=== PATIENT | female | born 1950 | race Caucasian/White ===

== ENCOUNTER → 2016-12-05 | Outpatient (CLI) | payer MEDICARE ==
--- NOTE | 2016-12-05 12:46 | CONS ---
DATE OF CONSULTATION: A 66-year-old female patient diagnosed having MATTEO back in 2009 under the care of Dr. Martinez and she was found to have an AHI of 28. At that time, the patient was given CPAP at a pressure of 8 cm of water. The treatment has been unsuccessful and the patient failed to comply with treatment and for the several years she has not been using her CPAP therapy at all. I reviewed the titration, and I see that it was an unsuccessful titration. Knowing that, the patient was initially started on CPAP and later onto a BiPAP and she continued to have respiratory events, probably some of them were central. As such, the patient did not seek comply with treatment and she has become more symptomatic and she is coming in for further advice. Note that she has lost around 20 pounds since her original study, yet she remains morbidly obese with a BMI of 54. Her sleep is fragmented. She wakes up constantly in the middle of the night. She thinks she averages around 4 to 5 hours of sleep at night and she feels tired and fatigued during the day. She is having some episodes of sleeptalking. Her legs are also reported to be restless throughout the night. No nocturnal heartburn. No nocturnal chest pain. No nocturia. No grinding of the teeth. Her current [place] score is at 12. PAST MEDICAL HISTORY: 1. Obstructive sleep apnea; details discussed above. AHI of 28 at baseline. 2. Hypertension. 3. History of CHF. 4. Depression/anxiety. 5. Restless leg syndrome. Surgical history includes hysterectomy, bladder repair, bowel repair in 2009, tonsillectomy. Drug allergies are not known. Outpatient medications are vitamin B12 and vitamin D. SOCIAL HISTORY: Nonsmoker. No history of alcoholism. No history of IV drugs. FAMILY HISTORY: Noncontributory. Negative for obstructive sleep apnea. REVIEW OF SYSTEMS: A 12-point review of systems was done and positive findings were all mentioned above in the history of present illness. Of significance is her poor sleep quality and sleep fragmentation. No anxiety or panic attacks. No depression. No claustrophobia, no reports that gastrointestinal symptoms. No genitourinary symptoms. No falls, no skeletal pain or injuries. No sleep paralysis, no hallucinations or cataplexy. BP is 160/87, pulse 68, respirations 16, temperature 97.9 and sats of 97% on room air. Height is 4,10, weight is 263. BMI is 54. GENERAL APPEARANCE: Calm and comfortable, obese. HEENT: Crowding of the posterior pharynx. There is no goiter or neck masses. LUNGS: Diminished; otherwise clear. Heart sounds are regular rate and rhythm, normal S1, S2. No S3, no S4. No murmurs. ABDOMEN: Soft, nontender. No organomegaly. EXTREMITIES: Trace edema. There is no cyanosis or clubbing. IMPRESSION: 1. Symptomatic obstructive sleep apnea with an apnea-hypopnea index of 28 based, based on the sleep study was done in 2009. Treatment has not been successful. In fact, the CPAP titration itself was not successful. Patient is coming in for reevaluation. 2. Morbid obesity; body mass index of 54. 3. Sleep fragmentation, secondary to above. 4. Chronic hypersomnia, Scotland score of 12. PLAN: 1. Continue weight loss. 2. Set up this patient for another CPAP titration. I intended to update the patient's pressure and mask interface and hopefully this treatment should be more successful. Will continue to follow and make further recommendations based on her progress.
== END | disposition home or self-care (01) ==
LOC: SLEEP 10:36
PROVIDERS: ATTEND Internal Medicine Critical Care Medicine
DX: G47.33 Obstructive sleep apnea (adult) (pediatric) (principal); G47.8 Other sleep disorders; G47.13 Recurrent hypersomnia; E66.01 Morbid (severe) obesity due to excess calories; Z68.43 Body mass index [BMI] 50.0-59.9, adult; Z99.89 Dependence on other enabling machines and devices

== ENCOUNTER → 2017-02-20 | Outpatient (CLI) | payer MEDICARE ==
--- NOTE | 2017-02-20 18:58 | PN ---
DATE OF SERVICE: 02/20/2017 This is a 66-year-old female patient diagnosed having MATTEO with an AHI of 28. She is coming in for a compliancy check. The patient is doing extremely well. She reports improvement in her sleep quality. She is averaging around 5.2 hours of CPAP use every night. Her CPAP use is for 27 out of 30 days over the past month and she is achieving more than 4 hours' usage about 60% of the time. Her AHI is down to 1.3 while on treatment. She is using AirFit P10 nasal pillows. No complaints at all. Much more alert and awake during the day. She is reporting improvement in her level of alertness. BP is 164/69, pulse 66, respirations 18, temperature 97.7. Weight is 266, BMI 53.7. Saturations are 99% on room air. Height is 4 feet 11 inches. GENERAL APPEARANCE: Calm and comfortable. HEENT: Short neck. Crowding of posterior pharynx. No goiter or neck masses. LUNGS: Clear to auscultation. Heart sounds are regular rate and rhythm. Normal S1, S2. Abdomen is soft, non-tender. No organomegaly. EXTREMITIES: No edema. No cyanosis or clubbing. IMPRESSION: 1. Symptomatic obstructive sleep apnea with an AHI of 28, consistent with moderate to severe disease. The patient continues to have successful CPAP therapy. 2. Hypersomnia, improved. 3. Congestive heart failure. 4. Hypertension. 5. Obesity. 6. Chronic anxiety disorder. 7. Depression. 8. Body mass index of 53.7. PLAN: Patient's treatment is successful. She demonstrates adequate clinical response and compliance. Continue CPAP therapy at the same level of pressure. See me back in a year's time in followup or earlier if needed. JASVIR
== END ==
LOC: SLEEP 13:46
PROVIDERS: ATTEND Internal Medicine Critical Care Medicine
DX: G47.33 Obstructive sleep apnea (adult) (pediatric) (principal); G47.10 Hypersomnia, unspecified; I10 Essential (primary) hypertension; E66.9 Obesity, unspecified; F41.9 Anxiety disorder, unspecified; F32.9 Major depressive disorder, single episode, unspecified; Z68.43 Body mass index [BMI] 50.0-59.9, adult

== ENCOUNTER 2017-06-25 14:24 | Emergency (ER) | payer MEDICARE ==
[2017-06-25 14:29] VITALS: RESP 18
--- NOTE | 2017-06-25 15:56 | ED ---
General Adult HPI - General Chief complaint: Recheck/Abnormal Lab/Rx Stated complaint: facial & leg swelling Time Seen by Provider: 06/25/17 15:40 Source: patient, RN notes reviewed Mode of arrival: wheelchair Limitations: no limitations - History of Present Illness Initial comments: Patient 66-year-old female who presents emergency room today with a chief complaint of cough congestion over the last few weeks. Is positive sputum production. Patient does admit to chills. Admits to weight gain. States that she's been feeling more short of breath recently with this cough congestion. Patient also is that she had some swelling to the right side of the face last week. She states was not domicile and some tenderness. She describes it as feeling like a tooth ache. She wears dentures. Patient also admits that since increased swelling to her lower extremities bilaterally. Patient denies any other complaints or associated symptoms. Patient denies any recent chest pain, back pain, abdominal pain, nausea or vomiting, numbness or tingling, dysuria or hematuria, constipation or diarrhea, headaches or visual changes, or any other complaints. - Related Data Home Medications Medication Instructions Recorded Confirmed Cholecalciferol [Vitamin D3] 1,000 unit PO DAILY 06/25/17 06/25/17 Cyanocobalamin (Vitamin B-12) 1,000 mcg PO DAILY 06/25/17 06/25/17 [Vitamin B-12] Previous Rx's Medication Instructions Recorded Albuterol Inhaler [Ventolin Hfa 1 - 2 puff INHALATION Q4-6H PRN #1 06/25/17 Inhaler] inhaler Amoxicillin/Potassium Clav 1 each PO Q12HR #20 tab 06/25/17 [Augmentin 875-125 Tablet] Allergies Allergy/AdvReac Type Severity Reaction Status Date / Time zinc Allergy Rash/Hives Verified 06/25/17 16:20 Review of Systems ROS Statement: Those systems with pertinent positive or pertinent negative responses have been documented in the HPI. ROS Other: All systems not noted in ROS Statement are negative. Past Medical History Past Medical History: Osteoarthritis (OA), Sleep Apnea/CPAP/BIPAP Additional Past Medical History / Comment(s): USES C-PAP MACHINE, VARICOSE VEINS , SWELLING IN LEGS AND FEET, WOUND RT FOOT History of Any Multi-Drug Resistant Organisms: None Reported Past Surgical History: Bladder Surgery, Hysterectomy, Tonsillectomy Additional Past Surgical History / Comment(s): BLADDER SLING Past Anesthesia/Blood Transfusion Reactions: No Reported Reaction Past Psychological History: Anxiety, Depression Smoking Status: Never smoker Past Alcohol Use History: Rare Past Drug Use History: None Reported - Past Family History Mother Family Medical History: Cancer Sister(s) Family Medical History: Cancer, Deep Vein Thrombosis (DVT), Pulmonary Embolus Additional Family Medical History / Comment(s): SISTER #1 UTERINE CA. SISTER # 2 UTERINE AND BREAST CA. Sister- 2-PEs, 3- DVTs General Exam - General Exam Comments Initial Comments: General: The patient is awake and alert, in no distress, and does not appear acutely ill. Eye: Pupils are equal, round and reactive to light, extra-ocular movements are intact. No nystagmus. There is normal conjunctiva bilaterally. No signs of icterus. Ears, nose, mouth and throat: There are moist mucous membranes and no oral lesions. Neck: The neck is supple, there is no tenderness or JVD. Cardiovascular: There is a regular rate and rhythm. No murmur, rub or gallop is appreciated. Respiratory: Lungs are clear to auscultation, respirations are non-labored, breath sounds are equal. No wheezes, stridor, rales, or rhonchi. Gastrointestinal: Soft, non-distended, non-tender abdomen without masses or organomegaly noted. There is no rebound or guarding present. No CVA tenderness. Bowel sounds are unremarkable. Musculoskeletal: Normal ROM, no tenderness. Strength 5/5. Sensation intact. Pulses equal bilaterally 2+. Neurological: A&O x 3. CN II-XII intact, There are no obvious motor or sensory deficits. Coordination appears grossly intact. Speech is normal. Skin: Skin is warm and dry and no rashes or lesions are noted. Psychiatric: Cooperative, appropriate mood & affect, normal judgment. Limitations: no limitations Course Vital Signs 06/25/17 06/25/17 14:26 16:14 Temperature 97.5 F L Pulse Rate 76 69 Respiratory 18 18 Rate Blood Pressure 200/92 158/70 O2 Sat by Pulse 100 97 Oximetry EKG Findings - EKG Comments: EKG Findings:: EKG performed at 1613: A 12-lead EKG was performed and interpreted by me as showing the following: Rate is 69, and rhythm is normal sinus. There are normal QRS complexes and normal R-wave progression. ST segments have no elevation or depression, and DE segments appear normal. Medical Decision Making - Medical Decision Making Patient is a 66-year-old female presenting today with a chief complaint of cough congestion with some chills and weight gain over the last few weeks. Patient's labs are within normal limits. Patient's chest x-ray shows no acute abnormalities. Patient's vitals are stable. Patient does describe some swelling to the face over the last week patient swallows gone away still having some discomfort in right side of her tooth. Patient's also had cough congestion for the last few weeks. Will be started on antibiotics cover for dental abscess versus bronchitis infection. Advised follow-up the family doctor over the next 2 days. Patient advised to use Mucinex for her cough and congestion. Also be given albuterol inhaler. Advised return here to emergency room if any symptoms increase worsen or for any other concerns. - Lab Data Result diagrams: 06/25/17 16:15 06/25/17 16:15 Lab Results 06/25/17 06/25/17 06/25/17 Range/Units 16:15 16:15 16:15 WBC 4.9 (3.8-10.6) k/uL RBC 4.31 (3.80-5.40) m/uL Hgb 13.1 (11.4-16.0) gm/dL Hct 39.5 (34.0-46.0) % MCV 91.6 (80.0-100.0) fL MCH 30.3 (25.0-35.0) pg MCHC 33.1 (31.0-37.0) g/dL RDW 12.2 (11.5-15.5) % Plt Count 275 (150-450) k/uL Neutrophils % 63 % Lymphocytes % 25 % Monocytes % 8 % Eosinophils % 2 % Basophils % 0 % Neutrophils # 3.1 (1.3-7.7) k/uL Lymphocytes # 1.2 (1.0-4.8) k/uL Monocytes # 0.4 (0-1.0) k/uL Eosinophils # 0.1 (0-0.7) k/uL Basophils # 0.0 (0-0.2) k/uL PT (9.0-12.0) sec INR (<1.2) APTT (22.0-30.0) sec Sodium 140 (137-145) mmol/L Potassium 4.5 (3.5-5.1) mmol/L Chloride 106 (98-107) mmol/L Carbon Dioxide 24 (22-30) mmol/L Anion Gap 10 mmol/L BUN 14 (7-17) mg/dL Creatinine 0.60 (0.52-1.04) mg/dL Est GFR (MDRD) Af Amer >60 (>60 ml/min/1.73 sqM) Est GFR (MDRD) Non-Af >60 (>60 ml/min/1.73 sqM) Glucose 97 (74-99) mg/dL Calcium 9.5 (8.4-10.2) mg/dL Total Bilirubin 0.7 (0.2-1.3) mg/dL AST 18 (14-36) U/L ALT 29 (9-52) U/L Alkaline Phosphatase 85 (38-126) U/L Total Creatine Kinase 41 (30-135) U/L CK-MB (CK-2) 0.3 (0.0-2.4) ng/mL CK-MB (CK-2) Rel Index 0.7 Troponin I <0.012 (0.000-0.034) ng/mL NT-Pro-B Natriuret Pep pg/mL Total Protein 7.4 (6.3-8.2) g/dL Albumin 3.9 (3.5-5.0) g/dL Urine Color Urine Appearance (Clear) Urine pH (5.0-8.0) Ur Specific [place] (1.001-1.035) Urine Protein (Negative) Urine Glucose (UA) (Negative) Urine Ketones (Negative) Urine Blood (Negative) Urine Nitrite (Negative) Urine Bilirubin (Negative) Urine Urobilinogen (<2.0) mg/dL Ur Leukocyte Esterase (Negative) 06/25/17 06/25/17 06/25/17 Range/Units 16:15 16:15 16:45 WBC (3.8-10.6) k/uL RBC (3.80-5.40) m/uL Hgb (11.4-16.0) gm/dL Hct (34.0-46.0) % MCV (80.0-100.0) fL MCH (25.0-35.0) pg MCHC (31.0-37.0) g/dL RDW (11.5-15.5) % Plt Count (150-450) k/uL Neutrophils % % Lymphocytes % % Monocytes % % Eosinophils % % Basophils % % Neutrophils # (1.3-7.7) k/uL Lymphocytes # (1.0-4.8) k/uL Monocytes # (0-1.0) k/uL Eosinophils # (0-0.7) k/uL Basophils # (0-0.2) k/uL PT 10.5 (9.0-12.0) sec INR 1.0 (<1.2) APTT 24.9 (22.0-30.0) sec Sodium (137-145) mmol/L Potassium (3.5-5.1) mmol/L Chloride (98-107) mmol/L Carbon Dioxide (22-30) mmol/L Anion Gap mmol/L BUN (7-17) mg/dL Creatinine (0.52-1.04) mg/dL Est GFR (MDRD) Af Amer (>60 ml/min/1.73 sqM) Est GFR (MDRD) Non-Af (>60 ml/min/1.73 sqM) Glucose (74-99) mg/dL Calcium (8.4-10.2) mg/dL Total Bilirubin (0.2-1.3) mg/dL AST (14-36) U/L ALT (9-52) U/L Alkaline Phosphatase (38-126) U/L Total Creatine Kinase (30-135) U/L CK-MB (CK-2) (0.0-2.4) ng/mL CK-MB (CK-2) Rel Index Troponin I (0.000-0.034) ng/mL NT-Pro-B Natriuret Pep 167 pg/mL Total Protein (6.3-8.2) g/dL Albumin (3.5-5.0) g/dL Urine Color Yellow Urine Appearance Clear (Clear) Urine pH 7.0 (5.0-8.0) Ur Specific [place] 1.005 (1.001-1.035) Urine Protein Negative (Negative) Urine Glucose (UA) Negative (Negative) Urine Ketones Negative (Negative) Urine Blood Negative (Negative) Urine Nitrite Negative (Negative) Urine Bilirubin Negative (Negative) Urine Urobilinogen <2.0 (<2.0) mg/dL Ur Leukocyte Esterase Negative (Negative) Disposition Clinical Impression: Bronchitis Disposition: HOME SELF-CARE Condition: Good Instructions: Acute Bronchitis (ED) Additional Instructions: Please use medication as discussed. Please follow-up with family doctor in the next 2 days. Please return to emergency room if the symptoms increase or worsen or for any other concerns. Prescriptions: Albuterol Inhaler [Ventolin Hfa Inhaler] 1 - 2 puff INHALATION Q4-6H PRN #1 inhaler PRN Reason: Cough Amoxicillin/Potassium Clav [Augmentin 875-125 Tablet] 1 each PO Q12HR #20 tab Referrals: Tasha Leon DO [Primary Care Provider] - 1-2 days Time of Disposition: 17:33
[2017-06-25 16:32] LABS: Basophils % (A) 0 %; CH 30.5; CHCM 33.4; Eosinophils # (A) 0.1 k/uL (0-0.7); Eosinophils % (A) 2 %; HCT 39.5 % (34.0-46.0); HDW 2.41; HGB 13.1 gm/dL (11.4-16.0); Luc # (Auto) 0.13; Luc % (Auto) 3; Lymphocytes # (A) 1.2 k/uL (1.0-4.8); Lymphocytes % (A) 25 %; MCH 30.3 pg (25.0-35.0); MCHC 33.1 g/dL (31.0-37.0); MCV 91.6 fL (80.0-100.0); Mean Platelet Volume 7.9; Monocytes # (A) 0.4 k/uL (0-1.0); Monocytes % (A) 8 %; Neutrophils # (A) 3.1 k/uL (1.3-7.7); Neutrophils % (A) 63 %; RBC 4.31 m/uL (3.80-5.40); RDW 12.2 % (11.5-15.5); WBC 4.9 k/uL (3.8-10.6); WBC (Perox) 4.97
--- NOTE | 2017-06-25 16:37 | XR ---
EXAMINATION TYPE: XR chest 2V DATE OF EXAM: 06/25/2017 COMPARISON: NONE HISTORY: Cough and cold symptoms for 3 weeks TECHNIQUE: Frontal and lateral views of the chest are obtained. FINDINGS: There is no heart failure. Heart size is normal. There is slight coarsening of interstitia l markings. There is no pleural effusion. There is spurring in the thoracic spine. IMPRESSION: Minimal pulmonary fibrotic changes. No heart failure. No pulmonary consolidation.
[2017-06-25 16:41] LABS: Partial Thromboplastin Time 24.9 sec (22.0-30.0); Prothrombin Time 10.5 sec (9.0-12.0)
[2017-06-25 16:43] LABS: ALT 29 U/L (9-52); AST 18 U/L (14-36); Alkaline Phosphatase 85 U/L (38-126); Anion Gap 10 mmol/L; Blood Urea Nitrogen 14 mg/dL (7-17); Calcium 9.5 mg/dL (8.4-10.2); Carbon Dioxide 24 mmol/L (22-30); Chloride 106 mmol/L (98-107); Glucose 97 mg/dL (74-99); Non-African American GFR(MDRD) >60 (>60 ml/min/1.73 sqM); Potassium 4.5 mmol/L (3.5-5.1); Sodium 140 mmol/L (137-145); Total Bilirubin 0.7 mg/dL (0.2-1.3); Total Protein 7.4 g/dL (6.3-8.2)
[2017-06-25 17:00] LABS: Creatine Kinase 41 U/L (30-135)
[2017-06-25 17:01] LABS: Appearance,Urine Clear (Clear); Bilirubin,Urine Negative (Negative); Glucose,Urine (UA) Negative (Negative); Ketones,Urine Negative (Negative); Leukocyte Esterase,Urine Negative (Negative); Nitrite,Urine Negative (Negative); Protein,Urine Negative (Negative); Specific Gravity,Urine 1.005 (1.001-1.035); UA Billing (MACRO vs. MICRO) CHEM; Urobilinogen,Urine <2.0 mg/dL (<2.0)
[2017-06-25 17:13] LABS: Creatine Kinase MB 0.3 ng/mL (0.0-2.4); Troponin I <0.012 ng/mL (0.000-0.034)
[2017-06-25 17:34] VITALS: BP 179/82; PULSE 78; TEMP 97
== END 2017-06-25 17:48 | disposition home or self-care (01) ==
LOC: EC 14:24
DX: J40 Bronchitis, not specified as acute or chronic (principal); R63.5 Abnormal weight gain; R22.0 Localized swelling, mass and lump, head; M79.89 Other specified soft tissue disorders; Z79.899 Other long term (current) drug therapy; Z91.048 Other nonmedicinal substance allergy status
CPT/HCPCS: 36415; 71020; 80053; 81003; 82550; 82553; 83880; 84484; 85025; 85610; 85730; 87040; 87086; 93005; 99284

== ENCOUNTER 2018-10-25 14:13 | Inpatient (IN) | payer MEDICARE ==
[2018-10-25] MEDS ORDERED: ASPIRIN 81 MG PO STA (14:45)
--- NOTE | 2018-10-25 14:48 | ED ---
General Adult HPI - General Chief complaint: Chest Pain Stated complaint: Abn stress test Time Seen by Provider: 10/25/18 14:27 Source: patient Mode of arrival: wheelchair Limitations: no limitations - History of Present Illness Initial comments: Dictation was produced using [employer] dictation software. please excuse any grammatical, word or spelling errors. Chief Complaint: 67-year-old female past medical history of sleep apnea presents with abnormal stress test. History of Present Illness: Patient is 67-year-old female. She had a cardiac stress test performed today. Cardiac stress test was ordered by primary care mary jane hodges. Patient reports that over the past several weeks she's been having worsening exertional chest pain and shortness of breath. She had stress test performed today. She was arriving home when she will receive a call from her primary care physician or she was instructed to come to the emergency department for further care. Patient denies any family history of cardiac disease. Patient denies any family history of cardiac disease. She does report having rheumatic fever as a child. Patient reports that her chest pain and shortness of breath are related to exertion that has been progressing. She reports that her pain is relieved with rest. The ROS documented in this emergency department record has been reviewed and confirmed by me. Those systems with pertinent positive or negative responses have been documented in the HPI. All other systems are other negative and/or noncontributory. PHYSICAL EXAM: General Impression: Alert and oriented x3, not in acute distress HEENT: Normocephalic atraumatic, extra-ocular movements intact, pupils equal and reactive to light bilaterally, mucous membranes moist. Cardiovascular: Heart regular rate and rhythm, S1&S2 audible, no murmurs, rubs or gallops Chest: Lungs clear to auscultation bilaterally, no rhonchi, no wheeze, no rales Abdomen: Bowel sounds present, abdomen soft, non-tender, non-distended, no organomegaly Musculoskeletal: Pulses present and equal in all extremities, no peripheral edema Motor: no focal deficits noted Neurological: CN II-XII grossly intact, no focal motor or sensory deficits noted Skin: Intact with no visualized rashes Psych: Normal affect and mood ED course: 67 yo female presents with chest pain concerning for acute coronary syndrome and positive outpatient stress test. As upon arrival are within normal limits. Patient does complain of some mild chest pain that has been improving while at rest. Patient reevaluated improvement of symptoms. EKG does not show any findings of ischemia or infarction.Laboratory evaluation obtained. CBC, coag panel, metabolic panel is unremarkable. Patient has a troponin of 0.013. Patient given an aspirin. Patient to be admitted to [facility] with consultation to cardiology. At this point given patient's relief of chest symptoms however not indicated at this time. Patient otherwise in no acute distress. Patient understandable and agreeable to disposition. EKG interpretation: Ventricular rate 80, normal sinus rhythm, TX interval 174, QRS 82, QTc 449. No TX prolongation, no QTC prolongation, no ST or T-wave changes noted. Overall, this EKG is unremarkable - Related Data Home Medications Medication Instructions Recorded Confirmed Albuterol Inhaler [Ventolin Hfa 1 - 2 puff INHALATION RT-Q4H PRN 10/25/18 10/25/18 Inhaler] Allergies Allergy/AdvReac Type Severity Reaction Status Date / Time zinc Allergy Rash/Hives Verified 10/25/18 15:04 Review of Systems ROS Statement: Those systems with pertinent positive or pertinent negative responses have been documented in the HPI. ROS Other: All systems not noted in ROS Statement are negative. Past Medical History Past Medical History: Osteoarthritis (OA), Sleep Apnea/CPAP/BIPAP Additional Past Medical History / Comment(s): USES C-PAP MACHINE, VARICOSE VEINS, SWELLING IN LEGS AND FEET, WOUND RT FOOT History of Any Multi-Drug Resistant Organisms: None Reported Past Surgical History: Bladder Surgery, Hysterectomy, Tonsillectomy Additional Past Surgical History / Comment(s): BLADDER SLING Past Anesthesia/Blood Transfusion Reactions: No Reported Reaction Past Psychological History: Anxiety, Depression Smoking Status: Never smoker Past Alcohol Use History: Rare Past Drug Use History: None Reported - Past Family History Mother Family Medical History: Cancer Sister(s) Family Medical History: Cancer, Deep Vein Thrombosis (DVT), Pulmonary Embolus Additional Family Medical History / Comment(s): SISTER #1 UTERINE CA. SISTER #2 UTERINE AND BREAST CA. Sister- 2-PEs, 3- DVTs General Exam Limitations: no limitations Course Vital Signs 10/25/18 10/25/18 10/25/18 14:22 14:47 14:50 Temperature 97.9 F Pulse Rate 83 81 80 Respiratory 22 Rate Blood Pressure 154/75 O2 Sat by Pulse 97 96 95 Oximetry 03/22/19 03/22/19 03/22/19 15:00 15:10 15:20 Temperature Pulse Rate 77 77 Respiratory Rate Blood Pressure 155/78 152/94 148/68 O2 Sat by Pulse 96 96 Oximetry Medical Decision Making - Lab Data Result diagrams: 10/25/18 14:49 10/25/18 14:49 Lab Results 10/25/18 10/25/18 10/25/18 Range/Units 14:49 14:49 14:49 WBC 4.9 (3.8-10.6) k/uL RBC 4.40 (3.80-5.40) m/uL Hgb 13.7 (11.4-16.0) gm/dL Hct 42.5 (34.0-46.0) % MCV 96.8 (80.0-100.0) fL MCH 31.1 (25.0-35.0) pg MCHC 32.1 (31.0-37.0) g/dL RDW 13.3 (11.5-15.5) % Plt Count 230 (150-450) k/uL Neutrophils % 58 % Lymphocytes % 26 % Monocytes % 11 % Eosinophils % 3 % Basophils % 0 % Neutrophils # 2.8 (1.3-7.7) k/uL Lymphocytes # 1.3 (1.0-4.8) k/uL Monocytes # 0.5 (0-1.0) k/uL Eosinophils # 0.1 (0-0.7) k/uL Basophils # 0.0 (0-0.2) k/uL PT 9.7 (9.0-12.0) sec INR 0.9 (<1.2) APTT 24.0 (22.0-30.0) sec Sodium 142 (137-145) mmol/L Potassium 4.2 (3.5-5.1) mmol/L Chloride 108 H (98-107) mmol/L Carbon Dioxide 25 (22-30) mmol/L Anion Gap 9 mmol/L BUN 14 (7-17) mg/dL Creatinine 0.62 (0.52-1.04) mg/dL Est GFR (CKD-EPI)AfAm >90 (>60 ml/min/1.73 sqM) Est GFR (CKD-EPI)NonAf >90 (>60 ml/min/1.73 sqM) Glucose 97 (74-99) mg/dL Calcium 9.3 (8.4-10.2) mg/dL Magnesium 2.0 (1.6-2.3) mg/dL Total Bilirubin 0.7 (0.2-1.3) mg/dL AST 17 (14-36) U/L ALT 19 (9-52) U/L Alkaline Phosphatase 87 (38-126) U/L Troponin I (0.000-0.034) ng/mL Total Protein 7.2 (6.3-8.2) g/dL Albumin 4.0 (3.5-5.0) g/dL 10/25/18 Range/Units 14:49 WBC (3.8-10.6) k/uL RBC (3.80-5.40) m/uL Hgb (11.4-16.0) gm/dL Hct (34.0-46.0) % MCV (80.0-100.0) fL MCH (25.0-35.0) pg MCHC (31.0-37.0) g/dL RDW (11.5-15.5) % Plt Count (150-450) k/uL Neutrophils % % Lymphocytes % % Monocytes % % Eosinophils % % Basophils % % Neutrophils # (1.3-7.7) k/uL Lymphocytes # (1.0-4.8) k/uL Monocytes # (0-1.0) k/uL Eosinophils # (0-0.7) k/uL Basophils # (0-0.2) k/uL PT (9.0-12.0) sec INR (<1.2) APTT (22.0-30.0) sec Sodium (137-145) mmol/L Potassium (3.5-5.1) mmol/L Chloride (98-107) mmol/L Carbon Dioxide (22-30) mmol/L Anion Gap mmol/L BUN (7-17) mg/dL Creatinine (0.52-1.04) mg/dL Est GFR (CKD-EPI)AfAm (>60 ml/min/1.73 sqM) Est GFR (CKD-EPI)NonAf (>60 ml/min/1.73 sqM) Glucose (74-99) mg/dL Calcium (8.4-10.2) mg/dL Magnesium (1.6-2.3) mg/dL Total Bilirubin (0.2-1.3) mg/dL AST (14-36) U/L ALT (9-52) U/L Alkaline Phosphatase (38-126) U/L Troponin I 0.013 (0.000-0.034) ng/mL Total Protein (6.3-8.2) g/dL Albumin (3.5-5.0) g/dL Disposition Clinical Impression: ACS (acute coronary syndrome) Disposition: ADMITTED IP TO THIS HOSP Condition: Critical Referrals: Tasha Leon DO [Primary Care Provider] - 1-2 days Decision Time: 15:37
[2018-10-25 15:02] LABS: Basophils % (A) 0 %; Eosinophils # (A) 0.1 k/uL (0-0.7); Eosinophils % (A) 3 %; HCT 42.5 % (34.0-46.0); HGB 13.7 gm/dL (11.4-16.0); Lymphocytes # (A) 1.3 k/uL (1.0-4.8); Lymphocytes % (A) 26 %; MCH 31.1 pg (25.0-35.0); MCHC 32.1 g/dL (31.0-37.0); MCV 96.8 fL (80.0-100.0); Mean Platelet Volume 7.9; Monocytes # (A) 0.5 k/uL (0-1.0); Monocytes % (A) 11 %; Neutrophils # (A) 2.8 k/uL (1.3-7.7); Neutrophils % (A) 58 %; Platelet Count 230 k/uL (150-450); RDW 13.3 % (11.5-15.5); WBC 4.9 k/uL (3.8-10.6)
[2018-10-25 15:11] LABS: ALT 19 U/L (9-52); AST 17 U/L (14-36); Alkaline Phosphatase 87 U/L (38-126); Anion Gap 9 mmol/L; Blood Urea Nitrogen 14 mg/dL (7-17); Calcium 9.3 mg/dL (8.4-10.2); Carbon Dioxide 25 mmol/L (22-30); Chloride 108 mmol/L (98-107); Glucose 97 mg/dL (74-99); Potassium 4.2 mmol/L (3.5-5.1); Sodium 142 mmol/L (137-145); Total Bilirubin 0.7 mg/dL (0.2-1.3); Total Protein 7.2 g/dL (6.3-8.2)
--- NOTE | 2018-10-25 15:15 | XR ---
EXAMINATION TYPE: XR chest 2V DATE OF EXAM: 10/25/2018 COMPARISON: Chest x-ray June 25, 2017. HISTORY: Chest pain. TECHNIQUE: Frontal and lateral views of the chest are obtained. FINDINGS: There is chronic parenchymal change without suspicious focal air space opacity, pleural ef fusion, or pneumothorax seen. The cardiac silhouette size is enlarged with atherosclerotic and ectat ic aorta causing slight tracheal deviation to the right on current study. The osseous structures ar e somewhat demineralized. Multilevel spurring in thoracic spine is redemonstrated. IMPRESSION: Chronic changes and cardiomegaly without acute pulmonary process.
[2018-10-25 15:16] LABS: INR 0.9 (<1.2); Prothrombin Time 9.7 sec (9.0-12.0)
[2018-10-25] MEDS ORDERED: NITROGLYCERIN SL TABS 0.4 MG TAB SUBLINGUAL PRN (15:38)
[2018-10-25] MEDS ORDERED: HEPARIN SODIUM,PORCINE 5,000 UNIT/ML 1 ML VIAL IV ONE (15:57)
[2018-10-25] MEDS ORDERED: HEPARIN SODIUM,PORCINE 5,000 UNIT/ML 1 ML VIAL IV PRN (15:57)
[2018-10-25] MEDS ORDERED: ATORVASTATIN 40 MG TAB PO STA (15:58)
[2018-10-25] MEDS ORDERED: HEPARIN SOD,PORK IN 0.45% NACL 25,000 UNIT in 0.45% NACL 1 250ML.BAG IV SCH (16:00)
[2018-10-25 16:12] VITALS: BMI 52.7
[2018-10-25] MEDS ORDERED: INFLUENZA VACCINE (6 MOS+) 60 MCG/0.5 ML SYRINGE IM ONE (16:13)
[2018-10-25] MEDS ORDERED: PNEUMOCOCCAL VACC-PNEUMOVAX 23 25 MCG/0.5 ML VIAL IM ONE (16:14)
--- NOTE | 2018-10-25 17:13 | P.HPIM ---
History of Present Illness H&P Date: 10/25/18 Chief Complaint: Chest pain 59-year-old female with no significant past medical history presents the ED after being called by her primary care physician for an abnormal stress test. Patient reports that she has been experiencing shortness of breath and wheezing has been ongoing "forever". Patient reports that her breathing is progressively been getting worse over the past 6 months. Patient states that she is usually able to walk a couple 100 feet but now find it difficult to walk That distance. She reports that her shortness of breath is worsened with exertion. Patient also reports palpitations, especially with exertion. She denies any headache, lower extremity edema, nausea, vomiting, fever, cough, chest pain, changes in urination or bowel habits. She has been given albuterol inhaler by her PCP without any relief. She underwent stress test which showed pharmacologically- induced left ventricular myocardial ischemia and possible prior infarct. In the ED, CBC and coagulation panel was unremarkable. CMP showed a chloride 108. Troponin was 0.013, EKG showing normal sinus rhythm. Chest x-ray shows no acute abnormalities. Patient is admitted for abnormal stress test, cardiology on consult. Review of Systems All systems: negative Past Medical History Past Medical History: Osteoarthritis (OA), Sleep Apnea/CPAP/BIPAP, Vascular Disorder Additional Past Medical History / Comment(s): MATTEO with CPap use, arthritis mostly in lower back, cardiac murmur, bilateral legs varicosities, bilateral legs/feet edema at times, past R ankle wound-healed. History of Any Multi-Drug Resistant Organisms: None Reported Past Surgical History: Bladder Surgery, Hysterectomy, Tonsillectomy Additional Past Surgical History / Comment(s): BLADDER SLING, EGD, colonoscopy, R carpal tunnel release, R elbow release. Past Anesthesia/Blood Transfusion Reactions: No Reported Reaction Smoking Status: Never smoker - Past Family History Father Family Medical History: Coronary Artery Disease (CAD), Myocardial Infarction (TN) Additional Family Medical History / Comment(s): Father had heart disease and had a TN in his 50s. Mother Family Medical History: Cancer Additional Family Medical History / Comment(s): Mother had cancer but pt does not recall type. Sister(s) Family Medical History: Cancer, Deep Vein Thrombosis (DVT), Pulmonary Embolus Additional Family Medical History / Comment(s): SISTER #1 UTERINE CA. SISTER #2 UTERINE AND BREAST CA. Sister#3 2-PEs, 3- DVTs Medications and Allergies Home Medications Medication Instructions Recorded Confirmed Type Albuterol Inhaler [Ventolin Hfa 1 - 2 puff INHALATION RT-Q4H PRN 10/25/18 10/25/18 History Inhaler] Allergies Allergy/AdvReac Type Severity Reaction Status Date / Time zinc Allergy Rash/Hives Verified 10/25/18 15:04 Physical Exam Vitals: Vital Signs Temp Pulse Resp BP Pulse Ox 10/25/18 15:40 79 18 156/116 98 10/25/18 15:30 80 18 148/68 97 10/25/18 15:20 77 148/68 96 10/25/18 15:10 152/94 10/25/18 15:00 77 155/78 96 10/25/18 14:50 80 95 10/25/18 14:47 81 96 10/25/18 14:22 97.9 F 83 22 154/75 97 Intake and Output 10/25/18 10/25/18 10/25/18 06:59 14:59 22:59 Other: Weight 122.47 kg General: [non toxic], [no distress], [appears at stated age] Derm: [warm], [dry] Head: [atraumatic], [normocephalic], [symmetric] Eyes: [EOMI], [no lid lag], [anicteric sclera] Mouth: [no lip lesion], [mucus membranes moist] Cardiovascular: [S1S2 reg], [no murmur], [positive DP pulse bilateral] Lungs: [CTA bilateral], [no rhonchi, no rales] , [no accessory muscle use] Abdominal: [soft], [ nontender to palpation], [no guarding], [no appreciable organomegaly], [obese] Ext: [no gross muscle atrophy], [no edema], [venous stasis changes bilateral lower extremities] Neuro: [ CN II-XI grossly intact], [no focal neuro deficits] Psych: [Alert], [oriented], [appropriate affect] Results CBC & Chem 7: 10/25/18 14:49 10/25/18 14:49 Labs: Abnormal Lab Results - Last 24 Hours (Table) 10/25/18 Range/Units 14:49 Chloride 108 H (98-107) mmol/L Thrombosis Risk Factor Assmnt - Choose All That Apply Any of the Below Risk Factors Present?: Yes Each Factor Represents 1 point: Obesity (BMI >25), Swollen legs (current), Varicose veins Other Risk Factors: Yes Each Risk Factor Represents 2 Points: Age 61-74 years Other congenital or acquired thrombophilia - If yes, enter type in comment: No Thrombosis Risk Factor Assessment Total Risk Factor Score: 5 Thrombosis Risk Factor Assessment Level: High Risk Assessment and Plan Assessment: Assessment and Plan 1. Shortness of breath 2. Abnormal stress test 1. Possibly secondary to worsening cardiac function. Chest x-ray shows chronic findings. Trial of albuterol inhaler without relief. Lexiscan done today shows EF of about 50% with pharmacologically induced left ventricular myocardial ischemia. Started on heparin drip. Continue aspirin and Lipitor. Start metoprolol. Nitrostat as needed for chest pain. Telemetry monitoring. Will follow cardiology recommendations. 2. Management as above. Patient admitted for abnormal stress test. Has history of progressively worsening shortness of breath. Cardiology is consulted. Patient states that she would like to name her daughters myrtle and Sun in the case that she can't make decisions for herself. At this time she would like to remain full code. Patient does not want prolonged intubations.
[2018-10-26 06:54] LABS: Basophils % (A) 0 %; Eosinophils # (A) 0.1 k/uL (0-0.7); Eosinophils % (A) 3 %; HCT 39.7 % (34.0-46.0); HGB 12.5 gm/dL (11.4-16.0); Lymphocytes # (A) 1.3 k/uL (1.0-4.8); Lymphocytes % (A) 28 %; MCH 30.6 pg (25.0-35.0); MCHC 31.4 g/dL (31.0-37.0); MCV 97.7 fL (80.0-100.0); Mean Platelet Volume 8.2; Monocytes # (A) 0.5 k/uL (0-1.0); Monocytes % (A) 11 %; Neutrophils # (A) 2.5 k/uL (1.3-7.7); Neutrophils % (A) 55 %; Platelet Count 216 k/uL (150-450); RBC 4.07 m/uL (3.80-5.40); RDW 13.4 % (11.5-15.5); WBC 4.4 k/uL (3.8-10.6)
[2018-10-26 07:18] LABS: Anion Gap 5 mmol/L; Blood Urea Nitrogen 12 mg/dL (7-17); Calcium 8.7 mg/dL (8.4-10.2); Carbon Dioxide 24 mmol/L (22-30); Chloride 110 mmol/L (98-107); Cholesterol 146 mg/dL (<200); Glucose 104 mg/dL (74-99); HDL Cholesterol 54 mg/dL (40-60); LDL Cholesterol,Calculated 78 mg/dL (0-99); Potassium 4.2 mmol/L (3.5-5.1); Sodium 139 mmol/L (137-145); Triglycerides 71 mg/dL (<150)
[2018-10-26] MEDS ORDERED: ASPIRIN 325 MG TAB PO SCH (09:00)
[2018-10-26] MEDS: HEPARIN SODIUM,PORCINE 5,000 UNIT/ML 1 ML VIAL SQ SCH ×3 (10:08→23:43)
[2018-10-26] MEDS: ASPIRIN 81 MG PO SCH (10:08)
[2018-10-26] MEDS: METOPROLOL TARTRATE 25 MG TAB PO SCH (10:08)
--- NOTE | 2018-10-26 11:31 | P.PN ---
Subjective Progress Note Date: 10/26/18 Principal diagnosis: abnormal stress Patient was seen and examined. No acute events overnight. Patient reports no chest pain, shortness of breath or palpitations. Evaluated by cardiology, echocardiogram obtained, plans for possible cardiac catheterization tomorrow. Objective - Vital Signs Vital signs: Vital Signs Temp 97.6 F 10/26/18 09:51 Pulse 86 10/26/18 09:51 Resp 16 10/26/18 09:51 BP 158/66 10/26/18 09:51 Pulse Ox 94 L 10/26/18 09:51 Intake & Output 10/25/18 10/26/18 10/26/18 18:59 06:59 18:59 Intake Total 790.957 124.385 Balance 790.957 124.385 Weight 122.47 kg 124.3 kg Intake: IV 220 normal saline 220 Intake, IV Titration 70.957 124.385 Amount Heparin Sod,Pork in 0.45% 70.957 124.385 NaCl 25,000 unit In 0.45 % NaCl 1 250ml.bag @ 8.16 UNITS/KG/HR 9.994 mls/hr IV .Q24H [facility] Rx#: [id number] Oral 500 Other: Voiding Method Toilet Toilet Toilet # Voids 2 - Exam General: [non toxic], [no distress], [appears at stated age] Derm: [warm], [dry] Head: [atraumatic], [normocephalic], [symmetric] Eyes: [EOMI], [no lid lag], [anicteric sclera] Mouth: [no lip lesion], [mucus membranes moist] Cardiovascular: [S1S2 reg], [no murmur], [positive DP pulse bilateral] Lungs: [CTA bilateral], [no rhonchi, no rales] , [no accessory muscle use] Abdominal: [soft], [ nontender to palpation], [no guarding], [no appreciable organomegaly], [obese] Ext: [no gross muscle atrophy], [no edema], [venous stasis changes bilateral lower extremities] Neuro: [no focal neuro deficits] Psych: [Alert], [oriented], [appropriate affect] - Labs CBC & Chem 7: 10/26/18 05:48 10/26/18 05:48 Labs: Abnormal Lab Results - Last 24 Hours (Table) 10/25/18 10/25/18 10/26/18 Range/Units 14:49 22:21 05:48 APTT 39.1 H (22.0-30.0) sec Chloride 108 H 110 H (98-107) mmol/L Glucose 104 H (74-99) mg/dL 10/26/18 Range/Units 05:48 APTT 44.7 H (22.0-30.0) sec Chloride (98-107) mmol/L Glucose (74-99) mg/dL Assessment and Plan Assessment: Assessment and Plan 1. Shortness of breath 2. Abnormal stress test 1. Possibly secondary to worsening cardiac function. Chest x-ray shows chronic findings. Trial of albuterol inhaler without relief. Lexiscan done today shows EF of about 50% with pharmacologically induced left ventricular myocardial ischemia. Started on heparin drip. Continue aspirin and Lipitor. Start metoprolol. Nitrostat as needed for chest pain. Telemetry monitoring. Echocardiogram obtained. Cardiology consulted, plans for possible cath tomorrow. 2. Management as above. Patient admitted for abnormal stress test. Has history of progressively worsening shortness of breath. Plans for possible cath tomorrow. Patient states that she would like to name her daughters myrtle and Sun in the case that she can't make decisions for herself. At this time she would like to remain full code. Patient does not want prolonged intubations.
[2018-10-26] MEDS ORDERED: SODIUM CHLORIDE 0.9% 1,000 ML in EMPTY BAG 1 BAG IV ONE (13:02)
[2018-10-26] MEDS ORDERED: ALPRAZolam 0.5 MG TAB PO PRN (13:02)
[2018-10-26] MEDS ORDERED: ALPRAZolam 0.25 MG TAB PO PRN (13:02)
--- NOTE | 2018-10-26 17:35 | CONS ---
CONSULTATION Mimi Butcher is a 67-year-old somewhat of an obese lady with a history of what seems to be some bronchial asthma/COPD and uses some bronchodilators. She came into the emergency room upon referral by her primary care physician after she had an abnormal stress test. Apparently she has been experiencing shortness of breath, wheezing and tightness in the chest and pressure when she does some physical activity. This has become progressively worse and as part of the workup, her primary care physician, Dr. Otto ordered a Lexiscan stress test which revealed evidence of anterior wall reversible defect with the possibility of ischemia and prior NV and ejection fraction of about 50%. In view of this abnormality, a phone call was made to the primary care physician by the radiologist and subsequently patient was asked to come to the ER. She has exertional shortness of breath, chest tightness, wheezing, and also now an abnormal stress test. She denies any chest discomfort at the time of my evaluation, but has does indicate that with mild activity she has been using shortness of breath and occasionally chest tightness which has increased lately. She has obstructive sleep apnea, wears a CPAP most of the time. PAST MEDICAL HISTORY: 1. Obesity. 2. Osteoarthritis. 3. History of obstructive sleep apnea syndrome. 4. History of a cardiac murmur. 5. Status post bladder surgery, tonsillectomy and hysterectomy. MEDICATIONS: At home include albuterol inhaler. ALLERGIES: SHE IS ALLERGIC TO ZINC. EXAMINATION: On examination blood pressure is 140/84, pulse rate is about 86 per minute and irregular. HEENT unremarkable. Fundus was not examined by me. NECK: Supple. There is JVD of 1 cm. There is no carotid bruit. Heart exam reveals S1, S2 with ejection systolic murmur at the base. Lungs reveal scattered rhonchi. Abdomen is soft, nontender. Lower extremities revealed chronic pigmentation with mild trace edema bilaterally. Diminished pulses. Central nervous system grossly no focal deficits. LABORATORY DATA: Revealed that the 3 sets of troponins are normal. IMPRESSION: 1. Chest pain and chest pressure and tightness with shortness of breath and abnormal stress test suggestive of ischemia in the anterior wall. 2. Obesity. 3. Gastroesophageal reflux disease. 4. History of obstructive sleep apnea syndrome, uses CPAP. 5. History of an abnormal stress test. 6. I have advised the patient regarding the abnormal stress test and I reviewed the images. The possibility of soft tissue attenuation cannot be excluded, but clearly there is a reversible component. I am recommending coronary angiography. The rationale, risks, benefits, options were explained to the patient and daughter. They understand all details and wished to proceed with the procedure which will be performed tomorrow. In the meantime, I have initiated her on beta blockers and also atorvastatin and 81 mg of aspirin. We will watch her closely. I will discontinue the heparin drip, place her on a subcu heparin. Cardiac cath will be performed tomorrow and if necessary intervention. Patient and family understand the rationale, risks, benefits, options and wished to proceed. MMODL / IJN: [id number] /
--- NOTE | 2018-10-26 17:45 | ECHOF ---
Referral Reason:LV function MEASUREMENTS -------- HEIGHT: 152.4 cm WEIGHT: 124.3 kg BP: 140/92 RVIDd: 2.8 cm (< 3.3) IVSd: 1.2 cm (0.6 - 1.1) LVIDd: 5.2 cm (3.9 - 5.3) LVPWd: 1.2 cm (0.6 - 1.1) IVSs: 1.5 cm LVIDs: 2.9 cm LVPWs: 1.5 cm LA Diam: 3.8 cm (2.7 - 3.8) LAESV Index (A-L): 23.67 ml/m Ao Diam: 2.8 cm (2.0 - 3.7) AV Cusp: 1.1 cm (1.5 - 2.6) LA Diam: 3.6 cm (2.7 - 3.8) EPSS: 0.2 cm MV E Norbert: 1.13 m/s MV DecT: 307 ms MV A Norbert: 0.98 m/s MV E/A Ratio: 1.15 RAP: 5.00 mmHg RVSP: 39.50 mmHg MV EF SLOPE: 49.53 mm/s (70 - 150) MV EXCURSION: 1.87 cm (> 18.000) FINDINGS -------- Undetermined rhythm. This was a technically difficult study with suboptimal views. The left ventricular size is normal. There is mild concentric left ventricular hypertrophy. Overa ll left ventricular systolic function is normal with, an EF between 60 - 65 %. The right ventricle is normal in size and function. Normal LA size by volume 22+/-6 ml/m2. The right atrium is normal in size. 3 ml of Lumason was utilized for enhancement of images. There is mild aortic valve sclerosis. There is mild aortic regurgitation. There is no evidence of aortic stenosis. The mitral valve leaflets are mildly thickened. Mild mitral annular calcification present. Mild m itral regurgitation is present. Mild tricuspid regurgitation present. There is no evidence of pulmonary hypertension. The right v entricular systolic pressure, as measured by Doppler, is 39.50mmHg. The pulmonic valve was not well visualized. The aortic root size is normal. IVC Not well visulized. There is a small pericardial effusion located near the left ventricle. CONCLUSIONS -------- 1. Undetermined rhythm. 2. This was a technically difficult study with suboptimal views. 3. The left ventricular size is normal. 4. There is mild concentric left ventricular hypertrophy. 5. Overall left ventricular systolic function is normal with, an EF between 60 - 65 %. 6. Normal LA size by volume 22+/-6 ml/m2. 7. 3 ml of Lumason was utilized for enhancement of images. 8. There is mild aortic valve sclerosis. 9. There is mild aortic regurgitation. 10. The mitral valve leaflets are mildly thickened. 11. Mild mitral annular calcification present. 12. Mild mitral regurgitation is present. 13. Mild tricuspid regurgitation present. 14. There is no evidence of pulmonary hypertension. 15. The right ventricular systolic pressure, as measured by Doppler, is 39.50mmHg. 16. The pulmonic valve was not well visualized. 17. The aortic root size is normal. 18. IVC Not well visulized. 19. There is a small pericardial effusion located near the left ventricle. GARMENT LINER: Zoin Ramos RDCS
[2018-10-26] MEDS: ATORVASTATIN 40 MG TAB PO SCH (19:41)
[2018-10-27] MEDS: ASPIRIN 81 MG PO SCH (06:36)
[2018-10-27] MEDS: HEPARIN SODIUM,PORCINE 5,000 UNIT/ML 1 ML VIAL SQ SCH ×3 (06:36→23:21)
[2018-10-27] MEDS: METOPROLOL TARTRATE 25 MG TAB PO SCH (06:36)
[2018-10-27 06:37] LABS: Glucose,Whole Blood 102 mg/dL (75-99)
[2018-10-27 06:58] LABS: Basophils % (A) 0 %; Eosinophils # (A) 0.1 k/uL (0-0.7); Eosinophils % (A) 4 %; HCT 42.3 % (34.0-46.0); HGB 13.3 gm/dL (11.4-16.0); Lymphocytes # (A) 1.2 k/uL (1.0-4.8); Lymphocytes % (A) 36 %; MCH 30.7 pg (25.0-35.0); MCHC 31.5 g/dL (31.0-37.0); MCV 97.4 fL (80.0-100.0); Mean Platelet Volume 7.9; Monocytes # (A) 0.4 k/uL (0-1.0); Monocytes % (A) 11 %; Neutrophils # (A) 1.5 k/uL (1.3-7.7); Neutrophils % (A) 44 %; Platelet Count 238 k/uL (150-450); RBC 4.34 m/uL (3.80-5.40); RDW 13.3 % (11.5-15.5); WBC 3.4 k/uL (3.8-10.6)
[2018-10-27 07:05] LABS: Anion Gap 8 mmol/L; Blood Urea Nitrogen 12 mg/dL (7-17); Calcium 9.3 mg/dL (8.4-10.2); Carbon Dioxide 22 mmol/L (22-30); Chloride 110 mmol/L (98-107); Glucose 108 mg/dL (74-99); Potassium 4.2 mmol/L (3.5-5.1); Sodium 140 mmol/L (137-145)
[2018-10-27] MEDS ORDERED: ASPIRIN 81 MG PO ONE (12:05)
[2018-10-27] MEDS ORDERED: VERAPAMIL 2.5 MG/ML 2 ML AMP ONE (12:06)
[2018-10-27] MEDS ORDERED: HEPARIN SODIUM 1,000 UN/ML (10ML VL) ONE (12:06)
[2018-10-27] MEDS ORDERED: ASPIRIN 81 MG ONE (12:08)
[2018-10-27] MEDS: MIDAZOLAM 2 MG/2 ML VIAL IVP ONE ×2 (12:20→12:24)
[2018-10-27] MEDS ORDERED: LIDOCAINE 1% INJ 10MG/ML (20 ML MDV) SQ ONE (12:23)
[2018-10-27] MEDS: VERAPAMIL SYRINGE (5 MG/10 ML) INTRAARTER ONE ×2 (12:25→12:44)
[2018-10-27] MEDS ORDERED: HYDROmorphone 2 MG/ML 1 ML SYRINGE IVP ONE (12:29)
[2018-10-27] MEDS ORDERED: IV FLUID CONTINUATION 800 ML IV ONE (12:30)
[2018-10-27] MEDS ORDERED: HEPARIN SODIUM 1,000 UN/ML (10ML VL) IV ONE (12:33)
[2018-10-27] MEDS ORDERED: IOPAMIDOL-370 100ML BTL INJ ONE (12:45)
[2018-10-27] MEDS ORDERED: RX INFO: IV CONTRAST WAS GIVEN 1 EACH MISC MISCELLANE PRN (12:51)
[2018-10-27] MEDS: SODIUM CHLORIDE 0.9% 1,000 ML IV SCH (13:20)
--- NOTE | 2018-10-27 14:18 | PN ---
PROGRESS NOTE Mrs. Butcher is a lady going for a cardiac cath today. Vital signs stable. S1-S2 heard normally. Lungs are clear. Abdomen and lower extremity exam unchanged. Labs are good. She has isolated PVCs. No intervention. Beta ej was started. I talked to the patient and family regarding the risks, benefits, options and rationale. They understand and wish to proceed with the procedure. MMODL / IJN: [id number] /
--- NOTE | 2018-10-27 14:34 | CC ---
CARDIAC CATHETERIZATION REPORT DATE OF SERVICE: 10/27/2018. PROCEDURE: Coronary angiography. PERFORMED BY: Dr. Joon Coronado. SEDATION: Moderate conscious sedation time was 23 minutes. Patient was administered Versed, her oxygen saturation, hemodynamics and EKG were monitored closely. CLINICAL INFORMATION: Mrs. Mimi Butcher is a 67-year-old obese lady with a history of obstructive sleep apnea who wears a CPAP. She also has some COPD. She is a past smoker. She came in for a stress test which was abnormal with evidence of some anterior wall partially reversible defect suggestive of both ischemia and infarction. She was therefore advised cardiac catheterization. Risks, benefits, options, rationale were explained. PROCEDURE NOTE: Under local anesthesia and strict aseptic precautions, a 6-Syrian introducer was placed in the right radial artery. Using a JR4 catheter, I performed selective coronary angiography of the right coronary artery. Using Ultimata 1 catheter, I performed selective coronary angiography of the left system. I did not obtain LV pressures. I did not perform LV gram. The sheath was taken out and TR band applied as per protocol and patient was sent to the room in stable condition. Results were discussed with the patient and family. The saturation of the fingers of the right hand was 94%. She received 3000 units of heparin intravenously. CORONARY ANGIOGRAPHY FINDINGS: LEFT MAIN CORONARY ARTERY: This is a short patent vessel, free of significant disease that immediately bifurcates into LAD and circumflex. LEFT ANTERIOR DESCENDING CORONARY ARTERY: Good caliber vessel extends along the anterior wall, gives off septal and diagonal branches, runs all the way to the apex, very tortuous, has minor irregularities no significant disease. LEFT POSTERIOR CIRCUMFLEX CORONARY ARTERY: Technically a dominant vessel gives a single obtuse marginal which runs laterally, has minor irregularities. No significant disease and distally bifurcates into PDA and PLV, both of which supply a sizable amount of myocardium. There is no significant disease in the circumflex which is dominant. However, it is not a very large distribution vessel. RIGHT CORONARY ARTERY: Nondominant vessel, small in caliber distribution, gives off an acute marginal branch, has limited area of myocardium being supplied by this and has minor diffuse disease throughout. FINAL IMPRESSION: This patient has a left dominant system. Minor irregularities. No significant obstructive disease noted. LV pressures were not checked. RECOMMENDATIONS: Findings were discussed with the patient and family. I am recommending continued medical therapy with risk factor modification. Patient will be hydrated and discharged tomorrow morning. Advised to continue current medical regimen including beta ej and statins. MMODL / IJN: [id number] /
--- NOTE | 2018-10-27 15:39 | P.PN ---
Subjective Progress Note Date: 10/27/18 (Delayed charting patient seen 0945) Principal diagnosis: dyspnea of exertion Patient is a 67-year-old female with a past medical history of osteoarthritis, obstructive sleep apnea on CPAP, and cardiac murmur who presented at the direction of Dr. Otto after having an abnormal stress test. She's been having exertional dyspnea with exercise intolerance. On arrival to the ER she underwent an extensive evaluation. Her initial laboratory analysis was within normal limits and troponin was negative. Initial vital signs showed slightly elevated blood pressure at 154/75. Initial EKG did not show any signs of ischemia. Chest x-ray was negative. She was admitted for further monitoring for acute coronary syndrome. Cardiology was consulted. Her troponin remained negative. She underwent an echocardiogram on 10/26 which showed an ejection fraction of 60-65%, no evidence of pulmonary hypertension. Outpatient Lexiscan stress test showed pharmacologically induced left ventricular myocardial ischemia, possible prior infarct. Plan is for cardiac catheterization. Patient seen and examined at bedside. She is still struggling with exercise intolerance, no chest pain, no shortness of breath. She does use her CPAP at home and creatinine with her. She denies any nausea or vomiting. She is feeling nervous about her cardiac catheterization. Family at bedside and all questions answered. She'll need close follow-up for blood pressure monitoring in the outpatient setting. I also suggested possible pulmonary function testing as an outpatient. Objective - Vital Signs Vital signs: Vital Signs Temp 98 F 10/27/18 11:30 Pulse 60 10/27/18 14:50 Resp 16 10/27/18 14:50 BP 117/66 10/27/18 14:50 Pulse Ox 94 L 10/27/18 14:20 Intake & Output 10/26/18 10/27/18 10/27/18 18:59 06:59 18:59 Intake Total 553.545 8261 100 Balance 696.301 2863 100 Weight 124 kg Intake: IV 40 100 normal saline 40 Intake, IV Titration 538.580 0130 Amount Heparin Sod,Pork in 0.45% 124.385 NaCl 25,000 unit In 0.45 % NaCl 1 250ml.bag @ 8.16 UNITS/KG/HR 9.994 mls/hr IV .Q24H [facility] Rx#: [id number] Sodium Chloride 0.9% 1, 1000 000 ml In Empty Bag 1 bag @ 1 ML/KG/HR 124.3 mls/ hr IV .Q8H3[facility] Rx#: [id number] Oral 480 600 Other: Voiding Method Toilet Toilet Toilet # Voids 1 3 3 - Exam General: non toxic, no distress, appears at stated age, obese Derm: warm, dry Head: atraumatic, normocephalic, symmetric Eyes: EOMI, no lid lag, anicteric sclera Mouth: no lip lesion, mucus membranes moist Cardiovascular: S1S2 reg, no murmur, positive posterior tibial pulse bilateral, Lungs: CTA bilateral, no rhonchi, no rales , no accessory muscle use Abdominal: soft, nontender to palpation, no guarding, no appreciable organ omegaly Ext: no gross muscle atrophy, trace edema, no contractures Neuro: CN II-XI grossly intact, no focal neuro deficits Psych: Alert, oriented, appropriate affect - Labs CBC & Chem 7: 10/27/18 06:20 10/27/18 06:20 Labs: Abnormal Lab Results - Last 24 Hours (Table) 10/27/18 10/27/18 10/27/18 Range/Units 06:20 06:20 06:23 WBC 3.4 L (3.8-10.6) k/uL Chloride 110 H (98-107) mmol/L Glucose 108 H (74-99) mg/dL POC Glucose (mg/dL) 102 H (75-99) mg/dL Assessment and Plan Assessment: Abnormal stress test - cath today - continue with lipitor, BB, ASA Exercise intolerance - PT/OT eval - Outpatient PFT - Await cath results Morbid obesity - outpatient structured weight loss Elevated BP, no formal diagnosis of HTN - started on metoprolol - follow BP, continued outpatient follow up MATTEO - CPAP at night DVT prophylaxis: heparin Discussed with: Patient and family Anticipated discharge: [address]: home A total of 25 minutes was spent on the care of this complex patient more than 50% of the time was spent in counseling and care coordination.
[2018-10-27] MEDS: ATORVASTATIN 40 MG TAB PO SCH (20:01)
[2018-10-28] MEDS: SODIUM CHLORIDE 0.9% 1,000 ML IV SCH (03:29)
[2018-10-28] MEDS: METOPROLOL TARTRATE 25 MG TAB PO SCH (08:32)
[2018-10-28] MEDS: ASPIRIN 81 MG PO SCH (08:32)
[2018-10-28] MEDS: HEPARIN SODIUM,PORCINE 5,000 UNIT/ML 1 ML VIAL SQ SCH (08:33)
[2018-10-28 09:04] VITALS: RESP 20; TEMP 98.3
--- NOTE | 2018-10-28 09:46 | P.DS ---
Providers Date of admission: 10/27/18 14:10 Expected date of discharge: 10/28/18 Attending physician: Alek Ko MD Consults: 10/25/18 15:38 Consult Physician Urgent Consulting Provider: Edmond Streeter Consult Reason/Comments: positive outpatient stress test Do you want consulting provider notified?: Yes Primary care physician: Tasha Leon Hospital Course: Discharge Diagnosis: Abnormal stress test, cath without significant disease Exercise intolerance HTN Morbid obesity- BMI 53.2 [place] Hospital Course: Patient is a 67-year-old female with a past medical history of osteoarthritis, obstructive sleep apnea on CPAP, and cardiac murmur who presented at the direction of Dr. Otto after having an abnormal stress test. She's been having exertional dyspnea with exercise intolerance. On arrival to the ER she underwent an extensive evaluation. Her initial laboratory analysis was within normal limits and troponin was negative. Initial vital signs showed slightly elevated blood pressure at 154/75. Initial EKG did not show any signs of ischemia. Chest x-ray was negative. She was admitted for further monitoring for acute coronary syndrome. Cardiology was consulted. Her troponin remained negative. She underwent an echocardiogram on 10/26 which showed an ejection fraction of 60-65%, no evidence of pulmonary hypertension. Outpatient Lexiscan stress test showed pharmacologically induced left ventricular myocardial ischemia, possible prior infarct. She underwent cardaic cath on 10/27 which dena wed minor irregularities and no significant obstructive disease. She was given hydration and determined stable for discharge. She was able to ambulate in the hallways with therapy. She will have home health on discharge with physical therapy and nursing. She may benefit from pulmonary function testing if not already preformed. She will start on metoprolol for elevated blood pressures and lipitor. She will follow up with Dr. Coronado and Dr. Otto in the office. Patient seen and examined at bedside. No chest pain, no dyspnea at baseline, no nausea, no vomiting, no diarrhea. Agreeable to home health with physical therapy. Vital signs reviewed and stable. General: non toxic, no distress, appears older than stated age Derm: warm, dry Head: atraumatic, normocephalic, symmetric Eyes: EOMI, no lid lag, anicteric sclera Mouth: no lip lesion, mucus membranes moist Cardiovascular: S1S2 reg, no murmur, positive posterior tibial pulse bilateral, Lungs: faint expiratory wheeze bilateral, no rhonchi, no rales , no accessory muscle use Abdominal: soft, nontender to palpation, no guarding, no appreciable organomegaly Ext: no gross muscle atrophy, no edema, no contractures Neuro: CN II-XI grossly intact, no focal neuro deficits Psych: Alert, oriented, appropriate affect A total of 25 minutes of time were spent preparing this complex discharge summary . Pertinent Studies: Echo- preserved EF, no significant valvular disease, and no pulmonary HTN Procedures: Cath- preserved EF, minimal disease Patient Condition at Discharge: Stable Plan - Discharge Summary Discharge Rx Participant: No New Discharge Prescriptions: New Aspirin 81 mg PO DAILY chew Atorvastatin [Lipitor] 40 mg PO HS #30 tab Metoprolol Succinate (ER) [Toprol Xl] 25 mg PO DAILY #30 tab Continue Albuterol Inhaler [Ventolin Hfa Inhaler] 1 - 2 puff INHALATION RT-Q4H PRN PRN Reason: Cough Discharge Medication List Albuterol Inhaler [Ventolin Hfa Inhaler] 1 - 2 puff INHALATION RT-Q4H PRN 10/25/18 [History] Aspirin 81 mg PO DAILY chew 10/28/18 [Rx] Atorvastatin [Lipitor] 40 mg PO HS #30 tab 10/28/18 [Rx] Metoprolol Succinate (ER) [Toprol Xl] 25 mg PO DAILY #30 tab 10/28/18 [Rx] Follow up Appointment(s)/Referral(s): Brandy Coronado MD [STAFF PHYSICIAN] - 1 Week (Spoke to receptionist clerk. Office will call with appointment time) Tasha Leon DO [Primary Care Provider] - 10/31/18 11:00 am () [facility], [NON-STAFF] - 1 Week Patient Instructions/Handouts: Dyspnea Scale and Exercise (DC) Activity/Diet/Wound Care/Special Instructions: Diet: heart healthy Activity: as tolerated. Discharge Disposition: HOME WITH HOME HEALTH SERVICES
[2018-10-28 11:32] VITALS: BP 157/80; PULSE 67
== END 2018-10-28 14:00 | disposition home health service (06) | DRG 287 ==
LOC: EC 14:13 → 3SCARD 15:38 → OBSVTOIN 10-27 14:10
PROVIDERS: ADMIT Internal Medicine; ATTEND Internal Medicine
PROC: 5A09357 Assistance with Respiratory Ventilation, Less than 24 Consecutive Hours, Continuous Positive Airway Pressure (ICD-10-PCS; 2018-10-27)
PROC: B2111ZZ Fluoroscopy of Multiple Coronary Arteries using Low Osmolar Contrast (ICD-10-PCS; principal; 2018-10-27 12:10)
DX: R94.39 Abnormal result of other cardiovascular function study (principal); Z68.43 Body mass index [BMI] 50.0-59.9, adult; E66.01 Morbid (severe) obesity due to excess calories; J44.9 Chronic obstructive pulmonary disease, unspecified; G47.33 Obstructive sleep apnea (adult) (pediatric); I49.3 Ventricular premature depolarization; I10 Essential (primary) hypertension; F41.9 Anxiety disorder, unspecified; I25.2 Old myocardial infarction; K21.9 Gastro-esophageal reflux disease without esophagitis; M19.90 Unspecified osteoarthritis, unspecified site; I83.90 Asymptomatic varicose veins of unspecified lower extremity; Z79.899 Other long term (current) drug therapy; Z71.3 Dietary counseling and surveillance; Z86.19 Personal history of other infectious and parasitic diseases; Z99.89 Dependence on other enabling machines and devices; Z86.59 Personal history of other mental and behavioral disorders; Z90.710 Acquired absence of both cervix and uterus; Z91.048 Other nonmedicinal substance allergy status; Z83.2 Family history of diseases of the blood and blood-forming organs and certain disorders involving the immune mechanism; Z80.49 Family history of malignant neoplasm of other genital organs; Z80.3 Family history of malignant neoplasm of breast; Z82.49 Family history of ischemic heart disease and other diseases of the circulatory system
CPT/HCPCS: 36415; 71046; 80048; 80053; 80061; 83735; 84484; 85025; 85610; 85730; 93005; 93306; 93454; 94760; 96365; 96376; 99285

== ENCOUNTER → 2018-10-25 | Outpatient (CLI) | payer MEDICARE ==
[~2018-10-25] MED LIST: REGADENOSON 0.4 MG/5 ML SYRINGE IV ONE
--- NOTE | 2018-10-25 12:36 | NM ---
EXAMINATION TYPE: NM stress lexiscan cardiolite DATE OF EXAM: 10/25/2018 COMPARISON: NONE HISTORY: Abnormal EKG shortness of breath TECHNIQUE: After the intravenous administration of 10.28 mCi Tc 99m Sestamibi - Cardiolite resting S PECT images acquired 45 minutes post injection. The patient received 0.4mg Lexiscan, 26.2 mCi Tc 99m Sestamibi - Stress images obtained [address] injection FINDINGS: Review of stress and rest SPECT images demonstrates decreased radiopharmaceutical uptake along the an terolateral left ventricle on stress as compared to rest images. Decreased uptake noted on both stres s and rest images suggesting possible prior infarction. Gated analysis shows normal wall motion with an estimated left ventricular ejection fraction of 50 %. IMPRESSION: Pharmacologically induced left ventricular myocardial ischemia. Possible prior infarct. Results relay ed to the office of Dr. Leon at the time of interpretation of the exam to Dr. Landon.
--- NOTE | 2018-10-26 14:38 | EST ---
EXERCISE STRESS AGE: 67 SEX: Female HT: 5'0" WT: 270 pounds PROTOCOL: Lexiscan Cardiolite STAGE: DURATION OF EXERCISE: HEART RATE REST: 69 BLOOD PRESSURE REST: 144/89 MAXIMUM HEART RATE ACHIEVED: 82 MAXIMUM BLOOD PRESSURE: 176/74 85% MPHR: 100% MPHR: METS: INDICATIONS: Shortness of breath, abnormal EKG. CLINICAL INFORMATION: The patient was given Lexiscan injection over a period of 15 seconds. The peak heart rate of 73 was achieved. Maximum blood pressure of 176/74 mmHg was noted. Resting EKG shows a normal sinus rhythm with normal GA interval and QRS duration and normal ST-T waves. Occasional PVCs were noted. No ST-segment depression suggestive of ischemia is noted. FINAL IMPRESSION: There is no evidence of any ST-segment depression to suggest ischemia during Lexiscan injection. The results of the nuclear study will follow. OMI / BARBARAN: [id number] /
== END | disposition home or self-care (01) ==
LOC: RADNMMAIN 07:58
PROVIDERS: ATTEND Family Medicine
DX: I25.9 Chronic ischemic heart disease, unspecified (principal)
CPT/HCPCS: 93017; 78452; A9500; J2785

== ENCOUNTER → 2018-12-31 | Outpatient (CLI) | payer MEDICARE ==
[2018-12-31 13:22] VITALS: BP 168/84; PULSE 68; TEMP 97.8; BMI 56.4
--- NOTE | 2018-12-31 14:35 | P.HPBAR ---
Bariatric H&P - History & Physicial H&P Date: 12/31/18 History & Physicial: Visit/CC: initial clinic visit Patient initial contact: Initial weight: Initial weight in pounds: Height: 4 ft 10 in Initial BMI: Last weight: Current weight: 122.47 kg Current weight in pounds: 270.00 Current BMI: 56.4 [place] body weight (based on NIH guidelines): 40.823 kg Excess body weight loss: The patient is a 68 year-old F who presents for Bariatric Assessment. Patient presents today as a new patient bariatric evaluation. She went to our bariatric seminar several weeks ago. Apparently in the past she was scheduled for lap band placement but her insurance was canceled and her surgery was subsequently canceled as well. Patient is interested in weight loss surgery. She suffers from hypertension, hypercholesterolemia, asthma, sleep apnea, and knee arthritis. No significant abdominal surgeries in the past. BMI 56. Patient denies DVT or dysphagia. Review of Systems The patient denies any acute changes in vision or hearing, no dysphagia or odynophagia, no chest pain or shortness of breath, no dysuria or hematuria, no headache, no runny nose, no rectal bleeding or melena, no unexplained weight loss Past Medical History Past Medical History: Hyperlipidemia, Hypertension, Osteoarthritis (OA), Sleep Apnea/CPAP/BIPAP, Vascular Disorder Additional Past Medical History / Comment(s): MATTEO with CPap use, arthritis mostly in lower back, cardiac murmur, bilateral legs varicosities, bilateral legs/feet edema at times, past R ankle wound-healed. History of Any Multi-Drug Resistant Organisms: None Reported Past Surgical History: Bladder Surgery, Hysterectomy, Tonsillectomy Additional Past Surgical History / Comment(s): BLADDER SLING, EGD, colonoscopy, R carpal tunnel release, R elbow release. Past Anesthesia/Blood Transfusion Reactions: No Reported Reaction Past Psychological History: Anxiety, Depression Additional Psychological History / Comment(s): Pt resides alone. She uses a cane or walker at times to ambulate. She drives. Her children are helpful. Smoking Status: Never smoker Past Alcohol Use History: Rare Past Drug Use History: None Reported - Past Family History Father Family Medical History: Coronary Artery Disease (CAD), Myocardial Infarction (GA) Additional Family Medical History / Comment(s): Father had heart disease and had a GA in his 50s. Mother Family Medical History: Cancer Additional Family Medical History / Comment(s): Mother had cancer but pt does not recall type. Sister(s) Family Medical History: Cancer, Deep Vein Thrombosis (DVT), Pulmonary Embolus Additional Family Medical History / Comment(s): SISTER #1 UTERINE CA. SISTER #2 UTERINE AND BREAST CA. Sister#3 2-PEs, 3- DVTs Surgical - Exam Vital Signs Temp Pulse BP 97.8 F 68 168/84 12/31/18 13:09 12/31/18 13:09 12/31/18 13:09 Physical exam: General: Well-developed, well-nourished HEENT: Normocephalic, sclerae nonicteric Abdomen: Nontender, nondistended Extremities: No edema Neuro: Alert and oriented Bariatric Assessment & Plan (1) Morbid obesity Narrative/Plan: 68-year-old female with BMI of 56 interested in weight loss surgery. Surgical options including sleeve gastrectomy, gastric bypass and briefly duodenal switch reviewed with her and her family. Apparently her other daughter was present at the recent seminar. Patient leaning toward sleeve gastrectomy at this time. She and her 2 daughters plan to discuss surgical options further and will notify me of their final decision whether to proceed with sleeve gastrectomy or alternate referral for gastric bypass. Surgical risks reviewed. Will require preoperative EGD. Await clearance letters. Status: Acute Bariatric Checklist Checklist: Plan: Checklist: EGD: 1. Hiatal hernia: 2. H. Pylori: HgbA1c: Vitamin D: Smoking: Never smoker Primary care physician referral: dr acevedo Psychiatry clearance: Cardiology clearance: Sleep study: Diet journal: VTE risk score: VTE risk level: Rehab needs at discharge:
== END | disposition home or self-care (01) ==
LOC: BARWHC3 12:25
PROVIDERS: ATTEND Surgery
DX: E66.01 Morbid (severe) obesity due to excess calories (principal); G47.33 Obstructive sleep apnea (adult) (pediatric); Z99.89 Dependence on other enabling machines and devices; Z90.710 Acquired absence of both cervix and uterus; Z90.89 Acquired absence of other organs; Z98.890 Other specified postprocedural states; Z68.43 Body mass index [BMI] 50.0-59.9, adult
CPT/HCPCS: 99211

== ENCOUNTER → 2019-01-16 | Outpatient (CLI) | payer MEDICARE ==
--- NOTE | 2019-01-16 11:46 | P.HPBAR ---
Bariatric H&P - History & Physicial H&P Date: 01/16/19 History & Physicial: Visit/CC: Patient initial contact: Initial weight: Initial weight in pounds: Height: Initial BMI: Last weight: Current weight: Current weight in pounds: Current BMI: [place] body weight (based on NIH guidelines): Excess body weight loss: The patient is a 68 year-old F who presents for Bariatric Assessment. HPI: She comes in looking in between gastrectomy. PCP is Dr. Otto. Highest weight is 287 pounds. She has tried Weight watchers, medical weight loss, and medications. The most weight loss she had was 5 to 10 pounds the most. She denies regurgitation. No stomach cancer. No esophageal cancer. She has breast and uterine cancer in her family. She had a colonscopy 10 years ago with out polyps. She still has her gall bladder. No known family history of gallbladder. She has 13 siblings for which she is not aware of their health. No past tobacco. She wants to lose 100 pounds. She reports left knee pain. She has CPAP machine. She has history of PE and DVT in her family. She had a bladder sling and tubal ligation. PLAN: 1. [facility] calculator 2. She wants the bypass 3. She needed heart clearance Past Medical History Past Medical History: Hyperlipidemia, Hypertension, Osteoarthritis (OA), Sleep Apnea/CPAP/BIPAP, Vascular Disorder Additional Past Medical History / Comment(s): MATTEO with CPap use, arthritis mostly in lower back, cardiac murmur, bilateral legs varicosities, bilateral legs/feet edema at times, past R ankle wound-healed. History of Any Multi-Drug Resistant Organisms: None Reported Past Surgical History: Bladder Surgery, Hysterectomy, Tonsillectomy Additional Past Surgical History / Comment(s): BLADDER SLING, EGD, colonoscopy, R carpal tunnel release, R elbow release. Past Anesthesia/Blood Transfusion Reactions: No Reported Reaction Past Psychological History: Anxiety, Depression Additional Psychological History / Comment(s): Pt resides alone. She uses a cane or walker at times to ambulate. She drives. Her children are helpful. Smoking Status: Never smoker Past Alcohol Use History: Rare Past Drug Use History: None Reported - Past Family History Father Family Medical History: Coronary Artery Disease (CAD), Myocardial Infarction (VT) Additional Family Medical History / Comment(s): Father had heart disease and had a VT in his 50s. Mother Family Medical History: Cancer Additional Family Medical History / Comment(s): Mother had cancer but pt does not recall type. Sister(s) Family Medical History: Cancer, Deep Vein Thrombosis (DVT), Pulmonary Embolus Additional Family Medical History / Comment(s): SISTER #1 UTERINE CA. SISTER #2 UTERINE AND BREAST CA. Sister#3 2-PEs, 3- DVTs Bariatric Checklist Checklist: Plan: Checklist: EGD: 1. Hiatal hernia: 2. H. Pylori: HgbA1c: Vitamin D: Smoking: Never smoker Primary care physician referral: dr otto Psychiatry clearance: Cardiology clearance: Sleep study: Diet journal: VTE risk score: VTE risk level: Rehab needs at discharge:
[2019-01-16 13:11] LABS: INR 0.9 (<1.2); Partial Thromboplastin Time 25.6 sec (22.0-30.0)
[2019-01-16 13:16] LABS: HCT 37.2 % (34.0-46.0); HGB 11.9 gm/dL (11.4-16.0); MCH 30.4 pg (25.0-35.0); Mean Platelet Volume 9.4; Platelet Count 171 k/uL (150-450); RBC 3.92 m/uL (3.80-5.40); RDW 13.8 % (11.5-15.5); WBC 4.9 k/uL (3.8-10.6)
[2019-01-16 14:00] VITALS: TEMP 98; BMI 57.6
[2019-01-16 19:00] LABS: African American GFR (CKD) 107.8 (60.0-200.0); Albumin 3.9 g/dL (3.80-4.90); Albumin/Globulin Ratio 1.44 (1.60-3.17); BUN/Creat Ratio 18.33 Ratio (12.00-20.00); Calcium 9.3 mg/dL (8.7-10.3); Globulin 2.7 g/dL (1.6-3.3); Potassium 4.5 mmol/L (3.5-5.5); Total Bilirubin 0.5 mg/dL (0.3-1.2); Total Protein 6.6 g/dL (6.2-8.2)
[2019-01-16 19:06] LABS: Iron Saturation 18.79 (12.00-45.00)
[2019-01-16 19:13] LABS: Vitamin D 25 Hydroxy 24.5 ng/mL (30.0-100.0)
[2019-01-16 19:15] LABS: Folate, Serum 8.9 ng/mL
[2019-01-16 21:10] LABS: Parathyroid Hormone Intact 64.8 pg/mL (14.0-72.0)
[2019-01-16 22:49] LABS: Hemoglobin A1C 5.2 % (4.0-6.0)
[2019-01-17 14:10] LABS: Zinc, Serum 51 ug/dL (60-130)
[2019-01-20 06:27] LABS: Vit B1(Thiamine) 63 ug/L (38-122)
[2019-01-20 06:37] LABS: Vitamin A 28 ug/dL (38-106)
[2019-01-21 19:07] LABS: Selenium 102 mcg/L (63-160)
== END ==
LOC: BARWHC3 10:49
PROVIDERS: ATTEND Surgery Plastic and Reconstructive Surgery
DX: M25.562 Pain in left knee (principal); E66.01 Morbid (severe) obesity due to excess calories; E21.1 Secondary hyperparathyroidism, not elsewhere classified; E89.1 Postprocedural hypoinsulinemia; D50.9 Iron deficiency anemia, unspecified; K90.9 Intestinal malabsorption, unspecified; E55.9 Vitamin D deficiency, unspecified; K74.1 Hepatic sclerosis; N19 Unspecified kidney failure; K50.90 Crohn's disease, unspecified, without complications; Z99.89 Dependence on other enabling machines and devices; Z68.43 Body mass index [BMI] 50.0-59.9, adult
CPT/HCPCS: 84255; 84134; 84425; 80061; 80053; 82607; 82728; 82525; 82746; 83540; 83550; 83735; 84100; 84443; 84590; 84630; 85027; 85610; 85730; 82306; 83970; 83036; G0463; 99211

== ENCOUNTER 2019-03-17 12:31 | Day surgery (SDC) | payer MEDICARE ==
[2019-03-12 09:39] VITALS: BMI 55.5
--- NOTE | 2019-03-16 21:32 | P.GSHP ---
History of Present Illness H&P Date: 03/17/19 CHIEF COMPLAINT: GERD HISTORY OF PRESENT ILLNESS: The patient is a 68-year-old female who presents reports gastroesophageal reflux disease. Upper endoscopy was offered for further evaluation and management. PAST MEDICAL HISTORY: Please see list. PAST SURGICAL HISTORY: Please see list. MEDICATIONS: Please see list. ALLERGIES: Please see list. SOCIAL HISTORY: No illicit drug use FAMILY HISTORY: No reports of Crohn disease or ulcerative colitis. REVIEW OF ORGAN SYSTEMS: CONSTITUTIONAL: No reports of fevers or chills. GI: Denies any blood in stools or constipation. PHYSICAL EXAM: VITAL SIGNS: Stable GENERAL: Well-developed and pleasant in no acute distress. HEENT: No scleral icterus. Extraocular movements grossly intact. Moist buccal mucosa. NECK: Supple without lymphadenopathy. CHEST: Unlabored respirations. Equal bilateral excursions. CARDIOVASCULAR: Regular rate and rhythm. Distal 2+ pulses. ABDOMEN: Soft, nondistended. MUSCULOSKELETAL: No clubbing, cyanosis, or edema. ASSESSMENT: 1. Gastroesophageal reflux disease PLAN: 1. Recommend proceeding with an upper endoscopy Past Medical History Past Medical History: Hyperlipidemia, Hypertension, Osteoarthritis (OA), Sleep Apnea/CPAP/BIPAP, Vascular Disorder Additional Past Medical History / Comment(s): CPap use, cardiac murmur, bilateral legs/feet edema at times, History of Any Multi-Drug Resistant Organisms: None Reported Past Surgical History: Bladder Surgery, Hysterectomy, Tonsillectomy Additional Past Surgical History / Comment(s): BLADDER SLING, EGD, colonoscopy, R carpal tunnel release, R elbow release. Past Anesthesia/Blood Transfusion Reactions: No Reported Reaction Smoking Status: Never smoker - Past Family History Father Family Medical History: Coronary Artery Disease (CAD), Myocardial Infarction (IA) Additional Family Medical History / Comment(s): Father had heart disease and had a IA in his 50s. Mother Family Medical History: Cancer Additional Family Medical History / Comment(s): Mother had cancer but pt does not recall type. Sister(s) Family Medical History: Cancer, Deep Vein Thrombosis (DVT), Pulmonary Embolus Additional Family Medical History / Comment(s): SISTER #1 UTERINE CA. SISTER #2 UTERINE AND BREAST CA. Sister#3 2-PEs, 3- DVTs Medications and Allergies Home Medications Medication Instructions Recorded Confirmed Type Albuterol Inhaler [Ventolin Hfa 1 - 2 puff INHALATION RT-Q4H PRN 10/25/18 03/12/19 History Inhaler] Aspirin 81 mg PO DAILY chew 10/28/18 03/12/19 Rx Atorvastatin [Lipitor] 40 mg PO HS #30 tab 10/28/18 03/12/19 Rx Metoprolol Succinate (ER) [Toprol 25 mg PO DAILY #30 tab 10/28/18 03/12/19 Rx Xl] Multivitamins, Thera [Multivitamin 1 tab PO DAILY 03/12/19 03/12/19 History (formulary)] Vitamin A 10,000 unit PO DAILY 03/12/19 03/12/19 History Zinc 50 mg PO DAILY 03/12/19 03/12/19 History Allergies Allergy/AdvReac Type Severity Reaction Status Date / Time zinc oxide Allergy Rash/Hives Verified 03/12/19 08:29
[~2019-03-17 12:31] MED LIST changes: +LACTATED RINGERS 1,000 ML IV SCH; +LIDOCAINE 1% 20 ML VIAL (10MG/ML) FOR IV START INTRADERMA PRN; -REGADENOSON 0.4 MG/5 ML SYRINGE IV ONE
[2019-03-17 13:04] VITALS: TEMP 97.7
[2019-03-17] MEDS ORDERED: PROPOFOL 10 MG/ML 20 ML VIAL IV ONE (13:54)
[2019-03-17] MEDS ORDERED: LIDOCAINE 1% INJ 10MG/ML (20 ML MDV) ONE (13:54)
--- NOTE | 2019-03-17 14:20 | P.PCN ---
Date of Procedure: 03/17/19 Description of Procedure: PREOPERATIVE DIAGNOSIS: Gastroesophageal reflux disease. Morbid obesity. POSTOPERATIVE DIAGNOSIS: Morbid obesity. Gastric tumor, antrum Gastroesophageal reflux disease. Diaphragmatic hiatal hernia OPERATION: Esophagogastroduodenoscopy with hot snare polypectomy excision of gastric tumor, antrum SURGEON: Emma Gill MD ANESTHESIA: MAC. INDICATIONS: The patient is a 58-year-old female who presents with a history of reflux disease. Benefits and risks of the procedure were described. Informed consent was obtained. DESCRIPTION: The patient was brought into the endoscopy suite and laid in the left lateral decubitus position. An Olympus gastroscope was passed along the posterior oropharynx down to the distal esophagus where the squamocolumnar junction was encountered at 37 cm from the incisors. The stomach was entered and no bile reflux was found. Additional findings are listed below. Biopsies with cold forceps were obtained of the antrum. The first through third portion of the duodenum was examined and unremarkable. Retroflexion of the scope confirmed Hill grade 4 lower esophageal valve. The squamocolumnar junction demonstrated LA grade B erosive esophagitis. The stomach was desufflated. The patient tolerated the procedure well. FINDINGS: Squamocolumnar junction 37 cm from the incisors. Diaphragmatic hiatus at 39 cm. Hiatal hernia, 2 cm Hill grade 4 lower esophageal valve. LA grade B erosive esophagitis. No active duodenitis. 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 resected in completion with hot snare RECOMMENDATIONS: Repeat upper endoscopy 4 weeks Plan - Discharge Summary Discharge Rx Participant: No New Discharge Prescriptions: No Action Albuterol Inhaler [Ventolin Hfa Inhaler] 1 - 2 puff INHALATION RT-Q4H PRN PRN Reason: Shortness Of Breath Aspirin 81 mg PO DAILY chew Atorvastatin [Lipitor] 40 mg PO HS #30 tab Metoprolol Succinate (ER) [Toprol Xl] 25 mg PO DAILY #30 tab Vitamin A 10,000 unit PO DAILY Multivitamins, Thera [Multivitamin (formulary)] 1 tab PO DAILY Zinc 50 mg PO DAILY Discharge Medication List Albuterol Inhaler [Ventolin Hfa Inhaler] 1 - 2 puff INHALATION RT-Q4H PRN 10/25/18 [History] Aspirin 81 mg PO DAILY chew 10/28/18 [Rx] Atorvastatin [Lipitor] 40 mg PO HS #30 tab 10/28/18 [Rx] Metoprolol Succinate (ER) [Toprol Xl] 25 mg PO DAILY #30 tab 10/28/18 [Rx] Multivitamins, Thera [Multivitamin (formulary)] 1 tab PO DAILY 03/12/19 [History] Vitamin A 10,000 unit PO DAILY 03/12/19 [History] Zinc 50 mg PO DAILY 03/12/19 [History] Follow up Appointment(s)/Referral(s): [facility] [NON-STAFF] - 04/09/19 Patient Instructions/Handouts: Upper Endoscopy (DC), *Surgery [facility] - (Anesthesia) Endoscopy Discharge Instructions Discharge Disposition: HOME SELF-CARE
[2019-03-17 14:22] VITALS: RESP 20
[2019-03-17 14:34] VITALS: BP 132/80; PULSE 64
== END 2019-03-17 14:55 | disposition home or self-care (01) ==
LOC: ORWHC2ENDO 12:31
PROVIDERS: ATTEND Surgery Plastic and Reconstructive Surgery
DX: K21.0 Gastro-esophageal reflux disease with esophagitis (principal); K31.7 Polyp of stomach and duodenum; K29.50 Unspecified chronic gastritis without bleeding; K44.9 Diaphragmatic hernia without obstruction or gangrene; I10 Essential (primary) hypertension; E78.5 Hyperlipidemia, unspecified; M19.90 Unspecified osteoarthritis, unspecified site; G47.33 Obstructive sleep apnea (adult) (pediatric); Z99.89 Dependence on other enabling machines and devices; R01.1 Cardiac murmur, unspecified; E66.01 Morbid (severe) obesity due to excess calories; Z68.43 Body mass index [BMI] 50.0-59.9, adult; Z97.2 Presence of dental prosthetic device (complete) (partial); Z79.82 Long term (current) use of aspirin; Z79.899 Other long term (current) drug therapy; Z88.8 Allergy status to other drugs, medicaments and biological substances; Z90.710 Acquired absence of both cervix and uterus; Z82.49 Family history of ischemic heart disease and other diseases of the circulatory system; Z80.3 Family history of malignant neoplasm of breast; Z80.8 Family history of malignant neoplasm of other organs or systems
CPT/HCPCS: 43251; 88305; 88342; J2001; J2704

== ENCOUNTER → 2019-04-09 | Outpatient (CLI) | payer MEDICARE ==
[2019-04-09 13:39] VITALS: BMI 58.1
[2019-04-09 13:51] VITALS: BP 188/81; PULSE 68; RESP 16; TEMP 98.6
--- NOTE | 2019-04-09 14:47 | P.PN ---
Subjective Progress Note Date: 04/09/19 HP: She reports eating healthy and still gaining weight. She had a complete cardiac work-up in the last 6 months. She completed EGD. She has done multiple medical weight loss. ABDOMEN: No previous abdominal surgeries ASSESSMENT: 1. Morbid obesity PLAN: 1. Sleeve described among procedures 2. Await PCP letter 3. Take Zinc, Vit D and A 4. Diet classes 5. EGD shows tumor of the stomach and surveillance with the sleeve 6. [facility] calculator and risks reviewed. Objective - Vital Signs Vital signs: Vital Signs Temp 98.6 F 04/09/19 13:50 Pulse 68 04/09/19 13:50 Resp 16 04/09/19 13:50 BP 188/81 04/09/19 13:50 Pulse Ox Intake & Output 04/08/19 04/09/19 04/09/19 18:59 06:59 18:59 Weight 126.099 kg
== END | disposition home or self-care (01) ==
LOC: BARWHC3 13:12
PROVIDERS: ATTEND Surgery Plastic and Reconstructive Surgery
DX: E66.01 Morbid (severe) obesity due to excess calories (principal); D49.0 Neoplasm of unspecified behavior of digestive system; Z68.43 Body mass index [BMI] 50.0-59.9, adult
CPT/HCPCS: 99211

== ENCOUNTER → 2019-06-18 | Outpatient (CLI) | payer MEDICARE ==
--- NOTE | 2019-06-18 14:49 | P.PN ---
Subjective Progress Note Date: 06/18/19 DATE OF SERVICE: 06/18/2019 CHIEF COMPLAINT: Morbid obesity HISTORY OF PRESENT ILLNESS: Mimi Butcher is a 68-year-old female who comes with lifelong morbid obesity. She has osteoarthritis, sleep apnea, hypertensive heart disease secondary to her obesity She reports easy bruising. She has history of DVTs in her family. She presents for gastrectomy procedures. At height of 4 feet 10 inches, her ideal body weight is 118 pounds. Her highest weight was 287 pounds. Her BMI was 60.1. She comes in 271 pounds from 277 pounds, 2 months ago. She lost 6 pounds in 2 months. Her body mass index is up 56.8. She is 153 pounds overweight. PAST MEDICAL HISTORY: 1. Morbid obesity due to excess calories 2. Body mass index of 60.1 3. Osteoarthritis of the knees 4. Osteoarthritis of the lower back 5. Obstructive sleep apnea 6. Hypertensive heart disease 7. Hyperlipidemia 8. Asthma 9. Cardiac murmur 10. Anxiety 11. Depressive disorder PAST SURGICAL HISTORY: 1. Bladder surgery 2. Hysterectomy 3. Tonsillectomy 4. EGD 5. Colonoscopy 6. Right carpal tunnel release 7. Right elbow release HOME MEDICATIONS: ALLERGIES: Home Medications Medication Instructions Recorded Confirmed Albuterol Inhaler [Ventolin Hfa 1 - 2 puff INHALATION RT-Q4H PRN 10/25/18 03/17/19 Inhaler] Multivitamins, Thera [Multivitamin 1 tab PO DAILY 03/12/19 03/17/19 (formulary)] Vitamin A 10,000 unit PO DAILY 03/12/19 03/17/19 Zinc 50 mg PO DAILY 03/12/19 03/17/19 Previous Rx's Medication Instructions Recorded Aspirin 81 mg PO DAILY chew 10/28/18 Atorvastatin [Lipitor] 40 mg PO HS #30 tab 10/28/18 Metoprolol Succinate (ER) [Toprol 25 mg PO DAILY #30 tab 10/28/18 Xl] SOCIAL HISTORY: No past tobacco use FAMILY HISTORY: No family history of ulcerative colitis disease or Crohn's disease. Family history of morbid obesity. No lupus in the family. No reports of stomach or esophageal cancer. DVT and pulmonary embolism in the family. REVIEW OF ORGAN SYSTEMS: CONSTITUTIONAL: At height of 4 feet 10 inches, her ideal body weight is 118 pounds. Her highest weight was 287 pounds. Her BMI was 60.1. She comes in 275 pounds. Her body mass index is 57.7 She is 157 pounds overweight. HEENT: Denies any active troubles with vision or hearing. ENDOCRINE: No diabetes. No hypothyroidism. CARDIOVASCULAR: No past reports of palpitations or heart attacks or chest pain. RESPIRATORY: Has daytime somnolence. No asthma. GASTROINTESTINAL: Denies any bright red blood per rectum. No diarrhea. No constipation. MUSCULOSKELETAL: Has lower back pain and joint pain. Has osteoarthritis of the knees. NEURO: No headaches. No seizure disorders. PSYCH: Has depression. No suicidal ideation. Has anxiety. RHEUMATOLOGIC: No lupus. No rheumatoid arthritis. HEMATOLOGIC: Denies any abnormal bleeding or bruising. No personal history of DVTs. SKIN: No rash. No skin cancer. PHYSICAL EXAM: VITAL SIGNS: Height 4 foot 10 inches, weight 271 pounds. BMI 56.8 Vital Signs Temp 98.3 F 06/18/19 15:58 Pulse 74 06/18/19 15:58 Resp BP 184/95 06/18/19 15:58 Pulse Ox GENERAL: Well-developed in no acute distress. HEENT: No scleral icterus. Extraocular movements grossly intact. Hears conversational speech. No nasal drainage. NECK: Supple without lymphadenopathy. CHEST: Nonlabored respirations with equal bilateral excursions. CARDIOVASCULAR: Regular rate and regular rhythm. Distal 2+ pulses. ABDOMEN: Obese, soft, nontender, nondistended. No previous abdominal surgeries MUSCULOSKELETAL: No clubbing, cyanosis. Gross strength 5/5 distal lower extremities. NEURO: No focal or lateralizing signs. Cranial nerves 2 through 12 grossly within normal limits. PSYCH: Appropriate affect. Alert and oriented to person, place and time. SKIN: Good skin turgor. Well perfused. ASSESSMENT: 1. Morbid obesity due to excess calories 2. Body mass index of 60.1 to 56.8 3. Osteoarthritis of the knees 4. Osteoarthritis of the lower back 5. Obstructive sleep apnea 6. Hypertensive heart disease 7. Hyperlipidemia 8. Asthma 9. Cardiac murmur 10. Anxiety 11. Depressive disorder 12. Gastric tumor 13. Hiatal hernia PLAN: 1. Bariatric options between a sleeve, band and a [place]-en-Y gastric bypass were reviewed in detail. The patient elected for a sleeve gastrectomy. Robotic assisted approach described. 2. The [place] [facility] Data was also reviewed with benefits and risks as described. 3. An 8 page second-generation bariatric consent form was reviewed in detail including potential of bleeding, infection, leaks, adequate weight loss, nutritional deficiencies which the patient demonstrated understanding of the risks. 4. A 2 week high-protein low caloric 800 kcal diet described to address hepatomegaly. 5. Preoperative labs including complete metabolic panel and CBC with type and screen recommended. 6. DVT prophylaxis per [place] [facility]. 7. Antibiotic prophylaxis. 8. Inpatient hospitalization anticipated for more than 2 nights. 9. All questions and concerns were addressed with the patient. 10. Consent for sleeve reviewed. 11. She has history of moderate easy bruising and is high risk for bleeding. 12. Recommend using heparin over lovenox. 13. All risks reviewed.
[2019-06-18 16:10] VITALS: BP 184/95; PULSE 74; TEMP 98.3; BMI 54.9
== END | disposition home or self-care (01) ==
LOC: BARWHC3 13:25
PROVIDERS: ATTEND Surgery Plastic and Reconstructive Surgery
DX: E66.01 Morbid (severe) obesity due to excess calories (principal); M17.0 Bilateral primary osteoarthritis of knee; G47.33 Obstructive sleep apnea (adult) (pediatric); I11.9 Hypertensive heart disease without heart failure; E78.5 Hyperlipidemia, unspecified; J45.909 Unspecified asthma, uncomplicated; R01.1 Cardiac murmur, unspecified; F32.9 Major depressive disorder, single episode, unspecified; D49.0 Neoplasm of unspecified behavior of digestive system; K44.9 Diaphragmatic hernia without obstruction or gangrene; Z68.43 Body mass index [BMI] 50.0-59.9, adult; Z83.49 Family history of other endocrine, nutritional and metabolic diseases; Z79.82 Long term (current) use of aspirin; Z79.899 Other long term (current) drug therapy
CPT/HCPCS: 99211

== ENCOUNTER 2019-06-23 14:36 | Inpatient (IN) | payer MEDICARE ==
[2019-06-23] MEDS ORDERED: MORPHINE SULFATE 4 MG/ML SYRINGE IVP STA (14:58)
[2019-06-23] MEDS ORDERED: cefTRIAXone IN SWFI 1,000 MG/10 ML SYRINGE IVP STA (14:58)
[2019-06-23] MEDS ORDERED: SODIUM CHLORIDE 0.9% 1,000 ML IV STA (14:59)
--- NOTE | 2019-06-23 15:12 | ED ---
General Adult HPI - General Chief complaint: Skin/Abscess/Foreign Body Stated complaint: Swollen Leg Time Seen by Provider: 06/23/19 14:49 Source: patient, RN notes reviewed, old records reviewed Mode of arrival: wheelchair Limitations: no limitations - History of Present Illness Initial comments: 68-year-old female patient with past history of hypertension hyperlipidemia presents to ED chief complaint of right lower extremity swelling and pain for 2 days. Patient does report that she did have a history of chronic foot ulcers however she has not had one in over one year. Patient reports that Sunday she began dates develop some erythema in her right lower extremity that on Sunday for cat significant worse. Patient reports that her right lower extremity from the knee down to her ankle region is red swollen and tender. Denies any chest pain or shortness of breath. Denies any prior history of DVT or PE, denies any use of blood thinners. Systemic: Pt denies fatigue, fever/chills. Pt denies weakness, night sweats, weight loss. Neuro: Pt denies headache, visual disturbances, syncope or pre-syncope. HEENT: Pt denies ocular discharge or irritation, otalgia, rhinorrhea, pharyngitis or notable lymphadenopathy. Cardiopulmonary: Pt denies chest pain, SOB, heart palpitations, dyspnea on exertion. Abdominal/GI: Pt denies abdominal pain, n/v/d. : Pt denies dysuria, burning w/ urination, frequency/urgency. Denies new onset urinary or bowel incontinence. MSK: Pt denies myalgia, loss of strength or function in extremities. Neuro: Pt denies new onset weakness, paresthesias. - Related Data Home Medications Medication Instructions Recorded Confirmed Albuterol Inhaler [Ventolin Hfa 1 - 2 puff INHALATION RT-Q4H PRN 10/25/18 04/09/19 Inhaler] Multivitamins, Thera [Multivitamin 1 tab PO DAILY 03/12/19 04/09/19 (formulary)] Vitamin A 10,000 unit PO DAILY 03/12/19 04/09/19 Zinc 50 mg PO DAILY 03/12/19 04/09/19 Previous Rx's Medication Instructions Recorded Aspirin 81 mg PO DAILY chew 10/28/18 Atorvastatin [Lipitor] 40 mg PO HS #30 tab 10/28/18 Metoprolol Succinate (ER) [Toprol 25 mg PO DAILY #30 tab 10/28/18 Xl] Allergies Allergy/AdvReac Type Severity Reaction Status Date / Time zinc oxide Allergy Rash/Hives Verified 06/23/19 14:37 Review of Systems ROS Statement: Those systems with pertinent positive or pertinent negative responses have been documented in the HPI. ROS Other: All systems not noted in ROS Statement are negative. Past Medical History Past Medical History: Hyperlipidemia, Hypertension, Osteoarthritis (OA), Sleep Apnea/CPAP/BIPAP, Vascular Disorder Additional Past Medical History / Comment(s): CPap use, cardiac murmur, bilateral legs/feet edema at times, History of Any Multi-Drug Resistant Organisms: None Reported Past Surgical History: Bladder Surgery, Hysterectomy, Tonsillectomy Additional Past Surgical History / Comment(s): BLADDER SLING, EGD, colonoscopy, R carpal tunnel release, R elbow release. Past Anesthesia/Blood Transfusion Reactions: No Reported Reaction Past Psychological History: Anxiety, Depression Smoking Status: Never smoker Past Alcohol Use History: Rare Past Drug Use History: None Reported - Past Family History Father Family Medical History: Coronary Artery Disease (CAD), Myocardial Infarction ([place]) Additional Family Medical History / Comment(s): Father had heart disease and had a [place] in his 50s. Mother Family Medical History: Cancer Additional Family Medical History / Comment(s): Mother had cancer but pt does not recall type. Sister(s) Family Medical History: Cancer, Deep Vein Thrombosis (DVT), Pulmonary Embolus Additional Family Medical History / Comment(s): SISTER #1 UTERINE CA. SISTER #2 UTERINE AND BREAST CA. Sister#3 2-PEs, 3- DVTs General Exam - General Exam Comments Initial Comments: Constitutional: NAD, AOX3, Pt has pleasant affect. HEENT: NC/AT, trachea midline, neck supple, no lymphadenopathy. Posterior pharynx non erythematous, without exudates. External ears appear normal, without discharge. Mucous membranes moist. Eyes PERRLA, EOM intact. There is no scleral icterus. No pallor noted. Cardiopulmonary: RRR, no murmurs, rubs or gallops, no JVD noted. Lungs CTAB in anterior and posterior dickens. No peripheral edema. Abdominal exam: Abdomen soft and non-distended. Abdomen non-tender to palpation in all 4 quadrants. Bowel sounds active in LLQ. No hepatosplenomegaly. No ecchymosis Neuro: CN II-XII grossly intact. No nuchal rigidity. No raccon eyes, no torres sign, no hemotympanum. No cervical spinal tenderness. MSK: Right lower extremity erythematous, tender to palpation. Right Homans sign is positive. Capillary refill less than 2 seconds bilaterally. Left lower extremity nonerythematous, no skin changes, nontender. Posterior tibialis and radial pulse +2 bilaterally. Sensation intact in upper and lower extremities. Full active ROM in upper and lower extremities, 5/5 stregnth. Limitations: no limitations Course Vital Signs 06/23/19 06/23/19 14:37 15:21 Temperature 98 F Pulse Rate 107 H 92 Respiratory 18 20 Rate Blood Pressure 119/75 129/65 O2 Sat by Pulse 99 100 Oximetry Medical Decision Making - Medical Decision Making 68-year-old female patient with past history of hypertension hyperlipidemia presents to ED chief complaint of right lower extremity swelling and pain for 2 days. Patient does report that she did have a history of chronic foot ulcers however she has not had one in over one year. Patient reports that Sunday she began dates develop some erythema in her right lower extremity that on Sunday fo r cat significant worse. Patient reports that her right lower extremity from the knee down to her ankle region is red swollen and tender. Denies any chest pain or shortness of breath. Denies any prior history of DVT or PE, denies any use of blood thinners. Patient will signs are stable, afebrile. Physical exam displayed erythematous, cellulitic right lower extremity. Tender to palpation. Distal pulses are intact and equal. Capillary less than 2 seconds. Investigations revealed a leukocytosis at 10.8. Lactic acid 2.5. Otherwise non-impressive. Plain film correlated for cellulitis. Right lower extremity ultrasound was taking the limited, no evidence for proximal DVT. Lymph node 0.6 x 1.2 cm in groin corresponding cellulitis. Patient requested Unasyn for cellulitis and will be admitted. Case discussed with Dr. Mtaa. - Lab Data Result diagrams: 06/23/19 15:10 06/23/19 15:10 Lab Results 06/23/19 06/23/19 06/23/19 Range/Units 15:10 15:10 15:10 WBC 10.8 H (3.8-10.6) k/uL RBC 4.41 (3.80-5.40) m/uL Hgb 13.3 (11.4-16.0) gm/dL Hct 40.7 (34.0-46.0) % MCV 92.2 (80.0-100.0) fL MCH 30.1 (25.0-35.0) pg MCHC 32.7 (31.0-37.0) g/dL RDW 12.7 (11.5-15.5) % Plt Count 221 (150-450) k/uL Neutrophils % 83 % Lymphocytes % 8 % Monocytes % 5 % Eosinophils % 1 % Basophils % 0 % Neutrophils # 9.0 H (1.3-7.7) k/uL Lymphocytes # 0.9 L (1.0-4.8) k/uL Monocytes # 0.6 (0-1.0) k/uL Eosinophils # 0.1 (0-0.7) k/uL Basophils # 0.0 (0-0.2) k/uL Sodium 140 (137-145) mmol/L Potassium 4.1 (3.5-5.1) mmol/L Chloride 108 H (98-107) mmol/L Carbon Dioxide 19 L (22-30) mmol/L Anion Gap 13 mmol/L BUN 27 H (7-17) mg/dL Creatinine 0.89 (0.52-1.04) mg/dL Est GFR (CKD-EPI)AfAm 77 (>60 ml/min/1.73 sqM) Est GFR (CKD-EPI)NonAf 66 (>60 ml/min/1.73 sqM) Glucose 118 H (74-99) mg/dL Plasma Lactic Acid Jarred 2.5 H* (0.7-2.0) mmol/L Calcium 8.7 (8.4-10.2) mg/dL Total Bilirubin 1.0 (0.2-1.3) mg/dL AST 51 H (14-36) U/L ALT 17 (9-52) U/L Alkaline Phosphatase 96 (38-126) U/L Total Protein 7.1 (6.3-8.2) g/dL Albumin 3.4 L (3.5-5.0) g/dL Disposition Clinical Impression: Cellulitis Disposition: ADMITTED IP TO THIS HOSP Condition: Serious Is patient prescribed a controlled substance at d/c from ED?: No Referrals: Tasha Leon DO [Primary Care Provider] - 1-2 days
[2019-06-23 15:49] LABS: Albumin 3.4 g/dL (3.5-5.0); Calcium 8.7 mg/dL (8.4-10.2); Total Protein 7.1 g/dL (6.3-8.2)
[2019-06-23 15:50] LABS: Potassium 4.1 mmol/L (3.5-5.1)
[2019-06-23 15:53] LABS: Basophils % (A) 0 %; Eosinophils # (A) 0.1 k/uL (0-0.7); Eosinophils % (A) 1 %; HCT 40.7 % (34.0-46.0); HGB 13.3 gm/dL (11.4-16.0); Lymphocytes # (A) 0.9 k/uL (1.0-4.8); Lymphocytes % (A) 8 %; MCH 30.1 pg (25.0-35.0); MCHC 32.7 g/dL (31.0-37.0); MCV 92.2 fL (80.0-100.0); Mean Platelet Volume 9.3; Monocytes # (A) 0.6 k/uL (0-1.0); Monocytes % (A) 5 %; Neutrophils % (A) 83 %; Platelet Count 221 k/uL (150-450); RBC 4.41 m/uL (3.80-5.40); RDW 12.7 % (11.5-15.5); WBC 10.8 k/uL (3.8-10.6)
--- NOTE | 2019-06-23 16:18 | US ---
EXAMINATION TYPE: US venous doppler duplex LE RT DATE OF EXAM: 06/23/2019 3:59 PM COMPARISON: NONE CLINICAL HISTORY: RLE cellulitis, swelling . SIDE PERFORMED: Right TECHNIQUE: The lower extremity deep venous system is examined utilizing real time linear array sonog mike with graded compression, doppler sonography and color-flow sonography. VESSELS IMAGED: External Iliac Vein (EIV) Common Femoral Vein Deep Femoral Vein Greater Saphenous Vein * Femoral Vein Popliteal Vein Small Saphenous Vein * (* superficial vessels) Morbidly obese patient, technically difficult study. Unable to visualize distal femoral vein for com pression views due to body habitus. Right Leg: Negative for DVT Prominent lymph node measuring 2.6 x1.2cm in groin. IMPRESSION: Exam is limited technically. No evident deep venous thrombosis at or above the right knee . Follow-up as indicated.
--- NOTE | 2019-06-23 16:28 | XR ---
Right leg HISTORY: Right lower extremity cellulitis 2 views of the right leg on 4 images Soft tissue swelling is noted. There is no periostitis to suggest osteomyelitis. Bone mineralization is mildly reduced.*3 change noted in right knee, marginal spurring medial compartment and patellofemo ral joint. Soft tissue calcifications may be due to venous stasis disease. There is enthesophyte at t he insertion of the Achilles tendon. Degenerative changes are present at the intertarsal joints. IMPRESSION: Edema, correlate for cellulitis. Osteoarthritis. Osteopenia.
[2019-06-23] MEDS ORDERED: IBUPROFEN 400 MG TAB PO PRN (16:45)
[2019-06-23] MEDS ORDERED: NALOXONE 0.4 MG/ML 1 ML VIAL IV PRN (16:45)
[2019-06-23] MEDS ORDERED: AMPICILLIN-SULBACTAM 3 GM in SODIUM CHLORIDE 0.9% 100 ML IVPB STA (16:45)
[2019-06-23] MEDS ORDERED: MORPHINE SULFATE 4 MG/ML SYRINGE IV PRN (16:45)
[2019-06-23] MEDS: SODIUM CHLORIDE 0.9% 1,000 ML IV SCH (17:09)
[2019-06-23] MEDS ORDERED: MORPHINE SULFATE 2 MG/ML SYRINGE IVP STA (17:14)
[2019-06-23] MEDS: ACETAMINOPHEN TAB 325 MG TAB PO PRN (19:53)
[2019-06-23 20:10] VITALS: BMI 53.1
[2019-06-23] MEDS: HEPARIN SODIUM,PORCINE 5,000 UNIT/ML 1 ML VIAL SQ SCH (21:36)
[2019-06-23] MEDS ORDERED: HYDROmorphone 0.5 MG/0.5 ML SYRINGE IVP STA (21:39)
[2019-06-23] MEDS ORDERED: VANCOMYCIN IV PER PHARMACY 1 EACH MISC MISCELLANE PRN (22:59)
--- NOTE | 2019-06-23 23:11 | P.HPIM ---
History of Present Illness H&P Date: 06/23/19 Chief Complaint: Right leg infection Patient is 68-year-old female with a known history of hypertension, hyperlipidemia, chronic bilateral lower extremity venous stasis and history of leg wounds, was following with wound care clinic, obstructive sleep apnea, osteoarthritis, anxiety/depression presents to ER with complaints of right lower activity swelling and redness and pain for the past 2 days. Patient had a history of chronic bilateral lower extremity wounds. Patient has not been followed with wound care clinic recently. Patient developed right lower extremity swelling and redness Sunday and has been getting worse. Redness and swelling up to the knee. Denied any fever or chills at home. No chest pain or shortness of breath. No nausea vomiting abdominal pain or diarrhea. No cough or sputum production. No dysuria or hematuria. X-ray of the tibia and fibula showed edema, correlate for cellulitis. Osteoarthritis and osteopenia Lower extremity duplex scan is negative for DVT WBC 10.8, lactic acid 2.5 on admission Review of Systems Constitutional: Patient denies any fever or chills . No generalized weakness or weight loss. Abdomen: Patient denied nausea vomiting and diarrhea and abdominal pain. Cardiovascular: Patient denies any chest pain or short of breath no palpitations. Respiratory: patient denied any cough is from production. No shortness of breath Neurologic: Patient denied any numbness or tingling headache. Musculoskeletal: Patient denies any complaints of joint swelling or deformity. right lower extremity swelling and redness and pain. Skin: Negative Psychiatric: Negative Endocrine: No heat or cold intolerance. No recent weight gain. Genitourinary: No dysuria or hematuria. All other 14 point ROS negative except the above Past Medical History Past Medical History: Hyperlipidemia, Hypertension, Osteoarthritis (OA), Sleep Apnea/CPAP/BIPAP, Vascular Disorder Additional Past Medical History / Comment(s): CPap use, cardiac murmur, bilateral legs/feet edema at times, History of Any Multi-Drug Resistant Organisms: None Reported Past Surgical History: Bladder Surgery, Hysterectomy, Tonsillectomy Additional Past Surgical History / Comment(s): BLADDER SLING, EGD, colonoscopy, R carpal tunnel release, R elbow release. Past Anesthesia/Blood Transfusion Reactions: No Reported Reaction Past Psychological History: Anxiety, Depression Additional Psychological History / Comment(s): She uses a cane or walker at times to ambulate. Smoking Status: Never smoker Past Alcohol Use History: Rare Past Drug Use History: None Reported - Past Family History Father Family Medical History: Coronary Artery Disease (CAD), Myocardial Infarction ([place]) Additional Family Medical History / Comment(s): Father had heart disease and had a [place] in his 50s. Mother Family Medical History: Cancer Additional Family Medical History / Comment(s): Mother had cancer but pt does not recall type. Sister(s) Family Medical History: Cancer, Deep Vein Thrombosis (DVT), Pulmonary Embolus Additional Family Medical History / Comment(s): SISTER #1 UTERINE CA. SISTER #2 UTERINE AND BREAST CA. Sister#3 2-PEs, 3- DVTs Medications and Allergies Home Medications Medication Instructions Recorded Confirmed Type Albuterol Inhaler [Ventolin Hfa 1 - 2 puff INHALATION RT-Q4H PRN 10/25/18 06/23/19 History Inhaler] Aspirin 81 mg PO DAILY chew 10/28/18 06/23/19 Rx Atorvastatin [Lipitor] 40 mg PO HS #30 tab 10/28/18 06/23/19 Rx Metoprolol Succinate (ER) [Toprol 25 mg PO DAILY #30 tab 10/28/18 06/23/19 Rx Xl] Multivitamins, Thera [Multivitamin 1 tab PO DAILY 03/12/19 06/23/19 History (formulary)] Vitamin A 10,000 unit PO DAILY 03/12/19 06/23/19 History Zinc 50 mg PO DAILY 03/12/19 06/23/19 History Allergies Allergy/AdvReac Type Severity Reaction Status Date / Time zinc oxide Allergy Rash/Hives Verified 06/23/19 17:03 Physical Exam Vitals: Vital Signs Temp Pulse Pulse Resp BP BP Pulse Ox 06/23/19 21:36 100.6 F H 95 22 93 L 06/23/19 19:25 97.9 F 104 H 20 158/77 98 06/23/19 17:17 96 20 129/81 100 06/23/19 15:21 92 20 129/65 100 06/23/19 14:37 98 F 107 H 18 119/75 99 Intake and Output 06/23/19 06/23/19 06/23/19 06:59 14:59 22:59 Output Total 200 Balance -200 Output: Urine 200 Other: Weight 123.377 kg PHYSICAL EXAMINATION: Patient is lying in the bed comfortably, no acute distress, awake alert and oriented.. HEENT: Normocephalic. Neck is supple. Pupils reactive. Nostrils clear. Oral cavity is moist. Ears reveal no drainage. Neck reveals no JVD, carotid bruits, or thyromegaly. CHEST EXAMINATION: Trachea is central. Symmetrical expansion. Lung dickens clear to auscultation and percussion. CARDIAC: Normal S1, S2 with no gallops. No murmurs ABDOMEN: Soft. Bowel sounds normal. No organomegaly. No abdominal bruits. Extremities: reveal no edema. No clubbing or cyanosis Neurologically awake, alert, oriented x3 with well-coordinated movements. No focal deficits noted Skin: No rash. Patient does have swelling redness and tenderness of the right lower extremity extending up to the knee.. Psychiatric: Coperative. Nonsuicidal Musculoskeletal: No joint swelling or deformity. Normal range of motion. Results CBC & Chem 7: 06/23/19 15:10 06/23/19 15:10 Labs: Abnormal Lab Results - Last 24 Hours (Table) 06/23/19 06/23/19 06/23/19 Range/Units 15:10 15:10 15:10 WBC 10.8 H (3.8-10.6) k/uL Neutrophils # 9.0 H (1.3-7.7) k/uL Lymphocytes # 0.9 L (1.0-4.8) k/uL Chloride 108 H (98-107) mmol/L Carbon Dioxide 19 L (22-30) mmol/L BUN 27 H (7-17) mg/dL Glucose 118 H (74-99) mg/dL Plasma Lactic Acid Jarred 2.5 H* (0.7-2.0) mmol/L AST 51 H (14-36) U/L Albumin 3.4 L (3.5-5.0) g/dL 06/23/19 Range/Units 19:16 WBC (3.8-10.6) k/uL Neutrophils # (1.3-7.7) k/uL Lymphocytes # (1.0-4.8) k/uL Chloride (98-107) mmol/L Carbon Dioxide (22-30) mmol/L BUN (7-17) mg/dL Glucose (74-99) mg/dL Plasma Lactic Acid Jarred 2.5 H* (0.7-2.0) mmol/L AST (14-36) U/L Albumin (3.5-5.0) g/dL Thrombosis Risk Factor Assmnt - DVT/VTE Prophylaxis DVT/VTE Prophylaxis: Pharmacologic Prophylaxis ordered - Choose All That Apply Any of the Below Risk Factors Present?: Yes Each Factor Represents 1 point: Obesity (BMI >25) Other Risk Factors: Yes Each Risk Factor Represents 2 Points: Age 61-74 years Other congenital or acquired thrombophilia - If yes, enter type in comment: No Thrombosis Risk Factor Assessment Total Risk Factor Score: 3 Thrombosis Risk Factor Assessment Level: Moderate Risk Assessment and Plan Assessment: Right lower extremity extensive cellulitis Sepsis secondary to above Lactic acidosis 2.5 Chronic bilateral lower extremity venostasis and history of ulcers Hypertension Hyperlipidemia Obstructive sleep apnea Osteoarthritis Morbid obesity with BMI 53.1 Anxiety/depression DVT prophylaxis with heparin subcu Plan: Patient is currently on IV hydration and antibiotics in the form of Unasyn. will add vancomycin. Continue the pain management with the [place]. Monitor fluid status daily. Continue the home medications and follow up closely. Follow blood cultures. ID evaluation. Further recommendations based on the clinical course. Time with Patient: Greater than 30
[2019-06-23] MEDS ORDERED: VANCOMYCIN 2,000 MG in SODIUM CHLORIDE 0.9% 500 ML 500 ML IVPB SCH (23:15)
[2019-06-23] MEDS: AMPICILLIN-SULBACTAM 3 GM in SODIUM CHLORIDE 0.9% 100 ML IVPB SCH (23:39)
[2019-06-24] MEDS: SODIUM CHLORIDE 0.9% 1,000 ML IV SCH ×3 (04:16→22:45)
[2019-06-24] MEDS: HYDROcodone/APAP 5-325MG 1 EACH TAB PO PRN ×3 (06:12→17:31)
[2019-06-24 06:56] LABS: Appearance,Urine Cloudy (Clear); Bacteria,Urine Rare /hpf; Bilirubin,Urine Negative (Negative); Blood,Urine Negative (Negative); Color,Urine Yellow; Glucose,Urine (UA) Negative (Negative); Hyaline Casts,Urine 11 /lpf (0-2); Ketones,Urine Trace (Negative); Leukocyte Esterase,Urine Trace (Negative); Mucus,Urine Occasional /hpf; Nitrite,Urine Negative (Negative); Protein,Urine 1+ (Negative); RBC,Urine 1 /hpf (0-5); Specific Gravity,Urine 1.036 (1.001-1.035); Squamous Epithelial Cell,Urine 15 /hpf (0-4); Urobilinogen,Urine <2.0 mg/dL (<2.0); WBC,Urine 8 /hpf (0-5)
[2019-06-24] MEDS: AMPICILLIN-SULBACTAM 3 GM in SODIUM CHLORIDE 0.9% 100 ML IVPB SCH (07:25)
[2019-06-24] MEDS: ASPIRIN 81 MG PO SCH (07:25)
[2019-06-24] MEDS: METOPROLOL SUCCINATE (ER) 25 MG TAB.ER.24H PO SCH (07:25)
[2019-06-24] MEDS: MULTIVITAMINS, THERA 1 EACH TAB PO SCH (07:26)
[2019-06-24] MEDS: HEPARIN SODIUM,PORCINE 5,000 UNIT/ML 1 ML VIAL SQ SCH ×2 (07:26→21:30)
[2019-06-24] MEDS ORDERED: FAMOTIDINE 20 MG/2 ML VIAL IV SCH (09:00)
[2019-06-24 09:02] LABS: Basophils % (A) 0 %; Eosinophils # (A) 0.1 k/uL (0-0.7); Eosinophils % (A) 1 %; HCT 37.6 % (34.0-46.0); HGB 12.2 gm/dL (11.4-16.0); Lymphocytes % (A) 14 %; MCH 30.7 pg (25.0-35.0); MCHC 32.4 g/dL (31.0-37.0); MCV 94.9 fL (80.0-100.0); Mean Platelet Volume 8.3; Monocytes # (A) 0.6 k/uL (0-1.0); Monocytes % (A) 8 %; Neutrophils # (A) 5.2 k/uL (1.3-7.7); Neutrophils % (A) 75 %; Platelet Count 197 k/uL (150-450); RBC 3.96 m/uL (3.80-5.40); RDW 12.8 % (11.5-15.5); WBC 6.9 k/uL (3.8-10.6)
[2019-06-24 09:13] LABS: African American GFR (CKD) >90 (>60 ml/min/1.73 sqM); Anion Gap 10 mmol/L; Blood Urea Nitrogen 24 mg/dL (7-17); Calcium 8.4 mg/dL (8.4-10.2); Carbon Dioxide 21 mmol/L (22-30); Chloride 109 mmol/L (98-107); Glucose 106 mg/dL (74-99); Non-African American GFR(CKD) 82 (>60 ml/min/1.73 sqM); Potassium 3.5 mmol/L (3.5-5.1); Sodium 140 mmol/L (137-145)
--- NOTE | 2019-06-24 12:49 | P.CONS ---
History of Present Illness - Reason for Consult Consult date: 06/24/19 right lower extremity cellulitis Requesting physician: Sasha Mcbride - Chief Complaint right leg swelling redness and pain 2 days - History of Present Illness Patient is 68 year old female past medical history significant for chronic venous stasis and swelling to the lower extremity mostly the right leg, patient presented to [facility] ER yesterday with a chief complaints of right leg pain swelling redness had been going on for last 2 days before presentation to the hospital the patient denies having any trauma or any skin ulceration, the patient be complaining of diffuse swelling and redness to the right leg the patient did have a dull aching pain to the right leg for the last 2 days intensity about 5-6 out of 10 and no radiation patient mentions have a small wound which is currently draining some purulent material and that area is tender to touch the patient did have some chills but denies high-grade fever with these symptoms the patient was evaluated by the physician, on arrival the patient was afebrile subsequently did have looked 100.6 the patient did have mildly elevated white count with a left shift she did have a lower extremity Doppler was negative for DVT did shows a right groin lymph node patient received Rocephin and subsequently was started on Unasyn and vancomycin was later on added and infectious disease was consulted for further recommendation regarding antibiotic therapy Review of Systems Positive point has been mentioned in the HPI rest of the systems are negative Past Medical History Past Medical History: Hyperlipidemia, Hypertension, Osteoarthritis (OA), Sleep Apnea/CPAP/BIPAP, Vascular Disorder Additional Past Medical History / Comment(s): CPap use, cardiac murmur, bilateral legs/feet edema at times, History of Any Multi-Drug Resistant Organisms: None Reported Past Surgical History: Bladder Surgery, Hysterectomy, Tonsillectomy Additional Past Surgical History / Comment(s): BLADDER SLING, EGD, colonoscopy, R carpal tunnel release, R elbow release. Past Anesthesia/Blood Transfusion Reactions: No Reported Reaction Past Psychological History: Anxiety, Depression Additional Psychological History / Comment(s): She uses a cane or walker at times to ambulate. Smoking Status: Never smoker Past Alcohol Use History: Rare Past Drug Use History: None Reported - Past Family History Father Family Medical History: Coronary Artery Disease (CAD), Myocardial Infarction ([place]) Additional Family Medical History / Comment(s): Father had heart disease and had a [place] in his 50s. Mother Family Medical History: Cancer Additional Family Medical History / Comment(s): Mother had cancer but pt does not recall type. Sister(s) Family Medical History: Cancer, Deep Vein Thrombosis (DVT), Pulmonary Embolus Additional Family Medical History / Comment(s): SISTER #1 UTERINE CA. SISTER #2 UTERINE AND BREAST CA. Sister#3 2-PEs, 3- DVTs Medications and Allergies Home Medications Medication Instructions Recorded Confirmed Type Albuterol Inhaler [Ventolin Hfa 1 - 2 puff INHALATION RT-Q4H PRN 10/25/18 06/23/19 History Inhaler] Aspirin 81 mg PO DAILY chew 10/28/18 06/23/19 Rx Atorvastatin [Lipitor] 40 mg PO HS #30 tab 10/28/18 06/23/19 Rx Metoprolol Succinate (ER) [Toprol 25 mg PO DAILY #30 tab 10/28/18 06/23/19 Rx Xl] Multivitamins, Thera [Multivitamin 1 tab PO DAILY 03/12/19 06/23/19 History (formulary)] Vitamin A 10,000 unit PO DAILY 03/12/19 06/23/19 History Zinc 50 mg PO DAILY 03/12/19 06/23/19 History Allergies Allergy/AdvReac Type Severity Reaction Status Date / Time zinc oxide Allergy Rash/Hives Verified 06/23/19 17:03 Physical Exam Vitals: Vital Signs Temp Pulse Pulse Resp BP BP Pulse Ox 06/24/19 05:00 96.9 F L 91 20 136/81 99 06/23/19 23:00 99.3 F 98 20 113/65 94 L 06/23/19 21:36 100.6 F H 95 22 93 L 06/23/19 19:25 97.9 F 104 H 20 158/77 98 06/23/19 17:17 96 20 129/81 100 06/23/19 15:21 92 20 129/65 100 06/23/19 14:37 98 F 107 H 18 119/75 99 Intake and Output 06/23/19 06/24/19 06/24/19 22:59 06:59 14:59 Intake Total 450 120 Output Total 200 200 Balance -200 250 120 Intake: Oral 450 120 Output: Urine 200 200 Other: Voiding Method Bedside Commode Bedside Commode GENERAL DESCRIPTION: Elderly female lying in bed, no distress. No tachypnea or accessory muscle of respiration use. HEENT: Shows Pallor , no scleral icterus. Oral mucous membrane is dry. No pharyngeal erythema or thrush NECK: Trachea central, no thyromegaly. LUNGS: Unlabored breathing. Clear to auscultation anteriorly. No wheeze or crackle. HEART: S1, S2, regular rate and rhythm. No loud murmur ABDOMEN: Soft, no tenderness , guarding or rigidity, no organomegaly EXTREMITIES: Right leg with diffuse swelling and redness is warm and tender to touch small area of pus point was noticed which was cultured SKIN: No rash, no masses palpable. NEUROLOGICAL: The patient is awake, alert, oriented x3, mood and affect normal. Results CBC & Chem 7: 06/24/19 08:20 06/24/19 08:20 Labs: Abnormal Lab Results - Last 24 Hours (Table) 06/23/19 06/23/19 06/23/19 Range/Units 15:10 15:10 15:10 WBC 10.8 H (3.8-10.6) k/uL Neutrophils # 9.0 H (1.3-7.7) k/uL Lymphocytes # 0.9 L (1.0-4.8) k/uL Chloride 108 H (98-107) mmol/L Carbon Dioxide 19 L (22-30) mmol/L BUN 27 H (7-17) mg/dL Glucose 118 H (74-99) mg/dL Plasma Lactic Acid Jarred 2.5 H* (0.7-2.0) mmol/L AST 51 H (14-36) U/L Albumin 3.4 L (3.5-5.0) g/dL Urine Appearance (Clear) Ur Specific [place] (1.001-1.035) Urine Protein (Negative) Urine Ketones (Negative) Ur Leukocyte Esterase (Negative) Urine WBC (0-5) /hpf Ur Squamous Epith Cells (0-4) /hpf Urine Bacteria (None) /hpf Hyaline Casts (0-2) /lpf Urine Mucus (None) /hpf 06/23/19 06/24/19 06/24/19 Range/Units 19:16 05:50 08:20 WBC (3.8-10.6) k/uL Neutrophils # (1.3-7.7) k/uL Lymphocytes # (1.0-4.8) k/uL Chloride 109 H (98-107) mmol/L Carbon Dioxide 21 L (22-30) mmol/L BUN 24 H (7-17) mg/dL Glucose 106 H (74-99) mg/dL Plasma Lactic Acid Jarred 2.5 H* (0.7-2.0) mmol/L AST (14-36) U/L Albumin (3.5-5.0) g/dL Urine Appearance Cloudy H (Clear) Ur Specific [place] 1.036 H (1.001-1.035) Urine Protein 1+ H (Negative) Urine Ketones Trace H (Negative) Ur Leukocyte Esterase Trace H (Negative) Urine WBC 8 H (0-5) /hpf Ur Squamous Epith Cells 15 H (0-4) /hpf Urine Bacteria Rare H (None) /hpf Hyaline Casts 11 H (0-2) /lpf Urine Mucus Occasional H (None) /hpf Microbiology - Last 24 Hours (Table) 06/24/19 05:50 Urine Culture - Preliminary Urine,Voided Assessment and Plan Assessment: 1-patient seemed to have problem with a chronic swelling in both lower extremity with a history of recurrent cellulitis right leg and this patient diffuse swelling and redness likely representing streptococcal cellulitis clinically doubt gram-negative or MRSA infection 2-patient with athlete's foot and overall poor hygiene (1) Cellulitis of right lower extremity Current Visit: Yes Status: Acute Code(s): L03.115 - CELLULITIS OF RIGHT LOWER LIMB SNOMED Code(s): 243259077 (2) Athlete's foot Current Visit: Yes Status: Acute Code(s): B35.3 - TINEA PEDIS SNOMED Code(s): 2490759 Plan: 1-discontinue the vancomycin and Unasyn 2-start the patient cefazolin 2 g every 8 hours 3-nystatin cream in between the toes twice a day 4-Isidro wrap to the leg from just above the toe to below the knee We will follow on clinical condition and cultures to further adjust medication if needed Thank you for this consultation will follow this patient with you Time with Patient: Greater than 30
[2019-06-24] MEDS: ceFAZolin 3 GM in SODIUM CHLORIDE 0.9% 100 ML IVPB SCH (15:22)
[2019-06-24] MEDS ORDERED: VANCOMYCIN 2,000 MG in SODIUM CHLORIDE 0.9% 500 ML 500 ML IVPB SCH (16:00)
[2019-06-24] MEDS: ACETAMINOPHEN TAB 325 MG TAB PO PRN (19:28)
[2019-06-24] MEDS: FAMOTIDINE 20 MG TAB PO SCH (21:30)
[2019-06-24] MEDS: ATORVASTATIN 40 MG TAB PO SCH (21:30)
[2019-06-25] MEDS: ceFAZolin 3 GM in SODIUM CHLORIDE 0.9% 100 ML IVPB SCH ×3 (00:50→15:20)
[2019-06-25] MEDS: HYDROcodone/APAP 5-325MG 1 EACH TAB PO PRN ×3 (04:00→17:23)
[2019-06-25] MEDS: MULTIVITAMINS, THERA 1 EACH TAB PO SCH (07:46)
[2019-06-25] MEDS: METOPROLOL SUCCINATE (ER) 25 MG TAB.ER.24H PO SCH (07:46)
[2019-06-25] MEDS: SODIUM CHLORIDE 0.9% 1,000 ML IV SCH ×2 (07:46→15:20)
[2019-06-25] MEDS: FAMOTIDINE 20 MG TAB PO SCH ×2 (07:46→19:25)
[2019-06-25] MEDS: ASPIRIN 81 MG PO SCH (07:46)
[2019-06-25] MEDS: HEPARIN SODIUM,PORCINE 5,000 UNIT/ML 1 ML VIAL SQ SCH ×2 (07:46→19:24)
--- NOTE | 2019-06-25 08:16 | P.PN ---
Subjective Progress Note Date: 06/24/19 Principal diagnosis: Patient is 68-year-old female with a known history of hypertension, hyperlipidemia, chronic bilateral lower extremity venous stasis and history of leg wounds, was following with wound care clinic, obstructive sleep apnea, osteoarthritis, anxiety/depression presents to ER with complaints of right lower activity swelling and redness and pain for the past 2 days. Patient had a history of chronic bilateral lower extremity wounds. Patient has not been followed with wound care clinic recently. Patient developed right lower extremity swelling and redness Sunday and has been getting worse. Redness and swelling up to the knee. Denied any fever or chills at home. No chest pain or shortness of breath. No nausea vomiting abdominal pain or diarrhea. No cough or sputum production. No dysuria or hematuria. X-ray of the tibia and fibula showed edema, correlate for cellulitis. Osteoarthritis and osteopenia Lower extremity duplex scan is negative for DVT WBC 10.8, lactic acid 2.5 on admission 06/24/2019 Patient is sitting up at the side of the bed in no acute distress with family at the bedside. Infectious disease is following. IV Vanco and Unasyn have been discontinued and patient is currently on cefazolin. Patient's right lower extremity is erythematous, warm to the touch, and swollen. Patient does have some right pedal edema 1+. Discussed with the patient at length today about elevating the lower extremities while at rest to help with some of the swelling. Currently patient denies any chest pain, shortness of breath, or palpitations at this time. Patient has been afebrile. Patient denies any nausea or vomiting and has been tolerating diet. Patient states that she has had previous episodes of infection of the lower extremities approximately one year ago and was going to the wound care center. Objective - Vital Signs Vital signs: Vital Signs Temp 97.9 F 06/24/19 12:53 Pulse 113 H 06/24/19 12:53 Resp 18 06/24/19 12:53 BP 137/84 06/24/19 12:53 Pulse Ox 97 06/24/19 12:53 Intake & Output 06/23/19 06/24/19 06/24/19 18:59 06:59 18:59 Intake Total 450 120 Output Total 400 Balance 50 120 Weight 123.377 kg Intake: Oral 450 120 Output: Urine 400 Other: Voiding Method Bedside Commode Bedside Commode # Voids 1 - Exam Patient is sitting up at the side of the bed comfortably, no acute distress, awake alert and oriented.. HEENT: Normocephalic. Neck is supple. Pupils reactive. Nostrils clear. Oral cavity is moist. Ears reveal no drainage. Neck reveals no JVD, carotid bruits, or thyromegaly. CHEST EXAMINATION: Trachea is central. Symmetrical expansion. Lung dickens clear to auscultation and percussion. CARDIAC: Normal S1, S2 with no gallops. No murmurs ABDOMEN: Soft. Bowel sounds normal. No organomegaly. No abdominal bruits. Extremities: Mild 1+ pitting edema noted of the right foot. No clubbing or cyanosis Neurologically awake, alert, oriented x3 with well-coordinated movements. No focal deficits noted Skin: No rash. Patient does have swelling redness and tenderness of the right lower extremity extending up to the knee.. Psychiatric: Cooperative. Non-suicidal Musculoskeletal: No joint swelling or deformity. Normal range of motion. - Labs CBC & Chem 7: 06/24/19 08:20 06/24/19 08:20 Labs: Abnormal Lab Results - Last 24 Hours (Table) 06/23/19 06/23/19 06/23/19 Range/Units 15:10 15:10 15:10 WBC 10.8 H (3.8-10.6) k/uL Neutrophils # 9.0 H (1.3-7.7) k/uL Lymphocytes # 0.9 L (1.0-4.8) k/uL Chloride 108 H (98-107) mmol/L Carbon Dioxide 19 L (22-30) mmol/L BUN 27 H (7-17) mg/dL Glucose 118 H (74-99) mg/dL Plasma Lactic Acid Jarred 2.5 H* (0.7-2.0) mmol/L AST 51 H (14-36) U/L Albumin 3.4 L (3.5-5.0) g/dL Urine Appearance (Clear) Ur Specific [place] (1.001-1.035) Urine Protein (Negative) Urine Ketones (Negative) Ur Leukocyte Esterase (Negative) Urine WBC (0-5) /hpf Ur Squamous Epith Cells (0-4) /hpf Urine Bacteria (None) /hpf Hyaline Casts (0-2) /lpf Urine Mucus (None) /hpf 06/23/19 06/24/19 06/24/19 Range/Units 19:16 05:50 08:20 WBC (3.8-10.6) k/uL Neutrophils # (1.3-7.7) k/uL Lymphocytes # (1.0-4.8) k/uL Chloride 109 H (98-107) mmol/L Carbon Dioxide 21 L (22-30) mmol/L BUN 24 H (7-17) mg/dL Glucose 106 H (74-99) mg/dL Plasma Lactic Acid Jarred 2.5 H* (0.7-2.0) mmol/L AST (14-36) U/L Albumin (3.5-5.0) g/dL Urine Appearance Cloudy H (Clear) Ur Specific [place] 1.036 H (1.001-1.035) Urine Protein 1+ H (Negative) Urine Ketones Trace H (Negative) Ur Leukocyte Esterase Trace H (Negative) Urine WBC 8 H (0-5) /hpf Ur Squamous Epith Cells 15 H (0-4) /hpf Urine Bacteria Rare H (None) /hpf Hyaline Casts 11 H (0-2) /lpf Urine Mucus Occasional H (None) /hpf Microbiology - Last 24 Hours (Table) 06/24/19 05:50 Urine Culture - Preliminary Urine,Voided Assessment and Plan Assessment: Right lower extremity extensive cellulitis Sepsis secondary to above Lactic acidosis 2.5, improved Chronic bilateral lower extremity venostasis and history of ulcers Hypertension Hyperlipidemia Obstructive sleep apnea Osteoarthritis Morbid obesity with BMI 53.1 Anxiety/depression DVT prophylaxis with heparin subq Plan: Patient is currently on IV hydration and antibiotics in the form of cefazolin. Infectious disease is following. Will continue to monitor closely. Continue the home medications and follow up closely. Wound and urine cultures thus far negative. Further recommendations based on the clinical course. Guarded prognosis. Possible discharge in 24-48 hours.
--- NOTE | 2019-06-25 12:18 | PN ---
PROGRESS NOTE DATE OF SERVICE: 06/25/2019 REASON FOR FOLLOWUP: Right lower extremity cellulitis. INTERVAL HISTORY: The patient is currently afebrile. Patient is breathing comfortably. Denies having any chest pain, cough. The right leg swelling and redness has slightly improved. Currently no further drainage and no diarrhea. PHYSICAL EXAMINATION: Blood pressure 136/70 with a pulse of 100, temperature 97.9. She is 95% on room air. General description is an elderly female up in the bed in no distress. RESPIRATORY SYSTEM: Unlabored breathing clear to auscultation anteriorly. HEART: S1, S2. Regular rate and rhythm. ABDOMEN: Soft, no tenderness. Right leg swelling and redness has decreased. LABS: White count of 6.9. Wound culture is currently pending. DIAGNOSTIC IMPRESSION AND PLAN: Patient with right lower extremity cellulitis with a small wound, post cultures obtained from the wound base. Will look at the patient has seen clinical improvement on cefazolin to continue while waiting for the culture to finalize. Continue with supportive care. MMODL / IJN: [id number] /
--- NOTE | 2019-06-25 14:03 | P.PN ---
Subjective Progress Note Date: 06/25/19 Principal diagnosis: Patient is 68-year-old female with a known history of hypertension, hyperlipidemia, chronic bilateral lower extremity venous stasis and history of leg wounds, was following with wound care clinic, obstructive sleep apnea, osteoarthritis, anxiety/depression presents to ER with complaints of right lower activity swelling and redness and pain for the past 2 days. Patient had a history of chronic bilateral lower extremity wounds. Patient has not been followed with wound care clinic recently. Patient developed right lower extremity swelling and redness Sunday and has been getting worse. Redness and swelling up to the knee. Denied any fever or chills at home. No chest pain or shortness of breath. No nausea vomiting abdominal pain or diarrhea. No cough or sputum production. No dysuria or hematuria. X-ray of the tibia and fibula showed edema, correlate for cellulitis. Osteoarthritis and osteopenia Lower extremity duplex scan is negative for DVT WBC 10.8, lactic acid 2.5 on admission 06/24/2019 Patient is sitting up at the side of the bed in no acute distress with family at the bedside. Infectious disease is following. IV Vanco and Unasyn have been discontinued and patient is currently on cefazolin. Patient's right lower extremity is erythematous, warm to the touch, and swollen. Patient does have some right pedal edema 1+. Discussed with the patient at length today about elevating the lower extremities while at rest to help with some of the swelling. Currently patient denies any chest pain, shortness of breath, or palpitations at this time. Patient has been afebrile. Patient denies any nausea or vomiting and has been tolerating diet. Patient states that she has had previous episodes of infection of the lower extremities approximately one year ago and was going to the wound care center. 06/25/2019 Patient is sitting in bed in no acute distress with no acute overnight issues. Patient is elevating the right lower extremity on a pillow at this time. Patient continues to have some swelling and redness and tenderness upon palpation but the swelling and redness has slightly improved. Currently patient denies any chest pain, shortness of breath, or palpitations. Patient is afebrile. Patient denies any nausea or vomiting and is tolerating diet. Patient states that she lives alone and normally drives herself to her appointments but hasn't been able to due to the right lower extremity swelling and pain. Wound cultures thus far are negative and will await finalization. Infectious disease is following. Will continue to monitor. Objective - Vital Signs Vital signs: Vital Signs Temp 97.9 F 06/25/19 06:25 Pulse 100 06/25/19 06:25 Resp 18 06/25/19 06:25 BP 136/70 06/25/19 06:25 Pulse Ox 95 06/25/19 06:25 Intake & Output 06/24/19 06/25/19 06/25/19 18:59 06:59 18:59 Intake Total 120 Balance 120 Intake: Oral 120 Other: Voiding Method Bedside Commode Bedside Commode Bedside Commode # Voids 1 1 - Exam Patient is sitting up in bed comfortably, no acute distress, awake alert and oriented.. HEENT: Normocephalic. Neck is supple. Pupils reactive. Nostrils clear. Oral cavity is moist. Ears reveal no drainage. Neck reveals no JVD, carotid bruits, or thyromegaly. CHEST EXAMINATION: Trachea is central. Symmetrical expansion. Lung dickens clear to auscultation and percussion. CARDIAC: Normal S1, S2 with no gallops. No murmurs ABDOMEN: Soft. Bowel sounds normal. No organomegaly. No abdominal bruits. Extremities: Mild 1+ pitting edema noted of the right foot. No clubbing or cyanosis Neurologically awake, alert, oriented x3 with well-coordinated movements. No focal deficits noted Skin: No rash. Patient does have swelling redness and extreme tenderness of the right lower extremity extending up to the knee.. Redness and swelling slightly improved Psychiatric: Cooperative. Non-suicidal Musculoskeletal: No joint swelling or deformity. Normal range of motion. - Labs CBC & Chem 7: 06/24/19 08:20 06/24/19 08:20 Labs: Microbiology - Last 24 Hours (Table) 06/24/19 05:50 Urine Culture - Final Urine,Voided 06/24/19 12:00 Gram Stain - Preliminary Leg - Right Wound Culture - Preliminary Assessment and Plan Assessment: Right lower extremity extensive cellulitis Sepsis secondary to above Lactic acidosis 2.5, improved Chronic bilateral lower extremity venostasis and history of ulcers Hypertension Hyperlipidemia Obstructive sleep apnea Osteoarthritis Morbid obesity with BMI 53.1 Anxiety/depression DVT prophylaxis with heparin subq Recommendations and discussion: Recommend continue current medications, management, and symptomatic treatment. Infectious disease is following. Patient is currently on IV antibiotics in the form of cefazolin and will continue at this time and currently awaiting final ization of cultures. Will continue to monitor closely. Wound and urine cultures thus far negative. Further recommendations based on the clinical course. Guarded prognosis. Possible discharge in 24 hours.
[2019-06-25] MEDS: ATORVASTATIN 40 MG TAB PO SCH (19:25)
[2019-06-25] MEDS ORDERED: IPRATROPIUM 0.5 MG/2.5 ML NEBU INHALATION PRN (20:38)
[2019-06-25] MEDS ORDERED: ALBUTEROL NEBULIZED 2.5 MG/3 ML INHALATION PRN (20:38)
[2019-06-26] MEDS: ceFAZolin 3 GM in SODIUM CHLORIDE 0.9% 100 ML IVPB SCH ×2 (00:12→09:10)
[2019-06-26] MEDS: HYDROcodone/APAP 5-325MG 1 EACH TAB PO PRN ×4 (01:55→23:01)
[2019-06-26] MEDS: SODIUM CHLORIDE 0.9% 1,000 ML IV SCH ×2 (05:49→15:53)
[2019-06-26] MEDS: HEPARIN SODIUM,PORCINE 5,000 UNIT/ML 1 ML VIAL SQ SCH ×2 (09:28→21:03)
[2019-06-26] MEDS: MULTIVITAMINS, THERA 1 EACH TAB PO SCH (09:28)
[2019-06-26] MEDS: METOPROLOL SUCCINATE (ER) 25 MG TAB.ER.24H PO SCH (09:29)
[2019-06-26] MEDS: ASPIRIN 81 MG PO SCH (09:29)
[2019-06-26] MEDS: FAMOTIDINE 20 MG TAB PO SCH ×2 (09:29→21:03)
[2019-06-26] MEDS ORDERED: VANCOMYCIN IV PER PHARMACY 1 EACH MISC MISCELLANE PRN (10:45)
--- NOTE | 2019-06-26 12:13 | PN ---
PROGRESS NOTE DATE OF SERVICE: 06/26/2019 REASON FOR FOLLOWUP: Right lower extremity cellulitis. INTERVAL HISTORY: The patient did spike a low-grade fever 100 degrees Fahrenheit this morning. The patient still complaining of significant pain and swelling to the right leg and has shown minimal to no improvement. Currently with no open wound or any drainage. Denies having any chest pain or cough. Still complaining of pain to the leg area. It is mostly sharp and painful to touch. REVIEW OF SYSTEMS: Positive points mentioned above. The rest of the systems negative. PAST MEDICAL AND SURGICAL HISTORY: Unchanged. MEDICATIONS: Reviewed. PHYSICAL EXAMINATION: Blood pressure 122/63 with a pulse of 100 temperature of 100. She is 96% on room air. General description is an elderly female lying in bed in no distress. RESPIRATORY SYSTEM: Unlabored breathing, clear to auscultation anteriorly. HEART: S1, S2. Regular rate and rhythm. ABDOMEN: Soft, no tenderness. Right leg still swelling and redness and is warm to touch and tender. No open wound or any drainage. LABS: Hemoglobin is 12.2 with a white count of 6.9. Cultures from the wound has been negative so far. DIAGNOSTIC IMPRESSION AND PLAN: Patient with right lower extremity cellulitis in this patient who has not shown a good clinical response to the cefazolin. We will switch her over to vancomycin pharmacy to dose. Keep the leg elevated. Re-evaluate the patient tomorrow. Continue supportive care. MMRAMONEL / BK: [id number] /
[2019-06-26] MEDS: VANCOMYCIN 2,000 MG in SODIUM CHLORIDE 0.9% 500 ML 500 ML IVPB SCH (12:17)
--- NOTE | 2019-06-26 20:02 | P.PN ---
Subjective Progress Note Date: 06/26/19 Principal diagnosis: Patient is 68-year-old female with a known history of hypertension, hyperlipidemia, chronic bilateral lower extremity venous stasis and history of leg wounds, was following with wound care clinic, obstructive sleep apnea, osteoarthritis, anxiety/depression presents to ER with complaints of right lower activity swelling and redness and pain for the past 2 days. Patient had a history of chronic bilateral lower extremity wounds. Patient has not been followed with wound care clinic recently. Patient developed right lower extremity swelling and redness Sunday and has been getting worse. Redness and swelling up to the knee. Denied any fever or chills at home. No chest pain or shortness of breath. No nausea vomiting abdominal pain or diarrhea. No cough or sputum production. No dysuria or hematuria. X-ray of the tibia and fibula showed edema, correlate for cellulitis. Osteoarthritis and osteopenia Lower extremity duplex scan is negative for DVT WBC 10.8, lactic acid 2.5 on admission 06/24/2019 Patient is sitting up at the side of the bed in no acute distress with family at the bedside. Infectious disease is following. IV Vanco and Unasyn have been discontinued and patient is currently on cefazolin. Patient's right lower extremity is erythematous, warm to the touch, and swollen. Patient does have some right pedal edema 1+. Discussed with the patient at length today about elevating the lower extremities while at rest to help with some of the swelling. Currently patient denies any chest pain, shortness of breath, or palpitations at this time. Patient has been afebrile. Patient denies any nausea or vomiting and has been tolerating diet. Patient states that she has had previous episodes of infection of the lower extremities approximately one year ago and was going to the wound care center. 06/25/2019 Patient is sitting in bed in no acute distress with no acute overnight issues. Patient is elevating the right lower extremity on a pillow at this time. Patient continues to have some swelling and redness and tenderness upon palpation but the swelling and redness has slightly improved. Currently patient denies any chest pain, shortness of breath, or palpitations. Patient is afebrile. Patient denies any nausea or vomiting and is tolerating diet. Patient states that she lives alone and normally drives herself to her appointments but hasn't been able to due to the right lower extremity swelling and pain. Wound cultures thus far are negative and will await finalization. Infectious disease is following. Will continue to monitor. 06/26/2019 Patient is sitting up in bed in no acute distress. Patient denies any overnight issues. Patient continues to have severe pain and sensitivity to the right lower extremity and right foot. Patient redness and swelling is about the same as yesterday with no real improvement. The pedal edema has somewhat improved. This morning, patient had a fever of 100F. Infectious disease is following. Patient is refusing to continue to leave the lower right extremity wrapped with an diony wrap but has been elevating the leg. Patient denies any chest pain or shortness of breath at this time. Patient denies any palpitations at this time. Patient denies any nausea or vomiting and has been tolerating diet. PT/OT has been consulted and is pending at this time as patient has been feeling weak and unable to perform her own ADL's. Will continue to monitor closely. Objective - Vital Signs Vital signs: Vital Signs Temp 100.7 F H 06/26/19 12:48 Pulse 93 06/26/19 12:48 Resp 20 06/26/19 12:48 BP 121/63 06/26/19 12:48 Pulse Ox 96 06/26/19 08:48 Intake & Output 06/25/19 06/26/19 06/26/19 18:59 06:59 18:59 Intake Total 390 1 Output Total 2 Balance 390 -1 Intake: Oral 390 1 Output: Stool 1 Urine/Stool Mix 1 Other: Voiding Method Bedside Commode Bedside Commode # Voids 2 1 - Exam Patient is sitting up in bed comfortably, no acute distress, awake alert and oriented.. HEENT: Normocephalic. Neck is supple. Pupils reactive. Nostrils clear. Oral cavity is moist. Ears reveal no drainage. Neck reveals no JVD, carotid bruits, or thyromegaly. CHEST EXAMINATION: Trachea is central. Symmetrical expansion. Lung dickens clear to auscultation and percussion. CARDIAC: Normal S1, S2 with no gallops. No murmurs ABDOMEN: Soft. Bowel sounds normal. No organomegaly. No abdominal bruits. Extremities: Mild edema noted of the right foot. No clubbing or cyanosis Neurologically awake, alert, oriented x3 with well-coordinated movements. No focal deficits noted Skin: No rash. Patient does have swelling redness and extreme tenderness of the right lower extremity extending up to the knee.. Redness and swelling slightly improved There is a scab noted on the lateral aspect of the right [place] along with a blister that is intact noted on the right upper foot. No drainage noted. Psychiatric: Cooperative. Non-suicidal Musculoskeletal: No joint swelling or deformity. Normal range of motion. - Labs CBC & Chem 7: 06/24/19 08:20 06/24/19 08:20 Labs: Microbiology - Last 24 Hours (Table) 06/24/19 12:00 Gram Stain - Final Leg - Right Wound Culture - Final 06/24/19 05:50 Urine Culture - Final Urine,Voided Assessment and Plan Assessment: Right lower extremity extensive cellulitis Sepsis secondary to above Lactic acidosis 2.5, improved Chronic bilateral lower extremity venostasis and history of ulcers Hypertension Hyperlipidemia Obstructive sleep apnea Osteoarthritis Morbid obesity with BMI 53.1 Anxiety/depression DVT prophylaxis with heparin subq Recommendations and discussion: Recommend continue current medications, management, and symptomatic treatment. Infectious disease is following. Awaiting PT/OT evaluation. Patient is currently on IV antibiotics in the form of vanco and will continue at this time and currently awaiting finalization of cultures. No real improvement noted on previous IV antibiotics. Will continue to monitor closely. Wound and urine cu ltures thus far negative. Further recommendations based on the clinical course. Guarded prognosis. Possible discharge in 24-48 hours.
[2019-06-26] MEDS: ATORVASTATIN 40 MG TAB PO SCH (21:03)
[2019-06-27] MEDS: SODIUM CHLORIDE 0.9% 1,000 ML IV SCH ×3 (00:39→14:00)
[2019-06-27] MEDS: VANCOMYCIN 2,000 MG in SODIUM CHLORIDE 0.9% 500 ML 500 ML IVPB SCH ×2 (04:02→20:48)
[2019-06-27] MEDS: ASPIRIN 81 MG PO SCH (07:33)
[2019-06-27] MEDS: HEPARIN SODIUM,PORCINE 5,000 UNIT/ML 1 ML VIAL SQ SCH ×2 (07:33→22:17)
[2019-06-27] MEDS: MULTIVITAMINS, THERA 1 EACH TAB PO SCH (07:33)
[2019-06-27] MEDS: FAMOTIDINE 20 MG TAB PO SCH ×2 (07:33→22:17)
[2019-06-27] MEDS: METOPROLOL SUCCINATE (ER) 25 MG TAB.ER.24H PO SCH (07:33)
[2019-06-27] MEDS: HYDROcodone/APAP 5-325MG 1 EACH TAB PO PRN ×3 (07:34→20:42)
[2019-06-27 09:20] LABS: African American GFR (CKD) >90 (>60 ml/min/1.73 sqM); Anion Gap 6 mmol/L; Blood Urea Nitrogen 12 mg/dL (7-17); Calcium 8.4 mg/dL (8.4-10.2); Carbon Dioxide 27 mmol/L (22-30); Chloride 108 mmol/L (98-107); Glucose 95 mg/dL (74-99); Non-African American GFR(CKD) >90 (>60 ml/min/1.73 sqM); Potassium 4.2 mmol/L (3.5-5.1); Sodium 141 mmol/L (137-145)
[2019-06-27 09:21] LABS: Basophils # (A) 0.1 k/uL (0-0.2); Basophils % (A) 1 %; Eosinophils # (A) 0.1 k/uL (0-0.7); Eosinophils % (A) 2 %; HCT 31.5 % (34.0-46.0); HGB 10.2 gm/dL (11.4-16.0); Hypochromasia Slight; Lymphocytes # (A) 1.2 k/uL (1.0-4.8); Lymphocytes % (A) 15 %; MCH 31.5 pg (25.0-35.0); MCHC 32.5 g/dL (31.0-37.0); MCV 96.8 fL (80.0-100.0); Monocytes # (A) 0.6 k/uL (0-1.0); Monocytes % (A) 8 %; Neutrophils # (A) 5.6 k/uL (1.3-7.7); Neutrophils % (A) 72 %; Platelet Count 300 k/uL (150-450); RBC 3.25 m/uL (3.80-5.40); WBC 7.8 k/uL (3.8-10.6)
[2019-06-27] MEDS: ACETAMINOPHEN TAB 325 MG TAB PO PRN (11:42)
--- NOTE | 2019-06-27 12:29 | PN ---
PROGRESS NOTE DATE OF SERVICE: 06/27/2019 REASON FOR FOLLOWUP: Right lower extremity cellulitis. INTERVAL HISTORY: The patient is currently afebrile. The patient is breathing comfortably. The right leg pain and swelling and redness has improved compared to yesterday about 5-10. The patient currently no open wound and any DVT. Denies having any chest pain or shortness of breath or cough and no diarrhea. PHYSICAL EXAMINATION: Blood pressure 116/59 with a pulse of 98, temperature 98.4, she is 95% on 2 L nasal cannula. General description is an elderly female, up in the chair in no distress. RESPIRATORY SYSTEM: Unlabored breathing with decreased breath sounds at the base, no wheeze. HEART: S1, S2. Regular rate and rhythm. ABDOMEN: Soft, no tenderness. LABS: Hemoglobin is 10.8, white count of 7.2, BUN of 12, creatinine 0.66. DIAGNOSTIC IMPRESSION AND PLAN: Patient with acute right lower extremity cellulitis. The patient has not responded very well to Cefazolin, seemed to be doing well on the IV vancomycin which can continue for about a week to 10 days to the midline and the patient is going to [facility]. This was discussed in detail with the field case manager. Continue supportive care. MMODL / IJN: [id number] /
--- NOTE | 2019-06-27 15:41 | P.PN ---
Subjective Progress Note Date: 06/27/19 Principal diagnosis: Patient is 68-year-old female with a known history of hypertension, hyperlipidemia, chronic bilateral lower extremity venous stasis and history of leg wounds, was following with wound care clinic, obstructive sleep apnea, osteoarthritis, anxiety/depression presents to ER with complaints of right lower activity swelling and redness and pain for the past 2 days. Patient had a history of chronic bilateral lower extremity wounds. Patient has not been followed with wound care clinic recently. Patient developed right lower extremity swelling and redness Sunday and has been getting worse. Redness and swelling up to the knee. Denied any fever or chills at home. No chest pain or shortness of breath. No nausea vomiting abdominal pain or diarrhea. No cough or sputum production. No dysuria or hematuria. X-ray of the tibia and fibula showed edema, correlate for cellulitis. Osteoarthritis and osteopenia Lower extremity duplex scan is negative for DVT WBC 10.8, lactic acid 2.5 on admission 06/24/2019 Patient is sitting up at the side of the bed in no acute distress with family at the bedside. Infectious disease is following. IV Vanco and Unasyn have been discontinued and patient is currently on cefazolin. Patient's right lower extremity is erythematous, warm to the touch, and swollen. Patient does have some right pedal edema 1+. Discussed with the patient at length today about elevating the lower extremities while at rest to help with some of the swelling. Currently patient denies any chest pain, shortness of breath, or palpitations at this time. Patient has been afebrile. Patient denies any nausea or vomiting and has been tolerating diet. Patient states that she has had previous episodes of infection of the lower extremities approximately one year ago and was going to the wound care center. 06/25/2019 Patient is sitting in bed in no acute distress with no acute overnight issues. Patient is elevating the right lower extremity on a pillow at this time. Patient continues to have some swelling and redness and tenderness upon palpation but the swelling and redness has slightly improved. Currently patient denies any chest pain, shortness of breath, or palpitations. Patient is afebrile. Patient denies any nausea or vomiting and is tolerating diet. Patient states that she lives alone and normally drives herself to her appointments but hasn't been able to due to the right lower extremity swelling and pain. Wound cultures thus far are negative and will await finalization. Infectious disease is following. Will continue to monitor. 06/26/2019 Patient is sitting up in bed in no acute distress. Patient denies any overnight issues. Patient continues to have severe pain and sensitivity to the right lower extremity and right foot. Patient redness and swelling is about the same as yesterday with no real improvement. The pedal edema has somewhat improved. This morning, patient had a fever of 100F. Infectious disease is following. Patient is refusing to continue to leave the lower right extremity wrapped with an diony wrap but has been elevating the leg. Patient denies any chest pain or shortness of breath at this time. Patient denies any palpitations at this time. Patient denies any nausea or vomiting and has been tolerating diet. PT/OT has been consulted and is pending at this time as patient has been feeling weak and unable to perform her own ADL's. Will continue to monitor closely. 06/27/2019 Patient is sitting up in bed in no acute distress with no acute overnight issues. Patient continues to have her right lower extremity elevated on some pillows. Patient continues to have extreme tenderness and pain with any type of touch or palpation to the right lower extremity and right foot. Patient has been unable to bear any weight on the right lower extremity due to the tenderness. Right lower extremity is still extremely warm to the touch and patient has been having some intermittent low-grade fevers and is being closely monitored. Case management and social work are following as PT/OT have evaluated the patient and recommends possible subacute rehab upon discharge. Patient has been unable to perform her own ADLs, having weakness and unsteady gait, and generalized weakness. Patient has requested [facility] for convenience of being close to her daughters and to continue with IV antibiotics along with PT/OT for strength and mobility. Infectious disease is following. Patient is currently on vancomycin and is receiving a midline today for IV antibiotics in the outpatient setting. REVIEW OF SYSTEMS: ENT: diminished vision, wears glasses, no reports of diminished hearing. CARDIOVASCULAR: No reports of chest pain or palpitations RESPIRATORY: No reports of shortness of breath or cough GI: No nausea, vomiting or diarrhea. : No dysuria or retention. NERVOUS SYSTEM: Reports weakness. HEMATOLOGY/ONCOLOGY: No history of anemia. ENDOCRINE: No history of diabetes or hypothyroidism. CONSTITUTIONAL: Reports fatigue and fever DERMATOLOGY: Reports right lower extremity cellulitis and discomfort PSYCHIATRY: Cooperative, non-suicidal RHEUMATOLOGY: Negative. Active Medications Acetaminophen (Tylenol Tab) 650 mg PO Q6HR PRN Hydrocodone Bitart/Acetaminophen ([place] 5-325) 1 each PO Q6HR PRN Albuterol Sulfate (Ventolin Nebulized) 2.5 mg INHALATION RT-Q4H PRN Aspirin (Aspirin) 81 mg PO DAILY NATALYA Atorvastatin Calcium (Lipitor) 40 mg PO HS NATALYA Famotidine (Pepcid) 20 mg PO BID NATALYA Heparin Sodium (Porcine) (Heparin) 5,000 unit SQ Q12HR NATALYA Sodium Chloride (Saline 0.9%) 1,000 mls @ 100 mls/hr IV .Q10H NATALYA Vancomycin HCl 2,000 mg/ (Sodium Chloride) 500 mls @ 167 mls/hr IVPB Q16H NATALYA Ipratropium [place] (Atrovent Nebulized) 0.5 mg INHALATION RT-QID PRN Metoprolol Succinate (Toprol Xl) 25 mg PO DAILY [facility] Multivitamins (Theragran) 1 each PO DAILY NATALYA Naloxone HCl (Narcan) 0.2 mg IV Q2M PRN Objective - Vital Signs Vital signs: Vital Signs Temp 99.4 F 06/27/19 05:06 Pulse 94 06/27/19 05:06 Resp 22 06/27/19 05:06 BP 108/70 06/27/19 05:06 Pulse Ox 95 06/27/19 05:06 Intake & Output 06/26/19 06/27/19 06/27/19 18:59 06:59 18:59 Intake Total 600 Balance 600 Intake: Oral 600 Other: Voiding Method Bedside Commode # Voids 1 # Bowel Movements 0 - Exam Patient is sitting up in bed comfortably, no acute distress, awake alert and oriented.. Vital signs are stable HEENT: Normocephalic. Neck is supple. Pupils reactive. Nostrils clear. Oral cavity is moist. Ears reveal no drainage. Neck reveals no JVD, carotid bruits, or thyromegaly. CHEST EXAMINATION: Trachea is central. Symmetrical expansion. Lung dickens clear to auscultation and percussion. CARDIAC: Normal S1, S2 with no gallops. No murmurs ABDOMEN: Soft. Bowel sounds normal. No organomegaly. No abdominal bruits. Extremities: Mild edema noted of the right foot. No clubbing or cyanosis Neurologically awake, alert, oriented x3 with well-coordinated movements. No focal deficits noted Skin: No rash. Patient does have swelling redness and extreme tenderness of the right lower extremity extending up to the knee.. Redness and swelling slightly improved There is a scab noted on the lateral aspect of the right sheffield along with a blister that is intact noted on the right upper foot. No drainage noted. Psychiatric: Cooperative. Non-suicidal Musculoskeletal: No joint swelling or deformity. Normal range of motion. - Labs CBC & Chem 7: 06/27/19 07:20 06/27/19 07:20 Labs: Microbiology - Last 24 Hours (Table) 06/24/19 12:00 Gram Stain - Final Leg - Right Wound Culture - Final Assessment and Plan Assessment: Right lower extremity extensive cellulitis Sepsis secondary to above Lactic acidosis 2.5, improved Chronic bilateral lower extremity venostasis and history of ulcers Hypertension Hyperlipidemia Obstructive sleep apnea Osteoarthritis Morbid obesity with BMI 53.1 Anxiety/depression DVT prophylaxis with heparin subq Recommendations and discussion: Recommend continue current medications, management, and symptomatic treatment. Infectious disease is following. PT/OT are following. Patient has requested [facility] for subacute rehab as patient continues to be unable to bear any weight on the right lower extremity, have unsteady gait, and is requiring IV antibiotics in the outpatient setting. A midline is being placed today. Cultur es thus far remain negative. Will continue to monitor closely. Further recommendations based on the clinical course. Guarded prognosis. Possible discharge in 24-48 hours once authorization for [facility] is obtained.
[2019-06-27] MEDS: ATORVASTATIN 40 MG TAB PO SCH (22:17)
[2019-06-28 01:30] VITALS: RESP 20
[2019-06-28] MEDS: HYDROcodone/APAP 5-325MG 1 EACH TAB PO PRN ×2 (02:25→08:46)
[2019-06-28 06:31] VITALS: BP 108/69; PULSE 102; TEMP 98.6
[2019-06-28] MEDS: ASPIRIN 81 MG PO SCH (08:38)
[2019-06-28] MEDS: METOPROLOL SUCCINATE (ER) 25 MG TAB.ER.24H PO SCH (08:38)
[2019-06-28] MEDS: MULTIVITAMINS, THERA 1 EACH TAB PO SCH (08:38)
[2019-06-28] MEDS: HEPARIN SODIUM,PORCINE 5,000 UNIT/ML 1 ML VIAL SQ SCH (08:38)
[2019-06-28] MEDS: FAMOTIDINE 20 MG TAB PO SCH (08:38)
[2019-06-28] MEDS: SODIUM CHLORIDE 0.9% 1,000 ML IV SCH (08:50)
--- NOTE | 2019-06-28 11:17 | P.DS ---
Providers Date of admission: 06/25/19 08:56 Attending physician: Shankar Huffman Consults: 06/23/19 23:00 Consult Physician Routine Consulting Provider: Ca Wolff Consult Reason/Comments: RLE cellulitis Do you want consulting provider notified?: Yes, Notify in am Primary care physician: Tasha Leon [facility] Course: 68-year-old female with a known history of hypertension, hyperlipidemia, chronic bilateral lower extremity venous stasis and history of leg wounds, was following with wound care clinic, obstructive sleep apnea, osteoarthritis, anxiety/depression presents to ER with complaints of right lower activity swelling and redness and pain for the past 2 days. Patient had a history of chronic bilateral lower extremity wounds. Patient has not been followed with wound care clinic recently. Patient developed right lower extremity swelling and redness Sunday and has been getting worse. Redness and swelling up to the knee. Denied any fever or chills at home. No chest pain or shortness of breath. No nausea vomiting abdominal pain or diarrhea. No cough or sputum production. No dysuria or hematuria. X-ray of the tibia and fibula showed edema, correlate for cellulitis. Osteoarth ritis and osteopenia Lower extremity duplex scan is negative for DVT WBC 10.8, lactic acid 2.5 on admission 06/24/2019 Patient is sitting up at the side of the bed in no acute distress with family at the bedside. Infectious disease is following. IV Vanco and Unasyn have been discontinued and patient is currently on cefazolin. Patient's right lower extremity is erythematous, warm to the touch, and swollen. Patient does have some right pedal edema 1+. Discussed with the patient at length today about elevating the lower extremities while at rest to help with some of the swelling. Currently patient denies any chest pain, shortness of breath, or palpitations at this time. Patient has been afebrile. Patient denies any nausea or vomiting and has been tolerating diet. Patient states that she has had previous episodes of infection of the lower extremities approximately one year ago and was going to the wound care center. 06/25/2019 Patient is sitting in bed in no acute distress with no acute overnight issues. Patient is elevating the right lower extremity on a pillow at this time. Patient continues to have some swelling and redness and tenderness upon palpation but the swelling and redness has slightly improved. Currently patient denies any chest pain, shortness of breath, or palpitations. Patient is afebrile. Patient denies any nausea or vomiting and is tolerating diet. Patient states that she lives alone and normally drives herself to her appointments but hasn't been able to due to the right lower extremity swelling and pain. Wound cultures thus far are negative and will await finalization. Infectious disease is following. Will continue to monitor. 06/26/2019 Patient is sitting up in bed in no acute distress. Patient denies any overnight issues. Patient continues to have severe pain and sensitivity to the right lower extremity and right foot. Patient redness and swelling is about the same as yesterday with no real improvement. The pedal edema has somewhat improved. This morning, patient had a fever of 100F. Infectious disease is following. Patient is refusing to continue to leave the lower right extremity wrapped with an diony wrap but has been elevating the leg. Patient denies any chest pain or shortness of breath at this time. Patient denies any palpitations at this time. Patient denies any nausea or vomiting and has been tolerating diet. PT/OT has been consulted and is pending at this time as patient has been feeling weak and unable to perform her own ADL's. Will continue to monitor closely. 06/27/2019 Patient is sitting up in bed in no acute distress with no acute overnight issues. Patient continues to have her right lower extremity elevated on some pillows. Patient continues to have extreme tenderness and pain with any type of touch or palpation to the right lower extremity and right foot. Patient has been unable to bear any weight on the right lower extremity due to the tenderness. Right lower extremity is still extremely warm to the touch and patient has been having some intermittent low-grade fevers and is being closely monitored. Case management and social work are following as PT/OT have evaluated the patient and recommends possible subacute rehab upon discharge. Patient has been unable to perform her own ADLs, having weakness and unsteady gait, and generalized weakness. Patient has requested [facility] for convenience of being close to her daughters and to continue with IV antibiotics along with PT/OT for strength and mobility. Infectious disease is following. Patient is currently on vancomycin and is receiving a midline today for IV antibiotics in the outpatient setting. 06/28/2019 Patient is being discharged to subacute rehabilitation today and patient will be discharged on IV antibiotics. - Exam Patient is sitting up in bed comfortably, no acute distress, awake alert and oriented.. Vital signs are stable HEENT: Normocephalic. Neck is supple. Pupils reactive. Nostrils clear. Oral cavity is moist. Ears reveal no drainage. Neck reveals no JVD, carotid bruits, or thyromegaly. CHEST EXAMINATION: Trachea is central. Symmetrical expansion. Lung dickens clear to auscultation and percussion. CARDIAC: Normal S1, S2 with no gallops. No murmurs ABDOMEN: Soft. Bowel sounds normal. No organomegaly. No abdominal bruits. Extremities: Mild edema noted of the right foot. No clubbing or cyanosis Neurologically awake, alert, oriented x3 with well-coordinated movements. No focal deficits noted Skin: No rash. Patient does have swelling redness and extreme tenderness of the right lower extremity extending up to the knee.. Redness and swelling slightly improved There is a scab noted on the lateral aspect of the right sheffield along with a blister that is intact noted on the right upper foot. No drainage noted. Psychiatric: Cooperative. Non-suicidal Musculoskeletal: No joint swelling or deformity. Normal range of motion. Assessment and Plan Assessment: Right lower extremity extensive cellulitis Sepsis secondary to above Lactic acidosis, improved Chronic bilateral lower extremity venostasis and history of ulcers Hypertension Hyperlipidemia Obstructive sleep apnea Osteoarthritis Morbid obesity with BMI 53.1 Anxiety/depression Patient Condition at Discharge: Serious Plan - Discharge Summary New Discharge Prescriptions: New HYDROcodone/APAP 5-325MG [[place] 5-325] 1 each PO Q6HR PRN #12 tab PRN Reason: Moderate Pain Acetaminophen Tab [Tylenol] 650 mg PO Q6HR PRN #0 tab PRN Reason: Mild Pain Or Fever > 100.5 Vancomycin 2,000 mg IVPB Q16H #20 vial Polyethylene Glycol 3350 [Miralax] 17 gm PO DAILY PRN #15 packet PRN Reason: Constipation Continue Albuterol Inhaler [Ventolin Hfa Inhaler] 1 - 2 puff INHALATION RT-Q4H PRN PRN Reason: Shortness Of Breath Aspirin 81 mg PO DAILY chew Atorvastatin [Lipitor] 40 mg PO HS #30 tab Metoprolol Succinate (ER) [Toprol XL] 25 mg PO DAILY #30 tab Vitamin A 10,000 unit PO DAILY Multivitamins, Thera [Multivitamin (formulary)] 1 tab PO DAILY Zinc 50 mg PO DAILY Discharge Medication List Albuterol Inhaler [Ventolin Hfa Inhaler] 1 - 2 puff INHALATION RT-Q4H PRN 10/25/18 [History] Aspirin 81 mg PO DAILY chew 10/28/18 [Rx] Atorvastatin [Lipitor] 40 mg PO HS #30 tab 10/28/18 [Rx] Metoprolol Succinate (ER) [Toprol XL] 25 mg PO DAILY #30 tab 10/28/18 [Rx] Multivitamins, Thera [Multivitamin (formulary)] 1 tab PO DAILY 03/12/19 [History] Vitamin A 10,000 unit PO DAILY 03/12/19 [History] Zinc 50 mg PO DAILY 03/12/19 [History] Acetaminophen Tab [Tylenol] 650 mg PO Q6HR PRN #0 tab 06/28/19 [Rx] HYDROcodone/APAP 5-325MG [[place] 5-325] 1 each PO Q6HR PRN #12 tab 06/28/19 [Rx] Polyethylene Glycol 3350 [Miralax] 17 gm PO DAILY PRN #15 packet 06/28/19 [Rx] Vancomycin 2,000 mg IVPB Q16H #20 vial 06/28/19 [Rx] Follow up Appointment(s)/Referral(s): Tasha Leon DO [Primary Care Provider] - 1-2 days [facility], [NON-STAFF] - Patient Instructions/Handouts: Cellulitis (DC), Fall Prevention (DC) Activity/Diet/Wound Care/Special Instructions: Your physician requires you to go to your follow up appt before home care can see you. Son concerned patient may become depressed that her bariatric surgery will be delayed. please make PCP at [facility] aware she may beed to be started on a medication for depression, per son, thank you.
[2019-06-28] MEDS: VANCOMYCIN 2,000 MG in SODIUM CHLORIDE 0.9% 500 ML 500 ML IVPB SCH (12:01)
[2019-06-28] MEDS ORDERED: HYDROcodone/APAP 7.5-325MG 1 EACH TAB PO PRN (13:29)
--- NOTE | 2019-06-28 20:50 | PN ---
PROGRESS NOTE DATE OF SERVICE: 06/28/2019. REASON FOR FOLLOWUP: Right lower extremity cellulitis. INTERVAL HISTORY: The patient is currently afebrile. The patient is breathing comfortably. The patient denies having any chest pain or cough. No abdominal pain, right leg pain, swelling has slightly decreased. Currently no open wound or any drainage. PHYSICAL EXAMINATION: Blood pressure 102/69, pulse 102, temperature 98.6. She is 95% on 2 L nasal cannula. General description is an elderly female, lying in bed in no distress. Respiratory system: Unlabored breathing, clear to auscultation anteriorly. Heart: S1, S2. Regular rate and rhythm. Abdomen soft. No tenderness. Right leg redness has slightly decreased. LABS: Hemoglobin is 10.2, white count 7.8. BUN of 12, creatinine 0.66. DIAGNOSTIC IMPRESSION AND PLAN: Patient with right lower extremity cellulitis. The patient did not respond very well to the initial antibiotic therapy of cefazolin. She is currently doing well on vancomycin to be continued for another 7-10 days at the alf. The patient currently waiting for placement. Monitor her kidney function closely. Continue supportive care. MMODL / IJN: [id number] /
[2019-06-29] MEDS ORDERED: VANCOMYCIN TROUGH DUE 1 EACH MISC MISCELLANE ONE (19:00)
== END 2019-06-28 15:38 | DRG 872 ==
LOC: EC 14:36 → 4MS4W 16:37 → OBSVTOIN 06-25 08:56
PROVIDERS: ADMIT Hospitalist; ATTEND Hospitalist
PROC: 05HD33Z Insertion of Infusion Device into Right Cephalic Vein, Percutaneous Approach (ICD-10-PCS; principal; 2019-06-27 11:20)
DX: A41.9 Sepsis, unspecified organism (principal); E87.2 Acidosis; L03.115 Cellulitis of right lower limb; Z68.43 Body mass index [BMI] 50.0-59.9, adult; E66.01 Morbid (severe) obesity due to excess calories; B35.3 Tinea pedis; E78.5 Hyperlipidemia, unspecified; F32.9 Major depressive disorder, single episode, unspecified; F41.9 Anxiety disorder, unspecified; G47.33 Obstructive sleep apnea (adult) (pediatric); I10 Essential (primary) hypertension; I87.8 Other specified disorders of veins; M19.90 Unspecified osteoarthritis, unspecified site; M85.80 Other specified disorders of bone density and structure, unspecified site; Z79.82 Long term (current) use of aspirin; Z79.899 Other long term (current) drug therapy; Z80.3 Family history of malignant neoplasm of breast; Z80.49 Family history of malignant neoplasm of other genital organs; Z82.49 Family history of ischemic heart disease and other diseases of the circulatory system; Z90.710 Acquired absence of both cervix and uterus
CPT/HCPCS: 36410; 36415; 76937; 80048; 80053; 81001; 83605; 85025; 87070; 87086; 87205; 94640; 96361; 96374; 96375; 96376; 99285

== ENCOUNTER 2019-07-06 05:03 | Emergency (ER) | payer MEDICARE ==
[2019-07-06 05:14] VITALS: BP 154/85; PULSE 74; RESP 20; TEMP 98.2
--- NOTE | 2019-07-06 05:27 | ED ---
General Adult HPI - General Chief complaint: Recheck/Abnormal Lab/Rx Stated complaint: IV Access issues Time Seen by Provider: 07/06/19 05:18 Source: EMS Mode of arrival: EMS Limitations: no limitations - History of Present Illness Initial comments: This patient is 68-year-old woman who presents with complaint that she has lost her IV access. The patient states currently receiving vancomycin. She did have an IV that had infiltrated tonight. Patient is scheduled to have outpatient line placement, worse IV access to have antibiotics until then. No other complaint. -: hour(s) - Related Data Home Medications Medication Instructions Recorded Confirmed Albuterol Inhaler [Ventolin Hfa 1 - 2 puff INHALATION RT-Q4H PRN 10/25/18 06/23/19 Inhaler] Multivitamins, Thera [Multivitamin 1 tab PO DAILY 03/12/19 06/23/19 (formulary)] Vitamin A 10,000 unit PO DAILY 03/12/19 06/23/19 Zinc 50 mg PO DAILY 03/12/19 06/23/19 Previous Rx's Medication Instructions Recorded Aspirin 81 mg PO DAILY chew 10/28/18 Atorvastatin [Lipitor] 40 mg PO HS #30 tab 10/28/18 Metoprolol Succinate (ER) [Toprol 25 mg PO DAILY #30 tab 10/28/18 XL] Acetaminophen Tab [Tylenol] 650 mg PO Q6HR PRN #0 tab 06/28/19 HYDROcodone/APAP 5-325MG [[place] 1 each PO Q6HR PRN #12 tab 06/28/19 5-325] Polyethylene Glycol 3350 [Miralax] 17 gm PO DAILY PRN #15 packet 06/28/19 Vancomycin 2,000 mg IVPB Q16H #20 vial 06/28/19 Allergies Allergy/AdvReac Type Severity Reaction Status Date / Time zinc oxide Allergy Rash/Hives Verified 07/06/19 05:15 Review of Systems ROS Statement: Those systems with pertinent positive or pertinent negative responses have been documented in the HPI. ROS Other: All systems not noted in ROS Statement are negative. Respiratory: Denies: cough, dyspnea Cardiovascular: Denies: chest pain Past Medical History Past Medical History: Hyperlipidemia, Hypertension, Osteoarthritis (OA), Sleep Apnea/CPAP/BIPAP, Vascular Disorder Additional Past Medical History / Comment(s): CPap use, cardiac murmur, bilateral legs/feet edema at times, History of Any Multi-Drug Resistant Organisms: None Reported Past Surgical History: Bladder Surgery, Hysterectomy, Tonsillectomy Additional Past Surgical History / Comment(s): BLADDER SLING, EGD, colonoscopy, R carpal tunnel release, R elbow release. Past Anesthesia/Blood Transfusion Reactions: No Reported Reaction Past Psychological History: Anxiety, Depression Smoking Status: Never smoker Past Alcohol Use History: Rare Past Drug Use History: None Reported - Past Family History Father Family Medical History: Coronary Artery Disease (CAD), Myocardial Infarction (AZ) Additional Family Medical History / Comment(s): Father had heart disease and had a AZ in his 50s. Mother Family Medical History: Cancer Additional Family Medical History / Comment(s): Mother had cancer but pt does not recall type. Sister(s) Family Medical History: Cancer, Deep Vein Thrombosis (DVT), Pulmonary Embolus Additional Family Medical History / Comment(s): SISTER #1 UTERINE CA. SISTER #2 UTERINE AND BREAST CA. Sister#3 2-PEs, 3- DVTs General Exam Limitations: no limitations General appearance: alert, in no apparent distress Head exam: Present: atraumatic, normocephalic Respiratory exam: Present: normal lung sounds bilaterally. Absent: respiratory distress, wheezes, rales, rhonchi, stridor Cardiovascular Exam: Present: regular rate, normal rhythm, normal heart sounds. Absent: systolic murmur, diastolic murmur, rubs, gallop Skin exam: Present: warm, dry Course Vital Signs 07/06/19 05:05 Temperature 98.2 F Pulse Rate 74 Respiratory 20 Rate Blood Pressure 154/85 O2 Sat by Pulse 96 Oximetry Disposition Clinical Impression: Problem with intravenous catheter Disposition: HOME SELF-CARE Condition: Good Is patient prescribed a controlled substance at d/c from ED?: No Referrals: Tasha Leon DO [Primary Care Provider] - 1-2 days
== END 2019-07-06 05:22 | disposition home or self-care (01) ==
LOC: EC 05:03
DX: T82.898A Other specified complication of vascular prosthetic devices, implants and grafts, initial encounter (principal); G47.30 Sleep apnea, unspecified; Z99.89 Dependence on other enabling machines and devices; Z88.8 Allergy status to other drugs, medicaments and biological substances
CPT/HCPCS: 99283

== ENCOUNTER → 2019-07-17 | Outpatient (CLI) | payer MEDICARE ==
--- NOTE | 2019-07-17 14:50 | US ---
EXAMINATION TYPE: US venous doppler duplex LE BI Exam limitations due to body habitus. DATE OF EXAM: 07/17/2019 2:03 PM COMPARISON: NONE CLINICAL HISTORY: L03.115 CELLULLITIS OF RT LOWER LIMB. Edema SIDE PERFORMED: Bilateral TECHNIQUE: The lower extremity deep venous system is examined utilizing real time linear array sonog mike with graded compression, doppler sonography and color-flow sonography. VESSELS IMAGED: External Iliac Vein (EIV) Common Femoral Vein Deep Femoral Vein Greater Saphenous Vein * Femoral Vein Popliteal Vein Small Saphenous Vein * Right Leg: Negative for DVT Left Leg: Negative for DVT IMPRESSION: No evidence for DVT at this time.
== END | disposition home or self-care (01) ==
LOC: RADUSWWP 12:20
PROVIDERS: ATTEND Family Medicine
DX: L03.115 Cellulitis of right lower limb (principal)
CPT/HCPCS: 93923; 93970

== ENCOUNTER 2019-08-02 22:11 | Inpatient (IN) | payer MEDICARE ==
[2019-08-02] MEDS ORDERED: SODIUM CHLORIDE 0.9% 500 ML 500 ML IV STA (22:42)
[2019-08-02 22:59] LABS: Basophils % (A) 0 %; Eosinophils # (A) 0.2 k/uL (0-0.7); Eosinophils % (A) 4 %; HCT 36.3 % (34.0-46.0); HGB 11.7 gm/dL (11.4-16.0); Lymphocytes # (A) 1.5 k/uL (1.0-4.8); Lymphocytes % (A) 30 %; MCH 29.4 pg (25.0-35.0); MCHC 32.2 g/dL (31.0-37.0); MCV 91.4 fL (80.0-100.0); Mean Platelet Volume 8.7; Monocytes # (A) 0.5 k/uL (0-1.0); Monocytes % (A) 9 %; Neutrophils # (A) 2.7 k/uL (1.3-7.7); Neutrophils % (A) 54 %; Platelet Count 259 k/uL (150-450); RBC 3.97 m/uL (3.80-5.40); RDW 14.5 % (11.5-15.5); WBC 5.1 k/uL (3.8-10.6)
[2019-08-02 23:08] LABS: ALT 21 U/L (4-34); AST 26 U/L (14-36); African American GFR (CKD) >90 (>60 ml/min/1.73 sqM); Albumin 3.9 g/dL (3.5-5.0); Alkaline Phosphatase 78 U/L (38-126); Anion Gap 8 mmol/L; Blood Urea Nitrogen 21 mg/dL (7-17); Calcium 9.6 mg/dL (8.4-10.2); Carbon Dioxide 24 mmol/L (22-30); Chloride 110 mmol/L (98-107); Glucose 118 mg/dL (74-99); Non-African American GFR(CKD) >90 (>60 ml/min/1.73 sqM); Potassium 3.7 mmol/L (3.5-5.1); Sodium 142 mmol/L (137-145); Total Bilirubin 0.7 mg/dL (0.2-1.3); Total Protein 7.7 g/dL (6.3-8.2)
--- NOTE | 2019-08-02 23:30 | XR ---
EXAMINATION TYPE: XR foot complete RT DATE OF EXAM: 08/02/2019 COMPARISON: NONE HISTORY: Cellulitis. Swelling. TECHNIQUE: 3 views FINDINGS: There is soft tissue swelling of the forefoot. There are plantar and Achilles calcaneal spu rs. There is intact metatarsals. I see no focal bone destruction. IMPRESSION: Soft tissue swelling. Calcaneal spurring. No fracture. No sign of osteomyelitis.
--- NOTE | 2019-08-02 23:37 | US ---
EXAMINATION TYPE: US venous doppler duplex LE RT DATE OF EXAM: 08/02/2019 10:43 PM COMPARISON: NONE CLINICAL HISTORY: cellulitis. redness SIDE PERFORMED: Right TECHNIQUE: The lower extremity deep venous system is examined utilizing real time linear array sonog mike with graded compression, doppler sonography and color-flow sonography. VESSELS IMAGED: External Iliac Vein (EIV) Common Femoral Vein Deep Femoral Vein Greater Saphenous Vein * Femoral Vein Popliteal Vein Small Saphenous Vein * Proximal Calf Veins (* superficial vessels) Right Leg: Negative for DVT IMPRESSION: Normal exam. No evidence of deep venous thrombosis in the right leg.
[2019-08-03] MEDS ORDERED: VANCOMYCIN IV PER PHARMACY 1 EACH MISC MISCELLANE PRN (00:22)
[2019-08-03] MEDS ORDERED: PIPERACILLIN-TAZOBACTAM 3.375 GM in SODIUM CHLORIDE 0.9% 100 ML IVPB STA (00:22)
[2019-08-03] MEDS ORDERED: NALOXONE 0.4 MG/ML 1 ML VIAL IV PRN (01:01)
--- NOTE | 2019-08-03 01:05 | ED ---
General Adult HPI - General Source: patient, family, RN notes reviewed, old records reviewed Mode of arrival: ambulatory Limitations: no limitations <Fernando Ling - Last Filed: 08/03/19 00:57> <Marilin Meraz - Last Filed: 08/04/19 23:22> - General Chief complaint: Skin/Abscess/Foreign Body Stated complaint: Swollen leg Time Seen by Provider: 08/02/19 22:21 - History of Present Illness Initial comments: 68-year-old female patient past history significant for recurrent sialitis right lower extremity presents to ED for chief complaint sialitis right lower extremity, swelling and pain. Patient recently completed vancomycin and Cefzil 12 days ago. She is on this for approximately 3 weeks. Today patient woke up, right lower extremity was swollen, painful. Patient also has an abscess in the dorsal aspect of her right foot. Denies any fevers or chills, denies any other complaints. Systemic: Pt denies fatigue, fever/chills, rash. Pt denies weakness, night sweats, weight loss. Neuro: Pt denies headache, visual disturbances, syncope or pre-syncope. HEENT: Pt denies ocular discharge or irritation, otalgia, rhinorrhea, pharyngitis or notable lymphadenopathy. Cardiopulmonary: Pt denies chest pain, SOB, heart palpitations, dyspnea on exertion. Abdominal/GI: Pt denies abdominal pain, n/v/d. : Pt denies dysuria, burning w/ urination, frequency/urgency. Denies new onset urinary or bowel incontinence. MSK: Pt denies myalgia, loss of strength or function in extremities. Neuro: Pt denies new onset weakness, paresthesias. (Fernando Ling) - Related Data Home Medications Medication Instructions Recorded Confirmed Albuterol Inhaler [Ventolin Hfa 2 puff INHALATION RT-Q4H PRN 10/25/18 08/03/19 Inhaler] Multivitamins, Thera [Multivitamin 1 tab PO DAILY 03/12/19 08/03/19 (formulary)] Vitamin A 10,000 unit PO DAILY 03/12/19 08/03/19 Zinc 50 mg PO DAILY 03/12/19 08/03/19 Atorvastatin [Lipitor] 40 mg PO DAILY 08/03/19 08/03/19 HYDROcodone/APAP 5-325MG [[place] 1 tab PO Q6HR PRN 08/03/19 08/03/19 5-325] Furosemide [Lasix] 20 mg PO DAILY 08/04/19 08/04/19 Previous Rx's Medication Instructions Recorded Aspirin 81 mg PO DAILY chew 10/28/18 Metoprolol Succinate (ER) [Toprol 25 mg PO DAILY #30 tab 10/28/18 XL] Acetaminophen Tab [Tylenol] 650 mg PO Q6HR PRN #0 tab 06/28/19 Polyethylene Glycol 3350 [Miralax] 17 gm PO DAILY PRN #15 packet 06/28/19 Allergies Allergy/AdvReac Type Severity Reaction Status Date / Time zinc oxide Allergy Rash/Hives Verified 08/03/19 10:47 Review of Systems ROS Other: All systems not noted in ROS Statement are negative. <Fernando Ling - Last Filed: 08/03/19 00:57> ROS Other: All systems not noted in ROS Statement are negative. <Marilin Meraz - Last Filed: 08/04/19 23:22> ROS Statement: Those systems with pertinent positive or pertinent negative responses have been documented in the HPI. Past Medical History Past Medical History: Hyperlipidemia, Hypertension, Osteoarthritis (OA), Sleep Apnea/CPAP/BIPAP, Vascular Disorder Additional Past Medical History / Comment(s): CPap use, cardiac murmur, b ilateral legs/feet edema at times, History of Any Multi-Drug Resistant Organisms: None Reported Past Surgical History: Bladder Surgery, Hysterectomy, Tonsillectomy Additional Past Surgical History / Comment(s): BLADDER SLING, EGD, colonoscopy, R carpal tunnel release, R elbow release. Past Anesthesia/Blood Transfusion Reactions: No Reported Reaction Past Psychological History: Anxiety, Depression Smoking Status: Never smoker Past Alcohol Use History: Rare Past Drug Use History: None Reported - Past Family History Father Family Medical History: Coronary Artery Disease (CAD), Myocardial Infarction ([place]) Additional Family Medical History / Comment(s): Father had heart disease and had a [place] in his 50s. Mother Family Medical History: Cancer Additional Family Medical History / Comment(s): Mother had cancer but pt does not recall type. Sister(s) Family Medical History: Cancer, Deep Vein Thrombosis (DVT), Pulmonary Embolus Additional Family Medical History / Comment(s): SISTER #1 UTERINE CA. SISTER #2 UTERINE AND BREAST CA. Sister#3 2-PEs, 3- DVTs <Fernando Ling - Last Filed: 08/03/19 00:57> General Exam Limitations: no limitations <Fernando Ling - Last Filed: 08/03/19 00:57> - General Exam Comments Initial Comments: Constitutional: NAD, AOX3, Pt has pleasant affect. HEENT: NC/AT, trachea midline, neck supple, no lymphadenopathy. Posterior pharynx non erythematous, without exudates. External ears appear normal, without discharge. Mucous membranes moist. Eyes PERRLA, EOM intact. There is no scleral icterus. No pallor noted. Cardiopulmonary: RRR, no murmurs, rubs or gallops, no JVD noted. Lungs CTAB in anterior and posterior dickens. No peripheral edema. Abdominal exam: Abdomen soft and non-distended. Abdomen non-tender to palpation in all 4 quadrants. Bowel sounds active in LLQ. No hepatosplenomegaly. No ecchymosis Neuro: CN II-XII grossly intact. No nuchal rigidity. No raccon eyes, no torres sign, no hemotympanum. No cervical spinal tenderness. MSK: Right lower extremity erythematous edematous from knee down. Warmth noted. Small 2 x 2 centimeter abscess noted dorsal aspect of right foot. Incision and drainage was performed and obtained a small amount of pus. Neurovascularly intact. No posterior calf tenderness bilaterally, homans sign negative bilaterally. Posterior tibialis and radial pulse +2 bilaterally. Sensation intact in upper and lower extremities. Full active ROM in upper and lower extremities, 5/5 stregnth. (Fernando Ling) Course Vital Signs 08/02/19 08/02/19 08/03/19 22:14 23:43 01:43 Temperature 97.6 F 97.9 F Pulse Rate 61 102 H 78 Pulse Rate [ Clinical Review Nurse ] Respiratory 18 18 18 Rate Blood Pressure 194/112 149/88 174/93 Blood Pressure [Right Arm] O2 Sat by Pulse 97 99 97 Oximetry 08/03/19 08/03/19 08/03/19 02:08 04:16 11:00 Temperature 97.8 F 97.4 F L Pulse Rate 104 H 110 H 100 Pulse Rate [ Clinical Review Nurse ] Respiratory 18 20 20 Rate Blood Pressure 135/92 140/82 150/91 Blood Pressure [Right Arm] O2 Sat by Pulse 98 96 98 Oximetry 08/03/19 08/03/19 08/03/19 12:18 17:24 18:00 Temperature Pulse Rate 93 93 87 Pulse Rate [ Clinical Review Nurse ] Respiratory 18 18 22 Rate Blood Pressure 145/91 139/69 Blood Pressure [Right Arm] O2 Sat by Pulse 98 100 Oximetry 08/03/19 08/03/19 08/04/19 20:00 22:00 00:00 Temperature 98.6 F 98.8 F Pulse Rate 98 88 84 Pulse Rate [ Clinical Review Nurse ] Respiratory 18 16 18 Rate Blood Pressure 152/88 133/99 146/71 Blood Pressure [Right Arm] O2 Sat by Pulse 96 98 Oximetry 08/04/19 08/04/19 08/04/19 02:00 06:00 08:00 Temperature 98.9 F Pulse Rate 83 81 81 Pulse Rate [ Clinical Review Nurse ] Respiratory 22 17 18 Rate Blood Pressure 138/81 138/79 159/79 Blood Pressure [Right Arm] O2 Sat by Pulse 98 Oximetry 08/04/19 08/04/19 08/04/19 11:28 15:42 18:05 Temperature 97.9 F Pulse Rate 67 82 Pulse Rate [ 77 Clinical Review Nurse ] Respiratory 20 18 18 Rate Blood Pressure 144/77 139/69 Blood Pressure 137/69 [Right Arm] O2 Sat by Pulse 97 98 98 Oximetry 08/04/19 18:06 Temperature 97.9 F Pulse Rate 82 Pulse Rate [ Clinical Review Nurse ] Respiratory 18 Rate Blood Pressure 139/69 Blood Pressure [Right Arm] O2 Sat by Pulse 98 Oximetry Procedures - Incision & Drainage Indication: abscess Site: lower extremity (R foot dorsal aspect) Size (cm): 2 I&D Cleaning Method: Alcohol Wipe Sterile Field Used?: Yes Scalpel Used: #11 I&D Drainage Obtained: Pus Culture Obtained?: Yes Patient Tolerated Procedure: well <Fernando Ling - Last Filed: 08/03/19 00:57> Medical Decision Making - Lab Data Result diagrams: 08/02/19 22:43 08/02/19 22:43 <Fernando Ling - Last Filed: 08/03/19 00:57> - Lab Data Result diagrams: 08/04/19 05:50 08/04/19 05:50 <Marilin Meraz - Last Filed: 08/04/19 23:22> - Medical Decision Making 68-year-old female patient past history significant for recurrent sialitis right lower extremity presents to ED for chief complaint sialitis right lower extremity, swelling and pain. Patient recently completed vancomycin and Cefzil 12 days ago. She is on this for approximately 3 weeks. Today patient woke up, right lower extremity was swollen, painful. Patient also has an abscess in the dorsal aspect of her right foot. Denies any fevers or chills, denies any other complaints. Pt VSS, afebrile. Physical exam displayed: Right lower extremity erythematous edematous from knee down. Warmth noted. Small 2 x 2 centimeter abscess noted dorsal aspect of right foot. Incision and drainage was performed and obtained a small amount of pus. Neurovascularly intact. Repeat evaluation the erythema in the right lower extremity was improved. There is still cellulitis noted on the distal anterior tibia. Warmth, tenderness remain. Laboratory investigations are unimpressive. Patient initiated on vancomycin, Zosyn. Culture pending an abscess. Patient will be admitted for infectious disease consultation. Case discussed with Dr. Meraz. (Fernando Ling) I was available for consultation in the emergency department. The history and physical exam was performed by the midlevel provider. I reviewed the case with the midlevel provider and based on their presentation of the patient, I agree with the diagnosis and treatment plan. EKG was completed on the patient which demonstrated afib with a ventricular rate of 107. Patient does not have a history of afib. The patient will be heparinized and we will consult cardiology. (Marilin Meraz) - Lab Data Lab Results 08/02/19 08/02/19 08/02/19 Range/Units 22:43 22:43 22:43 WBC 5.1 (3.8-10.6) k/uL RBC 3.97 (3.80-5.40) m/uL Hgb 11.7 (11.4-16.0) gm/dL Hct 36.3 (34.0-46.0) % MCV 91.4 (80.0-100.0) fL MCH 29.4 (25.0-35.0) pg MCHC 32.2 (31.0-37.0) g/dL RDW 14.5 (11.5-15.5) % Plt Count 259 (150-450) k/uL Neutrophils % 54 % Lymphocytes % 30 % Monocytes % 9 % Eosinophils % 4 % Basophils % 0 % Neutrophils # 2.7 (1.3-7.7) k/uL Lymphocytes # 1.5 (1.0-4.8) k/uL Monocytes # 0.5 (0-1.0) k/uL Eosinophils # 0.2 (0-0.7) k/uL Basophils # 0.0 (0-0.2) k/uL Sodium 142 (137-145) mmol/L Potassium 3.7 (3.5-5.1) mmol/L Chloride 110 H (98-107) mmol/L Carbon Dioxide 24 (22-30) mmol/L Anion Gap 8 mmol/L BUN 21 H (7-17) mg/dL Creatinine 0.50 L (0.52-1.04) mg/dL Est GFR (CKD-EPI)AfAm >90 (>60 ml/min/1.73 sqM) Est GFR (CKD-EPI)NonAf >90 (>60 ml/min/1.73 sqM) Glucose 118 H (74-99) mg/dL Plasma Lactic Acid Jarred 1.4 (0.7-2.0) mmol/L Calcium 9.6 (8.4-10.2) mg/dL Total Bilirubin 0.7 (0.2-1.3) mg/dL AST 26 (14-36) U/L ALT 21 (4-34) U/L Alkaline Phosphatase 78 (38-126) U/L Total Protein 7.7 (6.3-8.2) g/dL Albumin 3.9 (3.5-5.0) g/dL Disposition Is patient prescribed a controlled substance at d/c from ED?: No <Fernando Ling - Last Filed: 08/03/19 00:57> <Marilin Meraz - Last Filed: 08/04/19 23:22> Clinical Impression: Cellulitis, Abscess Disposition: ADMITTED IP TO THIS HOSP Condition: Serious
[2019-08-03] MEDS: SODIUM CHLORIDE 0.9% 1,000 ML IV SCH ×2 (01:31→15:13)
[2019-08-03] MEDS ORDERED: VANCOMYCIN 1,500 MG in SODIUM CHLORIDE 0.9% 500 ML 500 ML IVPB ONE (02:00)
[2019-08-03] MEDS ORDERED: HEPARIN SODIUM,PORCINE 5,000 UNIT/ML 1 ML VIAL IV ONE (02:07)
[2019-08-03 03:04] LABS: Basophils % (A) 0 %; Eosinophils # (A) 0.2 k/uL (0-0.7); Eosinophils % (A) 4 %; HGB 11.2 gm/dL (11.4-16.0); Lymphocytes # (A) 1.6 k/uL (1.0-4.8); Lymphocytes % (A) 31 %; MCH 29.5 pg (25.0-35.0); Mean Platelet Volume 9.6; Monocytes # (A) 0.5 k/uL (0-1.0); Monocytes % (A) 10 %; Neutrophils # (A) 2.9 k/uL (1.3-7.7); Neutrophils % (A) 54 %; Platelet Count 229 k/uL (150-450); RBC 3.81 m/uL (3.80-5.40); RDW 14.4 % (11.5-15.5); WBC 5.3 k/uL (3.8-10.6)
[2019-08-03 03:08] LABS: INR 1.1 (<1.2); Partial Thromboplastin Time 22.9 sec (22.0-30.0); Prothrombin Time 11.4 sec (9.0-12.0)
[2019-08-03] MEDS: HEPARIN SOD,PORK IN 0.45% NACL 25,000 UNIT in 0.45% NACL 1 250ML.BAG IV SCH (04:07)
[2019-08-03 05:18] LABS: Amorphous Sediment,Urine Rare /hpf; Appearance,Urine Cloudy (Clear); Bacteria,Urine Rare /hpf; Bilirubin,Urine Negative (Negative); Blood,Urine Negative (Negative); Color,Urine Yellow; Glucose,Urine (UA) Negative (Negative); Hyaline Casts,Urine 14 /lpf (0-2); Ketones,Urine Negative (Negative); Leukocyte Esterase,Urine Small (Negative); Mucus,Urine Occasional /hpf; Nitrite,Urine Negative (Negative); PH, Urine 5.5 (5.0-8.0); Protein,Urine 1+ (Negative); RBC,Urine 53 /hpf (0-5); Specific Gravity,Urine 1.031 (1.001-1.035); Squamous Epithelial Cell,Urine 5 /hpf (0-4); Urobilinogen,Urine <2.0 mg/dL (<2.0); WBC,Urine 10 /hpf (0-5)
[2019-08-03] MEDS ORDERED: PIPERACILLIN-TAZOBACTAM 3.375 GM in SODIUM CHLORIDE 0.9% 100 ML IVPB SCH (10:00)
[2019-08-03] MEDS: METOPROLOL TARTRATE 50 MG TAB PO SCH ×2 (12:24→19:58)
[2019-08-03] MEDS ORDERED: FUROSEMIDE 10 MG/ML 4 ML VIAL IV STA (13:26)
[2019-08-03] MEDS ORDERED: ACETAMINOPHEN TAB 325 MG TAB PO PRN (13:27)
--- NOTE | 2019-08-03 13:30 | P.HPIM ---
History of Present Illness This is a pleasant 68 years old female with past medical history of hyperlipidemia, hypertension, osteoarthritis, sleep apnea on CPAP, bilateral leg edema. Patient presents because of right lower extremity swelling and tenderness, she is status post vancomycin and cefazolin about 12 days. Patient was recently in the hospital discharge on 06/28/2019 for right lower extremity cellulitis. On that time she was discharged on IV antibiotics. And she went to rehab. However her distance on noticed that her wounds and tenderness and redness in her lower extremity are progressive so therefore her to the hospital. Also patient to be little tachypneic. Her doctor around [facility] have tolerated she has A. fib as well. She denies chest pain. No change in urine or bowel habits. Vitals are stable except for mild tachycardia, blood pressure was on the high side, currently 145/91. showing unremarkable CBC, INR, BMP and liver enzymes. Urinalysis is suspicious for infection. Cultures pending. Patient was found on A. fib with RVR at 107. Foot x-ray showing soft tissue swelling with no cellulitis. Venous Doppler: Is negative for DVT In the emergency room patient was started on Zosyn and vancomycin and heparin drip. Also she was started on normal saline at 80 mL/h Review of Systems CONSTITUTIONAL: No fever, no malaise, no fatigue. HEENT: No recent visual problems or hearing problems. Denied any sore throat. CARDIOVASCULAR: No orthopnea, PND, no palpitations, no syncope. PULMONARY: No shortness of breath, no cough, no hemoptysis. GASTROINTESTINAL: No diarrhea, no nausea, no vomiting, no abdominal pain. Normoactive bowel sounds. NEUROLOGICAL: No headaches, no weakness, no numbness. HEMATOLOGICAL: Denies any bleeding or petechiae. GENITOURINARY: Denies any burning micturition, frequency, or urgency. MUSCULOSKELETAL/RHEUMATOLOGICAL: Denies any joint pain, swelling, or any muscle pain. ENDOCRINE: Denies any polyuria or polydipsia. Past Medical History Past Medical History: Hyperlipidemia, Hypertension, Osteoarthritis (OA), Sleep Apnea/CPAP/BIPAP, Vascular Disorder Additional Past Medical History / Comment(s): CPap use, cardiac murmur, bilateral legs/feet edema at times, History of Any Multi-Drug Resistant Organisms: None Reported Past Surgical History: Bladder Surgery, Hysterectomy, Tonsillectomy Additional Past Surgical History / Comment(s): BLADDER SLING, EGD, colonoscopy, R carpal tunnel release, R elbow release. Past Anesthesia/Blood Transfusion Reactions: No Reported Reaction Past Psychological History: Anxiety, Depression Smoking Status: Never smoker Past Alcohol Use History: Rare Past Drug Use History: None Reported - Past Family History Father Family Medical History: Coronary Artery Disease (CAD), Myocardial Infarction ([place]) Additional Family Medical History / Comment(s): Father had heart disease and had a [place] in his 50s. Mother Family Medical History: Cancer Additional Family Medical History / Comment(s): Mother had cancer but pt does not recall type. Sister(s) Family Medical History: Cancer, Deep Vein Thrombosis (DVT), Pulmonary Embolus Additional Family Medical History / Comment(s): SISTER #1 UTERINE CA. SISTER #2 UTERINE AND BREAST CA. Sister#3 2-PEs, 3- DVTs Medications and Allergies Home Medications Medication Instructions Recorded Confirmed Type Albuterol Inhaler [Ventolin Hfa 2 puff INHALATION RT-Q4H PRN 10/25/18 08/03/19 History Inhaler] Aspirin 81 mg PO DAILY chew 10/28/18 08/03/19 Rx Metoprolol Succinate (ER) [Toprol 25 mg PO DAILY #30 tab 10/28/18 08/03/19 Rx XL] Multivitamins, Thera [Multivitamin 1 tab PO DAILY 03/12/19 08/03/19 History (formulary)] Vitamin A 10,000 unit PO DAILY 03/12/19 08/03/19 History Zinc 50 mg PO DAILY 03/12/19 08/03/19 History Acetaminophen Tab [Tylenol] 650 mg PO Q6HR PRN #0 tab 06/28/19 08/03/19 Rx Polyethylene Glycol 3350 [Miralax] 17 gm PO DAILY PRN #15 packet 06/28/19 08/03/19 Rx Atorvastatin [Lipitor] 40 mg PO DAILY 08/03/19 08/03/19 History HYDROcodone/APAP 5-325MG [[place] 1 tab PO Q6HR PRN 08/03/19 08/03/19 History 5-325] Allergies Allergy/AdvReac Type Severity Reaction Status Date / Time zinc oxide Allergy Rash/Hives Verified 08/03/19 10:47 Physical Exam Vitals: Vital Signs Temp Pulse Resp BP Pulse Ox 08/03/19 12:18 93 18 145/91 98 08/03/19 11:00 100 20 150/91 98 08/03/19 04:16 97.4 F L 110 H 20 140/82 96 08/03/19 02:08 97.8 F 104 H 18 135/92 98 08/03/19 01:43 97.9 F 78 18 174/93 97 08/02/19 23:43 102 H 18 149/88 99 08/02/19 22:14 97.6 F 61 18 194/112 97 Intake and Output 08/02/19 08/03/19 08/03/19 22:59 06:59 14:59 Other: Weight 122.016 kg GENERAL: The patient is alert and oriented x3, not in any acute distress. Well developed, well nourished. HEENT: Pupils are round and equally reacting to light. EOMI. No scleral icterus. No conjunctival pallor. Normocephalic, atraumatic. No pharyngeal erythema. No thyromegaly. CARDIOVASCULAR: S1 and S2 present. No murmurs, rubs, or gallops. -PULMONARY: Chest is clear to auscultation, mild bilateral scattered basilar crepitation and scattered wheezing as well ABDOMEN: Soft, nontender, nondistended, normoactive bowel sounds. No palpable organomegaly. MUSCULOSKELETAL: No joint swelling or deformity. -EXTREMITIES: No cyanosis, clubbing, mild bilateral leg edema. Both lower legs are warm, red and tender. She has a wound on dorsum of her right foot NEUROLOGICAL: Gross neurological examination did not reveal any focal deficits. SKIN: No rashes. No petechiae Results CBC & Chem 7: 08/03/19 01:40 08/02/19 22:43 Labs: Abnormal Lab Results - Last 24 Hours (Table) 08/02/19 08/03/19 08/03/19 Range/Units 22:43 01:40 04:28 Hgb 11.2 L (11.4-16.0) gm/dL APTT (22.0-30.0) sec Chloride 110 H (98-107) mmol/L BUN 21 H (7-17) mg/dL Creatinine 0.50 L (0.52-1.04) mg/dL Glucose 118 H (74-99) mg/dL Urine Appearance Cloudy H (Clear) Urine Protein 1+ H (Negative) Ur Leukocyte Esterase Small H (Negative) Urine RBC 53 H (0-5) /hpf Urine WBC 10 H (0-5) /hpf Ur Squamous Epith Cells 5 H (0-4) /hpf Amorphous Sediment Rare H (None) /hpf Urine Bacteria Rare H (None) /hpf Hyaline Casts 14 H (0-2) /lpf Urine Mucus Occasional H (None) /hpf 08/03/19 Range/Units 07:57 Hgb (11.4-16.0) gm/dL APTT 35.8 H (22.0-30.0) sec Chloride (98-107) mmol/L BUN (7-17) mg/dL Creatinine (0.52-1.04) mg/dL Glucose (74-99) mg/dL Urine Appearance (Clear) Urine Protein (Negative) Ur Leukocyte Esterase (Negative) Urine RBC (0-5) /hpf Urine WBC (0-5) /hpf Ur Squamous Epith Cells (0-4) /hpf Amorphous Sediment (None) /hpf Urine Bacteria (None) /hpf Hyaline Casts (0-2) /lpf Urine Mucus (None) /hpf Microbiology - Last 24 Hours (Table) 08/03/19 00:30 Wound Culture - Preliminary Foot - Right Assessment and Plan Assessment: Possible persistent Bilateral lower extremity cellulitis, more on the Right leg with wound status post drainage in the emergency room A. fib with RVR Abnormal uterine prognosis, concentrated sample. Most likely asymptomatic bacteriuria. Follow-up urine culture Hypertension Hyperlipidemia Primary osteoarthritis Sleep apnea on CPAP Bilateral leg edema Plan: this is a pleasant 68 years old female who presents because of right leg cellulitis. Also she has A. fib was mild RVR. Continue with antibiotics. Consult infectious disease. Follow-up wound culture. Consult full time. We'll give Lasix 1 dose continue with heparin drip for now Labs and medication were reviewed.. Continue same treatment. Continue with symptomatic treatment. Resume home medication. Monitor lytes and vitals. DVT and GI prophylaxis. Further recommendations of the clinical course of the pa tient DVT prophylaxis: heparin GI Prophylaxis: Pepcid PT/OT: Pending Prognosis is guarded
--- NOTE | 2019-08-03 13:52 | XR ---
EXAMINATION TYPE: XR chest 1V DATE OF EXAM: 08/03/2019 COMPARISON: 10/25/2018 HISTORY: Pain TECHNIQUE: Single frontal view of the chest is obtained. FINDINGS: The heart is enlarged. Diffuse osteopenia and arthropathy of the shoulders. No pneumothora x or overt failure. No definite consolidation. Linear changes at the lung bases are most typical of s ubsegmental atelectasis. No sizable pleural effusion. IMPRESSION: 1. Favor basilar atelectasis over pneumonia correlate clinically.
--- NOTE | 2019-08-03 14:52 | P.CRDCN ---
History of Present Illness Consult date: 08/03/19 Reason for Consult (text): new onset atrial fibrillation Consult reason: atrial fibrillation Chief complaint: new onset History of present illness: HISTORY OF PRESENT ILLNESS AND PLAN: This is a 68-year-old female with history of morbid obesity, apnea, OA, venous stasis ulcer following with wound care management, BLE, hypertension, hyperlipidemia and non-obstructive CAD on cardiac cath 10/2018. Patient presents to ER with recurrent cellulitis/abscess of the right lower extremity/foot. Patient states the right lower extremity has been swelling and is extremely painful. Patient has been on vancomycin and cephalosporin antibiotics for the past few weeks. Abscess is on the dorsal aspect of the right foot and currently bandaged. Patient has no current complaints of chest pain, chest pressure, shortness of breath or palpitations. Patient states she has no known history of atrial fibrillation but has had significant palpitations in the past. EKG shows atrial fibrillation RVR, heart rate 107. Vital signs stable. Afebrile. Pt continues with IV heparin for anticoagulation. No smoking history. No DM. Pt follows with Dr. Otto. SIGNIFICANT PAST MEDICAL HISTORY: morbid obesity, apnea, OA, venous stasis ulcer following with wound care management, BLE, hypertension, hyperlipidemia and non- obstructive CAD on cardiac cath 10/2018. PAST SURGICAL HISTORY: See list. EKG = atrial fibrillation RVR, heart rate 107. Troponins negative x 1 SIGNIFICANT LABORATORY VALUES: BUN 21, CR 0.50. Borderline U/A. Chest x-ray = atelectasis vs pneumonia Most recent echo 10/26/18 = EF 60-65%, mild concentric LVH. Small pericardial effusion and left ventricle. Most recent cardiac cath = left dominant system no significant obstructive disease performed by SASHA HAJI. 08/03/19 Venous Doppler negative for DVT/DX of right foot negative for fracture REVIEW OF SYSTEMS: CONSTITUTIONAL: Denies fever. Denies chills. EYES: Denies blurred vision. Denies blurred vision or vision changes. Denies eye pain. EARS, NOSE, MOUTH & THROAT: Denies headache. Denies sore throat. Denies ear pain Denies hemoptysis. CARDIOVASCULAR: Denies chest pain. Denies shortness of breath. Denies orthopnea. Denies PND. Denies palpitations. RESPIRATORY: Denies cough. Denies shortness of breath. GASTROINTESTINAL: Denies abdominal pain or distention. Denies diarrhea. Denies constipation. Denies nausea. Denies vomiting. MUSCULOSKELETAL: C/O RIGHT foot pain/myalgias. INTEGUMENTARY: Denies pruitis. Denies rash. ENDOCRINE: C/O fatigue. Denies weight change. Denies polydipsia. Denies polyurina Denies heat/cold intolerance. GENITOURINARY: Denies burning, hematuria or urgency with micturation. HEMATOLOGIC: Denies history of anemia. Denies bleeding. NEUROLOGIC: Denies numbness. Denies tingling. C/O weakness. PSYCHIATRIC: Denies anxiety. Denies depression. PHYSICAL EXAM: VITAL SIGNS: 140/82, heart rate 110. Afebrile. 96% on room air. GENERAL: Obese, in no acute distress. HEENT: Head is atraumatic, normocephalic. Pupils are equal, round. Extra ocular movements intact. Mucous membranes moist. Neck supple. No JVD. No carotid bruit. No thyromegaly. LUNGS: Clear to auscultation. No wheezes, rales or rhonchi. No chest wall tenderness on palpation or with deep breathing. HEART: Irregular rate and rhythm, no rubs or gallops. S1 and S2 heard. No murmur. ABDOMEN: Abdominal exam, WNL. Bowel sounds x4 quads. Soft, non-tender, without masses, organomegaly, or abdominal aorta enlargement. EXTREMITIES/VASCULAR: DISCOLORATION of BLE. 3-4 plus edema to BLE. Extremities have easily palpable radial, femoral, dorsalis pedis and posterior tibial pulses. No cyanosis, calf tenderness. NEUROLOGIC: Patient is awake, alert and oriented x3. No focal neurologic abnormalities. FINAL IMPRESSION: 1. New onset A. fib RVR 2. Cellulitis of the lower right extremity/foot. 3. hypertension 4. hyperlipidemia 5. obesity PLAN: Start metoprolol tartrate 50 mg twice daily. Continue IV antibiotics. Continue IV heparin for anticoagulation. Patient to echocardiogram. Heart healthy diet/low salt diet. Continue same all other medical/medication regime. Nurse Practitioner note has been reviewed by the Physician. Signing provider agrees with the documented findings, assessment and plan of care. Past Medical History Past Medical History: Hyperlipidemia, Hypertension, Osteoarthritis (OA), Sleep Apnea/CPAP/BIPAP, Vascular Disorder Additional Past Medical History / Comment(s): CPap use, cardiac murmur, bilateral legs/feet edema at times, History of Any Multi-Drug Resistant Organisms: None Reported Past Surgical History: Bladder Surgery, Hysterectomy, Tonsillectomy Additional Past Surgical History / Comment(s): BLADDER SLING, EGD, colonoscopy, R carpal tunnel release, R elbow release. Past Anesthesia/Blood Transfusion Reactions: No Reported Reaction Past Psychological History: Anxiety, Depression Smoking Status: Never smoker Past Alcohol Use History: Rare Past Drug Use History: None Reported - Past Family History Father Family Medical History: Coronary Artery Disease (CAD), Myocardial Infarction (OR) Additional Family Medical History / Comment(s): Father had heart disease and had a OR in his 50s. Mother Family Medical History: Cancer Additional Family Medical History / Comment(s): Mother had cancer but pt does not recall type. Sister(s) Family Medical History: Cancer, Deep Vein Thrombosis (DVT), Pulmonary Embolus Additional Family Medical History / Comment(s): SISTER #1 UTERINE CA. SISTER #2 UTERINE AND BREAST CA. Sister#3 2-PEs, 3- DVTs Medications and Allergies Home Medications Medication Instructions Recorded Confirmed Type Albuterol Inhaler [Ventolin Hfa 2 puff INHALATION RT-Q4H PRN 10/25/18 08/03/19 History Inhaler] Aspirin 81 mg PO DAILY chew 10/28/18 08/03/19 Rx Metoprolol Succinate (ER) [Toprol 25 mg PO DAILY #30 tab 10/28/18 08/03/19 Rx XL] Multivitamins, Thera [Multivitamin 1 tab PO DAILY 03/12/19 08/03/19 History (formulary)] Vitamin A 10,000 unit PO DAILY 03/12/19 08/03/19 History Zinc 50 mg PO DAILY 03/12/19 08/03/19 History Acetaminophen Tab [Tylenol] 650 mg PO Q6HR PRN #0 tab 06/28/19 08/03/19 Rx Polyethylene Glycol 3350 [Miralax] 17 gm PO DAILY PRN #15 packet 06/28/19 08/03/19 Rx Atorvastatin [Lipitor] 40 mg PO DAILY 08/03/19 08/03/19 History HYDROcodone/APAP 5-325MG [[place] 1 tab PO Q6HR PRN 08/03/19 08/03/19 History 5-325] Allergies Allergy/AdvReac Type Severity Reaction Status Date / Time zinc oxide Allergy Rash/Hives Verified 08/03/19 10:47 Physical Exam Vitals: Vital Signs Temp Pulse Resp BP Pulse Ox 08/03/19 12:18 93 18 145/91 98 08/03/19 11:00 100 20 150/91 98 08/03/19 04:16 97.4 F L 110 H 20 140/82 96 08/03/19 02:08 97.8 F 104 H 18 135/92 98 08/03/19 01:43 97.9 F 78 18 174/93 97 08/02/19 23:43 102 H 18 149/88 99 08/02/19 22:14 97.6 F 61 18 194/112 97 Intake and Output 08/02/19 08/03/19 08/03/19 22:59 06:59 14:59 Other: Weight 122.016 kg Results 08/03/19 01:40 08/02/19 22:43 Cardiac Enzymes 08/02/19 08/03/19 Range/Units 22:43 01:40 AST 26 (14-36) U/L Troponin I <0.012 (0.000-0.034) ng/mL Coagulation 08/03/19 08/03/19 Range/Units 01:40 07:57 PT 11.4 (9.0-12.0) sec APTT 22.9 35.8 H (22.0-30.0) sec CBC 08/02/19 08/03/19 Range/Units 22:43 01:40 WBC 5.1 5.3 (3.8-10.6) k/uL RBC 3.97 3.81 (3.80-5.40) m/uL Hgb 11.7 11.2 L (11.4-16.0) gm/dL Hct 36.3 35.0 (34.0-46.0) % Plt Count 259 229 (150-450) k/uL Comprehensive Metabolic Panel 08/02/19 Range/Units 22:43 Sodium 142 (137-145) mmol/L Potassium 3.7 (3.5-5.1) mmol/L Chloride 110 H (98-107) mmol/L Carbon Dioxide 24 (22-30) mmol/L BUN 21 H (7-17) mg/dL Creatinine 0.50 L (0.52-1.04) mg/dL Glucose 118 H (74-99) mg/dL Calcium 9.6 (8.4-10.2) mg/dL AST 26 (14-36) U/L ALT 21 (4-34) U/L Alkaline Phosphatase 78 (38-126) U/L Total Protein 7.7 (6.3-8.2) g/dL Albumin 3.9 (3.5-5.0) g/dL Current Medications Generic Name Dose Route Start Last Admin Trade Name Freq PRN Reason Stop Dose Admin Acetaminophen 650 mg 08/03/19 13:27 Tylenol Tab PO Q6HR PRN Mild Pain or Fever > 100.5 Hydrocodone Bitart/Acetaminophen 1 each 08/03/19 13:27 [place] 5-325 PO Q6HR PRN Moderate Pain Aspirin 81 mg 08/04/19 09:00 Aspirin PO DAILY [facility] Atorvastatin Calcium 40 mg 08/04/19 09:00 Lipitor PO DAILY [facility] Famotidine 20 mg 08/03/19 21:00 Pepcid IV Q12HR [facility] Heparin Sodium (Porcine) 0 unit 08/03/19 02:07 Heparin IV PER PROTOCOL PRN Low PTT Protocol Sodium Chloride 1,000 mls @ 80 mls/hr 08/03/19 01:15 08/03/19 01:31 Saline 0.9% IV 80 mls/hr .[id number] NATALYA Administration Piperacillin Sod/Tazobactam 100 mls @ 25 mls/hr 08/03/19 10:00 08/03/19 12:24 Sod 3.375 gm/ Sodium Chloride IVPB 25 mls/hr Q8H NATALYA Administration Heparin Sodium/Sodium Chloride 250 mls @ 10.005 mls/hr 08/03/19 02:15 08/03/19 04:07 25,000 unit/ Sodium Chloride IV 8.2 units/kg/hr .Q24H NATALYA 10.005 mls/hr Administration Protocol 8.2 UNITS/KG/HR Vancomycin HCl 2,000 mg/ 500 mls @ 167 mls/hr 08/03/19 12:00 Sodium Chloride IVPB Q12H NATALYA Metoprolol Tartrate 50 mg 08/03/19 10:15 08/03/19 12:24 Lopressor PO 50 mg BID NATALYA Administration Naloxone HCl 0.2 mg 08/03/19 01:01 Narcan IV Q2M PRN Opioid Reversal Intake and Output 08/02/19 08/03/19 08/03/19 22:59 06:59 14:59 Other: Weight 122.016 kg 08/03/19 01:40 08/02/19 22:43
[2019-08-03] MEDS: HEPARIN SODIUM,PORCINE 5,000 UNIT/ML 1 ML VIAL IV PRN (15:50)
[2019-08-03] MEDS ORDERED: VANCOMYCIN 1,250 MG in SODIUM CHLORIDE 0.9% 250 ML IVPB SCH (16:00)
[2019-08-03] MEDS: VANCOMYCIN 2,000 MG in SODIUM CHLORIDE 0.9% 500 ML 500 ML IVPB SCH (16:34)
--- NOTE | 2019-08-03 17:05 | P.CONS ---
History of Present Illness - Reason for Consult Consult date: 08/03/19 Right lower extremity wound and cellulitis Requesting physician: Ken E Sheet - Chief Complaint Right leg pain swelling and redness x few days - History of Present Illness Patient is a 68 year old female presenting to the ER at [facility] yesterday with a chief complaints of pain swelling redness to the right foot and leg area the patient's symptom has going on for the last few days and the patient mentioned that was a swelling on the dorsum aspect of the right foot that has gradually increased in size the patient not sure how it started b ut denies any history of any trauma to the area is becoming more painful swollen and red patient described the pain in the leg to be throbbing 6-7 out of 10 and no radiation with associated swelling and redness that has been spreading to the right leg area the patient did have some chills and denies high-grade fever, with the symptoms the patient was evaluated by the physician on arrival to the patient has been afebrile her white count has been normal the patient did have x-rays of the right foot who did show some soft tissue swelling but no evidence of any changes her lower extremity Doppler was negative for DVT the patient did have a bedside I&D of the small area of the dorsum of the right foot done culture has been obtained patient was started on vancomycin and Zosyn and infectious disease consult for further recommendation regarding antibiotic therapy Review of Systems CONSTITUTIONAL: Positive for weakness. Some chills but denies high-grade Fever EYES: No complaint. ENT:No complaint. RESPIRATORY: No complaint. CARDIOVASCULAR: No complaint. GENITOURINARY: No complaint. GASTROINTESTINAL: No complaint. MUSCULOSKELETAL: As per history of present illness. INTEGUMENTARY: As per history of present illness PSYCHOLOGICAL: No complaint. ENDOCRINE: No complaint. NEUROLOGIC: No complaint. Past Medical History Past Medical History: Hyperlipidemia, Hypertension, Osteoarthritis (OA), Sleep Apnea/CPAP/BIPAP, Vascular Disorder Additional Past Medical History / Comment(s): CPap use, cardiac murmur, bilateral legs/feet edema at times, History of Any Multi-Drug Resistant Organisms: None Reported Past Surgical History: Bladder Surgery, Hysterectomy, Tonsillectomy Additional Past Surgical History / Comment(s): BLADDER SLING, EGD, colonoscopy, R carpal tunnel release, R elbow release. Past Anesthesia/Blood Transfusion Reactions: No Reported Reaction Past Psychological History: Anxiety, Depression Smoking Status: Never smoker Past Alcohol Use History: Rare Past Drug Use History: None Reported - Past Family History Father Family Medical History: Coronary Artery Disease (CAD), Myocardial Infarction ([place]) Additional Family Medical History / Comment(s): Father had heart disease and had a IN in his 50s. Mother Family Medical History: Cancer Additional Family Medical History / Comment(s): Mother had cancer but pt does not recall type. Sister(s) Family Medical History: Cancer, Deep Vein Thrombosis (DVT), Pulmonary Embolus Additional Family Medical History / Comment(s): SISTER #1 UTERINE CA. SISTER #2 UTERINE AND BREAST CA. Sister#3 2-PEs, 3- DVTs Medications and Allergies Home Medications Medication Instructions Recorded Confirmed Type Albuterol Inhaler [Ventolin Hfa 2 puff INHALATION RT-Q4H PRN 10/25/18 08/03/19 History Inhaler] Aspirin 81 mg PO DAILY chew 10/28/18 08/03/19 Rx Metoprolol Succinate (ER) [Toprol 25 mg PO DAILY #30 tab 10/28/18 08/03/19 Rx XL] Multivitamins, Thera [Multivitamin 1 tab PO DAILY 03/12/19 08/03/19 History (formulary)] Vitamin A 10,000 unit PO DAILY 03/12/19 08/03/19 History Zinc 50 mg PO DAILY 03/12/19 08/03/19 History Acetaminophen Tab [Tylenol] 650 mg PO Q6HR PRN #0 tab 06/28/19 08/03/19 Rx Polyethylene Glycol 3350 [Miralax] 17 gm PO DAILY PRN #15 packet 06/28/19 08/03/19 Rx Atorvastatin [Lipitor] 40 mg PO DAILY 08/03/19 08/03/19 History HYDROcodone/APAP 5-325MG [[place] 1 tab PO Q6HR PRN 08/03/19 08/03/19 History 5-325] Allergies Allergy/AdvReac Type Severity Reaction Status Date / Time zinc oxide Allergy Rash/Hives Verified 08/03/19 10:47 Physical Exam Vitals: Vital Signs Temp Pulse Resp BP Pulse Ox 08/03/19 12:18 93 18 145/91 98 08/03/19 11:00 100 20 150/91 98 08/03/19 04:16 97.4 F L 110 H 20 140/82 96 08/03/19 02:08 97.8 F 104 H 18 135/92 98 08/03/19 01:43 97.9 F 78 18 174/93 97 08/02/19 23:43 102 H 18 149/88 99 08/02/19 22:14 97.6 F 61 18 194/112 97 Intake and Output 08/03/19 08/03/19 08/03/19 06:59 14:59 22:59 Intake Total 116.558 Balance 116.558 Intake: Intake, IV Titration 116.558 Amount Heparin Sod,Pork in 0.45% 116.558 NaCl 25,000 unit In 0.45 % NaCl 1 250ml.bag @ 8.2 UNITS/KG/HR 10.005 mls/hr IV .Q24H [facility] Rx#: [id number] GENERAL DESCRIPTION: An elderly female lying in bed, no distress. No tachypnea or accessory muscle of respiration use. HEENT: Shows Pallor , no scleral icterus. Oral mucous membrane is dry. No pharyngeal erythema or thrush NECK: Trachea central, no thyromegaly. LUNGS: Unlabored breathing. Decreased breath sound at the base. No wheeze or crackle. HEART: S1, S2, regular rate and rhythm. No loud murmur ABDOMEN: Soft, no tenderness , guarding or rigidity, no organomegaly EXTREMITIES: Right foot dorsum with a small wound minimal bruise with randy rounding swelling and redness to the right leg no foul-smelling drainage. SKIN: No rash, no masses palpable. NEUROLOGICAL: The patient is awake, alert, oriented x3, mood and affect normal. Results CBC & Chem 7: 08/03/19 01:40 08/02/19 22:43 Labs: Abnormal Lab Results - Last 24 Hours (Table) 08/02/19 08/03/19 08/03/19 Range/Units 22:43 01:40 04:28 Hgb 11.2 L (11.4-16.0) gm/dL APTT (22.0-30.0) sec Chloride 110 H (98-107) mmol/L BUN 21 H (7-17) mg/dL Creatinine 0.50 L (0.52-1.04) mg/dL Glucose 118 H (74-99) mg/dL Urine Appearance Cloudy H (Clear) Urine Protein 1+ H (Negative) Ur Leukocyte Esterase Small H (Negative) Urine RBC 53 H (0-5) /hpf Urine WBC 10 H (0-5) /hpf Ur Squamous Epith Cells 5 H (0-4) /hpf Amorphous Sediment Rare H (None) /hpf Urine Bacteria Rare H (None) /hpf Hyaline Casts 14 H (0-2) /lpf Urine Mucus Occasional H (None) /hpf 08/03/19 Range/Units 07:57 Hgb (11.4-16.0) gm/dL APTT 35.8 H (22.0-30.0) sec Chloride (98-107) mmol/L BUN (7-17) mg/dL Creatinine (0.52-1.04) mg/dL Glucose (74-99) mg/dL Urine Appearance (Clear) Urine Protein (Negative) Ur Leukocyte Esterase (Negative) Urine RBC (0-5) /hpf Urine WBC (0-5) /hpf Ur Squamous Epith Cells (0-4) /hpf Amorphous Sediment (None) /hpf Urine Bacteria (None) /hpf Hyaline Casts (0-2) /lpf Urine Mucus (None) /hpf Microbiology - Last 24 Hours (Table) 08/03/19 00:30 Gram Stain - Preliminary Foot - Right Wound Culture - Preliminary Assessment and Plan Assessment: 1-patient with right foot dorsum wound/abscess that has been drained in the ER with secondary cellulitis of the right lower extremity in this patient who did have a history of recurrent colitis antibiotic exposure will need to cover for MRSA treated with the likely pathogen (1) Cellulitis of lower leg Current Visit: No Status: Acute Code(s): L03.119 - CELLULITIS OF UNSPECIFIED PART OF LIMB SNOMED Code(s): 534350741 Plan: 1-Vancomycin pharmacy to dose target trough of 15 while watching his kidney function and Vanco trough closely 2-discontinue Zosyn to decrease risk of nephrotoxicity We will follow on clinical condition and cultures to further adjust medication if needed Thank you for this consultation will follow this patient with you Time with Patient: Greater than 30
[2019-08-03] MEDS: FAMOTIDINE 20 MG/2 ML VIAL IV SCH (19:59)
[2019-08-04] MEDS: VANCOMYCIN 2,000 MG in SODIUM CHLORIDE 0.9% 500 ML 500 ML IVPB SCH ×3 (00:45→23:54)
[2019-08-04] MEDS: HEPARIN SODIUM,PORCINE 5,000 UNIT/ML 1 ML VIAL IV PRN (00:45)
[2019-08-04] MEDS: HEPARIN SOD,PORK IN 0.45% NACL 25,000 UNIT in 0.45% NACL 1 250ML.BAG IV SCH (02:38)
[2019-08-04] MEDS: SODIUM CHLORIDE 0.9% 1,000 ML IV SCH ×2 (02:42→21:55)
[2019-08-04 06:29] LABS: Basophils % (A) 0 %; Eosinophils # (A) 0.4 k/uL (0-0.7); Eosinophils % (A) 7 %; HCT 34.1 % (34.0-46.0); HGB 10.8 gm/dL (11.4-16.0); Lymphocytes % (A) 20 %; MCH 29.4 pg (25.0-35.0); MCHC 31.7 g/dL (31.0-37.0); MCV 92.9 fL (80.0-100.0); Mean Platelet Volume 9.5; Monocytes # (A) 0.5 k/uL (0-1.0); Monocytes % (A) 9 %; Neutrophils # (A) 3.1 k/uL (1.3-7.7); Neutrophils % (A) 62 %; Platelet Count 166 k/uL (150-450); RBC 3.67 m/uL (3.80-5.40); RDW 14.5 % (11.5-15.5)
[2019-08-04] MEDS ORDERED: ASPIRIN 81 MG PO SCH (09:00)
--- NOTE | 2019-08-04 09:11 | P.PN ---
Subjective This is a pleasant 68 years old female with past medical history of hyperlipidemia, hypertension, osteoarthritis, sleep apnea on CPAP, bilateral leg edema. Patient presents because of right lower extremity swelling and tenderness, she is status post vancomycin and cefazolin about 12 days. Patient was recently in the hospital discharge on 06/28/2019 for right lower extremity cellulitis. On that time she was discharged on IV antibiotics. And she went to rehab. However her distance on noticed that her wounds and tenderness and redness in her lower extremity are progressive so therefore her to the hospital. Also patient to be little tachypneic. Her doctor around [facility] have tolerated she has A. fib as well. She denies chest pain. No change in urine or bowel habits. Vitals are stable except for mild tachycardia, blood pressure was on the high side, currently 145/91. showing unremarkable CBC, INR, BMP and liver enzymes. Urinalysis is suspicious for infection. Cultures pending. Patient was found on A. fib with RVR at 107. Foot x-ray showing soft tissue swelling with no cellulitis. Venous Doppler: Is negative for DVT In the emergency room patient was started on Zosyn and vancomycin and heparin drip. Also she was started on normal saline at 80 mL/h 08/04/2019 Patient is awake she still have cellulitis in her lower extremity, wound culture are still pending and infectious disease input is appreciated and I recommended to continue with IV vancomycin while stopping the Zosyn also patient remains on heparin drip for her A. fib vitals are stable. Left still pending, we lowered the fluids to 60 mL/h. Continue with small dose of Lasix 20 mg twice daily. Doppler of the lower extremity is negative on the right side. Chest x-ray showed atelectasis rather than pneumonia, however patient has no respiratory sym ptoms Review of systems CONSTITUTIONAL: No fever, no malaise, no fatigue. HEENT: No recent visual problems or hearing problems. Denied any sore throat. CARDIOVASCULAR: No orthopnea, PND, no palpitations, no syncope. PULMONARY: No shortness of breath, no cough, no hemoptysis. GASTROINTESTINAL: No diarrhea, no nausea, no vomiting, no abdominal pain. Normoactive bowel sounds. NEUROLOGICAL: No headaches, no weakness, no numbness. HEMATOLOGICAL: Denies any bleeding or petechiae. GENITOURINARY: Denies any burning micturition, frequency, or urgency. MUSCULOSKELETAL/RHEUMATOLOGICAL: Denies any joint pain, swelling, or any muscle pain. ENDOCRINE: Denies any polyuria or polydipsia. Active Medications Generic Name Dose Route Start Last Admin Trade Name Freq PRN Reason Stop Dose Admin Acetaminophen 650 mg 08/03/19 13:27 Tylenol Tab PO Q6HR PRN Mild Pain or Fever > 100.5 Hydrocodone Bitart/Acetaminophen 1 each 08/03/19 13:27 [place] 5-325 PO Q6HR PRN Moderate Pain Aspirin 81 mg 08/04/19 09:00 Aspirin PO DAILY [facility] Atorvastatin Calcium 40 mg 08/04/19 09:00 Lipitor PO DAILY NATALYA Famotidine 20 mg 08/03/19 21:00 08/03/19 19:59 Pepcid IV 20 mg Q12HR NATALYA Administration Heparin Sodium (Porcine) 0 unit 08/03/19 02:07 08/04/19 00:45 Heparin IV 3,050 unit PER PROTOCOL PRN Administration Low PTT Protocol Sodium Chloride 1,000 mls @ 80 mls/hr 08/03/19 01:15 08/04/19 02:42 Saline 0.9% IV 80 mls/hr .[id number] NATAYLA Administration Heparin Sodium/Sodium Chloride 250 mls @ 10.005 mls/hr 08/03/19 02:15 02:38 25,000 unit/ Sodium Chloride IV 13.19 units/kg/hr .Q24H NATALYA 16.1 mls/hr Administration Protocol 8.2 UNITS/KG/HR Vancomycin HCl 2,000 mg/ 500 mls @ 167 mls/hr 08/03/19 12:00 08/04/19 00:45 Sodium Chloride IVPB 167 mls/hr Q12H NATALYA Administration Metoprolol Tartrate 50 mg 08/03/19 10:15 08/03/19 19:58 Lopressor PO 50 mg BID NATALYA Administration Naloxone HCl 0.2 mg 08/03/19 01:01 Narcan IV Q2M PRN Opioid Reversal Objective - Vital Signs Vital signs: Vital Signs Temp 98.8 F 08/04/19 00:00 Pulse 81 08/04/19 06:00 Resp 17 08/04/19 06:00 BP 138/79 08/04/19 06:00 Pulse Ox 98 08/04/19 06:00 Intake & Output 08/03/19 08/04/19 08/04/19 18:59 06:59 18:59 Intake Total 116.558 773.442 Balance 116.558 773.442 Weight 122.016 kg Intake: IV 640 Sodium Chloride 0.9% 1, 640 000 ml @ 80 mls/hr IV . [id number] NATALYA Rx#:[id number] Intake, IV Titration 116.558 133.442 Amount Heparin Sod,Pork in 0.45% 116.558 133.442 NaCl 25,000 unit In 0.45 % NaCl 1 250ml.bag @ 8.2 UNITS/KG/HR 10.005 mls/hr IV .Q24H [facility]AL[facility] Rx#: [id number] Other: Voiding Method Bedpan Bedpan # Voids 7 - Exam GENERAL: The patient is alert and oriented x3, not in any acute distress. Well developed, well nourished. HEENT: Pupils are round and equally reacting to light. EOMI. No scleral icterus. No conjunctival pallor. Normocephalic, atraumatic. No pharyngeal erythema. No thyromegaly. CARDIOVASCULAR: S1 and S2 present. No murmurs, rubs, or gallops. -PULMONARY: Chest is clear to auscultation, mild bilateral scattered basilar crepitation and scattered wheezing as well ABDOMEN: Soft, nontender, nondistended, normoactive bowel sounds. No palpable organomegaly. MUSCULOSKELETAL: No joint swelling or deformity. -EXTREMITIES: No cyanosis, clubbing, mild bilateral leg edema. Both lower legs are warm, red and tender. She has a wound on dorsum of her right foot NEUROLOGICAL: Gross neurological examination did not reveal any focal deficits. SKIN: No rashes. No petechiae - Labs CBC & Chem 7: 08/04/19 05:50 08/02/19 22:43 Labs: Abnormal Lab Results - Last 24 Hours (Table) 08/03/19 08/04/19 08/04/19 Range/Units 21:52 05:50 05:50 RBC 3.67 L (3.80-5.40) m/uL Hgb 10.8 L (11.4-16.0) gm/dL APTT 41.0 H 64.0 H (22.0-30.0) sec Microbiology - Last 24 Hours (Table) 08/03/19 01:30 Blood Culture - Preliminary Blood No Growth after 24 hours 08/03/19 00:30 Gram Stain - Preliminary Foot - Right Wound Culture - Preliminary Assessment and Plan Assessment: Possible persistent Bilateral lower extremity cellulitis, more on the Right leg with wound status post drainage in the emergency room A. fib with RVR Abnormal uterine prognosis, concentrated sample. Most likely asymptomatic bacteriuria. Follow-up urine culture Hypertension Hyperlipidemia Primary osteoarthritis Sleep apnea on CPAP Bilateral leg edema Plan: this is a pleasant 68 years old female who presents because of right leg cellulitis. Also she has A. fib was mild RVR. Continue with antibiotics. Consult infectious disease. Follow-up wound culture. Consult stockroom clerk. We'll give Lasix 1 dose continue with heparin drip for now Labs and medication were reviewed.. Continue same treatment. Continue with symptomatic treatment. Resume home medication. Monitor lytes and vitals. DVT and GI prophylaxis. Further recommendations of the clinical course of the patient DVT prophylaxis: heparin GI Prophylaxis: Pepcid PT/OT: Pending Prognosis is guarded
[2019-08-04 09:33] LABS: African American GFR (CKD) >90 (>60 ml/min/1.73 sqM); Anion Gap 12 mmol/L; Blood Urea Nitrogen 14 mg/dL (7-17); Calcium 9.3 mg/dL (8.4-10.2); Carbon Dioxide 18 mmol/L (22-30); Chloride 116 mmol/L (98-107); Glucose 98 mg/dL (74-99); Non-African American GFR(CKD) >90 (>60 ml/min/1.73 sqM); Potassium 3.9 mmol/L (3.5-5.1); Sodium 146 mmol/L (137-145)
--- NOTE | 2019-08-04 10:30 | P.PN ---
Subjective Progress Note Date: 08/04/19 This is a 68-year-old female who has a known history of sleep apnea, she wears a CPAP, history of COPD, prior nicotine dependence, patient underwent a cardiac catheterization in October of this year because of a positive stress test, cardiac catheterization revealed a left dominant system with minor irregularities, no significant obstructive disease was noted and the patient was advised to continue medical therapy. Patient also has history of chronic venous stasis, morbid obesity, hypertension, hyperlipidemia, paroxysmal atrial fibrillation. Patient primarily presented to the hospital on this occasion because of recurrent cellulitis, and abscess to the right lower extremity and foot. Cardiology consultation was initially requested because of atrial fibrillation with a rapid ventricular response. Patient had been seen in consultation yesterday and in follow-up today. She continues today to be in atrial fibrillation, her heart rate is in the 80s, blood pressure 138/78, 98% on 2 L of oxygen. Blood cell count 5.0, hemoglobin 10.8, platelet count 166. Sodium 146, potassium 3.9, BUN 14 and creatinine 0.5. Patient is currently on IV heparin for anticoagulation. We'll look into coverage with [employer] for her. An echocardiogram with Doppler study has also been requested. Objective - Vital Signs Vital signs: Vital Signs Temp 98.9 F 08/04/19 08:00 Pulse 81 08/04/19 08:00 Resp 18 08/04/19 08:00 BP 159/79 08/04/19 08:00 Pulse Ox 98 08/04/19 06:00 Intake & Output 08/03/19 08/04/19 08/04/19 18:59 06:59 18:59 Intake Total 116.558 773.442 Balance 116.558 773.442 Weight 122.016 kg Intake: IV 640 Sodium Chloride 0.9% 1, 640 000 ml @ 80 mls/hr IV . [id number] NATALYA Rx#:[id number] Intake, IV Titration 116.558 133.442 Amount Heparin Sod,Pork in 0.45% 116.558 133.442 NaCl 25,000 unit In 0.45 % NaCl 1 250ml.bag @ 8.2 UNITS/KG/HR 10.005 mls/hr IV .Q24H NATALYA Rx#: [id number] Other: Voiding Method Bedpan Bedpan # Voids 7 - Exam PHYSICAL EXAMINATION: GENERAL: 68-year-old female in no acute distress at the time of my examination HEENT: Head is atraumatic, normocephalic. Pupils equal, round. Sclera anicteric. Conjunctiva are clear. Mucous membranes of the mouth are moist. Neck is supple. There is no elevated jugular venous pressure. No carotid bruit is heard. HEART EXAMINATION: Heart S1 and S2 irregularly irregular CHEST EXAMINATION: Lungs are clear to auscultation and precussion. No chest wall tenderness is noted on palpation or with deep breathing. ABDOMEN: Soft, obese, nontender. EXTREMITIES: 1+ peripheral pulses with 3-4+ bilateral edema, chronic bilateral leg discoloration of bilateral lower extremities, dressing in place to the right lower extremity. NEUROLOGIC patient is awake, alert and oriented 3 . - Labs CBC & Chem 7: 08/04/19 05:50 08/04/19 05:50 Labs: Abnormal Lab Results - Last 24 Hours (Table) 08/03/19 08/04/19 08/04/19 Range/Units 21:52 05:50 05:50 RBC 3.67 L (3.80-5.40) m/uL Hgb 10.8 L (11.4-16.0) gm/dL APTT 41.0 H (22.0-30.0) sec Sodium 146 H (137-145) mmol/L Chloride 116 H (98-107) mmol/L Carbon Dioxide 18 L (22-30) mmol/L 08/04/19 Range/Units 05:50 RBC (3.80-5.40) m/uL Hgb (11.4-16.0) gm/dL APTT 64.0 H (22.0-30.0) sec Sodium (137-145) mmol/L Chloride (98-107) mmol/L Carbon Dioxide (22-30) mmol/L Microbiology - Last 24 Hours (Table) 08/03/19 00:30 Gram Stain - Preliminary Foot - Right Wound Culture - Preliminary 08/03/19 01:30 Blood Culture - Preliminary Blood No Growth after 24 hours Assessment and Plan Plan: Assessment and plan #1 right lower extremity cellulitis #2 atrial fibrillation with rapid ventricular response, paroxysmal #3 hypertension #4 hyperlipidemia #5 obesity #6 sleep apnea #7 COPD #8 nonobstructive coronary artery disease by cardiac catheterization performed in October of this year Plan Will obtain an echocardiogram with Doppler study as well as a TSH level. Discontinue IV heparin and start the patient on Eliquis 5 mg one tablet by mouth twice a day, discontinue the aspirin, continue metoprolol 50 mg one tablet by mouth twice a day. Further recommendations to follow. DNP note has been reviewed, I agree with a documented findings and plan of care. Patient was seen and examined.
[2019-08-04] MEDS: METOPROLOL TARTRATE 50 MG TAB PO SCH ×2 (11:03→22:06)
[2019-08-04] MEDS: ATORVASTATIN 40 MG TAB PO SCH (11:18)
[2019-08-04] MEDS: APIXABAN 5 MG TAB PO SCH ×2 (11:18→22:06)
[2019-08-04] MEDS: FAMOTIDINE 20 MG/2 ML VIAL IV SCH (11:18)
[2019-08-04] MEDS ORDERED: FUROSEMIDE 10 MG/ML 4 ML VIAL IV STA (12:29)
--- NOTE | 2019-08-04 13:01 | ECHOF ---
Referral Reason:New onset Atrial fibrillation MEASUREMENTS -------- HEIGHT: 152.4 cm WEIGHT: 131.1 kg BP: 138/79 IVSd: 1.2 cm (0.6 - 1.1) LVIDd: 4.4 cm (3.9 - 5.3) LVPWd: 1.2 cm (0.6 - 1.1) IVSs: 1.4 cm LVIDs: 3.1 cm LVPWs: 1.4 cm LA Diam: 5.0 cm (2.7 - 3.8) LAESV Index (A-L): 49.87 ml/m Ao Diam: 2.9 cm (2.0 - 3.7) AV Cusp: 1.5 cm (1.5 - 2.6) LA Diam: 4.0 cm (2.7 - 3.8) MV EXCURSION: 19.089 mm (> 18.000) MV EF SLOPE: 81 mm/s (70 - 150) EPSS: 1.1 cm MV E Norbert: 0.94 m/s MV A Norbert: 0.54 m/s MV E/A Ratio: 1.73 AV maxP.60 mmHg AV meanP.07 mmHg RAP: 5.00 mmHg RVSP: 34.03 mmHg FINDINGS -------- Sinus rhythm. This was a techncally difficult study with suboptimal views, , Lumason utilized for enhancement of im ages. The left ventricular size is normal. There is mild concentric left ventricular hypertrophy. Overa ll left ventricular systolic function is normal with, an EF between 55 - 60 %. The right ventricle is normal in size. LA is severely dilated >40 ml/m2 The right atrial size is normal. 5.0mg OF Lumason UTLIZED: 2 OR MORE WALL SEGMENTS NOT VISUALIZED. There is mild aortic regurgitation. There is mild aortic stenosis present. Peak/mean gradient acr oss the Aortic Valve is 20.60mmHg / 10.07mmHg. Mild mitral regurgitation is present. Mild tricuspid regurgitation present. Right ventricular systolic pressure is normal at < 35 mmHg. The right ventricular systolic pressure, as measured by Doppler, is 34.03mmHg. The pulmonic valve was not well visualized. There is no pulmonic regurgitation present. The aortic root size is normal. There is a trivial pericardial effusion present. CONCLUSIONS -------- 1. Sinus rhythm. 2. This was a techncally difficult study with suboptimal views, , Lumason utilized for enhancement of images. 3. The left ventricular size is normal. 4. There is mild concentric left ventricular hypertrophy. 5. Overall left ventricular systolic function is normal with, an EF between 55 - 60 %. 6. LA is severely dilated >40 ml/m2 7. 5.0mg OF Lumason UTLIZED: 2 OR MORE WALL SEGMENTS NOT VISUALIZED. 8. There is mild aortic regurgitation. 9. There is mild aortic stenosis present. 10. Peak/mean gradient across the Aortic Valve is 20.60mmHg / 10.07mmHg. 11. Mild mitral regurgitation is present. 12. Mild tricuspid regurgitation present. 13. Right ventricular systolic pressure is normal at < 35 mmHg. 14. There is no pulmonic regurgitation present. 15. There is a trivial pericardial effusion present. IVF EMBRYOLOGIST: Andreea Rodriguez RDCS
[2019-08-04] MEDS: FAMOTIDINE 20 MG TAB PO SCH (22:06)
[2019-08-04] MEDS: HYDROcodone/APAP 5-325MG 1 EACH TAB PO PRN (22:06)
--- NOTE | 2019-08-04 22:29 | PN ---
PROGRESS NOTE DATE OF SERVICE: 08/04/2019 REASON FOR FOLLOWUP: Right foot wound and right lower extremity cellulitis. INTERVAL HISTORY: The patient is currently afebrile. The patient has been breathing comfortably. Denies having any chest pain or cough. No nausea or vomiting. No abdominal pain or any worsening pain in the right leg area. PHYSICAL EXAMINATION: Blood pressure 139/85 with a pulse of 80, temperature 98.6. She is 98% on 2 L nasal cannula. General description is an elderly female lying in bed in no distress. RESPIRATORY SYSTEM: Unlabored breathing. Clear to auscultation anteriorly. HEART: S1, S2. Regular rate and rhythm. ABDOMEN: Soft. No tenderness. Right leg redness has improved. No further drainage was noticed. LABS: Hemoglobin is 10.8, white count 5.0. BUN of 14, creatinine 0.58. Blood culture negative. Wound culture currently pending. DIAGNOSTIC IMPRESSION AND PLAN: Patient with right foot wound with secondary cellulitis of the right leg in this patient who is currently covered with vancomycin; to continue while waiting for the culture to finalize, as cellulitis has shown some clinical improvement. Continue with supportive care. MMODL / IJN: [id number] /
[2019-08-05 07:37] LABS: African American GFR (CKD) >90 (>60 ml/min/1.73 sqM); Anion Gap 9 mmol/L; Blood Urea Nitrogen 14 mg/dL (7-17); Carbon Dioxide 24 mmol/L (22-30); Chloride 109 mmol/L (98-107); Glucose 99 mg/dL (74-99); Non-African American GFR(CKD) >90 (>60 ml/min/1.73 sqM); Potassium 3.6 mmol/L (3.5-5.1); Sodium 142 mmol/L (137-145)
[2019-08-05 07:57] LABS: Basophils % (A) 0 %; Eosinophils # (A) 0.4 k/uL (0-0.7); Eosinophils % (A) 8 %; HCT 33.3 % (34.0-46.0); HGB 10.4 gm/dL (11.4-16.0); Lymphocytes # (A) 0.7 k/uL (1.0-4.8); Lymphocytes % (A) 15 %; MCHC 31.1 g/dL (31.0-37.0); MCV 93.3 fL (80.0-100.0); Mean Platelet Volume 9.4; Monocytes # (A) 0.4 k/uL (0-1.0); Monocytes % (A) 8 %; Neutrophils # (A) 3.2 k/uL (1.3-7.7); Neutrophils % (A) 67 %; Platelet Count 193 k/uL (150-450); RBC 3.57 m/uL (3.80-5.40); RDW 14.5 % (11.5-15.5); WBC 4.8 k/uL (3.8-10.6)
[2019-08-05] MEDS: SODIUM CHLORIDE 0.9% 1,000 ML IV SCH (08:51)
[2019-08-05] MEDS: APIXABAN 5 MG TAB PO SCH ×2 (09:32→20:38)
[2019-08-05] MEDS: FAMOTIDINE 20 MG TAB PO SCH ×2 (09:32→20:39)
[2019-08-05] MEDS: FUROSEMIDE 20 MG TAB PO SCH (09:32)
[2019-08-05] MEDS: METOPROLOL TARTRATE 50 MG TAB PO SCH ×2 (09:32→20:38)
[2019-08-05] MEDS: ATORVASTATIN 40 MG TAB PO SCH (09:32)
[2019-08-05] MEDS: VANCOMYCIN 2,000 MG in SODIUM CHLORIDE 0.9% 500 ML 500 ML IVPB SCH (10:53)
--- NOTE | 2019-08-05 13:01 | P.PN ---
Subjective This is a pleasant 68 years old female with past medical history of hyperlipidemia, hypertension, osteoarthritis, sleep apnea on CPAP, bilateral leg edema. Patient presents because of right lower extremity swelling and tenderness, she is status post vancomycin and cefazolin about 12 days. Patient was recently in the hospital discharge on 06/28/2019 for right lower extremity cellulitis. On that time she was discharged on IV antibiotics. And she went to rehab. However her distance on noticed that her wounds and tenderness and redness in her lower extremity are progressive so therefore her to the hospital. Also patient to be little tachypneic. Her doctor around [facility] have tolerated she has A. fib as well. She denies chest pain. No change in urine or bowel habits. Vitals are stable except for mild tachycardia, blood pressure was on the high side, currently 145/91. showing unremarkable CBC, INR, BMP and liver enzymes. Urinalysis is suspicious for infection. Cultures pending. Patient was found on A. fib with RVR at 107. Foot x-ray showing soft tissue swelling with no cellulitis. Venous Doppler: Is negative for DVT In the emergency room patient was started on Zosyn and vancomycin and heparin drip. Also she was started on normal saline at 80 mL/h 08/04/2019 Patient is awake she still have cellulitis in her lower extremity, wound culture are still pending and infectious disease input is appreciated and I recommended to continue with IV vancomycin while stopping the Zosyn also patient remains on heparin drip for her A. fib vitals are stable. Left still pending, we lowered the fluids to 60 mL/h. Continue with small dose of Lasix 20 mg twice daily. Doppler of the lower extremity is negative on the right side. Chest x-ray showed atelectasis rather than pneumonia, however patient has no respiratory sym ptoms 08/05/2019 Patient cellulitis is improving gradually. Patient with no fever all cellulitis. Patient currently on IV vancomycin. Heart rate is in 70s and is controlled blood pressure is stable. CBC and BMP were unremarkable. Patient was converted to sinus rhythm. Wound culture are still pending final results as well as Gram stain Objective - Vital Signs Vital signs: Vital Signs Temp 98.3 F 08/05/19 08:00 Pulse 79 08/05/19 10:56 Resp 20 08/05/19 10:56 BP 157/74 08/05/19 10:56 Pulse Ox 95 08/05/19 10:56 Intake & Output 08/04/19 08/05/19 08/05/19 18:59 06:59 18:59 Intake Total 240 Output Total 575 Balance -575 240 Weight 123.7 kg Intake: Oral 240 Output: Urine 575 Other: Voiding Method Bedside Commode Indwelling Catheter Bedpan - Exam GENERAL: The patient is alert and oriented x3, not in any acute distress. Well developed, well nourished. HEENT: Pupils are round and equally reacting to light. EOMI. No scleral icterus. No conjunctival pallor. Normocephalic, atraumatic. No pharyngeal erythema. No thyromegaly. CARDIOVASCULAR: S1 and S2 present. No murmurs, rubs, or gallops. -PULMONARY: Chest is clear to auscultation, mild bilateral scattered basilar crepitation and scattered wheezing as well ABDOMEN: Soft, nontender, nondistended, normoactive bowel sounds. No palpable organomegaly. MUSCULOSKELETAL: No joint swelling or deformity. -EXTREMITIES: No cyanosis, clubbing, mild bilateral leg edema. Both lower legs are warm, red and tender. She has a wound on dorsum of her right foot NEUROLOGICAL: Gross neurological examination did not reveal any focal deficits. SKIN: No rashes. No petechiae - Labs CBC & Chem 7: 08/05/19 06:15 08/05/19 06:15 Labs: Abnormal Lab Results - Last 24 Hours (Table) 08/05/19 08/05/19 Range/Units 06:15 06:15 RBC 3.57 L (3.80-5.40) m/uL Hgb 10.4 L (11.4-16.0) gm/dL Hct 33.3 L (34.0-46.0) % Lymphocytes # 0.7 L (1.0-4.8) k/uL Chloride 109 H (98-107) mmol/L Microbiology - Last 24 Hours (Table) 08/03/19 01:30 Blood Culture - Preliminary Blood No Growth after 48 hours 08/03/19 00:30 Gram Stain - Preliminary Foot - Right Wound Culture - Preliminary Assessment and Plan Assessment: Possible persistent Bilateral lower extremity cellulitis, more on the Right leg with wound status post drainage in the emergency room A. fib with RVR Abnormal uterine prognosis, concentrated sample. Most likely asymptomatic bacteriuria. Follow-up urine culture Hypertension Hyperlipidemia Primary osteoarthritis Sleep apnea on CPAP Bilateral leg edema Plan: this is a pleasant 68 years old female who presents because of right leg cellulitis. Also she has A. fib was mild RVR. Continue with antibiotics. Consult infectious disease. Follow-up wound culture. Consult butt welder. We'll give Lasix 1 dose continue with heparin drip for now Labs and medication were reviewed.. Continue same treatment. Continue with symptomatic treatment. Resume home medication. Monitor lytes and vitals. DVT and GI prophylaxis. Further recommendations of the clinical course of the patient DVT prophylaxis: heparin GI Prophylaxis: Pepcid PT/OT: Pending Prognosis is guarded
--- NOTE | 2019-08-05 14:10 | P.PN ---
Subjective Progress Note Date: 08/05/19 This is a 68-year-old female who has a known history of sleep apnea, she wears a CPAP, history of COPD, prior nicotine dependence, patient underwent a cardiac catheterization in October of this year because of a positive stress test, cardiac catheterization revealed a left dominant system with minor irregularities, no significant obstructive disease was noted and the patient was advised to continue medical therapy. Patient also has history of chronic venous stasis, morbid obesity, hypertension, hyperlipidemia, paroxysmal atrial fibrillation. Patient primarily presented to the hospital on this occasion because of recurrent cellulitis, and abscess to the right lower extremity and foot. Cardiology consultation was initially requested because of atrial fibrillation with a rapid ventricular response. Patient had been seen in consultation yesterday and in follow-up today. She continues today to be in atrial fibrillation, her heart rate is in the 80s, blood pressure 138/78, 98% on 2 L of oxygen. Blood cell count 5.0, hemoglobin 10.8, platelet count 166. Sodium 146, potassium 3.9, BUN 14 and creatinine 0.5. Patient is currently on IV heparin for anticoagulation. We'll look into coverage with Eliquis for her. An echocardiogram with Doppler study has also been requested. 08/05/2019 Patient was seen and examined this morning, currently in a normal sinus rhythm, on Eliquis for anticoagulation. Hemodynamically stable Objective - Vital Signs Vital signs: Vital Signs Temp 98.3 F 08/05/19 08:00 Pulse 79 08/05/19 10:56 Resp 20 08/05/19 10:56 BP 157/74 08/05/19 10:56 Pulse Ox 95 08/05/19 10:56 Intake & Output 08/04/19 08/05/19 08/05/19 18:59 06:59 18:59 Intake Total 480 Output Total 575 200 Balance -575 280 Weight 123.7 kg Intake: Oral 480 Output: Urine 575 200 Other: Voiding Method Bedside Commode Indwelling Catheter Bedpan - Exam PHYSICAL EXAMINATION: GENERAL: 68-year-old female in no acute distress at the time of my examination HEENT: Head is atraumatic, normocephalic. Pupils equal, round. Sclera anicteric. Conjunctiva are clear. Mucous membranes of the mouth are moist. Neck is supple. There is no elevated jugular venous pressure. No carotid bruit is heard. HEART EXAMINATION: Heart S1 and S2 normal CHEST EXAMINATION: Lungs are clear to auscultation and precussion. No chest wall tenderness is noted on palpation or with deep breathing. ABDOMEN: Soft, obese, nontender. EXTREMITIES: 1+ peripheral pulses with 3-4+ bilateral edema, chronic bilateral leg discoloration of bilateral lower extremities, dressing in place to the right lower extremity. NEUROLOGIC patient is awake, alert and oriented 3 . - Labs CBC & Chem 7: 08/05/19 06:15 08/05/19 06:15 Labs: Abnormal Lab Results - Last 24 Hours (Table) 08/05/19 08/05/19 Range/Units 06:15 06:15 RBC 3.57 L (3.80-5.40) m/uL Hgb 10.4 L (11.4-16.0) gm/dL Hct 33.3 L (34.0-46.0) % Lymphocytes # 0.7 L (1.0-4.8) k/uL Chloride 109 H (98-107) mmol/L Microbiology - Last 24 Hours (Table) 08/03/19 00:30 Gram Stain - Final Foot - Right Wound Culture - Final 08/03/19 01:30 Blood Culture - Preliminary Blood No Growth after 48 hours Assessment and Plan Plan: Assessment and plan #1 right lower extremity cellulitis #2 atrial fibrillation with rapid ventricular response, paroxysmal #3 hypertension #4 hyperlipidemia #5 obesity #6 sleep apnea #7 COPD #8 nonobstructive coronary artery disease by cardiac catheterization performed in October of this year Plan Echocardiogram with Doppler study revealed a normal left ventricular systolic function. From cardiology's perspective, we'll recommend to continue current d ose of verapamil as well as the rest of the patient's medications. We will follow him along with you now on an as-needed basis only, please don't hesitate to call with any questions. DNP note has been reviewed, I agree with a documented findings and plan of care. Patient was seen and examined.
--- NOTE | 2019-08-05 22:56 | PN ---
PROGRESS NOTE DATE OF SERVICE: 08/05/2019 REASON FOR FOLLOWUP: Right foot wound with secondary cellulitis. INTERVAL HISTORY: The patient is currently afebrile, has been breathing comfortably. Denies having any chest pain, shortness of breath or cough. No nausea, no vomiting, no abdominal pain, no pain to the right foot or leg area. PHYSICAL EXAMINATION: Blood pressure is 165/78 with a pulse of 77, temperature 97.7. She is 95% on room air. General description is an elderly female lying in bed in no distress. RESPIRATORY SYSTEM: Unlabored breathing. Clear to auscultation anteriorly. HEART: S1, S2. Regular rate and rhythm. ABDOMEN: Soft. No tenderness. Right leg swelling and redness have improved. No drainage. LABS: Hemoglobin is 10.4, white count 4.9, BUN of 14, creatinine 0.66. The right foot abscess drain culture has been negative so far. DIAGNOSTIC IMPRESSION AND PLAN: Patient with a right foot wound /abscess, status post drainage. Culture has been negative for a resistant pathogen. We will discontinue vancomycin and start the patient on cefazolin, which will be transitioned to p.o. Keflex on discharge and monitor clinical course closely. MMODL / IJN: [id number] / MTDPascual
[2019-08-05] MEDS ORDERED: VANCOMYCIN TROUGH DUE 1 EACH MISC MISCELLANE ONE (23:00)
[2019-08-05] MEDS: HYDROcodone/APAP 5-325MG 1 EACH TAB PO PRN (23:03)
[2019-08-06] MEDS: SODIUM CHLORIDE 0.9% 1,000 ML IV SCH ×2 (02:56→11:14)
[2019-08-06 06:25] LABS: Basophils % (A) 0 %; Eosinophils # (A) 0.2 k/uL (0-0.7); Eosinophils % (A) 5 %; HCT 30.2 % (34.0-46.0); HGB 9.7 gm/dL (11.4-16.0); Lymphocytes # (A) 0.7 k/uL (1.0-4.8); Lymphocytes % (A) 15 %; MCH 29.7 pg (25.0-35.0); MCHC 32.2 g/dL (31.0-37.0); MCV 92.3 fL (80.0-100.0); Mean Platelet Volume 9.4; Monocytes # (A) 0.4 k/uL (0-1.0); Monocytes % (A) 8 %; Neutrophils # (A) 3.4 k/uL (1.3-7.7); Neutrophils % (A) 69 %; Platelet Count 176 k/uL (150-450); RBC 3.27 m/uL (3.80-5.40); RDW 14.3 % (11.5-15.5); WBC 4.9 k/uL (3.8-10.6)
[2019-08-06 06:33] LABS: African American GFR (CKD) >90 (>60 ml/min/1.73 sqM); Anion Gap 5 mmol/L; Blood Urea Nitrogen 16 mg/dL (7-17); Calcium 9.2 mg/dL (8.4-10.2); Carbon Dioxide 24 mmol/L (22-30); Chloride 109 mmol/L (98-107); Glucose 101 mg/dL (74-99); Non-African American GFR(CKD) >90 (>60 ml/min/1.73 sqM); Potassium 3.5 mmol/L (3.5-5.1); Sodium 138 mmol/L (137-145)
[2019-08-06] MEDS: ATORVASTATIN 40 MG TAB PO SCH (09:10)
[2019-08-06] MEDS: FUROSEMIDE 20 MG TAB PO SCH (09:10)
[2019-08-06] MEDS: APIXABAN 5 MG TAB PO SCH ×2 (09:10→20:18)
[2019-08-06] MEDS: METOPROLOL TARTRATE 50 MG TAB PO SCH ×2 (09:10→20:18)
[2019-08-06] MEDS: FAMOTIDINE 20 MG TAB PO SCH ×2 (09:10→20:18)
[2019-08-06] MEDS ORDERED: ALBUTEROL NEBULIZED 2.5 MG/3 ML INHALATION PRN (19:33)
--- NOTE | 2019-08-06 22:12 | PN ---
PROGRESS NOTE DATE OF SERVICE: 08/06/2019 REASON FOR FOLLOWUP: Right foot wound with secondary cellulitis of the leg. INTERVAL HISTORY: The patient is currently afebrile. The patient is breathing comfortably. Denies having any chest pain or any cough. No nausea, vomiting, abdominal pain, or any pain to the right leg or foot area. PHYSICAL EXAMINATION: Blood pressure is 165/78 with a pulse of 71, temperature 97.7, she is 93% on room air. General description is an middle-aged female lying in bed in no distress. Respiratory system: Unlabored breathing, clear to auscultation anteriorly. Heart S1, S2. Regular rate and rhythm. Abdomen is soft, no tenderness. Right leg swelling, much improved foot with no drainage. DIAGNOSTIC IMPRESSION AND PLAN: Patient with right foot wound with secondary cellulitis of the right leg. Culture has been negative for resistant pathogen. Patient currently on cefazolin with a plan to finish therapy with oral Keflex 500 mg t.i.d. for about a week. Continue supportive supportive care. MMODL / IJN: [id number] /
--- NOTE | 2019-08-07 05:31 | PN ---
PROGRESS NOTE DATE OF SERVICE: 08/06/2019 This 68-year-old woman who was admitted with bilateral cellulitis on the right more than left, is being closely monitored at this time. The cultures are negative at this time. The patient is on broad-spectrum IV antibiotics. Multiple consultants including Infectious Disease and Cardiology are following the patient closely. PAST MEDICAL HISTORY: Reviewed. REVIEW OF SYSTEMS: CARDIOVASCULAR SYSTEM: As mentioned earlier. RESPIRATORY SYSTEM: As mentioned earlier. GI: No nausea. : No dysuria. NERVOUS SYSTEM: No numbness or weakness. CURRENT MEDICATIONS: Current medications are reviewed include: 1. Tylenol p.r.n. 2. [place] 5 mg q. p.r.n. 3. Eliquis 5 mg p.o. b.i.d. 4. Lipitor 40 mg. 5. Cefazolin 2 grams IV q.8, empirically initiated by Dr. Wolff. 6. Pepcid 20 mg b.i.d. 7. Lasix. 8. Lopressor. 9. Narcan. Doses are reviewed. PHYSICAL EXAMINATION: Patient is alert and oriented x3. Pulse 71, blood pressure 165/78, respiration 20, temp 97.7, pulse ox 96% on room air. HEENT: Conjunctivae normal. NECK: No jugular venous distention. CARDIOVASCULAR: S1, S2 muffled. RESPIRATORY: Breath sounds diminished at the bases. A few scattered rhonchi and crackles. ABDOMEN: Soft, nontender. LEGS: Bilateral infection, right more than the left. NERVOUS SYSTEM: No focal deficits. LABS: WBC 4.2, hemoglobin 9.7. Sodium 138, potassium 3.5. ASSESSMENT: 1. Bilateral leg cellulitis right more than the left, status post incision and drainage. 2. Atrial fibrillation with rapid ventricular rate. 3. Hypertension. 4. Hyperlipidemia. 5. Degenerative joint disease. 6. History of sleep apnea. 7. Bilateral leg edema. 8. Mild hypernatremia, present on admission. 9. Anemia, anemia of normocytic etiology. 10.History of degenerative joint disease. 11.History of sleep apnea, CPAP. 12.History anxiety, depression. RECOMMENDATIONS AND DISCUSSION: This 68-year-old woman presented with multiple complex medical issues, we will monitor the patient closely. Continue the current medications, continue symptomatic treatment. Otherwise, continue the IV antibiotics, DVT prophylaxis. Continue with apixaban. Repeat labs. Guarded prognosis because of multiple complex medical issues. Further recommendations to follow. MMODL / IJN: [id number] /
[2019-08-07 07:14] LABS: Basophils % (A) 0 %; Eosinophils # (A) 0.3 k/uL (0-0.7); Eosinophils % (A) 6 %; HCT 30.1 % (34.0-46.0); HGB 9.7 gm/dL (11.4-16.0); Lymphocytes # (A) 0.7 k/uL (1.0-4.8); Lymphocytes % (A) 15 %; MCH 29.6 pg (25.0-35.0); MCHC 32.3 g/dL (31.0-37.0); MCV 91.5 fL (80.0-100.0); Mean Platelet Volume 9.2; Monocytes # (A) 0.4 k/uL (0-1.0); Monocytes % (A) 9 %; Neutrophils # (A) 3.3 k/uL (1.3-7.7); Neutrophils % (A) 68 %; Platelet Count 182 k/uL (150-450); RBC 3.29 m/uL (3.80-5.40); RDW 14.4 % (11.5-15.5); WBC 4.8 k/uL (3.8-10.6)
[2019-08-07 07:26] LABS: African American GFR (CKD) >90 (>60 ml/min/1.73 sqM); Anion Gap 9 mmol/L; Blood Urea Nitrogen 15 mg/dL (7-17); Calcium 8.9 mg/dL (8.4-10.2); Carbon Dioxide 24 mmol/L (22-30); Chloride 106 mmol/L (98-107); Glucose 96 mg/dL (74-99); Non-African American GFR(CKD) >90 (>60 ml/min/1.73 sqM); Potassium 3.6 mmol/L (3.5-5.1); Sodium 139 mmol/L (137-145)
[2019-08-07] MEDS: ATORVASTATIN 40 MG TAB PO SCH (08:32)
[2019-08-07] MEDS: FAMOTIDINE 20 MG TAB PO SCH (08:32)
[2019-08-07] MEDS: APIXABAN 5 MG TAB PO SCH (08:33)
[2019-08-07] MEDS: FUROSEMIDE 20 MG TAB PO SCH (08:33)
[2019-08-07] MEDS: METOPROLOL TARTRATE 50 MG TAB PO SCH (08:33)
[2019-08-07] MEDS ORDERED: MULTIVITAMINS, THERA 1 EACH TAB PO SCH (09:00)
[2019-08-07 14:13] VITALS: BP 144/83; PULSE 73; RESP 17; TEMP 98.4
--- NOTE | 2019-08-07 15:20 | PN ---
PROGRESS NOTE DATE OF SERVICE: 08/07/2018 REASON FOR FOLLOWUP: Right leg, right foot wound and lower extremity cellulitis. INTERVAL HISTORY: The patient is seen on rounds this morning. The patient has been afebrile. She is breathing comfortably. Denies having any chest pain or any cough. No nausea, vomiting. No abdominal pain, no diarrhea. PHYSICAL EXAMINATION: Blood pressure 144/83 with a pulse of 73, temperature 98.4, she is 96% on room air. General description is an elderly female, up in the chair in no distress. RESPIRATORY SYSTEM: Unlabored breathing, clear to auscultation anteriorly. HEART: S1, S2. Regular rate and rhythm. ABDOMEN: Soft. No tenderness. Right leg swelling and redness has improved. LABS: White count 4.8, creatinine 0.58. Local culture negative. Blood cultures negative. DIAGNOSTIC IMPRESSION AND PLAN: Patient with right foot wound with secondary cellulitis of the right leg. The patient has shown overall clinical improvement. Plan at this time is to finish therapy with oral Keflex and close outpatient followup. MMODL / IJN: [id number] / MTDD
--- NOTE | 2019-08-08 09:56 | DS ---
DISCHARGE SUMMARY DATE OF SERVICE: 08/07/2019 FINAL DIAGNOSES: 1. Bilateral leg cellulitis right more than the left with status post incision and drainage. 2. Atrial fibrillation with rapid ventricular rate. 3. Hypertension. 4. Hyperlipidemia. 5. Degenerative joint disease. 6. History of sleep apnea. 7. Bilateral leg edema. 8. Mild hypernatremia, present on admission. 9. Anemia of normocytic etiology of chronic disease. 10.History of degenerative joint disease. 11.Sleep apnea, CPAP. 12.History of anxiety, depression. DISCHARGE DISPOSITION: The patient will be discharged in stable condition with guarded prognosis. HISTORY OF PRESENT ILLNESS: This 68-year-old woman with a past medical history of multiple medical problems was admitted with foot infection and multiple other associated medical issues as mentioned earlier. The patient was treated with antibiotics. Patient improved significantly. Dr. Wolff cleared the patient for discharge as well as Cardiology. The patient will be discharged in stable condition with guarded prognosis. On exam, vitals are stable. CARDIOVASCULAR: S1, S2 muffled. ABDOMEN: Soft. NERVOUS SYSTEM: No focal deficit. DISCHARGE ADVICE: 1. Diet is cardiac. 2. Activity limited until followup. 3. Follow up with Dr. Tasha Leon in 2 to 3 days. 4. Follow up with Infectious Disease as recommended. 5. Follow up with Cardiology as recommended. MEDICATIONS: 1. Lasix 20 mg daily. 2. Lipitor 40 mg p.o. daily. 3. Multivitamins 1 p.o. daily. 4. [place] 5 mg q.6 p.r.n. 5. Ventolin 2 puffs q.i.d. p.r.n. 6. Vitamin A 10,000 daily. 7. Zinc 50 mg p.o. daily. 8. Aspirin 81 mg p.o. daily. 9. Eliquis 5 mg p.o. b.i.d. 10.Lopressor 50 mg p.o. b.i.d. 11.MiraLAX 17 grams p.o. daily. 12.Tylenol 650 q.6 p.r.n. Once again, the patient will be discharged in stable condition with guarded prognosis. MMODL / IJN: [id number] /
--- NOTE | 2019-08-12 12:34 | CDI ---
Documentation Clarification Form Date: 08/12/19 From: Otilia Stover Phone: If you have a question about this query, please contact Rashmi Zavala, Melter Supervisor [employer] at [phone] between 8am and 5pm. Admit Date: 08/03/19 Discharge Date: 08/07/19 Patient Name: Mimi Butcher Visit Number: [id number] ATTENTION: The Clinical Documentation Specialists (CDI) and [facility] Coding Staff appreciate your assistance in clarifying documentation. Please respond to the clarification below the line at the bottom and electronically sign. The CDI & [facility] Coding staff will review the response and follow-up if needed. Please note: Queries are made part of the Legal Health Record. If you have any questions, please contact the author of this message via ITS. Dear Dr. Marilin Meraz Per your documentation an Incision and Drainage of the abscess on the right foot was performed with a #11 scalpel History/Risk Factors: Abscess, cellulitis, venous stasis Clinical Indicators: 2 x 2 cm abscess Treatment: Incision and drainage In order to capture the severity of the condition and code the appropriate procedure, could you please document the depth of the incision and drainage? Skin Subcutaneous tissue and fascia Other, please specify Unable to determine MTDD
--- NOTE | 2019-08-21 11:44 | CDI ---
Documentation Clarification Form Date: 08/21/19 From: Otilia Stover Phone: If you have a question about this query, please contact Rashmi Zavala [employer] Teacher at [phone] between 8am and 5pm. Admit Date: 08/05/19 Discharge Date:08/07/19 Patient Name: Mimi Butcher Visit Number: [id number] ATTENTION: The Clinical Documentation Specialists (CDI) and [facility] Coding Staff appreciate your assistance in clarifying documentation. Please respond to the clarification below the line at the bottom and electronically sign. The CDI & [facility] Coding staff will review the response and follow-up if needed. Please note: Queries are made part of the Legal Health Record. If you have any questions, please contact the author of this message via ITS. Dear Fernando Ling Per your documentation an Incision and Drainage of the abscess on the right foot was performed with a #11 scalpel History/Risk Factors: Abscess, cellulitis, venous stasis Clinical Indicators: 2 x 2 cm abscess Treatment: Incision and drainage In order to capture the severity of the condition and code the appropriate procedure, could you please document the depth of the incision and drainage? Skin Subcutaneous tissue and fascia Other, please specify Unable to determine See addendum to ED documentation.. TB MTDD
== END 2019-08-07 14:38 | disposition home health service (06) | DRG 580 ==
LOC: EC 22:11 → 6NMEDSUR 08-03 00:36 → 3SCARD 08-03 06:37 → OBSVTOIN 08-05 08:58 → 4SSUR 08-06 23:06
PROVIDERS: ADMIT Hospitalist; ATTEND Hospitalist
PROC: 0J9Q0ZZ Drainage of Right Foot Subcutaneous Tissue and Fascia, Open Approach (ICD-10-PCS; principal; 2019-08-03)
DX: L03.115 Cellulitis of right lower limb (principal); Z68.43 Body mass index [BMI] 50.0-59.9, adult; E87.0 Hyperosmolality and hypernatremia; L97.505 Non-pressure chronic ulcer of other part of unspecified foot with muscle involvement without evidence of necrosis; L03.116 Cellulitis of left lower limb; L02.415 Cutaneous abscess of right lower limb; D63.8 Anemia in other chronic diseases classified elsewhere; E66.01 Morbid (severe) obesity due to excess calories; E78.5 Hyperlipidemia, unspecified; F32.9 Major depressive disorder, single episode, unspecified; F41.9 Anxiety disorder, unspecified; G47.30 Sleep apnea, unspecified; I10 Essential (primary) hypertension; I25.10 Atherosclerotic heart disease of native coronary artery without angina pectoris; I48.0 Paroxysmal atrial fibrillation; J44.9 Chronic obstructive pulmonary disease, unspecified; I87.8 Other specified disorders of veins; M19.91 Primary osteoarthritis, unspecified site; R60.0 Localized edema; R01.1 Cardiac murmur, unspecified; Z79.82 Long term (current) use of aspirin; Z79.899 Other long term (current) drug therapy; Z88.8 Allergy status to other drugs, medicaments and biological substances; Z90.710 Acquired absence of both cervix and uterus; Z80.3 Family history of malignant neoplasm of breast; Z80.49 Family history of malignant neoplasm of other genital organs; Z82.49 Family history of ischemic heart disease and other diseases of the circulatory system; Z80.9 Family history of malignant neoplasm, unspecified
CPT/HCPCS: 10060; 36415; 71045; 80048; 80053; 80202; 81001; 83605; 84484; 85025; 85610; 85730; 87040; 87070; 87205; 93005; 93306; 96361; 96365; 96366; 96367; 96375; 96376; 99285

== ENCOUNTER 2021-06-16 18:09 | Observation (INO) | payer MEDICARE ==
[2021-06-16 18:44] LABS: Basophils % (A) 0 %; Eosinophils # (A) 0.2 k/uL (0-0.7); Eosinophils % (A) 3 %; HCT 37.2 % (34.0-46.0); Lymphocytes # (A) 1.3 k/uL (1.0-4.8); Lymphocytes % (A) 25 %; MCH 31.2 pg (25.0-35.0); MCHC 32.2 g/dL (31.0-37.0); MCV 96.8 fL (80.0-100.0); Mean Platelet Volume 8.7; Monocytes # (A) 0.5 k/uL (0-1.0); Monocytes % (A) 9 %; Neutrophils # (A) 3.2 k/uL (1.3-7.7); Neutrophils % (A) 61 %; Platelet Count 179 k/uL (150-450); RBC 3.84 m/uL (3.80-5.40); RDW 13.7 % (11.5-15.5); WBC 5.3 k/uL (3.8-10.6)
[2021-06-16 18:57] LABS: ALT 18 U/L (4-34); AST 25 U/L (14-36); African American GFR (CKD) >90 (>60 ml/min/1.73 sqM); Albumin 3.7 g/dL (3.5-5.0); Alkaline Phosphatase 80 U/L (38-126); Anion Gap 8 mmol/L; Blood Urea Nitrogen 23 mg/dL (7-17); Calcium 9.2 mg/dL (8.4-10.2); Carbon Dioxide 23 mmol/L (22-30); Chloride 108 mmol/L (98-107); Glucose 103 mg/dL (74-99); Magnesium 2.2 mg/dL (1.6-2.3); Non-African American GFR(CKD) 86 (>60 ml/min/1.73 sqM); Potassium 4.4 mmol/L (3.5-5.1); Sodium 139 mmol/L (137-145); Total Bilirubin 0.5 mg/dL (0.2-1.3); Total Protein 7.1 g/dL (6.3-8.2)
[2021-06-16 19:01] LABS: INR 1.9 (<1.2); Partial Thromboplastin Time 33.7 sec (22.0-30.0); Prothrombin Time 18.9 sec (9.0-12.0)
--- NOTE | 2021-06-16 19:53 | XR ---
EXAMINATION: XR chest 2V DATE AND TIME: 06/16/2021 6:49 PM CLINICAL INDICATION: PHH; Chest Pain TECHNIQUE: Departmental protocol COMPARISON: 08/03/2019 FINDINGS: The lungs are well expanded and appear to be clear bilaterally. Minimal scattered chronic changes are redemonstrated, similar to the prior studies. The pleural spaces are negative. The cardiac silhouette is enlarged, unchanged. The remainder of the mediastinal silhouette is unremar kable. The skeletal structures and soft tissues are negative for acute findings. IMPRESSION: No definite acute radiographic process.
--- NOTE | 2021-06-16 23:20 | CT ---
EXAMINATION TYPE: CT chest angio for PE DATE OF EXAM: 06/16/2021 COMPARISON: None HISTORY: SOB. rule outPE CT DLP: 856.6 mGycm Automated exposure control for dose reduction was used. CONTRAST: Performed with IV Contrast, patient injected with 60ml mL of Isovue 370. Images obtained from the thoracic inlet to the diaphragm with IV contrast. There are 3-D post process ed images. There is some interstitial density in the mid lung dickens. There is no pulmonary consolidation. There is no evidence of a pulmonary mass. Heart is enlarged. There is no pericardial effusion. There is no mediastinal adenopathy. Thoracic aorta is intact. There is 4.5 cm aneurysm of the ascending aorta. T here is no dissection. There are no hilar masses. There is normal contrast opacification of the pulmonary arteries. There are no filling defects. There is some spurring in the thoracic spine. There is no significant compression deformity. Sternum is intact. Upper abdominal soft tissues are intact. IMPRESSION: No evidence of pulmonary embolism. Cardiomegaly. Ascending thoracic aortic aneurysm. No dissection. No suspicious pulmonary mass. Mild i nterstitial pulmonary density suggestive of pulmonary fibrosis.
--- NOTE | 2021-06-16 23:39 | ED ---
Chest Pain HPI - General Chief Complaint: Chest Pain Stated Complaint: SOB, chest pressure, A fib Time Seen by Provider: 06/16/21 21:01 Source: patient Mode of arrival: wheelchair Limitations: no limitations - History of Present Illness Initial Comments: 70-year-old female past medical history of sleep apnea, hypertension, hyperlipidemia presents the emergency room with reported chest pain. Patient reports that she has had chest pressure with shortness of breath that has been persistent throughout the day today. Started approximately around 9 AM. He reports a history of asthma, A. fib on Coumadin. Denies fevers, chills or cough. Taken her Coumadin as directed without any missed doses. Niece at bedside reports that she was just recently hospitalized for UTI. Followed up to primary care physician and was doing better until today. No other alleviating, precipitating or modifying factors - Related Data Home Medications Medication Instructions Recorded Confirmed Multivitamins, Thera [Multivitamin 1 tab PO DAILY 03/12/19 06/16/21 (formulary)] Vitamin A [Vitamin A (8,000 Units 8,000 unit PO DAILY 03/12/19 06/16/21 = 2,400 MCG)] Atorvastatin [Lipitor] 40 mg PO HS 08/03/19 06/16/21 Furosemide [Lasix] 20 mg PO DAILY 08/04/19 06/16/21 Cholecalciferol [Vitamin D3 (25 25 mcg PO DAILY 06/16/21 06/16/21 Mcg = 1000 Iu)] Cyanocobalamin (Vitamin B-12) 1,000 mcg PO DAILY 06/16/21 06/16/21 [Vitamin B-12] Ferrous Sulfate [Feosol] 325 mg PO DAILY 06/16/21 06/16/21 Metoprolol Tartrate [Lopressor] 50 mg PO HS 06/16/21 06/16/21 Metoprolol Tartrate [Lopressor] 75 mg PO DAILY 06/16/21 06/16/21 Potassium Chloride [Klor-Con 20] 20 meq PO DAILY 06/16/21 06/16/21 Warfarin [Coumadin] 5 mg PO SUMOTUTHFR@1700 06/16/21 06/16/21 Warfarin [Coumadin] 7.5 mg PO WESA@1700 06/16/21 06/16/21 lisinopriL 20 mg PO BID 06/16/21 06/16/21 Allergies Allergy/AdvReac Type Severity Reaction Status Date / Time zinc oxide Allergy Rash/Hives Verified 06/16/21 21:39 Review of Systems ROS Statement: Those systems with pertinent positive or pertinent negative responses have been documented in the HPI. ROS Other: All systems not noted in ROS Statement are negative. EKG Findings - EKG Comments: EKG Findings:: EKG demonstrates A. fib with rate of 85. QRS 78. QTC of 461. No acute ST segment elevations or depressions concerning for ischemia or infarction Past Medical History Past Medical History: Hyperlipidemia, Hypertension, Osteoarthritis (OA), Sleep Apnea/CPAP/BIPAP, Vascular Disorder Additional Past Medical History / Comment(s): CPap use, cardiac murmur, bilateral legs/feet edema at times, History of Any Multi-Drug Resistant Organisms: None Reported Past Surgical History: Bladder Surgery, Hysterectomy, Tonsillectomy Additional Past Surgical History / Comment(s): BLADDER SLING, EGD, colonoscopy, R carpal tunnel release, R elbow release. Past Anesthesia/Blood Transfusion Reactions: No Reported Reaction Past Psychological History: Anxiety, Depression Past Alcohol Use History: Rare Past Drug Use History: None Reported - Past Family History Father Family Medical History: Coronary Artery Disease (CAD), Myocardial Infarction (MN) Additional Family Medical History / Comment(s): Father had heart disease and had a [place] in his 50s. Mother Family Medical History: Cancer Additional Family Medical History / Comment(s): Mother had cancer but pt does not recall type. Sister(s) Family Medical History: Cancer, Deep Vein Thrombosis (DVT), Pulmonary Embolus Additional Family Medical History / Comment(s): SISTER #1 UTERINE CA. SISTER #2 UTERINE AND BREAST CA. Sister#3 2-PEs, 3- DVTs General Exam Limitations: no limitations Course Vital Signs 06/16/21 06/16/21 18:14 21:01 Temperature 97.3 F L Pulse Rate 18 L 69 Respiratory 18 17 Rate Blood Pressure 129/86 141/80 O2 Sat by Pulse 98 100 Oximetry Chest Pain MDM - MDM Upon arrival patient is placed in room 2. History and physical exam was performed. IV is established and laboratory studies are conducted. Troponin is negative. INR subtherapeutic at 1.9. D-dimer 0.28. Chest x-ray was completed which demonstrates no acute process. Due to her shortness of breath she is sent for a CT of her chest which demonstrates an ascending thoracic aortic aneurysm without dissection. No suspicious pulmonary mass. Mild interstitial pulmonary density suggestive of pulmonary fibrosis. These results were discussed with the patient. Did recommend admission in order to trend her troponins which the patient agreed to. Spoke with Dr. Brody who agreed to admit the patient. She is currently awaiting a bed on the floor Disposition Clinical Impression: Chest pain, A-fib Disposition: ADMITTED IP TO THIS HOSP Condition: Stable Is patient prescribed a controlled substance at d/c from ED?: No Decision to Admit Reason: Admit from EC Decision Date: 06/16/21 Decision Time: 23:39
[2021-06-16] MEDS ORDERED: NALOXONE 0.4 MG/ML 1 ML VIAL IV PRN (23:43)
[2021-06-17 01:30] LABS: Appearance,Urine Cloudy (Clear); Bacteria,Urine Rare /hpf; Bilirubin,Urine Negative (Negative); Blood,Urine Negative (Negative); Budding Yeast,Urine Few /hpf; Color,Urine Yellow; Glucose,Urine (UA) Negative (Negative); Ketones,Urine Negative (Negative); Leukocyte Esterase,Urine Large (Negative); Mucus,Urine Occasional /hpf; Nitrite,Urine Negative (Negative); PH, Urine 6.5 (5.0-8.0); Protein,Urine Trace (Negative); RBC,Urine 1 /hpf (0-5); Specific Gravity,Urine 1.029 (1.001-1.035); Squamous Epithelial Cell,Urine <1 /hpf (0-4); Urobilinogen,Urine <2.0 mg/dL (<2.0); WBC,Urine 172 /hpf (0-5)
[2021-06-17 04:34] LABS: Basophils % (A) 0 %; Eosinophils # (A) 0.2 k/uL (0-0.7); Eosinophils % (A) 4 %; HCT 33.6 % (34.0-46.0); Lymphocytes # (A) 1.5 k/uL (1.0-4.8); Lymphocytes % (A) 29 %; MCH 31.8 pg (25.0-35.0); MCHC 32.7 g/dL (31.0-37.0); MCV 97.3 fL (80.0-100.0); Mean Platelet Volume 9.1; Monocytes # (A) 0.4 k/uL (0-1.0); Monocytes % (A) 7 %; Neutrophils % (A) 59 %; Platelet Count 158 k/uL (150-450); RBC 3.46 m/uL (3.80-5.40); RDW 13.7 % (11.5-15.5); WBC 5.1 k/uL (3.8-10.6)
[2021-06-17 04:56] LABS: African American GFR (CKD) >90 (>60 ml/min/1.73 sqM); Anion Gap 6 mmol/L; Blood Urea Nitrogen 20 mg/dL (7-17); Calcium 8.8 mg/dL (8.4-10.2); Carbon Dioxide 23 mmol/L (22-30); Chloride 108 mmol/L (98-107); Glucose 90 mg/dL (74-99); Non-African American GFR(CKD) >90 (>60 ml/min/1.73 sqM); Potassium 3.8 mmol/L (3.5-5.1); Sodium 137 mmol/L (137-145)
--- NOTE | 2021-06-17 06:21 | P.HPIM ---
History of Present Illness H&P Date: 06/16/21 Chief Complaint: Chest pain 70-year-old female with hypertension and A. fib on Coumadin Patient comes in complaining of sudden onset chest pain described it as feeling heavy retrosternal with some difficulty breathing she claims that over the past week she's been at retreat doing a lot of sewing and she's been having some chest discomfort frequently. However today without doing anything particular she suddenly felt chest pressure which was increasingly getting worse there were couple RNs on the retreat who brought her stethoscope examined her and recommended that she comes to the hospital for evaluation she denies any associated sweating or dizziness however she was having palpitations and RN told her that probably in A. fib as her heartbeat was irregular and very fast. She was having chest pressure and difficulty in breathing. Patient denies any cardiac history in the past denies any history of coronary artery disease however she does have A. fib on Coumadin In the ED EKG showed A. fib no acute ST changes, troponins are negative, CTA of the chest showed no aortic dissection, there was some aortic aneurysm and pulmonary fibrosis. Review of Systems Pertinent positives as noted in HPI. All other systems were reviewed and are negative Past Medical History Past Medical History: Hyperlipidemia, Hypertension, Osteoarthritis (OA), Sleep Apnea/CPAP/BIPAP, Vascular Disorder Additional Past Medical History / Comment(s): CPap use, cardiac murmur, bilateral legs/feet edema at times, History of Any Multi-Drug Resistant Organisms: None Reported Past Surgical History: Bladder Surgery, Hysterectomy, Tonsillectomy Additional Past Surgical History / Comment(s): BLADDER SLING, EGD, colonoscopy, R carpal tunnel release, R elbow release. Past Anesthesia/Blood Transfusion Reactions: No Reported Reaction Past Psychological History: Anxiety, Depression Past Alcohol Use History: Rare Past Drug Use History: None Reported - Past Family History Father Family Medical History: Coronary Artery Disease (CAD), Myocardial Infarction ([place]) Additional Family Medical History / Comment(s): Father had heart disease and had a [place] in his 50s. Mother Family Medical History: Cancer Additional Family Medical History / Comment(s): Mother had cancer but pt does not recall type. Sister(s) Family Medical History: Cancer, Deep Vein Thrombosis (DVT), Pulmonary Embolus Additional Family Medical History / Comment(s): SISTER #1 UTERINE CA. SISTER #2 UTERINE AND BREAST CA. Sister#3 2-PEs, 3- DVTs Medications and Allergies Home Medications Medication Instructions Recorded Confirmed Type Multivitamins, Thera [Multivitamin 1 tab PO DAILY 03/12/19 06/16/21 History (formulary)] Vitamin A [Vitamin A (8,000 Units 8,000 unit PO DAILY 03/12/19 06/16/21 History = 2,400 MCG)] Atorvastatin [Lipitor] 40 mg PO HS 08/03/19 06/16/21 History Furosemide [Lasix] 20 mg PO DAILY 08/04/19 06/16/21 History Cholecalciferol [Vitamin D3 (25 25 mcg PO DAILY 06/16/21 06/16/21 History Mcg = 1000 Iu)] Cyanocobalamin (Vitamin B-12) 1,000 mcg PO DAILY 06/16/21 06/16/21 History [Vitamin B-12] Ferrous Sulfate [Feosol] 325 mg PO DAILY 06/16/21 06/16/21 History Metoprolol Tartrate [Lopressor] 50 mg PO HS 06/16/21 06/16/21 History Metoprolol Tartrate [Lopressor] 75 mg PO DAILY 06/16/21 06/16/21 History Potassium Chloride [Klor-Con 20] 20 meq PO DAILY 06/16/21 06/16/21 History Warfarin [Coumadin] 5 mg PO SUMOTUTHFR@1700 06/16/21 06/16/21 History Warfarin [Coumadin] 7.5 mg PO WESA@1700 06/16/21 06/16/21 History lisinopriL 20 mg PO BID 06/16/21 06/16/21 History Allergies Allergy/AdvReac Type Severity Reaction Status Date / Time zinc oxide Allergy Rash/Hives Verified 06/16/21 21:39 Physical Exam Vitals: Vital Signs Temp Pulse Resp BP Pulse Ox 06/16/21 21:01 69 17 141/80 100 06/16/21 18:14 97.3 F L 18 L 18 129/86 98 Intake and Output 06/16/21 06/16/21 06/17/21 14:59 22:59 06:59 Other: Weight 129.274 kg Constitutional: No acute distress, conversant, pleasant Eyes: Anicteric sclerae, moist conjunctiva, Pupils equal round reactive to light ENMT: NC/AT Oropharynx clear, no erythema, or exudates Neck: Supple, FROM, no masses, or JVD No carotid bruits No thyromegaly Lungs: Clear to auscultation Clear to percussion Normal respiratory effort, no accessory muscle use Cardiovascular: Heart irregular No murmurs, gallops, or rubs No peripheral edema Abdominal: Soft Nontender, no guarding, rebound or rigidity Abdomen moving with respiration Normoactive bowel sounds No hepatomegaly, No splenomegaly No palpable mass No abdominal wall hernia noted Skin: Normal temperature, tone, texture, turgor No induration No subcutaneous nodules No rash, lesions No ulcers Extremities: No digital cyanosis No clubbing Pedal pulses intact and symmetrical Radial pulses intact and symmetrical No calf tenderness Psychiatric: Alert and oriented to person, place and time Appropriate affect fair judgement Neuro Muscles Strength 5/5 in all 4 extremities Sensation to light touch grossly present throughout Cranial nerves II-XII grossly intact No focal sensory deficits Lymphatics: no palpable cervical or supraclavicular , or inguinal lymph nodes Results CBC & Chem 7: 06/17/21 04:06 06/17/21 04:06 Labs: Abnormal Lab Results - Last 24 Hours (Table) 06/16/21 06/16/21 Range/Units 18:28 18:28 PT 18.9 H (9.0-12.0) sec INR 1.9 H (<1.2) APTT 33.7 H (22.0-30.0) sec Chloride 108 H (98-107) mmol/L BUN 23 H (7-17) mg/dL Glucose 103 H (74-99) mg/dL Assessment and Plan Assessment: Chest pain rule out ACS Atrial fibrillation rate controlled on Coumadin Hypertension Trend troponins negative so far EKG no acute ST changes Cardiology consult Resume cardiac meds Aspirin statin Continue with Coumadin, INR 1.9 Monitor vital signs Full code Anticipated length of stay less than 2 midnights Anticipated discharge home
[2021-06-17] MEDS ORDERED: ASPIRIN 81 MG PO SCH (09:00)
[2021-06-17] MEDS: FERROUS SULFATE 325 MG TAB PO SCH (09:20)
[2021-06-17] MEDS: FUROSEMIDE 20 MG TAB PO SCH (09:20)
[2021-06-17] MEDS: METOPROLOL TARTRATE 25 MG TAB PO SCH (09:21)
[2021-06-17] MEDS: lisinopriL 20 MG TAB PO SCH ×2 (09:21→20:28)
[2021-06-17] MEDS: MULTIVITAMINS, THERA 1 EACH TAB PO SCH (09:21)
[2021-06-17] MEDS: POTASSIUM CHLORIDE ER 20 MEQ TAB.ER PO SCH (09:21)
[2021-06-17] MEDS: CYANOCOBALAMIN 500 MCG TAB PO SCH (09:22)
--- NOTE | 2021-06-17 09:29 | P.CRDCN ---
History of Present Illness History of present illness: HISTORY OF PRESENTING ILLNESS This is a pleasant 70-year-old female past medical history significant for chronic atrial fibrillation, hyperlipidemia, hypertension, obstructive sleep apnea, obesity. She follows in the office with Dr. Coronado. We have been asked to see in consultation for chest pain. Patient is seen and examined in the emergency department. Patient presents emergency department with complaints of shortness of breath. She states yesterday morning around 9 AM she started to have increased shortness of breath, she states she was with some friends and had symptoms of dyspnea and chest tightness. Her chest tightness was in the center of her chest, nonradiating, nonexertional. Taking a deep breath aggravated the pain. She states once her heart rate slowed down and her breathing improved her chest tightness resolved. She denied having associated nausea, vomiting, diap horesis, lightheadedness or dizziness. She denies any syncope or presyncope symptoms. She did have associated palpitations. She states that one of her friends is an RN and listened to her heart with the stethoscope and her friend told her her heart rate was fast and was concerned of the patient was in A. fib with RVR. Patient states she called her family and was brought to the emergency department. She states she is feeling much better the morning. She denies any chest pain. Her breathing has significantly improved. She denies any symptoms of orthopnea PND. She is a nonsmoker. Denies any alcohol use. She denies any history of DE, stroke, diabetes, seizure or lung disease DIAGNOSTICS EKG reveals atrial fibrillation, heart rate 85, no significant ST or T-wave abnormalities. Prior EKG in 2019 patient was in A. fib heart rate in the low 100s Last Cardiac Catheterization 10/2018 revealed left dominant system. Minor irregularities. No significant obstructive disease. Chest xray no acute cardiopulmonary process. CT chest revealed no evidence of pulmonary embolism. Cardiomegaly. 4.5 cm ascending thoracic aneurysm. No dissection. No suspicious pulmonary mass. Mild interstitial pulmonary densities suggestive of pulmonary fibrosis. Most recent echocardiogram 07/2019 revealed EF 5560 percent, LA severely dilated, mild aortic restriction, mild aortic stenosis with peak/mean gradient of 20 mmHg/10 mmHg, mild mitral regurgitation, mild tricuspid regurgitation. Laboratory reviewed, troponin negative 3, sodium 137, potassium 3.8, BUN 20, serum creatinine 0.5, COVID-19 PCR negative, INR 1.9 Current home medications include Coumadin 7.5 mg Sunday and Sunday and 5 mg O week, lisinopril 20 mg twice a day, metoprolol titrate 75 mg daily, 50 mg nightly, Lasix 20 mg daily, atorvastatin 40 mg nightly. REVIEW OF SYSTEMS At the time of my exam: CONSTITUTIONAL: Denies fever or chills. CARDIOVASCULAR: Positive shortness of breath, positive chest tightness Denies orthopnea, PND or palpitations. RESPIRATORY: Denies cough. GASTROINTESTINAL: Denies abdominal pain, diarrhea, constipation, nausea or vomiting. MUSCULOSKELETAL: Denies myalgias. NEUROLOGIC: Denies numbness, tingling, headache or weakness. ENDOCRINE: Denies fatigue, weight change, polydipsia or polyurina. GENITOURINARY: Denies burning, hematuria or urgency with micturation. HEMATOLOGIC: Denies history of anemia or bleeding. PHYSICAL EXAMINATION Blood pressure 138/67, heart rate 91, afebrile oxygen saturation is greater than 92% on room air CONSTITUTIONAL: No apparent distress. HEENT: Head is normocephalic. Pupils are equal, round. Sclerae anicteric. Mucous membranes of the mouth are moist. No JVD. No carotid bruit. CHEST EXAMINATION: Lungs are essentially clear to auscultation. No chest wall tenderness is noted on palpation or with deep breathing. HEART EXAMINATION: Irregular rate and rhythm. S1, S2 heard. Systolic murmur at right sternal border ABDOMEN: Soft, nontender. Positive bowel sounds. EXTREMITIES: 2+ peripheral pulses, no lower extremited edema and no calf tenderness. SKIN:warm, dry NEUROLOGIC EXAMINATION: Patient is awake, alert and oriented x3. ASSESSMENT Chest pain, shortness of breath, atypical, acute joint syndrome has ruled out. possibly related to atrial fibrillation rapid ventricular response Chronic atrial fibrillation- [id number] score 3, on coumadin, currently rate controlled Supratherapeutic INR- INR from today pending History of hyperlipidemia History of hypertension Obstructive sleep apnea Morbid obesity BMI 55 PLAN An acute coronary event has been ruled out with no EKG evidence of ischemia and negative cardiac enzymes. Obtain 2D echocardiogram and doppler study to assess cardiac structure and function. Continue home cardiac medications If echocardiogram with no acute findings, okay to discharge from a cardiology perspective and follow up outpatient with Dr. Coronado Thank you kindly for this consultation. Nurse Practitioner note has been reviewed, I agree with a documented findings and plan of care. Patient was seen and examined. Past Medical History Past Medical History: Hyperlipidemia, Hypertension, Osteoarthritis (OA), Sleep Apnea/CPAP/BIPAP, Vascular Disorder Additional Past Medical History / Comment(s): CPap use, cardiac murmur, bilateral legs/feet edema at times, History of Any Multi-Drug Resistant Organisms: None Reported Past Surgical History: Bladder Surgery, Hysterectomy, Tonsillectomy Additional Past Surgical History / Comment(s): BLADDER SLING, EGD, colonoscopy, R carpal tunnel release, R elbow release. Past Anesthesia/Blood Transfusion Reactions: No Reported Reaction Past Psychological History: Anxiety, Depression Past Alcohol Use History: Rare Past Drug Use History: None Reported - Past Family History Father Family Medical History: Coronary Artery Disease (CAD), Myocardial Infarction (DE) Additional Family Medical History / Comment(s): Father had heart disease and had a DE in his 50s. Mother Family Medical History: Cancer Additional Family Medical History / Comment(s): Mother had cancer but pt does not recall type. Sister(s) Family Medical History: Cancer, Deep Vein Thrombosis (DVT), Pulmonary Embolus Additional Family Medical History / Comment(s): SISTER #1 UTERINE CA. SISTER #2 UTERINE AND BREAST CA. Sister#3 2-PEs, 3- DVTs Medications and Allergies Home Medications Medication Instructions Recorded Confirmed Type Multivitamins, Thera [Multivitamin 1 tab PO DAILY 03/12/19 06/16/21 History (formulary)] Vitamin A [Vitamin A (8,000 Units 8,000 unit PO DAILY 03/12/19 06/16/21 History = 2,400 MCG)] Atorvastatin [Lipitor] 40 mg PO HS 08/03/19 06/16/21 History Furosemide [Lasix] 20 mg PO DAILY 08/04/19 06/16/21 History Cholecalciferol [Vitamin D3 (25 25 mcg PO DAILY 06/16/21 06/16/21 History Mcg = 1000 Iu)] Cyanocobalamin (Vitamin B-12) 1,000 mcg PO DAILY 06/16/21 06/16/21 History [Vitamin B-12] Ferrous Sulfate [Feosol] 325 mg PO DAILY 06/16/21 06/16/21 History Metoprolol Tartrate [Lopressor] 50 mg PO HS 06/16/21 06/16/21 History Metoprolol Tartrate [Lopressor] 75 mg PO DAILY 06/16/21 06/16/21 History Potassium Chloride [Klor-Con 20] 20 meq PO DAILY 06/16/21 06/16/21 History Warfarin [Coumadin] 5 mg PO SUMOTUTHFR@1700 06/16/21 06/16/21 History Warfarin [Coumadin] 7.5 mg PO WESA@1700 06/16/21 06/16/21 History lisinopriL 20 mg PO BID 06/16/21 06/16/21 History Allergies Allergy/AdvReac Type Severity Reaction Status Date / Time zinc oxide Allergy Rash/Hives Verified 06/16/21 21:39 Physical Exam Vitals: Vital Signs Temp Pulse Resp BP Pulse Ox 06/17/21 07:25 98.1 F 91 18 138/67 94 L 06/16/21 21:01 69 17 141/80 100 06/16/21 18:14 97.3 F L 18 L 18 129/86 98 Intake and Output 06/16/21 06/17/21 06/17/21 22:59 06:59 14:59 Other: Weight 129.274 kg Results 06/17/21 04:06 06/17/21 04:06 Cardiac Enzymes 06/16/21 06/16/21 06/17/21 Range/Units 18:28 18:28 00:46 AST 25 (14-36) U/L Troponin I <0.012 <0.012 (0.000-0.034) ng/mL 06/17/21 Range/Units 04:06 AST (14-36) U/L Troponin I <0.012 (0.000-0.034) ng/mL Coagulation 06/16/21 Range/Units 18:28 PT 18.9 H (9.0-12.0) sec APTT 33.7 H (22.0-30.0) sec CBC 06/16/21 06/17/21 Range/Units 18:28 04:06 WBC 5.3 5.1 (3.8-10.6) k/uL RBC 3.84 3.46 L (3.80-5.40) m/uL Hgb 12.0 11.0 L (11.4-16.0) gm/dL Hct 37.2 33.6 L (34.0-46.0) % Plt Count 179 158 (150-450) k/uL Comprehensive Metabolic Panel 06/16/21 06/17/21 Range/Units 18:28 04:06 Sodium 139 137 (137-145) mmol/L Potassium 4.4 3.8 (3.5-5.1) mmol/L Chloride 108 H 108 H (98-107) mmol/L Carbon Dioxide 23 23 (22-30) mmol/L BUN 23 H 20 H (7-17) mg/dL Creatinine 0.71 0.57 (0.52-1.04) mg/dL Glucose 103 H 90 (74-99) mg/dL Calcium 9.2 8.8 (8.4-10.2) mg/dL AST 25 (14-36) U/L ALT 18 (4-34) U/L Alkaline Phosphatase 80 (38-126) U/L Total Protein 7.1 (6.3-8.2) g/dL Albumin 3.7 (3.5-5.0) g/dL Current Medications Generic Name Dose Route Start Last Admin Trade Name Freq PRN Reason Stop Dose Admin Aspirin 81 mg 06/17/21 09:00 Aspirin 81 Mg PO DAILY [facility] Atorvastatin Calcium 40 mg 06/17/21 21:00 Atorvastatin 40 Mg Tab PO HS [facility] Cholecalciferol 25 mcg 06/17/21 09:00 Cholecalciferol 25 Mcg (1000 Iu) Tablet PO DAILY [facility] Cyanocobalamin 1,000 mcg 06/17/21 09:00 Cyanocobalamin 500 Mcg Tab PO DAILY [facility] Ferrous Sulfate 325 mg 06/17/21 09:00 Ferrous Sulfate 325 Mg Tab PO DAILY [facility] Furosemide 20 mg 06/17/21 09:00 Furosemide 20 Mg Tab PO DAILY [facility] Lisinopril 20 mg 06/17/21 09:00 Lisinopril 20 Mg Tab PO BID [facility] Metoprolol Tartrate 50 mg 06/17/21 21:00 Metoprolol Tartrate 50 Mg Tab PO HS [facility] Metoprolol Tartrate 75 mg 06/17/21 09:00 Metoprolol Tartrate 25 Mg Tab PO DAILY [facility] Multivitamins 1 each 06/17/21 09:00 Multivitamins, Thera 1 Each Tab PO DAILY [facility] Naloxone HCl 0.2 mg 06/16/21 23:43 Naloxone 0.4 Mg/Ml 1 Ml Vial IV Q2M PRN Opioid Reversal Potassium Chloride 20 meq 06/17/21 09:00 Potassium Chloride Er 20 Meq Tab.Er PO DAILY [facility] Vitamin A 10,000 unit 06/17/21 09:00 Vitamin A 10,000 Unit (3000 Mcg) Capsule PO DAILY [facility] Warfarin Sodium 6 mg 06/19/21 18:00 Warfarin 3 Mg Tab PO [email or web address] [facility] Protocol Warfarin Sodium 7.5 mg 06/17/21 18:00 Warfarin 7.5 Mg Tab PO 06/17/21 18:01 Fr@1800 [facility] Protocol Warfarin Sodium 7.5 mg 06/18/21 18:00 Warfarin 7.5 Mg Tab PO [id number]@1800 [facility] Intake and Output 06/16/21 06/17/21 06/17/21 22:59 06:59 14:59 Other: Weight 129.274 kg 06/17/21 04:06 06/17/21 04:06
[2021-06-17 09:36] LABS: INR 1.78 (0.90-1.11)
--- NOTE | 2021-06-17 14:15 | P.PN ---
Subjective Progress Note Date: 06/17/21 Principal diagnosis: sob Patient was seen and examined today. She feels okay when at rest but whenever she gets up she is wheezy and short of breath. No chest pain currently. No fevers or chills. Objective - Vital Signs Vital signs: Vital Signs Temp 98.1 F 06/17/21 07:25 Pulse 73 06/17/21 12:56 Resp 18 06/17/21 09:56 BP 136/63 06/17/21 12:56 Pulse Ox 98 06/17/21 12:56 Intake & Output 06/16/21 06/17/21 06/17/21 18:59 06:59 18:59 Weight 129.274 kg 129.274 kg Other: # Voids 1 - Exam Constitutional: No acute distress, conversant, pleasant Eyes:Anicteric sclerae, moist conjunctiva, no lid-lag, PERRLA, ENMT: Oropharynx clear, no erythema, exudates Neck: Supple, FROM, no masses, or JVD, No carotid bruits, No thyromegaly Lungs: Clear to auscultation, Clear to percussion, Normal respiratory effort, no accessory muscle use Cardiovascular: Heart regular in rate and rhythm, No murmurs, gallops, or rubs, No peripheral edema Abdominal: Soft, Nontender, no guarding, rebound or rigidity, Normoactive bowel sounds, No hepatomegaly, No splenomegaly, No palpable mass Skin: Normal temperature, tone, texture, turgor, no induration, No subcutaneous nodules, No rash, lesions, No ulcers Extremities: No digital cyanosis, No clubbing, Pedal pulses intact and symmetrical, Radial pulses intact and symmetrical, No calf tenderness Psychiatric: Alert and oriented to person, place and time, appropriate affect, intact judgement Neuro: Muscles Strength 5/5 in all 4 extremities, Sensation to light touch grossly present throughout, Cranial nerves II-XII grossly intact, no focal sensory deficits - Labs CBC & Chem 7: 06/17/21 04:06 06/17/21 04:06 Labs: Abnormal Lab Results - Last 24 Hours (Table) 06/16/21 06/16/21 06/17/21 Range/Units 18:28 18:28 00:31 RBC (3.80-5.40) m/uL Hgb (11.4-16.0) gm/dL Hct (34.0-46.0) % PT 18.9 H (9.0-12.0) sec INR 1.9 H (<1.2) APTT 33.7 H (22.0-30.0) sec Chloride 108 H (98-107) mmol/L BUN 23 H (7-17) mg/dL Glucose 103 H (74-99) mg/dL Urine Appearance Cloudy H (Clear) Urine Protein Trace H (Negative) Ur Leukocyte Esterase Large H (Negative) Urine WBC 172 H (0-5) /hpf Urine Bacteria Rare H (None) /hpf Urine Mucus Occasional H (None) /hpf Urine Yeast (Budding) Few H (None) /hpf 06/17/21 06/17/21 06/17/21 Range/Units 04:06 04:06 04:06 RBC 3.46 L (3.80-5.40) m/uL Hgb 11.0 L (11.4-16.0) gm/dL Hct 33.6 L (34.0-46.0) % PT 19.0 H (9.0-12.0) sec INR 1.78 H (<1.2) APTT (22.0-30.0) sec Chloride 108 H (98-107) mmol/L BUN 20 H (7-17) mg/dL Glucose (74-99) mg/dL Urine Appearance (Clear) Urine Protein (Negative) Ur Leukocyte Esterase (Negative) Urine WBC (0-5) /hpf Urine Bacteria (None) /hpf Urine Mucus (None) /hpf Urine Yeast (Budding) (None) /hpf Microbiology - Last 24 Hours (Table) 06/17/21 00:31 Urine Culture - Preliminary Urine,Voided Assessment and Plan Plan: Chest pain rule out ACS Troponin is negative, seen by cardiology, echocardiogram ordered, awaiting report. Chronic atrial fibrillation Continue with Coumadin Shortness of breath with wheezing on exertion Rule out congestive heart failure exacerbation versus undiagnosed asthma/COPD Start DuoNeb's, check BNP Will give one dose of lasix 20mg IV Will need outpatient pulmonary evaluation Ascending aortic aneurysm 4.5 cm, incidentally found on computed tomography scan Outpatient cardiology follow-up Essential hypertension Continue meds MATTEO CPAP General weakness PT Full code Anticipated discharge: Tomorrow Anticipated discharge home
[2021-06-17] MEDS ORDERED: FUROSEMIDE 10 MG/ML 2 ML VIAL IV ONE (14:30)
[2021-06-17] MEDS: CHOLECALCIFEROL 25 MCG (1000 IU) TABLET PO SCH (15:19)
[2021-06-17] MEDS: VITAMIN A 10,000 UNIT (3000 MCG) CAPSULE PO SCH (15:19)
--- NOTE | 2021-06-17 17:56 | ECHOF ---
Referral Reason:LV function MEASUREMENTS -------- HEIGHT: 152.4 cm WEIGHT: 129.3 kg BP: RVIDd: 3.5 cm (< 3.3) IVSd: 1.2 cm (0.6 - 1.1) LVIDd: 4.1 cm (3.9 - 5.3) LVPWd: 1.0 cm (0.6 - 1.1) IVSs: 1.9 cm LVIDs: 1.6 cm LVPWs: 1.7 cm Ao Diam: 2.3 cm (2.0 - 3.7) AV Cusp: 1.9 cm (1.5 - 2.6) LA Diam: 3.4 cm (2.7 - 3.8) MV EXCURSION: 11.952 mm (> 18.000) MV EF SLOPE: 120 mm/s (70 - 150) EPSS: 0.7 cm RAP: 5.00 mmHg RVSP: 24.18 mmHg FINDINGS -------- Atrial fibrillation. This was a technically difficult study with suboptimal views. The left ventricular size is normal. There is borderline concentric left ventricular hypertrophy. Overall left ventricular systolic function is normal with, an EF between 55 - 60 %. Left ventricul ar fillimg pressure cannot be estimated due to Atrial fibrillation. The right ventricle is mildly enlarged. The left atrium was not well visualized. The right atrium was not well visualized. Lumason used The aortic valve was not well visualized. The mitral valve was not well visualized. There is trace mitral regurgitation. The tricuspid valve was not well visualized. Trace tricuspid regurgitation present. Right ventric ular systolic pressure is normal at < 35 mmHg. The pulmonic valve was not well visualized. The aortic root size is normal. IVC Not well visulized. There is no pericardial effusion. CONCLUSIONS -------- 1. Atrial fibrillation. 2. This was a technically difficult study with suboptimal views. 3. There is borderline concentric left ventricular hypertrophy. 4. Overall left ventricular systolic function is normal with, an EF between 55 - 60 %. 5. Left ventricular fillimg pressure cannot be estimated due to Atrial fibrillation. 6. The right ventricle is mildly enlarged. 7. There is trace mitral regurgitation. 8. Trace tricuspid regurgitation present. 9. There is no pericardial effusion. ASSISTANT PARALEGAL: Allison Perez [facility]
[2021-06-17] MEDS ORDERED: WARFARIN 7.5 MG TAB PO ONE (18:00)
[2021-06-17] MEDS ORDERED: WARFARIN 7.5 MG TAB PO SCH (18:00)
[2021-06-17] MEDS: IPRATROPIUM-ALBUTEROL 3 ML NEB INHALATION SCH ×2 (19:35)
[2021-06-17] MEDS: ATORVASTATIN 40 MG TAB PO SCH ×2 (20:27→20:28)
[2021-06-17] MEDS ORDERED: METOPROLOL TARTRATE 50 MG TAB PO SCH (21:00)
[2021-06-18 08:41] VITALS: BP 125/83; RESP 20; TEMP 97.7
[2021-06-18] MEDS: CYANOCOBALAMIN 500 MCG TAB PO SCH (08:44)
[2021-06-18] MEDS: VITAMIN A 10,000 UNIT (3000 MCG) CAPSULE PO SCH (08:44)
[2021-06-18] MEDS: MULTIVITAMINS, THERA 1 EACH TAB PO SCH (08:44)
[2021-06-18] MEDS: FERROUS SULFATE 325 MG TAB PO SCH (08:44)
[2021-06-18] MEDS: FUROSEMIDE 20 MG TAB PO SCH (08:44)
[2021-06-18] MEDS: lisinopriL 20 MG TAB PO SCH (08:44)
[2021-06-18] MEDS: METOPROLOL TARTRATE 25 MG TAB PO SCH (08:44)
[2021-06-18] MEDS: CHOLECALCIFEROL 25 MCG (1000 IU) TABLET PO SCH (08:44)
[2021-06-18] MEDS: POTASSIUM CHLORIDE ER 20 MEQ TAB.ER PO SCH (08:44)
[2021-06-18] MEDS: IPRATROPIUM-ALBUTEROL 3 ML NEB INHALATION SCH (09:13)
[2021-06-18 09:16] VITALS: PULSE 84
[2021-06-18 09:58] LABS: INR 1.6 (<1.2); Prothrombin Time 15.9 sec (9.0-12.0)
[2021-06-18] MEDS ORDERED: ALBUTEROL NEBULIZED 2.5 MG/3 ML INHALATION PRN (09:58)
[2021-06-18] MEDS ORDERED: INFLUENZA VACC HIGH-DOSE (65+) 240 MCG/0.7 ML SYRINGE IM ONE (11:14)
--- NOTE | 2021-06-18 15:20 | P.PN ---
Subjective Progress Note Date: 06/18/21 HISTORY OF PRESENTING ILLNESS This is a pleasant 70-year-old female past medical history significant for c hronic atrial fibrillation, hyperlipidemia, hypertension, obstructive sleep apnea, obesity. She follows in the office with Dr. Coronado. We have been asked to see in consultation for chest pain. Patient is seen and examined in the emergency department. Patient presents emergency department with complaints of shortness of breath. She states yesterday morning around 9 AM she started to have increased shortness of breath, she states she was with some friends and had symptoms of dyspnea and chest tightness. Her chest tightness was in the center of her chest, nonradiating, nonexertional. Taking a deep breath aggravated the pain. She states once her heart rate slowed down and her breathing improved her chest tightness resolved. She denied having associated nausea, vomiting, diaphoresis, lightheadedness or dizziness. She denies any syncope or presyncope symptoms. She did have associated palpitations. She states that one of her friends is an RN and listened to her heart with the stethoscope and her friend told her her heart rate was fast and was concerned of the patient was in A. fib with RVR. Patient states she called her family and was brought to the emergency department. She states she is feeling much better the morning. She denies any chest pain. Her breathing has significantly improved. She denies any symptoms of orthopnea PND. She is a nonsmoker. Denies any alcohol use. She denies any history of [place], stroke, diabetes, seizure or lung disease DIAGNOSTICS EKG reveals atrial fibrillation, heart rate 85, no significant ST or T-wave abnormalities. Prior EKG in 2018 patient was in A. fib heart rate in the low 100s Last Cardiac Catheterization 10/2018 revealed left dominant system. Minor irregularities. No significant obstructive disease. Chest xray no acute cardiopulmonary process. CT chest revealed no evidence of pulmonary embolism. Cardiomegaly. 4.5 cm ascending thoracic aneurysm. No dissection. No suspicious pulmonary mass. Mild interstitial pulmonary densities suggestive of pulmonary fibrosis. Most recent echocardiogram 07/2019 revealed EF 5560 percent, LA severely dilated, mild aortic restriction, mild aortic stenosis with peak/mean gradient of 20 mmHg/10 mmHg, mild mitral regurgitation, mild tricuspid regurgitation. Laboratory reviewed, troponin negative 3, sodium 137, potassium 3.8, BUN 20, serum creatinine 0.5, COVID-19 PCR negative, INR 1.9 Current home medications include Coumadin 7.5 mg Sunday and Sunday and 5 mg O week, lisinopril 20 mg twice a day, metoprolol titrate 75 mg daily, 50 mg nightly, Lasix 20 mg daily, atorvastatin 40 mg nightly. 06/18/2021: Patient denies having any chest pain or shortness of breath. Echocardiogram reveals EF of 55-60% with borderline concentric left hypertrophy, trace mitral regurgitation, trace tricuspid regurgitation. PHYSICAL EXAMINATION Blood pressure 125/83, pulse ox 95% on room air, afebrile, heart rate in the 80s CONSTITUTIONAL: No apparent distress. HEENT: Head is normocephalic. Pupils are equal, round. Sclerae anicteric. Mucous membranes of the mouth are moist. No JVD. CHEST EXAMINATION: Lungs are essentially clear to auscultation. No chest wall tenderness is noted on palpation or with deep breathing. HEART EXAMINATION: Irregular rate and rhythm. S1, S2 heard. Systolic murmur at right sternal border ABDOMEN: Soft, nontender. Positive bowel sounds. EXTREMITIES: 2+ peripheral pulses, no lower extremited edema and no calf tenderness. SKIN:warm, dry NEUROLOGIC EXAMINATION: Patient is awake, alert and oriented x3. ASSESSMENT Chest pain, shortness of breath, atypical, acute joint syndrome has ruled out. possibly related to atrial fibrillation rapid ventricular response Chronic atrial fibrillation- [id number] score 3, on coumadin, currently rate controlled Supratherapeutic INR- INR from today pending History of hyperlipidemia History of hypertension Obstructive sleep apnea Morbid obesity BMI 55 PLAN An acute coronary event has been ruled out with no EKG evidence of ischemia and negative cardiac enzymes. Continue home cardiac medications Patient is cleared for discharge follow up outpatient with Dr. Coronado Thank you kindly for this consultation. Nurse Practitioner note has been reviewed, I agree with a documented findings and plan of care. Patient was seen and examined. Objective - Vital Signs Vital signs: Vital Signs Temp 97.7 F 06/18/21 07:00 Pulse 84 06/18/21 09:24 Resp 20 06/18/21 07:00 BP 125/83 06/18/21 07:00 Pulse Ox 95 06/18/21 07:00 Intake & Output 06/17/21 06/18/21 06/18/21 18:59 06:59 18:59 Intake Total 600 118 Output Total 1400 Balance 600 -1400 118 Weight 129.274 kg Intake: Oral 600 118 Output: Urine 1400 Other: Voiding Method Toilet # Voids 1 1 - Labs CBC & Chem 7: 06/17/21 04:06 06/17/21 04:06 Labs: Abnormal Lab Results - Last 24 Hours (Table) 06/18/21 Range/Units 09:05 PT 15.9 H (9.0-12.0) sec INR 1.6 H (<1.2) Microbiology - Last 24 Hours (Table) 06/17/21 00:31 Urine Culture - Preliminary Urine,Voided
[2021-06-18] MEDS ORDERED: WARFARIN 7.5 MG TAB PO SCH (18:00)
[2021-06-18] MEDS ORDERED: SYMBICORT 160-4.5 MCG INHALER INHALATION SCH (20:00)
[2021-06-19] MEDS ORDERED: WARFARIN 3 MG TAB PO SCH (18:00)
== END 2021-06-18 11:24 | disposition home or self-care (01) ==
LOC: EC 18:09 → 6NMEDSUR 23:43 → 2CATHESU 06-17 09:12 → 6NMEDSUR 06-17 16:38
PROVIDERS: ADMIT Internal Medicine; ATTEND Internal Medicine
DX: R07.89 Other chest pain (principal); R06.02 Shortness of breath; R53.1 Weakness; R00.2 Palpitations; R06.00 Dyspnea, unspecified; R07.2 Precordial pain; I11.9 Hypertensive heart disease without heart failure; I48.20 Chronic atrial fibrillation, unspecified; E78.5 Hyperlipidemia, unspecified; M19.90 Unspecified osteoarthritis, unspecified site; J45.909 Unspecified asthma, uncomplicated; F41.9 Anxiety disorder, unspecified; F32.9 Major depressive disorder, single episode, unspecified; I71.2 Thoracic aortic aneurysm, without rupture; G47.33 Obstructive sleep apnea (adult) (pediatric); E66.01 Morbid (severe) obesity due to excess calories; Z68.43 Body mass index [BMI] 50.0-59.9, adult; R01.1 Cardiac murmur, unspecified; Z20.822 Contact with and (suspected) exposure to COVID-19; Z79.01 Long term (current) use of anticoagulants; Z79.899 Other long term (current) drug therapy; Z91.048 Other nonmedicinal substance allergy status; Z87.440 Personal history of urinary (tract) infections; Z90.710 Acquired absence of both cervix and uterus; Z82.49 Family history of ischemic heart disease and other diseases of the circulatory system; Z80.49 Family history of malignant neoplasm of other genital organs; Z80.3 Family history of malignant neoplasm of breast; Z83.6 Family history of other diseases of the respiratory system; Z80.9 Family history of malignant neoplasm, unspecified
CPT/HCPCS: 96374; 99285; 36415; 94640 ×2; 93005; 85379; 83880; 80053; 80048; 83735; 84484 ×2; 85025 ×2; 85610 ×3; 85730; 81001; 87086; 87077; 87186; 87635; 71046; 71275; G0378 ×3; C8929; J1940; Q9950; Q9967; 93306

== ENCOUNTER 2021-07-22 16:29 | Inpatient (IN) | payer MEDICARE ==
[2021-07-22 18:11] LABS: Basophils % (A) 0 %; Eosinophils # (A) 0.1 k/uL (0-0.7); Eosinophils % (A) 1 %; HCT 38.1 % (34.0-46.0); HGB 12.2 gm/dL (11.4-16.0); Lymphocytes # (A) 0.6 k/uL (1.0-4.8); Lymphocytes % (A) 5 %; MCH 31.2 pg (25.0-35.0); MCHC 32.1 g/dL (31.0-37.0); MCV 97.2 fL (80.0-100.0); Mean Platelet Volume 8.9; Monocytes # (A) 0.5 k/uL (0-1.0); Monocytes % (A) 5 %; Neutrophils # (A) 9.6 k/uL (1.3-7.7); Neutrophils % (A) 89 %; Platelet Count 244 k/uL (150-450); RBC 3.92 m/uL (3.80-5.40); RDW 13.4 % (11.5-15.5); WBC 10.9 k/uL (3.8-10.6)
[2021-07-22 18:26] LABS: ALT 15 U/L (4-34); AST 22 U/L (14-36); African American GFR (CKD) >90 (>60 ml/min/1.73 sqM); Albumin 3.7 g/dL (3.5-5.0); Alkaline Phosphatase 102 U/L (38-126); Anion Gap 12 mmol/L; Blood Urea Nitrogen 12 mg/dL (7-17); Calcium 8.8 mg/dL (8.4-10.2); Carbon Dioxide 22 mmol/L (22-30); Chloride 101 mmol/L (98-107); Glucose 108 mg/dL (74-99); Non-African American GFR(CKD) >90 (>60 ml/min/1.73 sqM); Potassium 4.3 mmol/L (3.5-5.1); Sodium 135 mmol/L (137-145); Total Bilirubin 1.2 mg/dL (0.2-1.3); Total Protein 7.5 g/dL (6.3-8.2)
--- NOTE | 2021-07-22 19:15 | ED ---
General Adult HPI - General Chief complaint: Shortness of Breath Stated complaint: Low O2/Afib Time Seen by Provider: 07/22/21 18:55 Source: patient, family Mode of arrival: wheelchair Limitations: no limitations - History of Present Illness Initial comments: Patient presents to the ED with her son-in-law for evaluation. Patient states that she has had a cough, dyspnea and congestion for the past week or so. Patient's son-in-law states that the patient has developed a fever for the past couple of days. Patient denies taking any antipyretic medication today. Patient states that she is fully vaccinated against Covid, but she admits that she has not received her booster shot yet. Patient denies any known sick contact. Patient denies having any pain, headache, focal neuro deficit, neck pain or stiffness, sore throat, chest pain or pressure, hemoptysis, palpitations, dizziness, abdominal pain, nausea/vomiting/diarrhea, dysuria/hematuria/urinary frequency/urinary symptoms, leg or calf swelling or pain, or any other symptoms or complaints. - Related Data Home Medications Medication Instructions Recorded Confirmed Atorvastatin [Lipitor] 40 mg PO HS 08/03/19 07/22/21 Furosemide [Lasix] 20 mg PO DAILY 08/04/19 07/22/21 Cyanocobalamin (Vitamin B-12) 1,000 mcg PO DAILY 06/16/21 07/22/21 [Vitamin B-12] Ferrous Sulfate [Iron (65 MG 325 mg PO DAILY 06/16/21 07/22/21 Elemental)] Metoprolol Tartrate [Lopressor] 25 mg PO HS 06/16/21 07/22/21 Metoprolol Tartrate [Lopressor] 50 mg PO DAILY 06/16/21 07/22/21 Potassium Chloride [Klor-Con 20] 20 meq PO DAILY 06/16/21 07/22/21 lisinopriL [Prinivil] 20 mg PO BID 06/16/21 07/22/21 Albuterol Sulfate [Proair Hfa] 2 puff INHALATION RT-Q6H PRN 07/22/21 07/22/21 Aspirin EC [Ecotrin Low Dose] 81 mg PO DAILY 07/22/21 07/22/21 Cholecalciferol [Vitamin D3 (125 125 mcg PO DAILY 07/22/21 07/22/21 Mcg = 5000 Iu)] Propafenone HCl 150 mg PO TID 07/22/21 07/22/21 Warfarin [Coumadin] 7.5 mg PO W/SUPPER 07/22/21 07/22/21 Previous Rx's Medication Instructions Recorded Budesonide-Formot 160-4.5 Mcg 2 puff INHALATION RT-BID #1 unit 06/18/21 [Symbicort 160-4.5 Mcg Inhaler] Allergies Allergy/AdvReac Type Severity Reaction Status Date / Time zinc oxide Allergy Rash/Hives Verified 07/22/21 21:24 Review of Systems ROS Statement: Those systems with pertinent positive or pertinent negative responses have been documented in the HPI. ROS Other: All systems not noted in ROS Statement are negative. Past Medical History Past Medical History: Atrial Fibrillation, Asthma, Hyperlipidemia, Hypertension, Osteoarthritis (OA), Sleep Apnea/CPAP/BIPAP, Vascular Disorder Additional Past Medical History / Comment(s): CPap use, cardiac murmur, bilateral legs/feet edema at times, pulm fibrosis, aortic aneurysm History of Any Multi-Drug Resistant Organisms: None Reported Past Surgical History: Bladder Surgery, Hysterectomy, Tonsillectomy Additional Past Surgical History / Comment(s): BLADDER SLING, EGD, colonoscopy, R carpal tunnel release, R elbow release. Past Anesthesia/Blood Transfusion Reactions: No Reported Reaction Past Psychological History: Anxiety, Depression Smoking Status: Never smoker Past Alcohol Use History: Rare Past Drug Use History: None Reported - Past Family History Father Family Medical History: Coronary Artery Disease (CAD), Myocardial Infarction (MO ) Additional Family Medical History / Comment(s): Father had heart disease and had a MO in his 50s. Mother Family Medical History: Cancer Additional Family Medical History / Comment(s): Mother had cancer but pt does not recall type. Sister(s) Family Medical History: Cancer, Deep Vein Thrombosis (DVT), Pulmonary Embolus Additional Family Medical History / Comment(s): SISTER #1 UTERINE CA. SISTER #2 UTERINE AND BREAST CA. Sister#3 2-PEs, 3- DVTs General Exam Limitations: no limitations General appearance: alert Head exam: Present: atraumatic, normocephalic Eye exam: Present: normal appearance, EOMI ENT exam: Present: normal oropharynx, mucous membranes moist Neck exam: Present: other (Trachea is in midline). Absent: tenderness, meningismus Respiratory exam: Present: decreased breath sounds, other (Respiratory distress; tachypnea; expiratory wheezes). Absent: rales, rhonchi, stridor Cardiovascular Exam: Present: tachycardia, irregular rhythm, normal heart sounds, other (Normal radial pulses bilaterally) GI/Abdominal exam: Present: soft, other (Obese abdomen). Absent: tenderness, guarding Extremities exam: Present: other (Negative Homans sign bilaterally). Absent: tenderness, pedal edema, calf tenderness Back exam: Absent: CVA tenderness (R), CVA tenderness (L) Neurological exam: Present: alert, oriented X3. Absent: motor sensory deficit Psychiatric exam: Present: normal affect, normal mood Skin exam: Present: warm, dry, intact, normal color Course Vital Signs 07/22/21 07/22/21 07/22/21 17:10 19:33 19:55 Temperature 102.6 F H Pulse Rate 108 H 90 Respiratory 25 H 24 24 Rate Blood Pressure 122/77 134/71 O2 Sat by Pulse 92 L 98 Oximetry 07/22/21 07/22/21 07/22/21 20:04 21:06 22:10 Temperature 99.4 F Pulse Rate 94 101 H 84 Respiratory 24 24 Rate Blood Pressure 119/58 101/54 O2 Sat by Pulse 93 L 93 L Oximetry - Reevaluation(s) Reevaluation #1: 07/22/21 22:26 Case, H&P, test results and ED management were discussed with NINA Cordova. He accepts hospital admission on behalf of himself and Dr. Huffman. He has no further recommendations at this time. 07/22/21 22:29 Patient and son-in-law are aware of the patient's test results, and they both agree with hospital admission at this time. Patient remains alert, and she is now breathing comfortably. Patient denies development of any new symptoms while in the ED. EKG Findings - EKG Comments: EKG Findings:: Atrial fibrillation with rapid ventricular response, ventricular rate of 112 bpm, normal QRS duration, normal QT interval, normal axis, no ST or T-wave abnormality Medical Decision Making - Medical Decision Making I suspect that the patient's acute febrile illness is likely secondary to her UTI, although given her complaint of respiratory symptoms, viral upper respiratory infection is also possible. Patient is however Covid negative. Patient's chest x-ray is unremarkable. Will admit the patient to the hospital for IV antibiotic treatment. NINA Yash Cordova has accepted hospital admission on behalf of myself and Dr. Huffman. - Lab Data Result diagrams: 07/22/21 18:02 07/22/21 18:02 Lab Results 07/22/21 07/22/21 07/22/21 Range/Units 17:28 18:02 18:02 WBC 10.9 H (3.8-10.6) k/uL RBC 3.92 (3.80-5.40) m/uL Hgb 12.2 (11.4-16.0) gm/dL Hct 38.1 (34.0-46.0) % MCV 97.2 (80.0-100.0) fL MCH 31.2 (25.0-35.0) pg MCHC 32.1 (31.0-37.0) g/dL RDW 13.4 (11.5-15.5) % Plt Count 244 (150-450) k/uL MPV 8.9 Neutrophils % 89 % Lymphocytes % 5 % Monocytes % 5 % Eosinophils % 1 % Basophils % 0 % Neutrophils # 9.6 H (1.3-7.7) k/uL Lymphocytes # 0.6 L (1.0-4.8) k/uL Monocytes # 0.5 (0-1.0) k/uL Eosinophils # 0.1 (0-0.7) k/uL Basophils # 0.0 (0-0.2) k/uL PT 54.0 H (9.0-12.0) sec INR 5.6 H* (<1.2) APTT 54.0 H (22.0-30.0) sec D-Dimer 0.23 (<0.60) mg/L FEU Sodium (137-145) mmol/L Potassium (3.5-5.1) mmol/L Chloride (98-107) mmol/L Carbon Dioxide (22-30) mmol/L Anion Gap mmol/L BUN (7-17) mg/dL Creatinine (0.52-1.04) mg/dL Est GFR (CKD-EPI)AfAm (>60 ml/min/1.73 sqM) Est GFR (CKD-EPI)NonAf (>60 ml/min/1.73 sqM) Glucose (74-99) mg/dL Plasma Lactic Acid Jarred (0.7-2.0) mmol/L Calcium (8.4-10.2) mg/dL Total Bilirubin (0.2-1.3) mg/dL AST (14-36) U/L ALT (4-34) U/L Alkaline Phosphatase (38-126) U/L Troponin I (0.000-0.034) ng/mL NT-Pro-B Natriuret Pep pg/mL Total Protein (6.3-8.2) g/dL Albumin (3.5-5.0) g/dL Urine Color Urine Appearance (Clear) Urine pH (5.0-8.0) Ur Specific [place] (1.001-1.035) Urine Protein (Negative) Urine Glucose (UA) (Negative) Urine Ketones (Negative) Urine Blood (Negative) Urine Nitrite (Negative) Urine Bilirubin (Negative) Urine Urobilinogen (<2.0) mg/dL Ur Leukocyte Esterase (Negative) Urine RBC (0-5) /hpf Urine WBC (0-5) /hpf Ur Squamous Epith Cells (0-4) /hpf Urine Bacteria (None) /hpf Urine Mucus (None) /hpf Coronavirus (PCR) Not Detected (Not Detectd) 07/22/21 07/22/21 07/22/21 Range/Units 18:02 18:02 18:02 WBC (3.8-10.6) k/uL RBC (3.80-5.40) m/uL Hgb (11.4-16.0) gm/dL Hct (34.0-46.0) % MCV (80.0-100.0) fL MCH (25.0-35.0) pg MCHC (31.0-37.0) g/dL RDW (11.5-15.5) % Plt Count (150-450) k/uL MPV Neutrophils % % Lymphocytes % % Monocytes % % Eosinophils % % Basophils % % Neutrophils # (1.3-7.7) k/uL Lymphocytes # (1.0-4.8) k/uL Monocytes # (0-1.0) k/uL Eosinophils # (0-0.7) k/uL Basophils # (0-0.2) k/uL PT (9.0-12.0) sec INR (<1.2) APTT (22.0-30.0) sec D-Dimer (<0.60) mg/L FEU Sodium 135 L (137-145) mmol/L Potassium 4.3 (3.5-5.1) mmol/L Chloride 101 (98-107) mmol/L Carbon Dioxide 22 (22-30) mmol/L Anion Gap 12 mmol/L BUN 12 (7-17) mg/dL Creatinine 0.63 (0.52-1.04) mg/dL Est GFR (CKD-EPI)AfAm >90 (>60 ml/min/1.73 sqM) Est GFR (CKD-EPI)NonAf >90 (>60 ml/min/1.73 sqM) Glucose 108 H (74-99) mg/dL Plasma Lactic Acid Jarred 1.1 (0.7-2.0) mmol/L Calcium 8.8 (8.4-10.2) mg/dL Total Bilirubin 1.2 (0.2-1.3) mg/dL AST 22 (14-36) U/L ALT 15 (4-34) U/L Alkaline Phosphatase 102 (38-126) U/L Troponin I <0.012 (0.000-0.034) ng/mL NT-Pro-B Natriuret Pep pg/mL Total Protein 7.5 (6.3-8.2) g/dL Albumin 3.7 (3.5-5.0) g/dL Urine Color Urine Appearance (Clear) Urine pH (5.0-8.0) Ur Specific [place] (1.001-1.035) Urine Protein (Negative) Urine Glucose (UA) (Negative) Urine Ketones (Negative) Urine Blood (Negative) Urine Nitrite (Negative) Urine Bilirubin (Negative) Urine Urobilinogen (<2.0) mg/dL Ur Leukocyte Esterase (Negative) Urine RBC (0-5) /hpf Urine WBC (0-5) /hpf Ur Squamous Epith Cells (0-4) /hpf Urine Bacteria (None) /hpf Urine Mucus (None) /hpf Coronavirus (PCR) (Not Detectd) 07/22/21 07/22/21 Range/Units 18:02 21:17 WBC (3.8-10.6) k/uL RBC (3.80-5.40) m/uL Hgb (11.4-16.0) gm/dL Hct (34.0-46.0) % MCV (80.0-100.0) fL MCH (25.0-35.0) pg MCHC (31.0-37.0) g/dL RDW (11.5-15.5) % Plt Count (150-450) k/uL MPV Neutrophils % % Lymphocytes % % Monocytes % % Eosinophils % % Basophils % % Neutrophils # (1.3-7.7) k/uL Lymphocytes # (1.0-4.8) k/uL Monocytes # (0-1.0) k/uL Eosinophils # (0-0.7) k/uL Basophils # (0-0.2) k/uL PT (9.0-12.0) sec INR (<1.2) APTT (22.0-30.0) sec D-Dimer (<0.60) mg/L FEU Sodium (137-145) mmol/L Potassium (3.5-5.1) mmol/L Chloride (98-107) mmol/L Carbon Dioxide (22-30) mmol/L Anion Gap mmol/L BUN (7-17) mg/dL Creatinine (0.52-1.04) mg/dL Est GFR (CKD-EPI)AfAm (>60 ml/min/1.73 sqM) Est GFR (CKD-EPI)NonAf (>60 ml/min/1.73 sqM) Glucose (74-99) mg/dL Plasma Lactic Acid Jarred (0.7-2.0) mmol/L Calcium (8.4-10.2) mg/dL Total Bilirubin (0.2-1.3) mg/dL AST (14-36) U/L ALT (4-34) U/L Alkaline Phosphatase (38-126) U/L Troponin I (0.000-0.034) ng/mL NT-Pro-B Natriuret Pep 4540 pg/mL Total Protein (6.3-8.2) g/dL Albumin (3.5-5.0) g/dL Urine Color Yellow Urine Appearance Cloudy H (Clear) Urine pH 7.0 (5.0-8.0) Ur Specific [place] 1.014 (1.001-1.035) Urine Protein Trace H (Negative) Urine Glucose (UA) Negative (Negative) Urine Ketones Negative (Negative) Urine Blood Moderate H (Negative) Urine Nitrite Negative (Negative) Urine Bilirubin Negative (Negative) Urine Urobilinogen 6.0 (<2.0) mg/dL Ur Leukocyte Esterase Small H (Negative) Urine RBC 18 H (0-5) /hpf Urine WBC 20 H (0-5) /hpf Ur Squamous Epith Cells 2 (0-4) /hpf Urine Bacteria Few H (None) /hpf Urine Mucus Few H (None) /hpf Coronavirus (PCR) (Not Detectd) - Radiology Data Radiology results: report reviewed (Chest x-ray: No acute cardiopulmonary disease/process.) Disposition Clinical Impression: Atrial fibrillation, Warfarin-induced coagulopathy, Acute febrile illness, Upper respiratory infection, UTI (urinary tract infection) Disposition: ADMITTED IP TO THIS HOSP Condition: Stable Is patient prescribed a controlled substance at d/c from ED?: No Referrals: Tasha Leon DO [Primary Care Provider] - 1-2 days Time of Disposition: 22:27
[2021-07-22] MEDS ORDERED: ACETAMINOPHEN TAB 500 MG TAB PO STA (19:19)
[2021-07-22] MEDS ORDERED: IPRATROPIUM-ALBUTEROL 3 ML NEB INHALATION STA (19:22)
[2021-07-22 19:25] LABS: INR 5.6 (<1.2)
--- NOTE | 2021-07-22 20:42 | XR ---
EXAMINATION TYPE: XR chest 1V portable DATE OF EXAM: 07/22/2021 8:32 PM COMPARISON: Radiograph 06/16/2021 CLINICAL INDICATION:Female, 70 years old with history of Suspected COVID-19 pneumonia; TECHNIQUE: Frontal view of the chest. FINDINGS: Lungs/Pleura: There is no evidence of pleural effusion, focal consolidation, or pneumothorax. Pulmonary vascularity: Unremarkable. Heart/mediastinum: Cardiomediastinal silhouette is enlarged and stable. Musculoskeletal: No acute osseous pathology. IMPRESSION: No acute cardiopulmonary disease/process.
[2021-07-22 21:25] LABS: Appearance,Urine Cloudy (Clear); Bacteria,Urine Few /hpf; Bilirubin,Urine Negative (Negative); Blood,Urine Moderate (Negative); Color,Urine Yellow; Glucose,Urine (UA) Negative (Negative); Ketones,Urine Negative (Negative); Leukocyte Esterase,Urine Small (Negative); Mucus,Urine Few /hpf; Nitrite,Urine Negative (Negative); Protein,Urine Trace (Negative); RBC,Urine 18 /hpf (0-5); Specific Gravity,Urine 1.014 (1.001-1.035); Squamous Epithelial Cell,Urine 2 /hpf (0-4); WBC,Urine 20 /hpf (0-5)
[2021-07-22] MEDS ORDERED: ACETAMINOPHEN TAB 325 MG TAB PO PRN (22:26)
[2021-07-23] MEDS: SODIUM CHLORIDE 0.9% 1,000 ML IV SCH ×2 (02:08→21:04)
[2021-07-23 07:08] LABS: Basophils % (A) 0 %; Eosinophils # (A) 0.1 k/uL (0-0.7); Eosinophils % (A) 1 %; HCT 37.3 % (34.0-46.0); HGB 11.2 gm/dL (11.4-16.0); Hypochromasia Marked; Lymphocytes % (A) 11 %; MCHC 29.9 g/dL (31.0-37.0); Macrocytosis Slight; Mean Platelet Volume 8.5; Monocytes # (A) 0.5 k/uL (0-1.0); Monocytes % (A) 6 %; Neutrophils # (A) 7.1 k/uL (1.3-7.7); Neutrophils % (A) 80 %; Platelet Count 225 k/uL (150-450); RBC 3.61 m/uL (3.80-5.40); RDW 13.1 % (11.5-15.5); WBC 8.8 k/uL (3.8-10.6)
[2021-07-23 07:17] LABS: ALT 13 U/L (4-34); AST 40 U/L (14-36); African American GFR (CKD) >90 (>60 ml/min/1.73 sqM); Albumin 3.2 g/dL (3.5-5.0); Alkaline Phosphatase 77 U/L (38-126); Anion Gap 10 mmol/L; Blood Urea Nitrogen 12 mg/dL (7-17); Calcium 8.5 mg/dL (8.4-10.2); Carbon Dioxide 21 mmol/L (22-30); Chloride 105 mmol/L (98-107); Glucose 88 mg/dL (74-99); Non-African American GFR(CKD) >90 (>60 ml/min/1.73 sqM); Potassium 4.7 mmol/L (3.5-5.1); Sodium 136 mmol/L (137-145); Total Bilirubin 1.3 mg/dL (0.2-1.3)
[2021-07-23 07:27] LABS: MCV 103.5 fL (80.0-100.0)
[2021-07-23] MEDS: PROPAFENONE 150 MG TAB PO SCH ×3 (08:41→21:37)
[2021-07-23] MEDS: METOPROLOL TARTRATE 50 MG TAB PO SCH (08:41)
[2021-07-23] MEDS: POTASSIUM CHLORIDE ER 20 MEQ TAB.ER PO SCH (08:41)
[2021-07-23] MEDS: lisinopriL 20 MG TAB PO SCH ×2 (08:41→21:05)
[2021-07-23] MEDS: FUROSEMIDE 20 MG TAB PO SCH (08:41)
[2021-07-23] MEDS: SYMBICORT 160-4.5 MCG INHALER INHALATION SCH ×2 (08:47→21:17)
[2021-07-23] MEDS: ALBUTEROL HFA INHALER INHALATION PRN (08:47)
--- NOTE | 2021-07-23 16:27 | P.HPIM ---
History of Present Illness This is a pleasant 70 is old female with past medical history of atrial fibrillation on warfarin, hypertension, hyperlipidemia, asthma, osteoarthritis, sleep apnea on CPAP/BiPAP, pulmonary fibrosis and aortic aneurysm. Patient states that she presents because of fever that started yesterday she could not specify how long but she feels also generally weak. However she is alert and awake and oriented, she knows she is in the current hospital, and she couldn't tell the year 2021, However she denies abdominal pain or vomiting or diarrhea. She has some dry cough for a few days and. She denies any dysuria or urgency. No headache or weakness or numbness. No skin rash. No pressure ulcer. Usually she can walk by herself at home but she uses a walker she go outside the home. She denies smoking, alcohol or illicit tracts She is hemodynamically stable. She had mild leukocytosis on admission 10.9, came back to need 0.8 today. Hemoglobin 11.2 and platelet count 225, there is an evidence of hemodilution. I've 0.6, sodium is 135 and 136, rest of BMP is unremarkable. Liver enzymes not elevated. Urine analysis is suspicious of infection Coronavirus not detected. Chest x-ray: No acute process. EKG showing atrial fibrillation's with RVR at 112. Received ceftriaxone in the emergency room Review of Systems Review of systems CONSTITUTIONAL: No fever, no malaise, no fatigue. HEENT: No recent visual problems or hearing problems. Denied any sore throat. CARDIOVASCULAR: No orthopnea, PND, no palpitations, no syncope. PULMONARY: No shortness of breath, no cough, no hemoptysis. GASTROINTESTINAL: No diarrhea, no nausea, no vomiting, no abdominal pain. Normoactive bowel sounds. NEUROLOGICAL: No headaches, no weakness, no numbness. HEMATOLOGICAL: Denies any bleeding or petechiae. GENITOURINARY: Denies any burning micturition, frequency, or urgency. No suprapubic pain or tenderness MUSCULOSKELETAL/RHEUMATOLOGICAL: Denies any joint pain, swelling, or any muscle pain. ENDOCRINE: Denies any polyuria or polydipsia. Past Medical History Past Medical History: Atrial Fibrillation, Asthma, Hyperlipidemia, Hypertension, Osteoarthritis (OA), Sleep Apnea/CPAP/BIPAP, Vascular Disorder Additional Past Medical History / Comment(s): CPap use, cardiac murmur, bilateral legs/feet edema at times, pulm fibrosis, aortic aneurysm History of Any Multi-Drug Resistant Organisms: None Reported Past Surgical History: Bladder Surgery, Hysterectomy, Tonsillectomy Additional Past Surgical History / Comment(s): BLADDER SLING, EGD, colonoscopy, R carpal tunnel release, R elbow release. Past Anesthesia/Blood Transfusion Reactions: No Reported Reaction Past Psychological History: Anxiety, Depression Additional Psychological History / Comment(s): Pt resides alone. She uses a walker for long distances. She drives. She states she is fairly independent. Smoking Status: Never smoker Past Alcohol Use History: Rare Past Drug Use History: None Reported - Past Family History Father Family Medical History: Coronary Artery Disease (CAD), Myocardial Infarction (NH) Additional Family Medical History / Comment(s): Father had heart disease and had a NH in his 50s. Mother Family Medical History: Cancer Additional Family Medical History / Comment(s): Mother had cancer but pt does not recall type. Sister(s) Family Medical History: Cancer, Deep Vein Thrombosis (DVT), Pulmonary Embolus Additional Family Medical History / Comment(s): SISTER #1 UTERINE CA. SISTER #2 UTERINE AND BREAST CA. Sister#3 2-PEs, 3- DVTs Medications and Allergies Home Medications Medication Instructions Recorded Confirmed Type Atorvastatin [Lipitor] 40 mg PO HS 08/03/19 07/22/21 History Furosemide [Lasix] 20 mg PO DAILY 08/04/19 07/22/21 History Cyanocobalamin (Vitamin B-12) 1,000 mcg PO DAILY 06/16/21 07/22/21 History [Vitamin B-12] Ferrous Sulfate [Iron (65 MG 325 mg PO DAILY 06/16/21 07/22/21 History Elemental)] Metoprolol Tartrate [Lopressor] 25 mg PO HS 06/16/21 07/22/21 History Metoprolol Tartrate [Lopressor] 50 mg PO DAILY 06/16/21 07/22/21 History Potassium Chloride [Klor-Con 20] 20 meq PO DAILY 06/16/21 07/22/21 History lisinopriL [Prinivil] 20 mg PO BID 06/16/21 07/22/21 History Budesonide-Formot 160-4.5 Mcg 2 puff INHALATION RT-BID #1 unit 06/18/21 07/22/21 Rx [Symbicort 160-4.5 Mcg Inhaler] Albuterol Sulfate [Proair Hfa] 2 puff INHALATION RT-Q6H PRN 07/22/21 07/22/21 History Aspirin EC [Ecotrin Low Dose] 81 mg PO DAILY 07/22/21 07/22/21 History Cholecalciferol [Vitamin D3 (125 125 mcg PO DAILY 07/22/21 07/22/21 History Mcg = 5000 Iu)] Propafenone HCl 150 mg PO TID 07/22/21 07/22/21 History Warfarin [Coumadin] 7.5 mg PO W/SUPPER 07/22/21 07/22/21 History Allergies Allergy/AdvReac Type Severity Reaction Status Date / Time zinc oxide Allergy Rash/Hives Verified 07/22/21 21:24 Physical Exam Vitals: Vital Signs Temp Pulse Pulse Resp BP BP Pulse Ox 07/23/21 08:15 98 20 07/23/21 08:00 98.5 F 98 20 144/62 96 07/23/21 00:48 97.5 F L 78 17 109/68 98 07/23/21 00:07 97.3 F L 76 22 105/61 98 07/22/21 22:10 84 24 101/54 93 L 07/22/21 21:06 99.4 F 101 H 24 119/58 93 L 07/22/21 20:04 94 07/22/21 19:55 90 24 134/71 98 07/22/21 19:33 24 07/22/21 17:10 102.6 F H 108 H 25 H 122/77 92 L Intake and Output 07/22/21 07/23/21 07/23/21 22:59 06:59 14:59 Other: Weight 127.006 kg -GENERAL: The patient is alert and oriented x3, not in any acute distress. Morbidly obese. Generally weak HEENT: Pupils are round and equally reacting to light. EOMI. No scleral icterus. No conjunctival pallor. Normocephalic, atraumatic. No pharyngeal erythema. No thyromegaly. CARDIOVASCULAR: S1 and S2 present. No murmurs, rubs, or gallops. PULMONARY: Chest is clear to auscultation, no wheezing or crackles. ABDOMEN: Soft, nontender, nondistended, normoactive bowel sounds. No palpable organomegaly. MUSCULOSKELETAL: No joint swelling or deformity. EXTREMITIES: No cyanosis, clubbing, or pedal edema. NEUROLOGICAL: Gross neurological examination did not reveal any focal deficits. SKIN: No rashes. no petechiae. Results CBC & Chem 7: 07/23/21 05:48 07/23/21 05:48 Labs: Abnormal Lab Results - Last 24 Hours (Table) 07/22/21 07/22/21 07/22/21 Range/Units 18:02 18:02 18:02 WBC 10.9 H (3.8-10.6) k/uL RBC (3.80-5.40) m/uL Hgb (11.4-16.0) gm/dL MCV (80.0-100.0) fL MCHC (31.0-37.0) g/dL Neutrophils # 9.6 H (1.3-7.7) k/uL Lymphocytes # 0.6 L (1.0-4.8) k/uL PT 54.0 H (9.0-12.0) sec INR 5.6 H* (<1.2) APTT 54.0 H (22.0-30.0) sec Sodium 135 L (137-145) mmol/L Carbon Dioxide (22-30) mmol/L Glucose 108 H (74-99) mg/dL AST (14-36) U/L Albumin (3.5-5.0) g/dL Urine Appearance (Clear) Urine Protein (Negative) Urine Blood (Negative) Ur Leukocyte Esterase (Negative) Urine RBC (0-5) /hpf Urine WBC (0-5) /hpf Urine Bacteria (None) /hpf Urine Mucus (None) /hpf 07/22/21 07/23/21 07/23/21 Range/Units 21:17 05:48 05:48 WBC (3.8-10.6) k/uL RBC 3.61 L (3.80-5.40) m/uL Hgb 11.2 L (11.4-16.0) gm/dL MCV 103.5 H D (80.0-100.0) fL MCHC 29.9 L (31.0-37.0) g/dL Neutrophils # (1.3-7.7) k/uL Lymphocytes # (1.0-4.8) k/uL PT (9.0-12.0) sec INR (<1.2) APTT (22.0-30.0) sec Sodium 136 L (137-145) mmol/L Carbon Dioxide 21 L (22-30) mmol/L Glucose (74-99) mg/dL AST 40 H (14-36) U/L Albumin 3.2 L (3.5-5.0) g/dL Urine Appearance Cloudy H (Clear) Urine Protein Trace H (Negative) Urine Blood Moderate H (Negative) Ur Leukocyte Esterase Small H (Negative) Urine RBC 18 H (0-5) /hpf Urine WBC 20 H (0-5) /hpf Urine Bacteria Few H (None) /hpf Urine Mucus Few H (None) /hpf Microbiology - Last 24 Hours (Table) 07/22/21 21:17 Urine Culture - Preliminary Urine,Voided Thrombosis Risk Factor Assmnt - Choose All That Apply Any of the Below Risk Factors Present?: Yes Each Factor Represents 1 point: Obesity (BMI >25) Each Risk Factor Represents 2 Points: Age 61-74 years Thrombosis Risk Factor Assessment Total Risk Factor Score: 3 Thrombosis Risk Factor Assessment Level: Moderate Risk Assessment and Plan Assessment: Chronic Paroxysmal atrial fibrillation on warfarin Hypertension Hyperlipidemia History of asthma History of osteoarthritis History of sleep apnea on CPAP/BiPAP History of pulmonary fibrosis History of aortic aneurysm. Plan: This is a pleasant 70 years old female who presents with UTI and generalized weakness. Continue with ceftriaxone follow-up urine culture and blood culture Check renal ultrasound Labs and medication were reviewed.. Continue same treatment. Continue with symptomatic treatment. Resume home medication. Monitor lytes and vitals. DVT and GI prophylaxis. Further recommendationsas per clinical course of the patient DVT prophylaxis: Subcutaneous heparin GI Prophylaxis: Pepcid PT/OT: Pending Prognosis is guarded
--- NOTE | 2021-07-23 17:23 | US ---
EXAMINATION TYPE: US renals and bladder DATE OF EXAM: 07/23/2021 COMPARISON: NONE CLINICAL HISTORY: uti. recurrent UTI per patient EXAM MEASUREMENTS: Right Kidney: 11.1 x 5.6 x 4.9 cm Left Kidney: 10.0 x 4.7 x 4.8 cm Post Void Residual Volume: not assessed on inpatient Limitedly seen due to very large pannus Right Kidney: No hydronephrosis or masses seen Left Kidney: No hydronephrosis or masses seen Bladder: not seen inferior to pannus or superior pannus Incidental finding in gallbladder: ANITHA (Wall Echo Shadow) noted mid and upper gallbladder suggesting nonmobile stone, gallbladder wall is at upper limits of normal = 0.3cm. IMPRESSION: Technically difficult exam. No evidence of renal mass or obstruction. There are gallstones.
[2021-07-23] MEDS: METOPROLOL TARTRATE 25 MG TAB PO SCH (21:04)
[2021-07-23] MEDS: ATORVASTATIN 40 MG TAB PO SCH (21:05)
[2021-07-24] MEDS: FUROSEMIDE 20 MG TAB PO SCH (07:35)
[2021-07-24] MEDS: lisinopriL 20 MG TAB PO SCH ×2 (07:35→20:35)
[2021-07-24] MEDS: POTASSIUM CHLORIDE ER 20 MEQ TAB.ER PO SCH (07:35)
[2021-07-24] MEDS: PROPAFENONE 150 MG TAB PO SCH ×3 (07:35→20:35)
[2021-07-24] MEDS: METOPROLOL TARTRATE 50 MG TAB PO SCH (07:35)
[2021-07-24] MEDS: ALBUTEROL HFA INHALER INHALATION PRN ×2 (09:09→20:42)
[2021-07-24] MEDS: SYMBICORT 160-4.5 MCG INHALER INHALATION SCH ×2 (09:09→20:42)
[2021-07-24 10:04] LABS: Basophils # (A) 0.02 X 10*3/uL (0.00-0.10); Basophils % (A) 0.3 %; Eosinophils # (A) 0.14 X 10*3/uL (0.04-0.35); Eosinophils % (A) 2.3 %; HCT 33.2 % (37.2-46.3); HGB 10.2 g/dL (12.0-15.0); Lymphocytes # (A) 0.89 X 10*3/uL (0.90-5.00); Lymphocytes % (A) 14.9 %; MCH 30.4 pg (27.0-32.0); MCHC 30.7 g/dL (32.0-37.0); MCV 99.1 fL (80.0-97.0); Mean Platelet Volume 11.7 fL (9.5-12.2); Monocytes # (A) 0.65 X 10*3/uL (0.20-1.00); Monocytes % (A) 10.9 %; Neutrophils # (A) 4.24 X 10*3/uL (1.80-7.70); Neutrophils % (A) 71.3 %; Platelet Count 250 X 10*3/uL (140-440); RBC 3.35 X 10*6/uL (4.10-5.20); RDW 13.6 % (11.5-14.5); WBC 5.96 X 10*3/uL (4.50-10.00)
[2021-07-24 15:25] LABS: Magnesium 2.1 mg/dL (1.5-2.4)
--- NOTE | 2021-07-24 16:39 | P.PN ---
Subjective This is a pleasant 70 is old female with past medical history of atrial fibrillation on warfarin, hypertension, hyperlipidemia, asthma, osteoarthritis, sleep apnea on CPAP/BiPAP, pulmonary fibrosis and aortic aneurysm. Patient states that she presents because of fever that started yesterday she could not specify how long but she feels also generally weak. However she is alert and awake and oriented, she knows she is in the current hospital, and she couldn't tell the year 2021, However she denies abdominal pain or vomiting or diarrhea. She has some dry cough for a few days and. She denies any dysuria or urgency. No headache or weakness or numbness. No skin rash. No pressure ulcer. Usually she can walk by herself at home but she uses a walker she go outside the home. She denies smoking, alcohol or illicit tracts She is hemodynamically stable. She had mild leukocytosis on admission 10.9, came back to need 0.8 today. Hemoglobin 11.2 and platelet count 225, there is an evidence of hemodilution. I've 0.6, sodium is 135 and 136, rest of BMP is unremarkable. Liver enzymes not elevated. Urine analysis is suspicious of infection Coronavirus not detected. Chest x-ray: No acute process. EKG showing atrial fibrillation's with RVR at 112. Received ceftriaxone in the emergency room 07/14/2020 patient is fully awake and oriented sitting in chair, looks not in distress, she denies any symptoms today and actually she was asking when she can go home. Patient informed that about her medical problems and she agrees to stay. She is hemodynamically stable now. Fever on admission has subsided. Hemoglobin is slightly trending down 11.2 down to 10.2. Repeat INR is still pending. Urine culture is growing gram-negative bacilli. Blood culture showing E. coli. We repeated a blood culture today to ensure resolution. Coumadin on hold and patient are currently continue with ceftriaxone and normal saline at 60 mL per hour Infectious disease team was consulted Objective - Vital Signs Vital signs: Vital Signs Temp 97.5 F L 07/24/21 08:23 Pulse 86 07/24/21 08:23 Resp 22 07/24/21 08:23 BP 152/88 07/24/21 08:23 Pulse Ox 95 07/24/21 08:23 Intake & Output 07/23/21 07/24/21 07/24/21 18:59 06:59 18:59 Output Total 350 Balance -350 Output: Urine 350 Other: Voiding Method Bedside Commode Bedside Commode # Voids 3 1 # Bowel Movements 1 1 - Exam GENERAL: The patient is alert and oriented x3, not in any acute distress. Well developed, well nourished. HEENT: Pupils are round and equally reacting to light. EOMI. No scleral icterus. No conjunctival pallor. Normocephalic, atraumatic. No pharyngeal erythema. No thyromegaly. CARDIOVASCULAR: S1 and S2 present. No murmurs, rubs, or gallops. PULMONARY: Chest is clear to auscultation, no wheezing or crackles. ABDOMEN: Soft, nontender, nondistended, normoactive bowel sounds. No palpable organomegaly. MUSCULOSKELETAL: No joint swelling or deformity. EXTREMITIES: No cyanosis, clubbing, or pedal edema. NEUROLOGICAL: Gross neurological examination did not reveal any focal deficits. SKIN: No rashes. no petechiae. - Labs CBC & Chem 7: 07/24/21 05:23 07/23/21 05:48 Labs: Abnormal Lab Results - Last 24 Hours (Table) 07/24/21 Range/Units 05:23 RBC 3.35 L (4.10-5.20) X 10*6/uL Hgb 10.2 L (12.0-15.0) g/dL Hct 33.2 L (37.2-46.3) % MCV 99.1 H (80.0-97.0) fL MCHC 30.7 L (32.0-37.0) g/dL Lymphocytes # 0.89 L (0.90-5.00) X 10*3/uL Microbiology - Last 24 Hours (Table) 07/22/21 19:58 Blood Culture Gram Stain - Preliminary Blood Blood Culture - Preliminary Escherichia coli 07/22/21 19:40 Blood Culture - Preliminary Blood No Growth after 24 hours 07/22/21 19:58 Blood Culture - Final Blood Assessment and Plan Assessment: Chronic Paroxysmal atrial fibrillation on warfarin Hypertension Hyperlipidemia History of asthma History of osteoarthritis History of sleep apnea on CPAP/BiPAP History of pulmonary fibrosis History of aortic aneurysm. Plan: This is a pleasant 70 years old female who presents with UTI and generalized weakness. Continue with ceftriaxone follow-up urine culture and blood culture Check renal ultrasound Labs and medication were reviewed.. Continue same treatment. Continue with symptomatic treatment. Resume home medication. Monitor lytes and vitals. DVT and GI prophylaxis. Further recommendationsas per clinical course of the patient DVT prophylaxis: Subcutaneous heparin GI Prophylaxis: Pepcid PT/OT: Pending Prognosis is guarded
[2021-07-24 18:33] LABS: African American GFR (CKD) 99.3 (60.0-200.0); Anion Gap 13.7 mmol/L (10.00-18.00); BUN/Creat Ratio 18.73 Ratio (12.00-20.00); Blood Urea Nitrogen 13.3 mg/dL (9.0-27.0); Calcium 8.3 mg/dL (8.7-10.3); Carbon Dioxide 21.8 mmol/L (20.0-27.5); Non-African American GFR(CKD) 85.7 (60.0-200.0); Potassium 4.5 mmol/L (3.5-5.5)
[2021-07-24 19:37] LABS: Prothrombin Time 38.7 sec (9.0-12.0)
[2021-07-24] MEDS: METOPROLOL TARTRATE 25 MG TAB PO SCH (20:35)
[2021-07-24] MEDS: ATORVASTATIN 40 MG TAB PO SCH (20:35)
[2021-07-25] MEDS: SODIUM CHLORIDE 0.9% 1,000 ML IV SCH ×3 (00:10→20:30)
--- NOTE | 2021-07-25 08:21 | P.CONS ---
History of Present Illness - Reason for Consult Consult date: 07/24/21 bacteremia Requesting physician: Ken E Kulwant - Chief Complaint fever x few days - History of Present Illness History of present illness : Patient is 70-year female presenting to the ER 2 days ago for evaluation of cough shortness of and the congestion in this patient symptom has been going on for about a week patient also has developed a fever for a day or 2 before presentation the hospital that has not responded to the antipyretic medication patient did have a 2 doses of cold vaccine but not the booster and no sick content patient denies having any heada abigail no chest pain minimal cough some nausea no vomiting no abdominal or diarrhea did have some urinary frequency on presentation to the hospital the patient did have a fever of 102.6 F patient was not hypoxic and no need for supplemental oxygen white count was mildly elevated at 10.9 with a left shift kidney function was normal liver enzymes are normal patient did have positive UA subsequently he re blood culture showing gram-negative bacilli that has prompted this infectious disease consultation patient did have a chest x-ray was negative for acute cardiopulmonary process renal ultrasound no evidence of renal mass or obstruction there were gallstones Review of system: CONSTITUTIONAL: Positive for weakness along with the fever. EYES: No complaint. ENT: No complaint. RESPIRATORY: As per history of present illness. CARDIOVASCULAR: No complaint. GENITOURINARY: As per history of present illness. GASTROINTESTINAL: No complaint. MUSCULOSKELETAL: No complaint. INTEGUMENTARY: No complaint. PSYCHOLOGIC: No complaint. ENDOCRINE: No complaint. NEUROLOGIC: No complaint. Past medical history : Reviewed, documented below Past surgical history : Reviewed, documented below Social history: Reviewed, documented below Medications: Reviewed, as documented below EXAMINATION: Vital sigans= Reviewed and documented below GENERAL DESCRIPTION: Elderly female lying in bed, no distress. No tachypnea or accessory muscle of respiration use. HEENT: Shows Pallor , no scleral icterus. Oral mucous membrane is dry. NECK: Trachea central, no thyromegaly. LUNGS: Unlabored breathing. Clear to auscultation anteriorly. No wheeze or crackle. HEART: S1, S2, regular rate and rhythm. ABDOMEN: Soft, no tenderness , guarding or rigidity EXTREMITIES: No edema of feet. SKIN: No rash, no masses palpable. NEUROLOGICAL: The patient is awake, alert, oriented x3, mood and affect normal. LABS AND RADIOLOGY: Reviewed results see below Assessment : Patient with gram-negative bacteremia which has been finalized with E. coli source is likely urinary in this patient did have some urinary frequency ultrasound has been negative for any structural abnormality and no evidence of any other site of infection responsible for this bacteremia Plan: 1-patient to continue with Rocephin 2 g daily while waiting for the sensitivities 2-gentle IV fluid We will follow on clinical condition and cultures to further adjust medication if needed Thank you for this consultation we will follow the patient along with you Past Medical History Past Medical History: Atrial Fibrillation, Asthma, Hyperlipidemia, Hypertension, Osteoarthritis (OA), Sleep Apnea/CPAP/BIPAP, Vascular Disorder Additional Past Medical History / Comment(s): CPap use, cardiac murmur, bilateral legs/feet edema at times, pulm fibrosis, aortic aneurysm History of Any Multi-Drug Resistant Organisms: None Reported Past Surgical History: Bladder Surgery, Hysterectomy, Tonsillectomy Additional Past Surgical History / Comment(s): BLADDER SLING, EGD, colonoscopy, R carpal tunnel release, R elbow release. Past Anesthesia/Blood Transfusion Reactions: No Reported Reaction Past Psychological History: Anxiety, Depression Additional Psychological History / Comment(s): Pt resides alone. She uses a walker for long distances. She drives. She states she is fairly independent. Smoking Status: Never smoker Past Alcohol Use History: Rare Past Drug Use History: None Reported - Past Family History Father Family Medical History: Coronary Artery Disease (CAD), Myocardial Infarction (VA) Additional Family Medical History / Comment(s): Father had heart disease and had a VA in his 50s. Mother Family Medical History: Cancer Additional Family Medical History / Comment(s): Mother had cancer but pt does not recall type. Sister(s) Family Medical History: Cancer, Deep Vein Thrombosis (DVT), Pulmonary Embolus Additional Family Medical History / Comment(s): SISTER #1 UTERINE CA. SISTER #2 UTERINE AND BREAST CA. Sister#3 2-PEs, 3- DVTs Medications and Allergies Home Medications Medication Instructions Recorded Confirmed Type Atorvastatin [Lipitor] 40 mg PO HS 08/03/19 07/22/21 History Furosemide [Lasix] 20 mg PO DAILY 08/04/19 07/22/21 History Cyanocobalamin (Vitamin B-12) 1,000 mcg PO DAILY 06/16/21 07/22/21 History [Vitamin B-12] Ferrous Sulfate [Iron (65 MG 325 mg PO DAILY 06/16/21 07/22/21 History Elemental)] Metoprolol Tartrate [Lopressor] 25 mg PO HS 06/16/21 07/22/21 History Metoprolol Tartrate [Lopressor] 50 mg PO DAILY 06/16/21 07/22/21 History Potassium Chloride [Klor-Con 20] 20 meq PO DAILY 06/16/21 07/22/21 History lisinopriL [Prinivil] 20 mg PO BID 06/16/21 07/22/21 History Budesonide-Formot 160-4.5 Mcg 2 puff INHALATION RT-BID #1 unit 06/18/21 07/22/21 Rx [Symbicort 160-4.5 Mcg Inhaler] Albuterol Sulfate [Proair Hfa] 2 puff INHALATION RT-Q6H PRN 07/22/21 07/22/21 History Aspirin EC [Ecotrin Low Dose] 81 mg PO DAILY 07/22/21 07/22/21 History Cholecalciferol [Vitamin D3 (125 125 mcg PO DAILY 07/22/21 07/22/21 History Mcg = 5000 Iu)] Propafenone HCl 150 mg PO TID 07/22/21 07/22/21 History Warfarin [Coumadin] 7.5 mg PO W/SUPPER 07/22/21 07/22/21 History Allergies Allergy/AdvReac Type Severity Reaction Status Date / Time zinc oxide Allergy Rash/Hives Verified 07/22/21 21:24 Physical Exam Vitals: Vital Signs Temp Pulse Resp BP Pulse Ox 07/24/21 08:23 97.5 F L 86 22 152/88 95 07/24/21 07:40 82 19 07/24/21 01:43 98.3 F 82 19 134/84 97 07/23/21 20:00 19 07/23/21 19:30 97.9 F 78 19 123/77 95 07/23/21 14:18 97.9 F 91 19 126/77 92 L Intake and Output 07/23/21 07/24/21 07/24/21 22:59 06:59 14:59 Output Total 350 Balance -350 Output: Urine 350 Other: Voiding Method Bedside Commode Bedside Commode # Voids 3 1 # Bowel Movements 1 1 Results CBC & Chem 7: 07/24/21 05:23 07/24/21 05:23 Labs: Abnormal Lab Results - Last 24 Hours (Table) 07/24/21 Range/Units 05:23 RBC 3.35 L (4.10-5.20) X 10*6/uL Hgb 10.2 L (12.0-15.0) g/dL Hct 33.2 L (37.2-46.3) % MCV 99.1 H (80.0-97.0) fL MCHC 30.7 L (32.0-37.0) g/dL Lymphocytes # 0.89 L (0.90-5.00) X 10*3/uL Microbiology - Last 24 Hours (Table) 07/22/21 19:58 Blood Culture Gram Stain - Preliminary Blood Blood Culture - Preliminary Escherichia coli 07/22/21 19:40 Blood Culture - Preliminary Blood No Growth after 24 hours 07/22/21 19:58 Blood Culture - Final Blood
[2021-07-25] MEDS: FUROSEMIDE 20 MG TAB PO SCH (08:31)
[2021-07-25] MEDS: POTASSIUM CHLORIDE ER 20 MEQ TAB.ER PO SCH (08:31)
[2021-07-25] MEDS: METOPROLOL TARTRATE 50 MG TAB PO SCH (08:31)
[2021-07-25] MEDS: PROPAFENONE 150 MG TAB PO SCH ×3 (08:31→22:05)
[2021-07-25] MEDS: lisinopriL 20 MG TAB PO SCH ×2 (08:31→20:59)
[2021-07-25] MEDS: SYMBICORT 160-4.5 MCG INHALER INHALATION SCH ×2 (09:04→20:48)
[2021-07-25] MEDS: ALBUTEROL HFA INHALER INHALATION PRN ×2 (09:04→20:48)
[2021-07-25 09:29] LABS: African American GFR (CKD) 106.3 (60.0-200.0); Anion Gap 11.2 mmol/L (10.00-18.00); BUN/Creat Ratio 18.67 Ratio (12.00-20.00); Blood Urea Nitrogen 11.2 mg/dL (9.0-27.0); Calcium 8.2 mg/dL (8.7-10.3); Carbon Dioxide 19.8 mmol/L (20.0-27.5); Non-African American GFR(CKD) 91.7 (60.0-200.0); Potassium 4.1 mmol/L (3.5-5.5)
[2021-07-25 09:34] LABS: Basophils # (A) 0.01 X 10*3/uL (0.00-0.10); Basophils % (A) 0.2 %; Eosinophils # (A) 0.14 X 10*3/uL (0.04-0.35); Eosinophils % (A) 2.5 %; HCT 31.3 % (37.2-46.3); HGB 9.7 g/dL (12.0-15.0); Lymphocytes # (A) 1.23 X 10*3/uL (0.90-5.00); Lymphocytes % (A) 22.1 %; MCH 30.4 pg (27.0-32.0); MCV 98.1 fL (80.0-97.0); Mean Platelet Volume 11.9 fL (9.5-12.2); Monocytes # (A) 0.56 X 10*3/uL (0.20-1.00); Monocytes % (A) 10.1 %; Neutrophils # (A) 3.61 X 10*3/uL (1.80-7.70); Neutrophils % (A) 64.7 %; Platelet Count 234 X 10*3/uL (140-440); RBC 3.19 X 10*6/uL (4.10-5.20); RDW 13.5 % (11.5-14.5); WBC 5.57 X 10*3/uL (4.50-10.00)
[2021-07-25 09:39] LABS: INR 3.48 (0.90-1.11); Prothrombin Time 36.1 sec (9.9-11.9)
--- NOTE | 2021-07-25 13:05 | CDI ---
Documentation Clarification Form Date: 07/25/2021 12:48:24 PM From: Coleen Walsh RN CCDS Admit Date: 07/25/2021 08:09:00 AM Patient Name: Mimi Butcher Visit Number: [id number] Discharge Date: ATTENTION: The Clinical Documentation Specialists (CDI) and [facility] Coding Staff appreciate your assistance in clarifying documentation. Please respond to the clarification below the line at the bottom and electronically sign. The CDI & [facility] Coding staff will review the response and follow-up if needed. Please note: Queries are made part of the Legal Health Record. If you have any questions, please contact the author of this message via ITS. Dr. Rogers E Sheet There is documentation of bacteremia, 07/24, ID consult. Bacteremia is considered a lab finding. Additional clarification regarding bacteremia is requested. Patient history/risk factors: 70-year-old female presents to the ED with a fever that started yesterday and weakness. Medical History: Atrial Fib; HTN and Sleep Apnea. Clinical Indicators: VSS: 07/22 B/P 122/77, HR 108, RR 25, Temp 102.6F Oral; SpO2 92% ra WBC: 07/22 10.9 Left Shift: 07/22 9.6 Blood Culture: 07/22 Escherichia coli Consult: 07/24 Patient with gram- negative bacteremia which has been finalized with E.Coli source is likely urinary in this patient did have some urinary frequency ultrasound has been negative for any structural abnormality and no evidence of any other site of infection responsible for this bacteremia. Treatment: Antibiotics: 07/22 Ceftriaxone 1gm IVPB x 1; 07/23 current Ceftriaxone 2gm IVPB Q24H. Please provide additional clarification regarding the etiology/cause and/or clinical significance of the bacteremia: [ ] Bacteremia is related to sepsis [ ] Bacteremia is not clinically significant [ ] Other, please specify [ ] Unable to determine (Template Last Revised: October 2020) Bacteremia is related to sepsis MTDD
--- NOTE | 2021-07-25 15:04 | P.PN ---
Subjective This is a pleasant 70 is old female with past medical history of atrial fibrillation on warfarin, hypertension, hyperlipidemia, asthma, osteoarthritis, sleep apnea on CPAP/BiPAP, pulmonary fibrosis and aortic aneurysm. Patient states that she presents because of fever that started yesterday she could not specify how long but she feels also generally weak. However she is alert and awake and oriented, she knows she is in the current hospital, and she couldn't tell the year 2021, However she denies abdominal pain or vomiting or diarrhea. She has some dry cough for a few days and. She denies any dysuria or urgency. No headache or weakness or numbness. No skin rash. No pressure ulcer. Usually she can walk by herself at home but she uses a walker she go outside the home. She denies smoking, alcohol or illicit tracts She is hemodynamically stable. She had mild leukocytosis on admission 10.9, came back to need 0.8 today. Hemoglobin 11.2 and platelet count 225, there is an evidence of hemodilution. I've 0.6, sodium is 135 and 136, rest of BMP is unremarkable. Liver enzymes not elevated. Urine analysis is suspicious of infection Coronavirus not detected. Chest x-ray: No acute process. EKG showing atrial fibrillation's with RVR at 112. Received ceftriaxone in the emergency room 07/24/2021 patient is fully awake and oriented sitting in chair, looks not in distress, she denies any symptoms today and actually she was asking when she can go home. Patient informed that about her medical problems and she agrees to stay. She is hemodynamically stable now. Fever on admission has subsided. Hemoglobin is slightly trending down 11.2 down to 10.2. Repeat INR is still pending. Urine culture is growing gram-negative bacilli. Blood culture showing E. coli. We repeated a blood culture today to ensure resolution. Coumadin on hold and patient are currently continue with ceftriaxone and normal saline at 60 mL per hour Infectious disease team was consulted 07/25/2021 Patient still sitting in chair, she denies any symptoms, no urinary symptoms, no abdominal pain or vomiting. No chest pain or dyspnea. She is even keep asking when she'll be ready for discharge. I explained for her medical problems and she agrees to stay for now. She still been treated for infection secondary to E. coli in the urine and blood culture, however her culture results have not finalized yet. In the meantime she remains on ceftriaxone 2 g daily. Infectious disease team on the case. No more fever since admission. Also she has A. fib on Coumadin, Her INR is supratherapeutic 3.4 but is trending down. She states she was taken 5 mg every day except when his stay and Sunday she takes [address] Otto her PCP increased it lately to 7 mg daily. Currently still Coumadin on hold. No evidence of bleeding. Her hemoglobin monitored closely and it is 9.7. Consult physical therapy Objective - Vital Signs Vital signs: Vital Signs Temp 97.5 F L 07/25/21 07:24 Pulse 85 07/25/21 07:24 Resp 17 07/25/21 07:24 BP 142/88 07/25/21 07:24 Pulse Ox 95 07/25/21 09:05 Intake & Output 07/24/21 07/25/21 07/25/21 18:59 06:59 18:59 Intake Total 410 600 Balance 410 600 Intake: Intake, IV Titration 410 Amount Sodium Chloride 0.9% 1, 360 000 ml @ 60 mls/hr IV . [id number] NATALYA Rx#:[id number] cefTRIAXone 2 gm In 50 Sodium Chloride 0.9% 50 ml @ 100 mls/hr IVPB Q24H NATALYA Rx#:[id number] Oral 600 Other: Voiding Method Bedside Commode Bedside Commode # Voids 360 - Exam GENERAL: The patient is alert and oriented x3, not in any acute distress. Well developed, well nourished. HEENT: Pupils are round and equally reacting to light. EOMI. No scleral icterus. No conjunctival pallor. Normocephalic, atraumatic. No pharyngeal erythema. No thyromegaly. CARDIOVASCULAR: S1 and S2 present. No murmurs, rubs, or gallops. PULMONARY: Chest is clear to auscultation, no wheezing or crackles. ABDOMEN: Soft, nontender, nondistended, normoactive bowel sounds. No palpable organomegaly. MUSCULOSKELETAL: No joint swelling or deformity. EXTREMITIES: No cyanosis, clubbing, or pedal edema. NEUROLOGICAL: Gross neurological examination did not reveal any focal deficits. SKIN: No rashes. no petechiae. - Labs CBC & Chem 7: 07/25/21 03:06 07/25/21 03:06 Labs: Abnormal Lab Results - Last 24 Hours (Table) 07/24/21 07/24/21 07/25/21 Range/Units 05:23 18:29 03:06 RBC (4.10-5.20) X 10*6/uL Hgb (12.0-15.0) g/dL Hct (37.2-46.3) % MCV (80.0-97.0) fL MCHC (32.0-37.0) g/dL PT 38.7 H 36.1 H (9.0-12.0) sec INR 4.0 H 3.48 H (<1.2) Carbon Dioxide (20.0-27.5) mmol/L Calcium 8.3 L (8.7-10.3) mg/dL 07/25/21 07/25/21 Range/Units 03:06 03:06 RBC 3.19 L (4.10-5.20) X 10*6/uL Hgb 9.7 L (12.0-15.0) g/dL Hct 31.3 L (37.2-46.3) % MCV 98.1 H (80.0-97.0) fL MCHC 31.0 L (32.0-37.0) g/dL PT (9.0-12.0) sec INR (<1.2) Carbon Dioxide 19.8 L (20.0-27.5) mmol/L Calcium 8.2 L (8.7-10.3) mg/dL Microbiology - Last 24 Hours (Table) 07/22/21 19:40 Blood Culture - Preliminary Blood No Growth after 48 hours 07/22/21 21:17 Urine Culture - Preliminary Urine,Voided Gram Neg Bacilli 07/22/21 19:58 Blood Culture Gram Stain - Preliminary Blood Blood Culture - Preliminary Escherichia coli Assessment and Plan Assessment: Acute urinary tract infection secondary to E. coli E coli bacteremia secondary to above Chronic Paroxysmal atrial fibrillation on warfarin Hypertension Hyperlipidemia History of asthma History of osteoarthritis History of sleep apnea on CPAP/BiPAP History of pulmonary fibrosis History of aortic aneurysm. Plan: This is a pleasant 70 years old female who presents with UTI and generalized weakness. Continue with ceftriaxone follow-up final results of and blood culture Pharmacy to dose for Coumadin Labs and medication were reviewed.. Continue same treatment. Continue with symptomatic treatment. Resume home medication. Monitor lytes and vitals. DVT and GI prophylaxis. Further recommendationsas per clinical course of the patient DVT prophylaxis: Subcutaneous heparin GI Prophylaxis: Pepcid PT/OT: Pending Prognosis is guarded
[2021-07-25] MEDS ORDERED: WARFARIN 0.5 MG TAB PO ONE (16:00)
[2021-07-25] MEDS: METOPROLOL TARTRATE 25 MG TAB PO SCH (20:58)
[2021-07-25] MEDS: ATORVASTATIN 40 MG TAB PO SCH (20:59)
--- NOTE | 2021-07-25 23:10 | PN ---
PROGRESS NOTE DATE OF SERVICE: 07/25/2021 REASON FOR FOLLOWUP: E coli UTI and bacteremia. INTERVAL HISTORY: Patient is currently afebrile. Patient is breathing comfortably. Patient denies having any chest pain, shortness of breath or cough. No nausea, vomiting. No abdominal pain. No diarrhea. PHYSICAL EXAMINATION: Blood pressure 110/66, pulse of 77, temperature of 97.5. She is 93% on room air. General description is an elderly female up in the bed in no distress. Respiratory system: Unlabored breathing, decreased intensity of breath sounds. No wheeze. Heart S1, S2. Regular rate and rhythm. Abdomen soft, no tenderness. LABS: Hemoglobin 9.7, white count 5.57, creatinine 0.69. DIAGNOSTIC IMPRESSION AND PLAN: This patient with E. coli urinary tract infection and bacteremia on Rocephin. Transition to oral Cipro on discharge to finished a 2 week course of therapy and close outpatient followup. MMODL / IJN: [id number] /
[2021-07-26 06:10] LABS: INR 2.7 (<1.2)
[2021-07-26] MEDS: ALBUTEROL HFA INHALER INHALATION PRN ×2 (07:09→20:31)
[2021-07-26] MEDS: SYMBICORT 160-4.5 MCG INHALER INHALATION SCH ×2 (07:09→20:31)
[2021-07-26] MEDS: lisinopriL 20 MG TAB PO SCH ×2 (07:57→20:20)
[2021-07-26] MEDS: FUROSEMIDE 20 MG TAB PO SCH (07:57)
[2021-07-26] MEDS: METOPROLOL TARTRATE 50 MG TAB PO SCH (07:57)
[2021-07-26] MEDS: POTASSIUM CHLORIDE ER 20 MEQ TAB.ER PO SCH (07:57)
[2021-07-26] MEDS: PROPAFENONE 150 MG TAB PO SCH ×3 (07:57→20:20)
[2021-07-26] MEDS: SODIUM CHLORIDE 0.9% 1,000 ML IV SCH (07:58)
[2021-07-26 09:37] LABS: Basophils # (A) 0.02 X 10*3/uL (0.00-0.10); Basophils % (A) 0.4 %; Eosinophils # (A) 0.14 X 10*3/uL (0.04-0.35); Eosinophils % (A) 2.7 %; HCT 33.4 % (37.2-46.3); HGB 10.2 g/dL (12.0-15.0); Lymphocytes # (A) 1.52 X 10*3/uL (0.90-5.00); Lymphocytes % (A) 29.1 %; MCH 30.4 pg (27.0-32.0); MCHC 30.5 g/dL (32.0-37.0); MCV 99.4 fL (80.0-97.0); Mean Platelet Volume 11.7 fL (9.5-12.2); Monocytes # (A) 0.51 X 10*3/uL (0.20-1.00); Monocytes % (A) 9.8 %; Neutrophils # (A) 3.01 X 10*3/uL (1.80-7.70); Neutrophils % (A) 57.6 %; Platelet Count 283 X 10*3/uL (140-440); RBC 3.36 X 10*6/uL (4.10-5.20); RDW 13.6 % (11.5-14.5); WBC 5.22 X 10*3/uL (4.50-10.00)
--- NOTE | 2021-07-26 13:11 | PN ---
PROGRESS NOTE DATE OF SERVICE: 07/26/2021 REASON FOR FOLLOWUP: E coli UTI and bacteremia. INTERVAL HISTORY: The patient is afebrile. The patient is breathing comfortably. The patient denies having any chest pain or shortness of breath or cough. No abdominal pain or diarrhea. PHYSICAL EXAMINATION: Blood pressure 129/66, pulse of 93, temperature 96.9. She is 97% on room air. General description is an elderly female up in the chair in no distress. Respiratory system: Unlabored breathing. Clear to auscultation anteriorly. Heart S1, S2. Regular rate and rhythm. Abdomen soft, no tenderness. LABS: Hemoglobin is 10.1, white count 5.2, creatinine 0.6. Blood culture repeat has been negative. DIAGNOSTIC IMPRESSION AND PLAN: Patient Escherichia coli urinary tract infection and bacteremia. Overall improvement on Rocephin. She will transition to Ceftin mg twice a day for another 10 days to finish her course of therapy and close outpatient followup. MMODL / IJN: [id number] /
--- NOTE | 2021-07-26 17:16 | P.PN ---
Subjective This is a pleasant 70 is old female with past medical history of atrial fibrillation on warfarin, hypertension, hyperlipidemia, asthma, osteoarthritis, sleep apnea on CPAP/BiPAP, pulmonary fibrosis and aortic aneurysm. Patient states that she presents because of fever that started yesterday she could not specify how long but she feels also generally weak. However she is alert and awake and oriented, she knows she is in the current hospital, and she couldn't tell the year 2021, However she denies abdominal pain or vomiting or diarrhea. She has some dry cough for a few days and. She denies any dysuria or urgency. No headache or weakness or numbness. No skin rash. No pressure ulcer. Usually she can walk by herself at home but she uses a walker she go outside the home. She denies smoking, alcohol or illicit tracts She is hemodynamically stable. She had mild leukocytosis on admission 10.9, came back to need 0.8 today. Hemoglobin 11.2 and platelet count 225, there is an evidence of hemodilution. I've 0.6, sodium is 135 and 136, rest of BMP is unremarkable. Liver enzymes not elevated. Urine analysis is suspicious of infection Coronavirus not detected. Chest x-ray: No acute process. EKG showing atrial fibrillation's with RVR at 112. Received ceftriaxone in the emergency room 07/24/2021 patient is fully awake and oriented sitting in chair, looks not in distress, she denies any symptoms today and actually she was asking when she can go home. Patient informed that about her medical problems and she agrees to stay. She is hemodynamically stable now. Fever on admission has subsided. Hemoglobin is slightly trending down 11.2 down to 10.2. Repeat INR is still pending. Urine culture is growing gram-negative bacilli. Blood culture showing E. coli. We repeated a blood culture today to ensure resolution. Coumadin on hold and patient are currently continue with ceftriaxone and normal saline at 60 mL per hour Infectious disease team was consulted 07/25/2021 Patient still sitting in chair, she denies any symptoms, no urinary symptoms, no abdominal pain or vomiting. No chest pain or dyspnea. She is even keep asking when she'll be ready for discharge. I explained for her medical problems and she agrees to stay for now. She still been treated for infection secondary to E. coli in the urine and blood culture, however her culture results have not finalized yet. In the meantime she remains on ceftriaxone 2 g daily. Infectious disease team on the case. No more fever since admission. Also she has A. fib on Coumadin, Her INR is supratherapeutic 3.4 but is trending down. She states she was taken 5 mg every day except when his stay and Sunday she takes [address] Otto her PCP increased it lately to 7 mg daily. Currently still Coumadin on hold. No evidence of bleeding. Her hemoglobin monitored closely and it is 9.7. Consult physical therapy 07/26/2021 Patient is doing well clinically, she is asymptomatic. Infectious disease team states patient can be discharged on Ceftin for 10 days. INR today 2.7, Coumadin pharmacy to dose and she will get 5 mg today. Physical therapy recommended home health care which is ordered I touch base with the patient she states that her daughter has left for today and she wants to wait to be discharged tomorrow Objective - Vital Signs Vital signs: Vital Signs Temp 98.1 F 07/26/21 14:00 Pulse 82 07/26/21 14:00 Resp 16 07/26/21 14:00 BP 142/90 07/26/21 14:00 Pulse Ox 100 07/26/21 14:00 Intake & Output 07/25/21 07/26/21 07/26/21 18:59 06:59 18:59 Intake Total 360 Balance 360 Intake: Oral 360 Other: Voiding Method Bedside Commode Toilet Toilet Bedside Commode Bedside Commode # Voids 1 1 3 # Bowel Movements 1 - Exam GENERAL: The patient is alert and oriented x3, not in any acute distress. Well developed, well nourished. HEENT: Pupils are round and equally reacting to light. EOMI. No scleral icterus. No conjunctival pallor. Normocephalic, atraumatic. No pharyngeal erythema. No thyromegaly. CARDIOVASCULAR: S1 and S2 present. No murmurs, rubs, or gallops. PULMONARY: Chest is clear to auscultation, no wheezing or crackles. ABDOMEN: Soft, nontender, nondistended, normoactive bowel sounds. No palpable organomegaly. MUSCULOSKELETAL: No joint swelling or deformity. EXTREMITIES: No cyanosis, clubbing, or pedal edema. NEUROLOGICAL: Gross neurological examination did not reveal any focal deficits. SKIN: No rashes. no petechiae. - Labs CBC & Chem 7: 07/26/21 05:06 07/25/21 03:06 Labs: Abnormal Lab Results - Last 24 Hours (Table) 07/26/21 07/26/21 Range/Units 05:06 05:06 RBC 3.36 L (4.10-5.20) X 10*6/uL Hgb 10.2 L (12.0-15.0) g/dL Hct 33.4 L (37.2-46.3) % MCV 99.4 H (80.0-97.0) fL MCHC 30.5 L (32.0-37.0) g/dL PT 26.0 H (9.0-12.0) sec INR 2.7 H (<1.2) Microbiology - Last 24 Hours (Table) 07/24/21 09:32 Blood Culture - Preliminary Blood No Growth after 48 hours 07/22/21 19:58 Blood Culture Gram Stain - Final Blood Blood Culture - Final Escherichia coli 07/22/21 19:40 Blood Culture - Preliminary Blood No Growth after 72 hours 07/22/21 21:17 Urine Culture - Final Urine,Voided Escherichia coli Assessment and Plan Assessment: Acute urinary tract infection secondary to E. coli E coli bacteremia secondary to above Chronic Paroxysmal atrial fibrillation on warfarin Hypertension Hyperlipidemia History of asthma History of osteoarthritis History of sleep apnea on CPAP/BiPAP History of pulmonary fibrosis History of aortic aneurysm. Plan: This is a pleasant 70 years old female who presents with UTI and generalized weakness. Continue with ceftriaxone follow-up final results of and blood culture Pharmacy to dose for Coumadin Labs and medication were reviewed.. Continue same treatment. Continue with symptomatic treatment. Resume home medication. Monitor lytes and vitals. DVT and GI prophylaxis. Further recommendationsas per clinical course of the patient DVT prophylaxis: Subcutaneous heparin GI Prophylaxis: Pepcid PT/OT:HHC possible dc in am
[2021-07-26] MEDS ORDERED: WARFARIN 5 MG TAB PO ONE (18:00)
[2021-07-26] MEDS: ATORVASTATIN 40 MG TAB PO SCH (20:20)
[2021-07-26] MEDS: METOPROLOL TARTRATE 25 MG TAB PO SCH (20:20)
[2021-07-27] MEDS: SODIUM CHLORIDE 0.9% 1,000 ML IV SCH (03:40)
[2021-07-27] MEDS: lisinopriL 20 MG TAB PO SCH (07:04)
[2021-07-27] MEDS: POTASSIUM CHLORIDE ER 20 MEQ TAB.ER PO SCH (07:04)
[2021-07-27] MEDS: PROPAFENONE 150 MG TAB PO SCH (07:04)
[2021-07-27] MEDS: METOPROLOL TARTRATE 50 MG TAB PO SCH (07:04)
[2021-07-27] MEDS: FUROSEMIDE 20 MG TAB PO SCH (07:04)
[2021-07-27 07:09] LABS: INR 2.1 (<1.2); Prothrombin Time 20.5 sec (9.0-12.0)
[2021-07-27 08:15] VITALS: BP 162/89; PULSE 71; RESP 16; TEMP 98.3
[2021-07-27] MEDS: ALBUTEROL HFA INHALER INHALATION PRN ×2 (08:18→12:00)
[2021-07-27] MEDS: SYMBICORT 160-4.5 MCG INHALER INHALATION SCH (08:18)
[2021-07-27] MEDS ORDERED: WARFARIN 5 MG TAB PO ONE (18:00)
--- NOTE | 2021-07-28 00:28 | P.DS ---
Providers Date of admission: 07/25/21 08:09 Attending physician: Shankar Huffman Consults: 07/23/21 21:13 Consult Physician Urgent Consulting Provider: Ca Wolff Consult Reason/Comments: positive blood culture Do you want consulting provider notified?: Yes, Notify in am Primary care physician: Tasha Leon Hospital Course: Diagnoses: Acute urinary tract infection secondary to E. coli E coli bacteremia secondary to above Chronic Paroxysmal atrial fibrillation on warfarin Hypertension Hyperlipidemia History of asthma History of osteoarthritis History of sleep apnea on CPAP/BiPAP History of pulmonary fibrosis History of aortic aneurysm. Hospital course: This is a pleasant 70 is old female with past medical history of atrial fibrillation on warfarin, hypertension, hyperlipidemia, asthma, osteoarthritis, sleep apnea on CPAP/BiPAP, pulmonary fibrosis and aortic aneurysm. Patient states that she presents because of fever that started yesterday she could not specify how long but she feels also generally weak. Patient was found to have acute urinary tract infection and bacteremia secondary to the same microorganism of E. coli, she responded to treatment with ceftriaxone, repeat blood culture negative, patient evaluated by infectious disease team and cleared her today for discharge on 10 more days of Ceftin. Patient was completely asymptomatic over the last 2 days and she was eager to go home stating she is back to her baseline denying any other symptoms. Also on admission she was coagulopathic while she was on Coumadin with INR 5.6, Coumadin was held and back to 2.7 yesterday she received 5 mg of Coumadin and her INR today was 2.1, therefore patient was discharged on Coumadin 6 mg daily with recommendation for close outpatient follow-up with her PCP Dr. Otto to check her INR, patient told me she can call tomorrow and check her INR and adjust the dose accordingly. She patient informed about gallbladder 2-3 and she agrees. Risk of bleeding with coumadine are explained to her extensively and she agrees with treatment. Patient was cleared for discharge by ID team Problems and management plan were discussed with the patient and he verbalized understanding and acceptance Patient was found stable and can be discharged home however he needs follow-up as an outpatient. Patient was instructed to follow up with PCP Dr. Rankin within one to 2 days and patient agrees to go and check her INR with her PCP and to follow up with her in one week as instructed. Physical exam Gen: patient is a AAOx3, no distress CVS: S1-S2, RRR, no murmur Lungs: B/L CTA, no wheezing Abdomen: soft, no distention, no tenderness, positive bowel sounds Extremity: no leg edema or induration Time spent more than 35 minutes Patient Condition at Discharge: Stable Plan - Discharge Summary Discharge Rx Participant: No New Discharge Prescriptions: New Cefuroxime Axetil [Ceftin] 500 mg PO BID 10 Days #20 tab Warfarin [Coumadin] 6 mg PO DAILY #90 tab Continue Atorvastatin [Lipitor] 40 mg PO HS Furosemide [Lasix] 20 mg PO DAILY Metoprolol Tartrate [Lopressor] 25 mg PO HS Cyanocobalamin (Vitamin B-12) [Vitamin B-12] 1,000 mcg PO DAILY Potassium Chloride [Klor-Con 20] 20 meq PO DAILY Aspirin EC [Ecotrin Low Dose] 81 mg PO DAILY Propafenone HCl 150 mg PO TID Cholecalciferol [Vitamin D3 (125 Mcg = 5000 Iu)] 125 mcg PO DAILY Metoprolol Tartrate [Lopressor] 50 mg PO DAILY lisinopriL [Prinivil] 20 mg PO BID Budesonide-Formot 160-4.5 Mcg [Symbicort 160-4.5 Mcg Inhaler] 2 puff INHALATION RT-BID #1 unit Albuterol Sulfate [Proair Hfa] 2 puff INHALATION RT-Q6H PRN PRN Reason: Shortness Of Breath Discontinued Ferrous Sulfate [Iron (65 MG Elemental)] 325 mg PO DAILY Warfarin [Coumadin] 7.5 mg PO W/SUPPER Discharge Medication List Atorvastatin [Lipitor] 40 mg PO HS 08/03/19 [History] Furosemide [Lasix] 20 mg PO DAILY 08/04/19 [History] Cyanocobalamin (Vitamin B-12) [Vitamin B-12] 1,000 mcg PO DAILY 06/16/21 [History] Metoprolol Tartrate [Lopressor] 25 mg PO HS 06/16/21 [History] Metoprolol Tartrate [Lopressor] 50 mg PO DAILY 06/16/21 [History] Potassium Chloride [Klor-Con 20] 20 meq PO DAILY 06/16/21 [History] lisinopriL [Prinivil] 20 mg PO BID 06/16/21 [History] Budesonide-Formot 160-4.5 Mcg [Symbicort 160-4.5 Mcg Inhaler] 2 puff INHALATION RT-BID #1 unit 06/18/21 [Rx] Albuterol Sulfate [Proair Hfa] 2 puff INHALATION RT-Q6H PRN 07/22/21 [History] Aspirin EC [Ecotrin Low Dose] 81 mg PO DAILY 07/22/21 [History] Cholecalciferol [Vitamin D3 (125 Mcg = 5000 Iu)] 125 mcg PO DAILY 07/22/21 [History] Propafenone HCl 150 mg PO TID 07/22/21 [History] Cefuroxime Axetil [Ceftin] 500 mg PO BID 10 Days #20 tab 07/27/21 [Rx] Warfarin [Coumadin] 6 mg PO DAILY #90 tab 07/27/21 [Rx] Follow up Appointment(s)/Referral(s): Tasha Leon DO [Primary Care Provider] - 07/28/21 1:30 pm [facility], [NON-STAFF] - As Needed Activity/Diet/Wound Care/Special Instructions: Heart healthy diet Activity is restricted till you see your doctor we recommend to check your INR in 1-[address] Otto. Your goal INR is 2-3. If your INR more than 3 then hold your Coumadin and inform her doctor immediately please Discharge Disposition: HOME WITH HOME HEALTH SERVICES
== END 2021-07-27 13:09 | disposition home health service (06) | DRG 872 ==
LOC: EC 16:29 → 4SSUR 22:26 → OBSVTOIN 07-25 08:09
PROVIDERS: ADMIT Hospitalist; ATTEND Hospitalist
DX: A41.51 Sepsis due to Escherichia coli [E. coli] (principal); N39.0 Urinary tract infection, site not specified; Z68.43 Body mass index [BMI] 50.0-59.9, adult; I48.0 Paroxysmal atrial fibrillation; J84.10 Pulmonary fibrosis, unspecified; T45.515A Adverse effect of anticoagulants, initial encounter; Z20.822 Contact with and (suspected) exposure to COVID-19; E66.01 Morbid (severe) obesity due to excess calories; J06.9 Acute upper respiratory infection, unspecified; R79.1 Abnormal coagulation profile; G47.30 Sleep apnea, unspecified; M19.90 Unspecified osteoarthritis, unspecified site; R35.0 Frequency of micturition; E78.5 Hyperlipidemia, unspecified; F32.A Depression, unspecified; F41.9 Anxiety disorder, unspecified; I10 Essential (primary) hypertension; J45.909 Unspecified asthma, uncomplicated; Z79.01 Long term (current) use of anticoagulants; Z79.51 Long term (current) use of inhaled steroids; Z79.82 Long term (current) use of aspirin; Z79.899 Other long term (current) drug therapy; Z86.79 Personal history of other diseases of the circulatory system; Z90.710 Acquired absence of both cervix and uterus; X58.XXXA Exposure to other specified factors, initial encounter; Z88.8 Allergy status to other drugs, medicaments and biological substances; Z87.19 Personal history of other diseases of the digestive system
CPT/HCPCS: 36415; 71045; 76770; 80048; 80053; 81001; 83605; 83735; 83880; 84484; 85025; 85379; 85610; 85730; 87040; 87077; 87086; 87186; 87635; 93005; 94640; 94760; 99285

== ENCOUNTER → 2021-08-16 | Day surgery (SDC) | payer MEDICARE ==
[2021-08-10 15:54] VITALS: BMI 57.6
[~2021-08-16] MED LIST changes: +ALBUTEROL NEBULIZED 2.5 MG/3 ML INHALATION PRN; +ASPIRIN 81 MG PO SCH; +ATORVASTATIN 40 MG TAB PO SCH; +CEFDINIR 300 MG CAP PO SCH; +CHOLECALCIFEROL 125 MCG (5000 IU) TABLET PO SCH; +CYANOCOBALAMIN 500 MCG TAB PO SCH; +FUROSEMIDE 20 MG TAB PO SCH; -LIDOCAINE 1% 20 ML VIAL (10MG/ML) FOR IV START INTRADERMA PRN; +LIDOCAINE 1% INJ 10MG/ML (20 ML MDV) ONE; +METOPROLOL TARTRATE 50 MG TAB PO SCH; +POTASSIUM CHLORIDE ER 20 MEQ TAB.ER PO SCH; +PROPAFENONE 150 MG TAB PO SCH; +PROPOFOL 10 MG/ML 20 ML VIAL IV ONE; +SODIUM CHLORIDE 0.9% 1,000 ML IV SCH; +SODIUM CHLORIDE 0.9% 500 ML 500 ML IV ONE; +SYMBICORT 160-4.5 MCG INHALER INHALATION SCH; +WARFARIN 2 MG TAB PO SCH; +WARFARIN 3 MG TAB PO SCH; +lisinopriL 20 MG TAB PO SCH
[2021-08-16 06:46] VITALS: TEMP 97.9
[2021-08-16 06:56] LABS: Prothrombin Time 28.8 sec (9.0-12.0)
[2021-08-16 07:21] VITALS: RESP 16
--- NOTE | 2021-08-16 11:56 | PCN ---
PROCEDURE NOTE ELECTRICAL CARDIOVERSION: INDICATION: Persistent atrial fibrillation. CLINICAL INFORMATION: Mrs. Butcher is a 70-year-old lady with obesity, hypertension, hyperlipidemia, persistent atrial fibrillation, nonobstructive CAD and obstructive sleep apnea. She has developed atrial fibrillation and shortness of breath related to it. She was brought in for electrical cardioversion electively after due discussion regarding risks, benefits and options. Patient was well anticoagulated, with INR of 3.0. She understood all details and wished to proceed with the procedure. PROCEDURE NOTE: Under the influence of [id number] intravenous anesthetic agent with the attendance of the anesthesiologist, a single shock was delivered with anterior and posterior patches of 200 joules synchronized. She converted to sinus rhythm and had sinus bradycardia, heart rate of 54 beats per minute, hemodynamically stable and neurologically intact. This was a successful electrical cardioversion. I expect she will be discharged later on today and I will see her in the office on August 23. MMRAMONEL / IJN: [id number] /
[2021-08-16 12:04] VITALS: BP 108/61; PULSE 56
== END ==
LOC: CATHCVL 06:13
PROVIDERS: ATTEND Internal Medicine Interventional Cardiology
DX: I48.19 Other persistent atrial fibrillation (principal); I25.10 Atherosclerotic heart disease of native coronary artery without angina pectoris; I10 Essential (primary) hypertension; E78.2 Mixed hyperlipidemia; G47.33 Obstructive sleep apnea (adult) (pediatric); Z20.822 Contact with and (suspected) exposure to COVID-19; E66.9 Obesity, unspecified; Z68.43 Body mass index [BMI] 50.0-59.9, adult; Z97.2 Presence of dental prosthetic device (complete) (partial); Z91.048 Other nonmedicinal substance allergy status; Z79.01 Long term (current) use of anticoagulants; Z79.82 Long term (current) use of aspirin; Z79.899 Other long term (current) drug therapy; Z79.51 Long term (current) use of inhaled steroids
CPT/HCPCS: 93005; 92960; 85610; 87635; J2001; J2704

== ENCOUNTER → 2021-09-12 | Outpatient (CLI) | payer MEDICARE ==
[2021-09-12 15:55] LABS: Basophils % (A) 0 %; Eosinophils # (A) 0.2 k/uL (0-0.7); Eosinophils % (A) 3 %; HCT 39.4 % (34.0-46.0); HGB 11.9 gm/dL (11.4-16.0); Hypochromasia Slight; Lymphocytes # (A) 0.9 k/uL (1.0-4.8); Lymphocytes % (A) 21 %; MCH 30.3 pg (25.0-35.0); MCHC 30.3 g/dL (31.0-37.0); MCV 99.8 fL (80.0-100.0); Mean Platelet Volume 9.5; Monocytes # (A) 0.4 k/uL (0-1.0); Monocytes % (A) 10 %; Neutrophils # (A) 2.8 k/uL (1.3-7.7); Neutrophils % (A) 63 %; Platelet Count 199 k/uL (150-450); RBC 3.95 m/uL (3.80-5.40); WBC 4.4 k/uL (3.8-10.6)
[2021-09-12 15:59] LABS: ALT 37 U/L (4-34); AST 50 U/L (14-36); African American GFR (CKD) 88 (>60 ml/min/1.73 sqM); Albumin 3.7 g/dL (3.5-5.0); Albumin/Globulin Ratio 1.1; Alkaline Phosphatase 99 U/L (38-126); Anion Gap 6 mmol/L; Blood Urea Nitrogen 20 mg/dL (7-17); Calcium 9.1 mg/dL (8.4-10.2); Carbon Dioxide 28 mmol/L (22-30); Chloride 106 mmol/L (98-107); Globulin 3.4 g/dL; Glucose 104 mg/dL (74-99); Non-African American GFR(CKD) 76 (>60 ml/min/1.73 sqM); Potassium 4.1 mmol/L (3.5-5.1); Sodium 140 mmol/L (137-145); Total Bilirubin 0.9 mg/dL (0.2-1.3); Total Protein 7.1 g/dL (6.3-8.2)
--- NOTE | 2021-09-12 16:31 | CT ---
EXAMINATION TYPE: CT abdomen pelvis w con DATE OF EXAM: 09/12/2021 COMPARISON: None HISTORY: Abdominal edema. CT DLP: 2397.1 mGycm CONTRAST: CT scan of the abdomen and pelvis is performed with Oral Contrast and with IV Contrast, patient injec marc with 100ml mL of Isovue 300. FINDINGS: LUNG BASES-: No visible nodule. No infiltrate. LIVER/GB: There is evidence of cholelithiasis. No space occupying hepatic lesion. Biliary tree is of normal caliber. PANCREAS: No inflammation. No distinct mass. SPLEEN: No splenic enlargement. No lesion seen. ADRENALS: No nodule. No thickening. KIDNEYS/BLADDER: No hydronephrosis. No nephrolithiasis. No distinct renal mass. Urinary bladder g rossly unremarkable. BOWEL: Normal appendix. Normal bowel caliber. No inflammation. GENITAL ORGANS: No gross abnormality. LYMPH NODES: No greater than 1cm abdominal or pelvic lymph nodes are appreciated. AORTA: No significant abnormality. OSSEOUS STRUCTURES: No significant abnormality is seen. OTHER: Fat-containing infraumbilical ventral hernia. IMPRESSION: 1. Uncomplicated cholelithiasis.
[2021-09-13 03:08] LABS: Iron 111 ug/dL (50-170)
== END | disposition home or self-care (01) ==
LOC: RADCTMAIN 14:00
PROVIDERS: ATTEND Family Medicine
DX: K80.20 Calculus of gallbladder without cholecystitis without obstruction (principal); I11.0 Hypertensive heart disease with heart failure; I50.9 Heart failure, unspecified; R73.09 Other abnormal glucose
CPT/HCPCS: 83880; 80053; 83540; 85025; 83036; 74177; 36415; Q9967

== ENCOUNTER 2022-04-07 21:46 | Emergency (ER) | payer MEDICARE ==
[2022-04-08] MEDS ORDERED: VANCOMYCIN IV PER PHARMACY 1 EACH MISC MISCELLANE PRN (05:57)
--- NOTE | 2022-04-08 06:16 | XR ---
EXAMINATION TYPE: XR tibia fibula RT DATE OF EXAM: 04/08/2022 COMPARISON: 06/23/2019 HISTORY: Cellulitis TECHNIQUE: 4 views FINDINGS: There is large plantar and Achilles calcaneal spurring. There is vascular calcification. Th ere is some hypertrophic osteoarthritis medial joint space of the knee. There is some soft tissue swe lling around the ankle joint. There is spurring at the talonavicular joint. IMPRESSION: Soft tissue swelling. No fracture seen. Calcaneal spurring. Soft tissue swelling increase d compared to old exam.
[2022-04-08] MEDS ORDERED: VANCOMYCIN 2,000 MG in SODIUM CHLORIDE 0.9% 500 ML 500 ML IVPB ONE (06:30)
--- NOTE | 2022-04-08 06:41 | ED ---
General Adult HPI - General Chief complaint: Wound/Laceration Stated complaint: Sore on R leg Time Seen by Provider: 04/08/22 06:15 Source: patient, RN notes reviewed, old records reviewed Mode of arrival: ambulatory - History of Present Illness Initial comments: Patient is a 71-year-old female who presents emergency Department complaining of cellulitis on her right lower extremity. Has a history of A. fib, asthma, hypertension. Has a history of vascular disorder. Has a history of cellulitis or bilateral lower extremities. She presents today over worsening sore located over the anterior aspect of the right lower extremity. States it is been there for the last few days. Seems to be getting worse. Worsening erythema. Worsening clear discharge. His concern for recurrent cellulitis. Does not follow up with wound care currently does have contact info for one. Denies fevers, chills, cough, sick contacts. Denies any nausea or vomiting. Has no other acute complaint at this time. Neurovascular intact in the right lower ext. Presents for evaluation and antibiotics. - Related Data Home Medications Medication Instructions Recorded Confirmed Atorvastatin [Lipitor] 40 mg PO HS 08/03/19 08/16/21 Furosemide [Lasix] 20 mg PO DAILY 08/04/19 08/16/21 Cyanocobalamin (Vitamin B-12) 1,000 mcg PO DAILY 06/16/21 08/16/21 [Vitamin B-12] Metoprolol Tartrate [Lopressor] 25 mg PO HS 06/16/21 08/16/21 Metoprolol Tartrate [Lopressor] 50 mg PO DAILY 06/16/21 08/16/21 Potassium Chloride [Klor-Con 20] 20 meq PO DAILY 06/16/21 08/16/21 lisinopriL [Prinivil] 20 mg PO BID 06/16/21 08/16/21 Albuterol Sulfate [Proair Hfa] 2 puff INHALATION RT-Q6H PRN 07/22/21 08/16/21 Aspirin EC [Ecotrin Low Dose] 81 mg PO DAILY 07/22/21 08/16/21 Cholecalciferol [Vitamin D3 (125 125 mcg PO DAILY 07/22/21 08/16/21 Mcg = 5000 Iu)] Propafenone HCl 150 mg PO TID 07/22/21 08/16/21 Warfarin [Coumadin] 3 mg PO DAILY 08/16/21 08/16/21 Previous Rx's Medication Instructions Recorded Budesonide-Formot 160-4.5 Mcg 2 puff INHALATION RT-BID #1 unit 06/18/21 [Symbicort 160-4.5 Mcg Inhaler] Warfarin [Coumadin] 6 mg PO DAILY #90 tab 07/27/21 cefUROXime axetiL [Ceftin] 500 mg PO BID 10 Days #20 tab 07/27/21 Sulfamethox-Tmp 800-160Mg [Bactrim 1 tab PO Q12HR 7 Days #14 tab 04/08/22 DS 800-160 mg] Allergies Allergy/AdvReac Type Severity Reaction Status Date / Time zinc oxide Allergy Rash/Hives Verified 04/07/22 22:08 Review of Systems ROS Statement: Those systems with pertinent positive or pertinent negative responses have been documented in the HPI. Review of Systems: CONST: Denies fever EYES: Denies blurry vision ENT: Denies nasal congestion C/V: Denies Chest pain RESP: Denies shortness of breath GI: Denies abdominal pain : Denies dysuria SKIN: Endorses rash MSK: Denies joint pain. NEURO: Denies headache ROS Other: All systems not noted in ROS Statement are negative. Past Medical History Past Medical History: Atrial Fibrillation, Asthma, Hyperlipidemia, Hypertension, Osteoarthritis (OA), Sleep Apnea/CPAP/BIPAP, Vascular Disorder Additional Past Medical History / Comment(s): CPAP use, cardiac murmur, bilateral legs/feet edema at times, pulmonary fibrosis, aortic aneurysm. Recent hospitalization for "UTI causing A-Fib flare-up". History of Any Multi-Drug Resistant Organisms: None Reported Past Surgical History: Bladder Surgery, Hysterectomy, Tonsillectomy Additional Past Surgical History / Comment(s): BLADDER SLING, EGD, colonoscopy, R carpal tunnel release, R elbow release. Past Anesthesia/Blood Transfusion Reactions: No Reported Reaction Past Psychological History: Anxiety, Depression Smoking Status: Never smoker Past Alcohol Use History: Rare Past Drug Use History: None Reported - Past Family History Father Family Medical History: Coronary Artery Disease (CAD), Myocardial Infarction ([place]) Additional Family Medical History / Comment(s): Father had heart disease and had a [place] in his 50s. Mother Family Medical History: Cancer Additional Family Medical History / Comment(s): Mother had cancer but pt does not recall type. Sister(s) Family Medical History: Cancer, Deep Vein Thrombosis (DVT), Pulmonary Embolus Additional Family Medical History / Comment(s): SISTER #1 UTERINE CA. SISTER #2 UTERINE AND BREAST CA. Sister#3 2-PEs, 3- DVTs General Exam - General Exam Comments Initial Comments: General: Appears in no acute distress. HEAD: Normal with no signs of head trauma. EYES: PERRLA, EOMI, conjunctiva normal, no discharge. ENT: Hearing grossly intact, normal oropharynx. RESPIRATORY: Clear breath sounds bilaterally. No wheezes, rales, or rhonchi. C/V: Regular rate and rhythm. S1 and S2 auscultated, no edema, peripheral pulses 2+ and intact throughout ABD: Abd is soft, nontender, nondistended EXT: Normal range of motion, no obvious deformity SKIN: Patient has an open wound with clear discharge located over the anterior aspect of the right [place]. Approximately the size of 2 half dollars. There is surrounding erythema that is worse. No obvious fluctuance. No induration. Area is warm to touch. NEURO: Alert and oriented 4. Course Vital Signs 04/07/22 04/08/22 22:04 07:47 Temperature 97.8 F 98.3 F Pulse Rate 100 80 Respiratory 18 16 Rate Blood Pressure 124/66 143/85 O2 Sat by Pulse 98 99 Oximetry Medical Decision Making - Medical Decision Making Based on The patient's presentation and physical exam, I'm concerned for cellulitis over the anterior right sheffield. We will obtain basic laboratory studies initially due to her risk factors. I'll signs within normal limits. She has no systemic signs of infection. She was in agreement this plan. X-ray shows no signs of osteo myelitis. Laboratory studies are unremarkable. No leukocytosis. Cultures were obtained and sent. I updated the patient. I believe it is safer to be discharged home. I did offer a dose of IV vancomycin, however it will be a three-hour infusion. This time we will provide her with a dose of IV Rocephin as well as 2 tablets of Bactrim. She'll be given Bactrim for home. She was in agreement this plan. I recommended she follow up with her wound care clinic. She was in agreement this plan. Strict return precautions were discussed. I will provide the patient with a prescription for Bactrim. I instructed the patient to follow up with their PCP in the next 1-3 days. I explained that the patient should return to the emergency department if they experience any worsening symptoms. Strict return precautions were discussed with the patient. The patient expressed understanding of these instructions. I answered all questions that the patient had. The patient was discharged home in good] condition with their prescriptions and follow up information. - Lab Data Result diagrams: 04/08/22 07:03 04/08/22 07:03 Lab Results 04/08/22 04/08/22 Range/Units 07:03 07:03 WBC 5.4 (3.8-10.6) k/uL RBC 4.22 (3.80-5.40) m/uL Hgb 13.1 (11.4-16.0) gm/dL Hct 41.8 (34.0-46.0) % MCV 99.1 (80.0-100.0) fL MCH 30.9 (25.0-35.0) pg MCHC 31.2 (31.0-37.0) g/dL RDW 12.6 (11.5-15.5) % Plt Count 260 (150-450) k/uL MPV 8.8 Neutrophils % 61 % Lymphocytes % 21 % Monocytes % 9 % Eosinophils % 7 % Basophils % 1 % Neutrophils # 3.3 (1.3-7.7) k/uL Lymphocytes # 1.1 (1.0-4.8) k/uL Monocytes # 0.5 (0-1.0) k/uL Eosinophils # 0.4 (0-0.7) k/uL Basophils # 0.0 (0-0.2) k/uL Sodium 139 (137-145) mmol/L Potassium 4.4 (3.5-5.1) mmol/L Chloride 103 (98-107) mmol/L Carbon Dioxide 25 (22-30) mmol/L Anion Gap 11 mmol/L BUN 12 (7-17) mg/dL Creatinine 0.66 (0.52-1.04) mg/dL Est GFR (CKD-EPI)AfAm >90 (>60 ml/min/1.73 sqM) Est GFR (CKD-EPI)NonAf 89 (>60 ml/min/1.73 sqM) Glucose 113 H (74-99) mg/dL Calcium 9.2 (8.4-10.2) mg/dL Total Bilirubin 0.7 (0.2-1.3) mg/dL AST 22 (14-36) U/L ALT 15 (4-34) U/L Alkaline Phosphatase 94 (38-126) U/L Total Protein 7.8 (6.3-8.2) g/dL Albumin 4.2 (3.5-5.0) g/dL Disposition Clinical Impression: Cellulitis Disposition: HOME SELF-CARE Condition: Good Instructions (If sedation given, give patient instructions): Cellulitis (ED) Prescriptions: Sulfamethox-Tmp 800-160Mg [Bactrim DS 800-160 mg] 1 tab PO Q12HR 7 Days #14 tab Is patient prescribed a controlled substance at d/c from ED?: No Referrals: Tasha Leon DO [Primary Care Provider] - 1-2 days Time of Disposition: 07:55
[2022-04-08 07:24] LABS: Basophils % (A) 1 %; Eosinophils # (A) 0.4 k/uL (0-0.7); Eosinophils % (A) 7 %; HCT 41.8 % (34.0-46.0); HGB 13.1 gm/dL (11.4-16.0); Lymphocytes # (A) 1.1 k/uL (1.0-4.8); Lymphocytes % (A) 21 %; MCH 30.9 pg (25.0-35.0); MCHC 31.2 g/dL (31.0-37.0); MCV 99.1 fL (80.0-100.0); Mean Platelet Volume 8.8; Monocytes # (A) 0.5 k/uL (0-1.0); Monocytes % (A) 9 %; Neutrophils # (A) 3.3 k/uL (1.3-7.7); Neutrophils % (A) 61 %; Platelet Count 260 k/uL (150-450); RBC 4.22 m/uL (3.80-5.40); RDW 12.6 % (11.5-15.5); WBC 5.4 k/uL (3.8-10.6)
[2022-04-08 07:33] LABS: ALT 15 U/L (4-34); AST 22 U/L (14-36); African American GFR (CKD) >90 (>60 ml/min/1.73 sqM); Albumin 4.2 g/dL (3.5-5.0); Alkaline Phosphatase 94 U/L (38-126); Anion Gap 11 mmol/L; Blood Urea Nitrogen 12 mg/dL (7-17); Calcium 9.2 mg/dL (8.4-10.2); Carbon Dioxide 25 mmol/L (22-30); Chloride 103 mmol/L (98-107); Glucose 113 mg/dL (74-99); Non-African American GFR(CKD) 89 (>60 ml/min/1.73 sqM); Potassium 4.4 mmol/L (3.5-5.1); Sodium 139 mmol/L (137-145); Total Bilirubin 0.7 mg/dL (0.2-1.3); Total Protein 7.8 g/dL (6.3-8.2)
[2022-04-08 07:48] VITALS: BP 143/85; PULSE 80; RESP 16; TEMP 98.3
[2022-04-08] MEDS ORDERED: cefTRIAXone IN SWFI 1,000 MG/10 ML SYRINGE IVP STA (07:52)
[2022-04-08] MEDS ORDERED: SULFAMETHOX-TMP 800-160MG 1 EACH TAB PO STA (07:52)
== END 2022-04-08 08:10 | disposition home or self-care (01) ==
LOC: EC 21:46
DX: L03.115 Cellulitis of right lower limb (principal); J45.909 Unspecified asthma, uncomplicated; E78.5 Hyperlipidemia, unspecified; I10 Essential (primary) hypertension; M19.90 Unspecified osteoarthritis, unspecified site; Z86.79 Personal history of other diseases of the circulatory system; Z79.51 Long term (current) use of inhaled steroids; Z79.01 Long term (current) use of anticoagulants; Z79.899 Other long term (current) drug therapy; Z91.048 Other nonmedicinal substance allergy status
CPT/HCPCS: 99283 ×2; 96374 ×2; 36415; 80053; 85025; 87040; 87070; 87205; 87075; 87077; 87186; 73590; J0696

== ENCOUNTER 2022-05-12 10:37 | Observation (INO) | payer MEDICARE ==
[2022-05-12] MEDS ORDERED: MORPHINE SULFATE 4 MG/ML SYRINGE IVP STA (13:15)
--- NOTE | 2022-05-12 13:17 | ED ---
General Adult HPI - General Chief complaint: Skin/Abscess/Foreign Body Stated complaint: Cellulitis Time Seen by Provider: 05/12/22 12:51 Source: patient, RN notes reviewed Mode of arrival: wheelchair Limitations: no limitations - History of Present Illness Initial comments: Patient is a pleasant 71-year-old female presenting to the emergency department with concern with sore to her right leg. Patient states this is been there several months. Patient does go to the wound center. Patient states she saw Dr. Harp today who recommended she come to the emergency department. Patient does have pain that is moderate to severe and persistent. Pain increases with touch. No fever. No history of diabetes or similar symptoms previously. - Related Data Home Medications Medication Instructions Recorded Confirmed Atorvastatin [Lipitor] 40 mg PO HS 08/03/19 08/16/21 Furosemide [Lasix] 20 mg PO DAILY 08/04/19 08/16/21 Cyanocobalamin (Vitamin B-12) 1,000 mcg PO DAILY 06/16/21 08/16/21 [Vitamin B-12] Metoprolol Tartrate [Lopressor] 25 mg PO HS 06/16/21 08/16/21 Metoprolol Tartrate [Lopressor] 50 mg PO DAILY 06/16/21 08/16/21 Potassium Chloride [Klor-Con 20] 20 meq PO DAILY 06/16/21 08/16/21 lisinopriL [Prinivil] 20 mg PO BID 06/16/21 08/16/21 Albuterol Sulfate [Proair Hfa] 2 puff INHALATION RT-Q6H PRN 07/22/21 08/16/21 Aspirin EC [Ecotrin Low Dose] 81 mg PO DAILY 07/22/21 08/16/21 Cholecalciferol [Vitamin D3 (125 125 mcg PO DAILY 07/22/21 08/16/21 Mcg = 5000 Iu)] Propafenone HCl 150 mg PO TID 07/22/21 08/16/21 Warfarin [Coumadin] 3 mg PO DAILY 08/16/21 08/16/21 Previous Rx's Medication Instructions Recorded Budesonide-Formot 160-4.5 Mcg 2 puff INHALATION RT-BID #1 unit 06/18/21 [Symbicort 160-4.5 Mcg Inhaler] Warfarin [Coumadin] 6 mg PO DAILY #90 tab 12/22/21 cefUROXime axetiL [Ceftin] 500 mg PO BID 10 Days #20 tab 07/27/21 Sulfamethox-Tmp 800-160Mg [Bactrim 1 tab PO Q12HR 7 Days #14 tab 04/08/22 DS 800-160 mg] Allergies Allergy/AdvReac Type Severity Reaction Status Date / Time zinc oxide Allergy Rash/Hives Verified 05/12/22 10:41 Review of Systems ROS Statement: Those systems with pertinent positive or pertinent negative responses have been documented in the HPI. ROS Other: All systems not noted in ROS Statement are negative. Constitutional: Denies: fever Eyes: Denies: eye pain ENT: Denies: ear pain Respiratory: Denies: cough Cardiovascular: Denies: chest pain Endocrine: Denies: fatigue Gastrointestinal: Denies: abdominal pain Genitourinary: Denies: urgency Musculoskeletal: Denies: back pain Skin: Reports: as per HPI Past Medical History Past Medical History: Atrial Fibrillation, Asthma, Hyperlipidemia, Hypertension, Osteoarthritis (OA), Sleep Apnea/CPAP/BIPAP, Vascular Disorder Additional Past Medical History / Comment(s): CPAP use, cardiac murmur, bilateral legs/feet edema at times, pulmonary fibrosis, aortic aneurysm. Recent hospitalization for "UTI causing A-Fib flare-up". History of Any Multi-Drug Resistant Organisms: None Reported Past Surgical History: Bladder Surgery, Hysterectomy, Tonsillectomy Additional Past Surgical History / Comment(s): BLADDER SLING, EGD, colonoscopy, R carpal tunnel release, R elbow release. Past Anesthesia/Blood Transfusion Reactions: No Reported Reaction Past Psychological History: Anxiety, Depression Smoking Status: Never smoker Past Alcohol Use History: Rare Past Drug Use History: None Reported - Past Family History Father Family Medical History: Coronary Artery Disease (CAD), Myocardial Infarction ([place]) Additional Family Medical History / Comment(s): Father had heart disease and had a [place] in his 50s. Mother Family Medical History: Cancer Additional Family Medical History / Comment(s): Mother had cancer but pt does not recall type. Sister(s) Family Medical History: Cancer, Deep Vein Thrombosis (DVT), Pulmonary Embolus Additional Family Medical History / Comment(s): SISTER #1 UTERINE CA. SISTER #2 UTERINE AND BREAST CA. Sister#3 2-PEs, 3- DVTs General Exam Limitations: no limitations General appearance: alert, in no apparent distress Head exam: Present: normocephalic Eye exam: Present: normal appearance Neck exam: Present: normal inspection Respiratory exam: Present: normal lung sounds bilaterally Cardiovascular Exam: Present: regular rate, normal rhythm Expanded Peripheral pulses: 2+: Dorsalis Pedis (R), Dorsalis Pedis (L) GI/Abdominal exam: Present: soft. Absent: tenderness Extremities exam: Present: normal inspection Neurological exam: Present: alert Psychiatric exam: Present: normal affect, normal mood Skin exam: Present: other (Right lower tibial region with a large ulcer, approximately 10 cm. Central area stage II/3. There is tenderness. There is some erythema.) Course Vital Signs 05/12/22 10:38 Temperature 98.0 F Pulse Rate 94 Respiratory 18 Rate Blood Pressure 165/97 O2 Sat by Pulse 98 Oximetry Medical Decision Making - Medical Decision Making Patient updated. Case discussed with Dr. Andre, who will admit covering hospital call. - Lab Data Result diagrams: 05/12/22 14:29 - Radiology Data Radiology results: image reviewed (X-ray shows soft tissue edema) Disposition Clinical Impression: Cellulitis of right lower extremity, Leg ulcer Disposition: ADMITTED IP TO THIS HOSP Is patient prescribed a controlled substance at d/c from ED?: No Time of Disposition: 13:35
[2022-05-12] MEDS ORDERED: VANCOMYCIN IV PER PHARMACY 1 EACH MISC MISCELLANE PRN (13:32)
[2022-05-12] MEDS ORDERED: HYDROcodone/APAP 5-325MG 1 EACH TAB PO PRN (13:35)
[2022-05-12] MEDS ORDERED: NALOXONE 0.4 MG/ML 1 ML VIAL IV PRN (13:35)
[2022-05-12] MEDS ORDERED: ACETAMINOPHEN TAB 325 MG TAB PO PRN (13:35)
[2022-05-12] MEDS ORDERED: VANCOMYCIN 2,000 MG in SODIUM CHLORIDE 0.9% 500 ML 500 ML IVPB ONE (14:30)
[2022-05-12] MEDS: SODIUM CHLORIDE 0.9% 1,000 ML IV SCH (14:31)
[2022-05-12] MEDS: CEFEPIME 2 GM in SODIUM CHLORIDE 0.9% 100 ML IVPB SCH (14:32)
[2022-05-12 14:51] LABS: Basophils % (A) 0 %; Eosinophils # (A) 0.2 k/uL (0-0.7); Eosinophils % (A) 3 %; HCT 34.2 % (34.0-46.0); HGB 11.4 gm/dL (11.4-16.0); Lymphocytes % (A) 17 %; MCH 31.6 pg (25.0-35.0); MCHC 33.4 g/dL (31.0-37.0); MCV 94.8 fL (80.0-100.0); Mean Platelet Volume 9.3; Monocytes # (A) 0.4 k/uL (0-1.0); Monocytes % (A) 6 %; Neutrophils # (A) 4.1 k/uL (1.3-7.7); Neutrophils % (A) 72 %; Platelet Count 235 k/uL (150-450); RDW 12.5 % (11.5-15.5); WBC 5.7 k/uL (3.8-10.6)
--- NOTE | 2022-05-12 14:56 | XR ---
EXAMINATION TYPE: XR tibia fibula RT DATE OF EXAM: 05/12/2022 COMPARISON: NONE HISTORY: Swelling and ulcer TECHNIQUE: Two views are submitted. FINDINGS: The osseous structures are intact. The joint spaces are preserved. Diffuse soft tissue edema. Soft tissue calcifications noted. There is arthropathy of the medial compartment of the knee joint. Calcan eal spur noted. No destructive changes. IMPRESSION: 1. No acute osseous abnormality. Diffuse soft tissue edema. 2. Arthropathy of the knee joint
[2022-05-12 15:04] LABS: ALT 15 U/L (4-34); AST 18 U/L (14-36); African American GFR (CKD) >90 (>60 ml/min/1.73 sqM); Albumin 3.7 g/dL (3.5-5.0); Alkaline Phosphatase 84 U/L (38-126); Anion Gap 12 mmol/L; Blood Urea Nitrogen 17 mg/dL (7-17); Calcium 8.9 mg/dL (8.4-10.2); Carbon Dioxide 23 mmol/L (22-30); Chloride 103 mmol/L (98-107); Glucose 93 mg/dL (74-99); Non-African American GFR(CKD) 87 (>60 ml/min/1.73 sqM); Potassium 4.1 mmol/L (3.5-5.1); Sodium 138 mmol/L (137-145); Total Bilirubin 0.4 mg/dL (0.2-1.3); Total Protein 6.7 g/dL (6.3-8.2)
[2022-05-12] MEDS ORDERED: ALBUTEROL NEBULIZED 2.5 MG/3 ML INHALATION PRN (16:48)
[2022-05-12] MEDS: CYANOCOBALAMIN 500 MCG TAB PO SCH (17:12)
[2022-05-12] MEDS: FUROSEMIDE 20 MG TAB PO SCH (17:13)
[2022-05-12] MEDS: CHOLECALCIFEROL 125 MCG (5000 IU) TABLET PO SCH (17:13)
[2022-05-12] MEDS: GABAPENTIN 100 MG CAP PO SCH ×2 (17:13→22:05)
[2022-05-12] MEDS: POTASSIUM CHLORIDE ER 20 MEQ TAB.ER PO SCH (17:13)
[2022-05-12] MEDS: MULTIVITAMINS, THERA 1 EACH TAB PO SCH (17:13)
[2022-05-12] MEDS: ASPIRIN 81 MG PO SCH (17:13)
--- NOTE | 2022-05-12 17:41 | P.HPIM ---
History of Present Illness H&P Date: 05/12/22 Patient is a pleasant 71-year-old female with past medical history of atrial fibrillation on Coumadin, asthma, OA, MATTEO, hypertension, peripheral arterial disease, obesity and hyperlipidemia who presents to [facility] ER after being evaluated the wound care center. She has been getting treatment for open wounds on her right lower extremity. Due to the wound becoming more inflamed edematous with more drainage wound care recommended patient be treated in the hospital with IV antibiotics. Patient denies fevers or chills. Patient further denies nausea vomiting diarrhea or constipation. Patient is resting in bed comfortably has no other complaints. Review of Systems A 14 point restraints review of systems was assessed patient was only positive for those assessment HPI Past Medical History Past Medical History: Atrial Fibrillation, Asthma, Hyperlipidemia, Hypertension, Osteoarthritis (OA), Sleep Apnea/CPAP/BIPAP, Vascular Disorder Additional Past Medical History / Comment(s): CPAP use, cardiac murmur, bilateral legs/feet edema at times, pulmonary fibrosis, aortic aneurysm. Recent hospitalization for "UTI causing A-Fib flare-up". History of Any Multi-Drug Resistant Organisms: None Reported Past Surgical History: Bladder Surgery, Hysterectomy, Tonsillectomy Additional Past Surgical History / Comment(s): BLADDER SLING, EGD, colonoscopy, R carpal tunnel release, R elbow release. Past Anesthesia/Blood Transfusion Reactions: No Reported Reaction Past Psychological History: Anxiety, Depression Smoking Status: Never smoker Past Alcohol Use History: Rare Past Drug Use History: None Reported - Past Family History Father Family Medical History: Coronary Artery Disease (CAD), Myocardial Infarction ([place]) Additional Family Medical History / Comment(s): Father had heart disease and had a [place] in his 50s. Mother Family Medical History: Cancer Additional Family Medical History / Comment(s): Mother had cancer but pt does not recall type. Sister(s) Family Medical History: Cancer, Deep Vein Thrombosis (DVT), Pulmonary Embolus Additional Family Medical History / Comment(s): SISTER #1 UTERINE CA. SISTER #2 UTERINE AND BREAST CA. Sister#3 2-PEs, 3- DVTs Medications and Allergies Home Medications Medication Instructions Recorded Confirmed Type Atorvastatin [Lipitor] 40 mg PO HS 08/03/19 05/12/22 History Furosemide [Lasix] 20 mg PO DAILY 08/04/19 05/12/22 History Cyanocobalamin (Vitamin B-12) 1,000 mcg PO DAILY 06/16/21 05/12/22 History [Vitamin B-12] Metoprolol Tartrate [Lopressor] 25 mg PO BID 06/16/21 05/12/22 History Potassium Chloride [Klor-Con 20] 20 meq PO DAILY 06/16/21 05/12/22 History lisinopriL [Prinivil] 20 mg PO BID 06/16/21 05/12/22 History Albuterol Sulfate [Proair Hfa] 2 puff INHALATION RT-Q6H PRN 07/22/21 05/12/22 History Aspirin EC [Ecotrin Low Dose] 81 mg PO DAILY 07/22/21 05/12/22 History Cholecalciferol [Vitamin D3 (125 125 mcg PO DAILY 07/22/21 05/12/22 History Mcg = 5000 Iu)] Propafenone HCl 150 mg PO TID 07/22/21 05/12/22 History Warfarin [Coumadin] 3 mg PO SUTUTHSA@1800 08/16/21 05/12/22 History Fluticasone Propion/Salmeterol 2 puff INHALATION RT-DAILY 05/12/22 05/12/22 History [Wixela 250-50 Inhub] Gabapentin [Neurontin] 100 mg PO TID 05/12/22 05/12/22 History Multivit-Min/Iron/Folic/Lutein 1 tab PO DAILY 05/12/22 05/12/22 History [Centrum Silver Women Tablet] Warfarin [Coumadin] 6 mg PO MOWEFR@1800 05/12/22 05/12/22 History Allergies Allergy/AdvReac Type Severity Reaction Status Date / Time zinc oxide Allergy Rash/Hives Verified 05/12/22 10:41 Physical Exam Osteopathic Statement: *. No significant issues noted on an osteopathic structural exam other than those noted in the History and Physical/Consult. Vitals: Vital Signs Temp Pulse Resp BP Pulse Ox 05/12/22 17:17 71 16 142/96 99 05/12/22 10:38 98.0 F 94 18 165/97 98 Intake and Output 05/12/22 05/12/22 05/12/22 06:59 14:59 22:59 Other: Weight 127.006 kg General: [non toxic], [no distress], [appears at stated age] Derm: [warm], [dry] Head: [atraumatic], [normocephalic], [symmetric] Eyes: [EOMI], [no lid lag], [anicteric sclera] Mouth: [no lip lesion], [mucus membranes moist] Cardiovascular: [S1S2 reg], [no murmur], [positive posterior tibial pulse bilateral], Lungs: [CTA bilateral], [no rhonchi, no rales] , [no accessory muscle use] Abdominal: [soft], [ nontender to palpation], [no guarding], [no appreciable organomegaly] Ext: [no gross muscle atrophy], [large stage II ulcer right lower extremity with increased erythema edema and drainage], [no contractures] Neuro: [ CN II-XI grossly intact], [no focal neuro deficits] Psych: [Alert], [oriented], [appropriate affect] Results CBC & Chem 7: 05/12/22 14:29 05/12/22 14:29 Labs: Abnormal Lab Results - Last 24 Hours (Table) 05/12/22 Range/Units 14:29 RBC 3.60 L (3.80-5.40) m/uL Thrombosis Risk Factor Assmnt - DVT/VTE Prophylaxis DVT/VTE Prophylaxis: Pharmacologic Prophylaxis ordered Assessment and Plan Assessment: 1. Cellulitis with open wound IV antibiotics vancomycin and cefepime Consult wound care Culture wound Consult ID 2. History of A. fib status post ablation Coumadin with pharmacy to dose 3. History of hypertension Resume home medication 4. History of asthma Resume inhalers 5. History of peripheral arterial disease Resume aspirin and statin 6. History of hyperlipidemia Resume aspirin and statin 7. GI DVT prophylaxis 8. A.m. labs Greater than 35 minutes spent coordinating care And counseling patient. Anticipated length of stay is greater than [address] Otto Disposition: Home with home care Time with Patient: Greater than 30
[2022-05-12 17:55] LABS: INR 2.3 (<1.2); Prothrombin Time 22.8 sec (9.0-12.0)
[2022-05-12] MEDS ORDERED: WARFARIN 3 MG TAB PO ONE (18:30)
[2022-05-12] MEDS: ATORVASTATIN 40 MG TAB PO SCH (19:54)
[2022-05-12] MEDS: METOPROLOL TARTRATE 25 MG TAB PO SCH (19:54)
[2022-05-12] MEDS: lisinopriL 20 MG TAB PO SCH (19:54)
[2022-05-12] MEDS: PROPAFENONE 150 MG TAB PO SCH ×2 (19:54→22:05)
[2022-05-12] MEDS: MORPHINE SULFATE 4 MG/ML SYRINGE IV PRN (19:56)
[2022-05-13] MEDS: MORPHINE SULFATE 4 MG/ML SYRINGE IV PRN ×2 (01:42→15:20)
[2022-05-13] MEDS: CEFEPIME 2 GM in SODIUM CHLORIDE 0.9% 100 ML IVPB SCH ×2 (01:43→15:10)
[2022-05-13] MEDS: SYMBICORT 80-4.5 MCG INHALER INHALATION SCH ×2 (07:48→19:52)
[2022-05-13 09:07] LABS: Basophils # (A) 0.02 X 10*3/uL (0.00-0.10); Basophils % (A) 0.4 %; Eosinophils # (A) 0.32 X 10*3/uL (0.04-0.35); HCT 33.3 % (37.2-46.3); HGB 10.8 g/dL (12.0-15.0); Immature Grans, Automated 0.2 %; Lymphocytes # (A) 0.77 X 10*3/uL (0.90-5.00); Lymphocytes % (A) 14.4 %; MCH 31.5 pg (27.0-32.0); MCHC 32.4 g/dL (32.0-37.0); MCV 97.1 fL (80.0-97.0); Mean Platelet Volume 11.8 fL (9.5-12.2); Monocytes # (A) 0.56 X 10*3/uL (0.20-1.00); Monocytes % (A) 10.5 %; NRBC Per 100 WBC 0 /100 WBCS (0.0-0.0); Neutrophils # (A) 3.67 X 10*3/uL (1.80-7.70); Neutrophils % (A) 68.5 %; Platelet Count 247 X 10*3/uL (140-440); RBC 3.43 X 10*6/uL (4.10-5.20); RDW 12.7 % (11.5-14.5); WBC 5.35 X 10*3/uL (4.50-10.00)
[2022-05-13 09:12] LABS: INR 2.22 (0.90-1.11); Prothrombin Time 23.5 sec (9.9-11.9)
[2022-05-13 09:22] LABS: ALT 11 U/L (8-44); AST 12 U/L (13-35); African American GFR (CKD) 100.9 (60.0-200.0); Albumin 3.3 g/dL (3.8-4.9); Albumin/Globulin Ratio 1.35 (1.60-3.17); Alkaline Phosphatase 70 U/L (41-126); BUN/Creat Ratio 21.54 Ratio (12.00-20.00); Blood Urea Nitrogen 14.8 mg/dL (9.0-27.0); Calcium 8.5 mg/dL (8.7-10.3); Carbon Dioxide 26.1 mmol/L (20.0-27.5); Chloride 104 mmol/L (96-109); Globulin 2.5 g/dL (1.6-3.3); Glucose 96 mg/dL (70-110); Non-African American GFR(CKD) 87.1 (60.0-200.0); Potassium 4.8 mmol/L (3.5-5.5); Sodium 138 mmol/L (135-145); Total Protein 5.8 g/dL (6.2-8.2)
[2022-05-13] MEDS: MULTIVITAMINS, THERA 1 EACH TAB PO SCH (09:48)
[2022-05-13] MEDS: CHOLECALCIFEROL 125 MCG (5000 IU) TABLET PO SCH (09:48)
[2022-05-13] MEDS: PROPAFENONE 150 MG TAB PO SCH ×3 (09:48→21:34)
[2022-05-13] MEDS: METOPROLOL TARTRATE 25 MG TAB PO SCH ×2 (09:48→21:34)
[2022-05-13] MEDS: FUROSEMIDE 20 MG TAB PO SCH (09:48)
[2022-05-13] MEDS: POTASSIUM CHLORIDE ER 20 MEQ TAB.ER PO SCH (09:48)
[2022-05-13] MEDS: VANCOMYCIN 2,250 MG in SODIUM CHLORIDE 0.9% 500 ML 500 ML IVPB SCH ×2 (09:49→23:13)
[2022-05-13] MEDS: lisinopriL 20 MG TAB PO SCH ×2 (09:49→21:34)
[2022-05-13] MEDS: CYANOCOBALAMIN 500 MCG TAB PO SCH (09:49)
[2022-05-13] MEDS: ASPIRIN 81 MG PO SCH (09:49)
[2022-05-13] MEDS: GABAPENTIN 100 MG CAP PO SCH ×3 (09:49→21:34)
[2022-05-13] MEDS: SODIUM CHLORIDE 0.9% 1,000 ML IV SCH ×2 (09:49→17:03)
[2022-05-13 10:55] LABS: Erythrocyte Sedimentation Rate 48 mm/Hr (0-30)
--- NOTE | 2022-05-13 12:51 | P.PN ---
Subjective Progress Note Date: 05/13/22 The patient was seen at bedside, no acute events overnight. Objective - Vital Signs Vital signs: Vital Signs Temp 98.0 F 05/13/22 04:31 Pulse 68 05/13/22 08:30 Resp 16 05/13/22 08:30 BP 116/76 05/13/22 08:00 Pulse Ox 97 05/13/22 04:31 FiO2 Intake & Output 05/12/22 05/13/22 05/13/22 18:59 06:59 18:59 Intake Total 240 Balance 240 Weight 127.006 kg Intake: Oral 240 Other: # Voids 1 1 - Exam General: [non toxic], [no distress], [appears at stated age] Derm: [warm], [dry] Head: [atraumatic], [normocephalic], [symmetric] Eyes: [EOMI], [no lid lag], [anicteric sclera] Mouth: [no lip lesion], [mucus membranes moist] Cardiovascular: [S1S2 reg], [no murmur], [positive posterior tibial pulse bilateral], Lungs: [CTA bilateral], [no rhonchi, no rales] , [no accessory muscle use] Abdominal: [soft], [ nontender to palpation], [no guarding], [no appreciable organomegaly] Ext: [no gross muscle atrophy], [large stage II ulcer right lower extremity with increased erythema edema and drainage], [no contractures] Neuro: [ CN II-XI grossly intact], [no focal neuro deficits] Psych: [Alert], [oriented], [appropriate affect] - Labs CBC & Chem 7: 05/13/22 05:19 05/13/22 05:19 Labs: Abnormal Lab Results - Last 24 Hours (Table) 05/12/22 05/12/22 05/13/22 Range/Units 14:29 17:28 05:19 RBC 3.60 L 3.43 L (3.80-5.40) m/uL Hgb 10.8 L (12.0-15.0) g/dL Hct 33.3 L (37.2-46.3) % MCV 97.1 H (80.0-97.0) fL Lymphocytes # 0.77 L (0.90-5.00) X 10*3/uL ESR 48 H (0-30) mm/Hr PT 22.8 H (9.0-12.0) sec INR 2.3 H (<1.2) Anion Gap (10.00-18.00) mmol/L BUN/Creatinine Ratio (12.00-20.00) Ratio Calcium (8.7-10.3) mg/dL AST (13-35) U/L C-Reactive Protein (0.00-0.80) mg/dL Total Protein (6.2-8.2) g/dL Albumin (3.8-4.9) g/dL Albumin/Globulin Ratio (1.60-3.17) g/dL 05/13/22 05/13/22 Range/Units 05:19 05:19 RBC (3.80-5.40) m/uL Hgb (12.0-15.0) g/dL Hct (37.2-46.3) % MCV (80.0-97.0) fL Lymphocytes # (0.90-5.00) X 10*3/uL ESR (0-30) mm/Hr PT 23.5 H (9.0-12.0) sec INR 2.22 H (<1.2) Anion Gap 7.80 L (10.00-18.00) mmol/L BUN/Creatinine Ratio 21.54 H (12.00-20.00) Ratio Calcium 8.5 L (8.7-10.3) mg/dL AST 12 L (13-35) U/L C-Reactive Protein 1.20 H (0.00-0.80) mg/dL Total Protein 5.8 L (6.2-8.2) g/dL Albumin 3.3 L (3.8-4.9) g/dL Albumin/Globulin Ratio 1.35 L (1.60-3.17) g/dL Microbiology - Last 24 Hours (Table) 05/12/22 14:29 Gram Stain - Preliminary Leg - Right Wound Culture - Preliminary Assessment and Plan Assessment: 1. Cellulitis with open wound IV antibiotics vancomycin and cefepime Consult wound care Culture wound Consult ID 2. History of A. fib status post ablation Coumadin with pharmacy to dose 3. History of hypertension Resume home medication 4. History of asthma Resume inhalers 5. History of peripheral arterial disease Resume aspirin and statin 6. History of hyperlipidemia Resume aspirin and statin 7. GI DVT prophylaxis 8. A.m. labs Greater than 35 minutes spent coordinating care And counseling patient. Anticipated length of stay is greater than [address] Otto Disposition: Home with home care Time with Patient: Greater than 30
[2022-05-13] MEDS ORDERED: WARFARIN 3 MG TAB PO ONE (18:00)
[2022-05-13] MEDS: ATORVASTATIN 40 MG TAB PO SCH (21:34)
[2022-05-14] MEDS: CEFEPIME 2 GM in SODIUM CHLORIDE 0.9% 100 ML IVPB SCH ×2 (02:51→11:43)
[2022-05-14 05:44] LABS: INR 2.6 (<1.2); Prothrombin Time 26.4 sec (9.0-12.0)
[2022-05-14] MEDS: METOPROLOL TARTRATE 25 MG TAB PO SCH ×2 (08:07→20:58)
[2022-05-14] MEDS: ASPIRIN 81 MG PO SCH (08:07)
[2022-05-14] MEDS: CHOLECALCIFEROL 125 MCG (5000 IU) TABLET PO SCH (08:07)
[2022-05-14] MEDS: CYANOCOBALAMIN 500 MCG TAB PO SCH (08:07)
[2022-05-14] MEDS: GABAPENTIN 100 MG CAP PO SCH ×3 (08:07→20:58)
[2022-05-14] MEDS: lisinopriL 20 MG TAB PO SCH ×2 (08:07→23:17)
[2022-05-14] MEDS: MULTIVITAMINS, THERA 1 EACH TAB PO SCH (08:07)
[2022-05-14] MEDS: PROPAFENONE 150 MG TAB PO SCH ×3 (08:08→23:17)
[2022-05-14] MEDS: POTASSIUM CHLORIDE ER 20 MEQ TAB.ER PO SCH (08:08)
[2022-05-14] MEDS: FUROSEMIDE 20 MG TAB PO SCH (08:08)
[2022-05-14] MEDS: SODIUM CHLORIDE 0.9% 1,000 ML IV SCH (08:30)
[2022-05-14] MEDS: SYMBICORT 80-4.5 MCG INHALER INHALATION SCH (08:33)
--- NOTE | 2022-05-14 09:30 | P.CONS ---
History of Present Illness - Reason for Consult Consult date: 05/13/22 - History of Present Illness Patient is a 71-year-old female with a past medical history significant for hypertension hyperlipidemia obesity atrial fibrillation currently has been dealing with a nonhealing wound to the right lower extremity with the patient has for a couple of weeks now patient mention he started as a blister that has opened up leading to formation of this ulceration and is under care of Dr. Recinos had to [facility] wound care center patient was evaluated in the wound care center yesterday and noticed to have increasing swelling redness of the right lower extremity with concern for cellulitis patient complaining of increasing pain to right lower extremity describing to be sharp 7-8 out of 10 and no radiation patient also complaining of some drainage from the right lower extremity wound on presentation to the hospital the patient was afebrile patient did have a normal white count kidney function has been normal CRP was mildly elevated patient did have cultures obtained from the right lower leg patient was started on cefepime and vancomycin infectious disease was consulted for further management of antibiotic therapy patient did have x-rays of the right tibia- fibula no acute abnormality diffuse soft tissue edema Past Medical History Past Medical History: Atrial Fibrillation, Asthma, Hyperlipidemia, Hypertension, Osteoarthritis (OA), Sleep Apnea/CPAP/BIPAP, Vascular Disorder Additional Past Medical History / Comment(s): CPAP use, cardiac murmur, bilateral legs/feet edema at times, pulmonary fibrosis, aortic aneurysm. Recent hospitalization for "UTI causing A-Fib flare-up". History of Any Multi-Drug Resistant Organisms: None Reported Past Surgical History: Bladder Surgery, Hysterectomy, Tonsillectomy Additional Past Surgical History / Comment(s): BLADDER SLING, EGD, colonoscopy, R carpal tunnel release, R elbow release. Past Anesthesia/Blood Transfusion Reactions: No Reported Reaction Past Psychological History: Anxiety, Depression Smoking Status: Never smoker Past Alcohol Use History: Rare Past Drug Use History: None Reported - Past Family History Father Family Medical History: Coronary Artery Disease (CAD), Myocardial Infarction ([place]) Additional Family Medical History / Comment(s): Father had heart disease and had a [place] in his 50s. Mother Family Medical History: Cancer Additional Family Medical History / Comment(s): Mother had cancer but pt does not recall type. Sister(s) Family Medical History: Cancer, Deep Vein Thrombosis (DVT), Pulmonary Embolus Additional Family Medical History / Comment(s): SISTER #1 UTERINE CA. SISTER #2 UTERINE AND BREAST CA. Sister#3 2-PEs, 3- DVTs Medications and Allergies Home Medications Medication Instructions Recorded Confirmed Type Atorvastatin [Lipitor] 40 mg PO HS 08/03/19 05/12/22 History Furosemide [Lasix] 20 mg PO DAILY 08/04/19 05/12/22 History Cyanocobalamin (Vitamin B-12) 1,000 mcg PO DAILY 06/16/21 05/12/22 History [Vitamin B-12] Metoprolol Tartrate [Lopressor] 25 mg PO BID 06/16/21 05/12/22 History Potassium Chloride [Klor-Con 20] 20 meq PO DAILY 06/16/21 05/12/22 History lisinopriL [Prinivil] 20 mg PO BID 06/16/21 05/12/22 History Albuterol Sulfate [Proair Hfa] 2 puff INHALATION RT-Q6H PRN 07/22/21 05/12/22 History Aspirin EC [Ecotrin Low Dose] 81 mg PO DAILY 07/22/21 05/12/22 History Cholecalciferol [Vitamin D3 (125 125 mcg PO DAILY 07/22/21 05/12/22 History Mcg = 5000 Iu)] Propafenone HCl 150 mg PO TID 07/22/21 05/12/22 History Warfarin [Coumadin] 3 mg PO SUTUTHSA@1800 08/16/21 05/12/22 History Fluticasone Propion/Salmeterol 2 puff INHALATION RT-DAILY 05/12/22 05/12/22 History [Wixela 250-50 Inhub] Gabapentin [Neurontin] 100 mg PO TID 05/12/22 05/12/22 History Multivit-Min/Iron/Folic/Lutein 1 tab PO DAILY 05/12/22 05/12/22 History [Centrum Silver Women Tablet] Warfarin [Coumadin] 6 mg PO MOWEFR@1800 05/12/22 05/12/22 History Allergies Allergy/AdvReac Type Severity Reaction Status Date / Time zinc oxide Allergy Rash/Hives Verified 05/12/22 10:41 Physical Exam Vitals: Vital Signs Temp Pulse Pulse Resp BP BP Pulse Ox 05/13/22 08:30 68 16 10/08/22 08:00 70 116/76 05/13/22 04:31 98.0 F 68 16 109/63 97 05/12/22 19:40 16 05/12/22 17:17 71 16 142/96 99 Intake and Output 05/12/22 05/13/22 05/13/22 22:59 06:59 14:59 Intake Total 240 Balance 240 Intake: Oral 240 Other: # Voids 1 1 Weight 127.006 kg Results CBC & Chem 7: 05/13/22 05:19 05/13/22 05:19 Labs: Abnormal Lab Results - Last 24 Hours (Table) 05/12/22 05/12/22 05/13/22 Range/Units 14:29 17:28 05:19 RBC 3.60 L 3.43 L (3.80-5.40) m/uL Hgb 10.8 L (12.0-15.0) g/dL Hct 33.3 L (37.2-46.3) % MCV 97.1 H (80.0-97.0) fL Lymphocytes # 0.77 L (0.90-5.00) X 10*3/uL ESR 48 H (0-30) mm/Hr PT 22.8 H (9.0-12.0) sec INR 2.3 H (<1.2) Anion Gap (10.00-18.00) mmol/L BUN/Creatinine Ratio (12.00-20.00) Ratio Calcium (8.7-10.3) mg/dL AST (13-35) U/L C-Reactive Protein (0.00-0.80) mg/dL Total Protein (6.2-8.2) g/dL Albumin (3.8-4.9) g/dL Albumin/Globulin Ratio (1.60-3.17) g/dL 05/13/22 05/13/22 Range/Units 05:19 05:19 RBC (3.80-5.40) m/uL Hgb (12.0-15.0) g/dL Hct (37.2-46.3) % MCV (80.0-97.0) fL Lymphocytes # (0.90-5.00) X 10*3/uL ESR (0-30) mm/Hr PT 23.5 H (9.0-12.0) sec INR 2.22 H (<1.2) Anion Gap 7.80 L (10.00-18.00) mmol/L BUN/Creatinine Ratio 21.54 H (12.00-20.00) Ratio Calcium 8.5 L (8.7-10.3) mg/dL AST 12 L (13-35) U/L C-Reactive Protein 1.20 H (0.00-0.80) mg/dL Total Protein 5.8 L (6.2-8.2) g/dL Albumin 3.3 L (3.8-4.9) g/dL Albumin/Globulin Ratio 1.35 L (1.60-3.17) g/dL Microbiology - Last 24 Hours (Table) 05/12/22 14:29 Gram Stain - Preliminary Leg - Right Wound Culture - Preliminary Assessment and Plan Plan: 1patient with a right lower extremity venous stasis ulcer and concerning for secondary cellulitis in this patient did have local cultures obtained which are currently pending more likely from gram-positive skin ashley such as strep and staph aureus 2local wound care with the [place] to the slough tissue followed by moist dressing and mild compression. 3continue with the vancomycin cefepime while waiting for the culture to finalize. We will follow on clinical condition and cultures to further adjust medication if needed Thank you for this consultation will follow this patient along with you
[2022-05-14 10:40] LABS: Basophils # (A) 0.02 X 10*3/uL (0.00-0.10); Basophils % (A) 0.4 %; Eosinophils # (A) 0.26 X 10*3/uL (0.04-0.35); Eosinophils % (A) 5.3 %; HCT 31.7 % (37.2-46.3); HGB 10.2 g/dL (12.0-15.0); Immature Grans, Automated 0.2 %; Lymphocytes # (A) 0.82 X 10*3/uL (0.90-5.00); Lymphocytes % (A) 16.8 %; MCH 31.1 pg (27.0-32.0); MCHC 32.2 g/dL (32.0-37.0); MCV 96.6 fL (80.0-97.0); Mean Platelet Volume 11.8 fL (9.5-12.2); Monocytes # (A) 0.55 X 10*3/uL (0.20-1.00); Monocytes % (A) 11.2 %; NRBC Per 100 WBC 0 /100 WBCS (0.0-0.0); Neutrophils # (A) 3.23 X 10*3/uL (1.80-7.70); Neutrophils % (A) 66.1 %; Platelet Count 224 X 10*3/uL (140-440); RBC 3.28 X 10*6/uL (4.10-5.20); RDW 12.6 % (11.5-14.5); WBC 4.89 X 10*3/uL (4.50-10.00)
[2022-05-14 11:51] LABS: Magnesium 2.1 mg/dL (1.5-2.4); Phosphorus 3.1 mg/dL (2.4-5.1)
[2022-05-14 12:06] LABS: African American GFR (CKD) 90.3 (60.0-200.0); Anion Gap 8.8 mmol/L (10.00-18.00); BUN/Creat Ratio 16.75 Ratio (12.00-20.00); Blood Urea Nitrogen 12.8 mg/dL (9.0-27.0); Calcium 8.2 mg/dL (8.7-10.3); Carbon Dioxide 23.3 mmol/L (20.0-27.5); Non-African American GFR(CKD) 77.9 (60.0-200.0); Potassium 4.3 mmol/L (3.5-5.5)
[2022-05-14] MEDS: MORPHINE SULFATE 4 MG/ML SYRINGE IV PRN (13:47)
--- NOTE | 2022-05-14 13:55 | P.PN ---
Subjective Progress Note Date: 05/14/22 The patient was seen at bedside, no acute events overnight. Objective - Vital Signs Vital signs: Vital Signs Temp 97.7 F 05/14/22 10:58 Pulse 68 05/14/22 10:58 Resp 18 05/14/22 10:58 BP 109/75 05/14/22 10:58 Pulse Ox 95 05/14/22 10:58 FiO2 Intake & Output 05/13/22 05/14/22 05/14/22 18:59 06:59 18:59 Intake Total 360 1320 Balance 360 1320 Intake: Intake, IV Titration 840 Amount Cefepime 2 gm In Sodium 100 Chloride 0.9% 100 ml @ 25 mls/hr IVPB Q12H [facility] Rx# :[id number] Sodium Chloride 0.9% 1, 240 000 ml @ 75 mls/hr IV . [id number] [facility] Rx#:[id number] Vancomycin 2,250 mg In 500 Sodium Chloride 0.9% 500 ml 500 ml @ 167 mls/hr IVPB Q16H [facility] Rx#: [id number] Oral 360 480 Other: Voiding Method Toilet Toilet # Voids 4 2 3 # Bowel Movements 2 1 1 - Exam General: [non toxic], [no distress], [appears at stated age] Derm: [warm], [dry] Head: [atraumatic], [normocephalic], [symmetric] Eyes: [EOMI], [no lid lag], [anicteric sclera] Mouth: [no lip lesion], [mucus membranes moist] Cardiovascular: [S1S2 reg], [no murmur], [positive posterior tibial pulse bilateral], Lungs: [CTA bilateral], [no rhonchi, no rales] , [no accessory muscle use] Abdominal: [soft], [ nontender to palpation], [no guarding], [no appreciable organomegaly] Ext: [no gross muscle atrophy], [large stage II ulcer right lower extremity with increased erythema edema and drainage], [no contractures] Neuro: [ CN II-XI grossly intact], [no focal neuro deficits] Psych: [Alert], [oriented], [appropriate affect] - Labs CBC & Chem 7: 05/14/22 05:24 05/14/22 05:24 Labs: Abnormal Lab Results - Last 24 Hours (Table) 05/14/22 05/14/22 05/14/22 Range/Units 05:24 05:24 05:24 RBC 3.28 L (4.10-5.20) X 10*6/uL Hgb 10.2 L (12.0-15.0) g/dL Hct 31.7 L (37.2-46.3) % Lymphocytes # 0.82 L (0.90-5.00) X 10*3/uL PT 26.4 H (9.0-12.0) sec INR 2.6 H (<1.2) Anion Gap 8.80 L (10.00-18.00) mmol/L Calcium 8.2 L (8.7-10.3) mg/dL Microbiology - Last 24 Hours (Table) 05/12/22 14:14 Blood Culture - Preliminary Blood No Growth after 24 hours 05/12/22 14:30 Blood Culture - Preliminary Blood No Growth after 24 hours 05/12/22 14:29 Gram Stain - Preliminary Leg - Right Wound Culture - Preliminary Presumptive Staph aureus Assessment and Plan Assessment: 1. Cellulitis with open wound IV antibiotics vancomycin and cefepime Consult wound care Culture wound Consult ID 2. History of A. fib status post ablation Coumadin with pharmacy to dose 3. History of hypertension Resume home medication 4. History of asthma Resume inhalers 5. History of peripheral arterial disease Resume aspirin and statin 6. History of hyperlipidemia Resume aspirin and statin 7. GI DVT prophylaxis 8. A.m. labs Greater than 35 minutes spent coordinating care And counseling patient. Anticipated length of stay is greater than [address] Otto Disposition: Home with home care Time with Patient: Greater than 30
[2022-05-14] MEDS: VANCOMYCIN 2,250 MG in SODIUM CHLORIDE 0.9% 500 ML 500 ML IVPB SCH (17:44)
[2022-05-14] MEDS ORDERED: WARFARIN 3 MG TAB PO SCH (18:00)
[2022-05-14] MEDS: ATORVASTATIN 40 MG TAB PO SCH (20:58)
[2022-05-15] MEDS: CEFEPIME 2 GM in SODIUM CHLORIDE 0.9% 100 ML IVPB SCH (02:03)
[2022-05-15] MEDS ORDERED: VANCOMYCIN TROUGH DUE 1 EACH MISC MISCELLANE ONE (07:00)
[2022-05-15 07:05] LABS: INR 2.1 (<1.2); Prothrombin Time 20.8 sec (9.0-12.0)
[2022-05-15 07:09] LABS: African American GFR (CKD) >90 (>60 ml/min/1.73 sqM); Anion Gap 8 mmol/L; Blood Urea Nitrogen 14 mg/dL (7-17); Calcium 8.5 mg/dL (8.4-10.2); Carbon Dioxide 27 mmol/L (22-30); Chloride 104 mmol/L (98-107); Glucose 101 mg/dL (74-99); Non-African American GFR(CKD) 79 (>60 ml/min/1.73 sqM); Potassium 4.5 mmol/L (3.5-5.1); Sodium 139 mmol/L (137-145)
[2022-05-15] MEDS: SODIUM CHLORIDE 0.9% 1,000 ML IV SCH ×2 (07:23→09:59)
--- NOTE | 2022-05-15 08:22 | P.PN ---
Subjective Progress Note Date: 05/14/22 Principal diagnosis: Right lower extremity wound and cellulitis Patient is a 71-year-old female currently being treated for right lower extremity venous stasis ulcer at [facility] present to the hospital with right lower extremity cellulitis. On today's evaluation that is 05/14/2022 patient denies having any fever or any chills, patient pain to the right lower extremity wound is slightly decreased intensity, denies any chest pain or shortness of the cough no abdominal pain no diarrhea Objective - Vital Signs Vital signs: Vital Signs Temp 97.7 F 05/14/22 10:58 Pulse 68 05/14/22 10:58 Resp 18 05/14/22 10:58 BP 109/75 05/14/22 10:58 Pulse Ox 95 05/14/22 10:58 FiO2 Intake & Output 05/13/22 05/14/22 05/14/22 18:59 06:59 18:59 Intake Total 360 1320 Balance 360 1320 Intake: Intake, IV Titration 840 Amount Cefepime 2 gm In Sodium 100 Chloride 0.9% 100 ml @ 25 mls/hr IVPB Q12H NATALYA Rx# :[id number] Sodium Chloride 0.9% 1, 240 000 ml @ 75 mls/hr IV . [id number] NATALYA Rx#:[id number] Vancomycin 2,250 mg In 500 Sodium Chloride 0.9% 500 ml 500 ml @ 167 mls/hr IVPB Q16H NATALYA Rx#: [id number] Oral 360 480 Other: Voiding Method Toilet Toilet # Voids 4 2 3 # Bowel Movements 2 1 1 - Exam GENERAL DESCRIPTION: An elderly female lying in bed in no distress RESPIRATORY SYSTEM: Unlabored breathing , decreased breath sounds at bases HEART: S1 S2 regular rate and rhythm , ABDOMEN: Soft , no tenderness EXTREMITIES: Right lower extremity wound is currently dressed no drainage on the dressing - Labs CBC & Chem 7: 05/14/22 05:24 05/15/22 06:24 Labs: Abnormal Lab Results - Last 24 Hours (Table) 05/14/22 05/14/22 05/14/22 Range/Units 05:24 05:24 05:24 RBC 3.28 L (4.10-5.20) X 10*6/uL Hgb 10.2 L (12.0-15.0) g/dL Hct 31.7 L (37.2-46.3) % Lymphocytes # 0.82 L (0.90-5.00) X 10*3/uL PT 26.4 H (9.0-12.0) sec INR 2.6 H (<1.2) Anion Gap 8.80 L (10.00-18.00) mmol/L Calcium 8.2 L (8.7-10.3) mg/dL Microbiology - Last 24 Hours (Table) 05/12/22 14:14 Blood Culture - Preliminary Blood No Growth after 24 hours 05/12/22 14:30 Blood Culture - Preliminary Blood No Growth after 24 hours 05/12/22 14:29 Gram Stain - Preliminary Leg - Right Wound Culture - Preliminary Presumptive Staph aureus Assessment and Plan (1) Cellulitis of right lower extremity Current Visit: Yes Status: Acute Code(s): L03.115 - CELLULITIS OF RIGHT LOWER LIMB SNOMED Code(s): 159884790 (2) Leg ulcer Current Visit: Yes Status: Acute Code(s): L97.909 - NON-PRS CHRONIC ULC UNSP PRT OF UNSP LOW LEG W UNSP SEVERITY SNOMED Code(s): 69829904 Plan: 1patient with a right lower extremity venous stasis ulcer and concerning for secondary cellulitis in this patient did have local cultures obtained which are currently pending more likely from gram-positive skin ashley such as strep and staph aureus, her local cultures currently growing staph aureus with sensitivities pending 2local wound care with the Medihoney to the slough tissue followed by moist dressing and mild compression. 3patient to continue with the vancomycin cefepime while waiting for the culture to finalize.
[2022-05-15] MEDS: VANCOMYCIN 2,250 MG in SODIUM CHLORIDE 0.9% 500 ML 500 ML IVPB SCH (09:19)
[2022-05-15] MEDS: FUROSEMIDE 20 MG TAB PO SCH (09:24)
[2022-05-15] MEDS: CHOLECALCIFEROL 125 MCG (5000 IU) TABLET PO SCH (09:24)
[2022-05-15] MEDS: CYANOCOBALAMIN 500 MCG TAB PO SCH (09:24)
[2022-05-15] MEDS: MULTIVITAMINS, THERA 1 EACH TAB PO SCH (09:24)
[2022-05-15] MEDS: POTASSIUM CHLORIDE ER 20 MEQ TAB.ER PO SCH (09:24)
[2022-05-15] MEDS: lisinopriL 20 MG TAB PO SCH (09:24)
[2022-05-15] MEDS: GABAPENTIN 100 MG CAP PO SCH ×2 (09:24→16:45)
[2022-05-15] MEDS: PROPAFENONE 150 MG TAB PO SCH ×2 (09:24→16:45)
[2022-05-15] MEDS: METOPROLOL TARTRATE 25 MG TAB PO SCH (09:25)
[2022-05-15] MEDS: ASPIRIN 81 MG PO SCH (09:25)
[2022-05-15 10:35] LABS: Basophils # (A) 0.02 X 10*3/uL (0.00-0.10); Basophils % (A) 0.4 %; Eosinophils # (A) 0.32 X 10*3/uL (0.04-0.35); Eosinophils % (A) 6.1 %; HCT 33.9 % (37.2-46.3); HGB 10.8 g/dL (12.0-15.0); Immature Grans, Automated 0.4 %; Lymphocytes # (A) 0.85 X 10*3/uL (0.90-5.00); Lymphocytes % (A) 16.1 %; MCH 31.4 pg (27.0-32.0); MCHC 31.9 g/dL (32.0-37.0); MCV 98.5 fL (80.0-97.0); Monocytes # (A) 0.58 X 10*3/uL (0.20-1.00); NRBC Per 100 WBC 0 /100 WBCS (0.0-0.0); Neutrophils # (A) 3.49 X 10*3/uL (1.80-7.70); Platelet Count 237 X 10*3/uL (140-440); RBC 3.44 X 10*6/uL (4.10-5.20); RDW 12.9 % (11.5-14.5); WBC 5.28 X 10*3/uL (4.50-10.00)
[2022-05-15 11:58] VITALS: BP 115/70; PULSE 69; RESP 18; TEMP 97.9
--- NOTE | 2022-05-15 16:49 | P.DS ---
Providers Date of admission: 05/12/22 13:37 Expected date of discharge: 05/15/22 Attending physician: Aaron Carter MD Consults: 05/12/22 13:35 Consult Physician Routine Consulting Provider: Alvarez Recinos Consult Reason/Comments: Leg ulcer, cellulitis Do you want consulting provider notified?: Yes 05/12/22 16:53 Consult Physician Routine Consulting Provider: Ca Wolff Consult Reason/Comments: cellultis Do you want consulting provider notified?: Yes Primary care physician: Tasha Leon Hospital Course: Discharge Diagnosis: MSSA Infected right lower extremity chronic venous ulcer with surrounding cellulitis Atrial fibrillation status post ablation on Coumadin Hypertension Asthma without exacerbation Peripheral arterial disease Dyslipidemia Obesity BMI 54.7 Hospital Course: Patient is a 71-year-old female with A. fib anticoagulated with Coumadin, asthma, hypertension, dyslipidemia, and a chronic right lower extremity ulcer who presented to the ER at the direction of the wound care center secondary to infected wound. Initial laboratory analysis was essentially unremarkable. She was admitted and placed on vancomycin. Infectious disease was consulted. Her blood was cultured which demonstrated MSSA. She had improvement in the local of her wound. She was ambulating well. She was determined stable for discharge home. Follow-up: Continue to follow up with wound care on Sunday, patient will complete an additional 7 days of Keflex, she will continue with her dressings to her chronic wound. Home health will continue we have asked him to see the patient Sunday and Sunday as they're supposed to be given that she follows with wound care on Fridays. Follow-up with Dr. Otto. ESR on discharge 48. Patient seen and examined at bedside. She has no complaints at this time. Denies any nausea, vomiting, diarrhea. She follows with wound care and feels comfortable going home. Vital signs reviewed and stable. General: nontoxic, no distress, appears at stated age Derm: warm, dry, ulceration on right lower [place], approximately 5 cm in diameter with good pink granulation tissue, bleeding Head: atraumatic, normocephalic, symmetric Eyes: EOMI, no lid lag, anicteric sclera Mouth: no lip lesion, mucus membranes moist Cardiovascular: S1S2 reg, no murmur, positive posterior tibial pulse bilateral, Lungs: CTA bilateral, no rhonchi, no rales , no accessory muscle use Abdominal: soft, nontender to palpation, no guarding, no appreciable organomegaly Ext: no gross muscle atrophy, trace pedal edema bilaterally, no contractures Neuro: CN II-XI grossly intact, no focal neuro deficits Psych: Alert, oriented, appropriate affect A total of 37 minutes of time were spent preparing this complex discharge summary. Patient was discharged on 05/15/22. Plan - Discharge Summary New Discharge Prescriptions: New Cephalexin [Keflex] 500 mg PO Q12HR 7 Days #14 cap Continue Atorvastatin [Lipitor] 40 mg PO HS Furosemide [Lasix] 20 mg PO DAILY Metoprolol Tartrate [Lopressor] 25 mg PO BID Cyanocobalamin (Vitamin B-12) [Vitamin B-12] 1,000 mcg PO DAILY Potassium Chloride [Klor-Con 20] 20 meq PO DAILY Aspirin EC [Ecotrin Low Dose] 81 mg PO DAILY Propafenone HCl 150 mg PO TID Cholecalciferol [Vitamin D3 (125 Mcg = 5000 Iu)] 125 mcg PO DAILY Warfarin [Coumadin] 6 mg PO MOWEFR@1800 Gabapentin [Neurontin] 100 mg PO TID Fluticasone Propion/Salmeterol [Wixela 250-50 Inhub] 2 puff INHALATION RT- DAILY Multivit-Min/Iron/Folic/Lutein [Centrum Silver Women Tablet] 1 tab PO DAILY lisinopriL [Prinivil] 20 mg PO BID Albuterol Sulfate [Proair Hfa] 2 puff INHALATION RT-Q6H PRN PRN Reason: Shortness Of Breath Warfarin [Coumadin] 3 mg PO SUTUTHSA@1800 Discharge Medication List Atorvastatin [Lipitor] 40 mg PO HS 08/03/19 [History] Furosemide [Lasix] 20 mg PO DAILY 08/04/19 [History] Cyanocobalamin (Vitamin B-12) [Vitamin B-12] 1,000 mcg PO DAILY 06/16/21 [History] Metoprolol Tartrate [Lopressor] 25 mg PO BID 06/16/21 [History] Potassium Chloride [Klor-Con 20] 20 meq PO DAILY 06/16/21 [History] lisinopriL [Prinivil] 20 mg PO BID 06/16/21 [History] Albuterol Sulfate [Proair Hfa] 2 puff INHALATION RT-Q6H PRN 07/22/21 [History] Aspirin EC [Ecotrin Low Dose] 81 mg PO DAILY 07/22/21 [History] Cholecalciferol [Vitamin D3 (125 Mcg = 5000 Iu)] 125 mcg PO DAILY 07/22/21 [History] Propafenone HCl 150 mg PO TID 07/22/21 [History] Warfarin [Coumadin] 3 mg PO SUTUTHSA@1800 08/16/21 [History] Fluticasone Propion/Salmeterol [Wixela 250-50 Inhub] 2 puff INHALATION RT-DAILY 05/12/22 [History] Gabapentin [Neurontin] 100 mg PO TID 05/12/22 [History] Multivit-Min/Iron/Folic/Lutein [Centrum Silver Women Tablet] 1 tab PO DAILY 05/12/22 [History] Warfarin [Coumadin] 6 mg PO MOWEFR@1800 05/12/22 [History] Cephalexin [Keflex] 500 mg PO Q12HR 7 Days #14 cap 05/15/22 [Rx] Follow up Appointment(s)/Referral(s): Tasha Leon DO [Primary Care Provider[facility] [NON-STAFF] - 1 Week [facility], [REFERRING] - 1 Week Activity/Diet/Wound Care/Special Instructions: Activity: as tolerated Diet: heart healthy Special Instructions: Continue follow-up with wound care and home care Discharge Disposition: HOME SELF-CARE
[2022-05-15] MEDS ORDERED: VANCOMYCIN 2,000 MG in SODIUM CHLORIDE 0.9% 500 ML 500 ML IVPB SCH (17:00)
[2022-05-15] MEDS ORDERED: WARFARIN 3 MG TAB PO SCH (18:00)
[2022-05-15 18:18] LABS: Magnesium 2.1 mg/dL (1.5-2.4); Phosphorus 3.2 mg/dL (2.4-5.1)
== END 2022-05-15 18:22 | disposition home or self-care (01) ==
LOC: EC 10:37 → 5NMEDONC 13:37
PROVIDERS: ADMIT Internal Medicine; ATTEND Internal Medicine
DX: L97.919 Non-pressure chronic ulcer of unspecified part of right lower leg with unspecified severity (principal); L03.115 Cellulitis of right lower limb; A49.01 Methicillin susceptible Staphylococcus aureus infection, unspecified site; I48.91 Unspecified atrial fibrillation; I10 Essential (primary) hypertension; J45.909 Unspecified asthma, uncomplicated; I73.9 Peripheral vascular disease, unspecified; E78.5 Hyperlipidemia, unspecified; G47.33 Obstructive sleep apnea (adult) (pediatric); J84.10 Pulmonary fibrosis, unspecified; F32.A Depression, unspecified; F41.9 Anxiety disorder, unspecified; E66.9 Obesity, unspecified; Z68.43 Body mass index [BMI] 50.0-59.9, adult; Z79.01 Long term (current) use of anticoagulants; Z79.82 Long term (current) use of aspirin; Z79.899 Other long term (current) drug therapy; Z82.49 Family history of ischemic heart disease and other diseases of the circulatory system; Z80.9 Family history of malignant neoplasm, unspecified; Z80.49 Family history of malignant neoplasm of other genital organs; Z80.3 Family history of malignant neoplasm of breast
CPT/HCPCS: 96376 ×3; 96366 ×5; 96361; 96365; 96367; 96375; 99284; 36415; 94640 ×4; 80053 ×2; 80048 ×2; 85652; 84443; 83605; 83735 ×2; 84100 ×2; 85025 ×4; 80202; 85610 ×4; 86140; 87040; 87070; 87205; 87077; 87186; 83036; 84145; 73590; G0378 ×4; J3370 ×3; J2270 ×3; J0692 ×4

== ENCOUNTER 2022-06-30 17:00 | Inpatient (IN) | payer MEDICARE ==
[2022-06-30] MEDS ORDERED: FUROSEMIDE 10 MG/ML 4 ML VIAL IV STA (18:53)
--- NOTE | 2022-06-30 18:55 | ED ---
General Adult HPI - General Chief complaint: Recheck/Abnormal Lab/Rx Stated complaint: Fluid Retention-sent by PCP Time Seen by Provider: 06/30/22 18:48 Source: patient, RN notes reviewed Mode of arrival: wheelchair Limitations: no limitations - History of Present Illness Initial comments: Patient is a pleasant 71-year-old female presenting to the emergency department with concerns for fluid building up throughout her body. Patient has been gaining weight. Patient is up 20 pounds from her normal weight. Patient has gained an additional 4 pounds in the last 2 days. Patient states she may be a little bit short of breath. Patient does attribute this to gaining fluid. No cough. No calf pain. Patient did see her doctor Sunday. Patient called her again and she was told to come to the hospital for IV Lasix. - Related Data Home Medications Medication Instructions Recorded Confirmed Atorvastatin [Lipitor] 40 mg PO HS 08/03/19 06/30/22 Furosemide [Lasix] 20 mg PO DAILY 08/04/19 06/30/22 Cyanocobalamin (Vitamin B-12) 1,000 mcg PO DAILY 06/16/21 06/30/22 [Vitamin B-12] Metoprolol Tartrate [Lopressor] 25 mg PO BID 06/16/21 06/30/22 Potassium Chloride [Klor-Con 20] 20 meq PO DAILY 06/16/21 06/30/22 lisinopriL [Prinivil] 20 mg PO BID 06/16/21 06/30/22 Albuterol Sulfate [Proair Hfa] 2 puff INHALATION RT-Q6H PRN 07/22/21 06/30/22 Aspirin EC [Ecotrin Low Dose] 81 mg PO DAILY 07/22/21 06/30/22 Cholecalciferol [Vitamin D3 (125 125 mcg PO DAILY 07/22/21 06/30/22 Mcg = 5000 Iu)] Propafenone HCl 150 mg PO TID 07/22/21 06/30/22 Warfarin [Coumadin] 3 mg PO SUTUTHSA@1800 08/16/21 06/30/22 Fluticasone Propion/Salmeterol 2 puff INHALATION RT-DAILY 05/12/22 06/30/22 [Wixela 250-50 Inhub] Gabapentin [Neurontin] 100 mg PO TID 05/12/22 06/30/22 Multivit-Min/Iron/Folic/Lutein 1 tab PO DAILY 05/12/22 06/30/22 [Centrum Silver Women Tablet] Warfarin [Coumadin] 6 mg PO MOWEFR@1800 05/12/22 06/30/22 Previous Rx's Medication Instructions Recorded Cephalexin [Keflex] 500 mg PO Q12HR 7 Days #14 cap 05/15/22 Allergies Allergy/AdvReac Type Severity Reaction Status Date / Time zinc oxide Allergy Rash/Hives Verified 06/30/22 20:30 Review of Systems ROS Statement: Those systems with pertinent positive or pertinent negative responses have been documented in the HPI. ROS Other: All systems not noted in ROS Statement are negative. Constitutional: Denies: fever Eyes: Denies: eye pain ENT: Denies: ear pain Respiratory: Reports: as per HPI. Denies: cough Cardiovascular: Reports: edema. Denies: chest pain Endocrine: Reports: fatigue Gastrointestinal: Denies: abdominal pain Genitourinary: Denies: dysuria Musculoskeletal: Denies: back pain Skin: Denies: rash Neurological: Denies: weakness Past Medical History Past Medical History: Atrial Fibrillation, Asthma, Hyperlipidemia, Hypertension, Osteoarthritis (OA), Sleep Apnea/CPAP/BIPAP, Vascular Disorder Additional Past Medical History / Comment(s): CPAP use, cardiac murmur, bilateral legs/feet edema at times, pulmonary fibrosis, aortic aneurysm. Recent hospitalization for "UTI causing A-Fib flare-up". History of Any Multi-Drug Resistant Organisms: None Reported Past Surgical History: Bladder Surgery, Hysterectomy, Tonsillectomy Additional Past Surgical History / Comment(s): BLADDER SLING, EGD, colonoscopy, R carpal tunnel release, R elbow release. Past Anesthesia/Blood Transfusion Reactions: No Reported Reaction Past Psychological History: Anxiety, Depression Smoking Status: Never smoker Past Alcohol Use History: Rare Past Drug Use History: None Reported - Past Family History Father Family Medical History: Coronary Artery Disease (CAD), Myocardial Infarction (ME) Additional Family Medical History / Comment(s): Father had heart disease and had a ME in his 50s. Mother Family Medical History: Cancer Additional Family Medical History / Comment(s): Mother had cancer but pt does not recall type. Sister(s) Family Medical History: Cancer, Deep Vein Thrombosis (DVT), Pulmonary Embolus Additional Family Medical History / Comment(s): SISTER #1 UTERINE CA. SISTER #2 UTERINE AND BREAST CA. Sister#3 2-PEs, 3- DVTs General Exam Limitations: no limitations General appearance: alert, in no apparent distress Head exam: Present: normocephalic Eye exam: Present: normal appearance Neck exam: Present: normal inspection Respiratory exam: Present: normal lung sounds bilaterally Cardiovascular Exam: Present: regular rate, normal rhythm GI/Abdominal exam: Present: soft. Absent: tenderness Extremities exam: Present: normal inspection, pedal edema. Absent: calf tenderness Neurological exam: Present: alert Psychiatric exam: Present: normal affect, normal mood Skin exam: Present: normal color Course Vital Signs 06/30/22 06/30/22 06/30/22 17:35 19:02 20:25 Temperature 98.3 F Pulse Rate 72 66 Respiratory 20 26 H 24 Rate Blood Pressure 170/82 182/113 O2 Sat by Pulse 97 98 Oximetry EKG Findings - EKG Results: EKG: interpreted by ERMD (Low QRS voltage. Rate 60), normal axis, normal ST/T EKG shows: atrial fibrillation Medical Decision Making - Medical Decision Making Patient reevaluated and updated. Case discussed with Dr. Hernandez, who will admit covering hospital call. - Lab Data Result diagrams: 06/30/22 19:20 06/30/22 19:20 Lab Results 06/30/22 06/30/22 06/30/22 Range/Units 19:20 19:20 19:20 WBC 5.6 (3.8-10.6) k/uL RBC 3.82 (3.80-5.40) m/uL Hgb 12.2 (11.4-16.0) gm/dL Hct 37.1 (34.0-46.0) % MCV 97.0 (80.0-100.0) fL MCH 31.9 (25.0-35.0) pg MCHC 32.9 (31.0-37.0) g/dL RDW 13.1 (11.5-15.5) % Plt Count 189 (150-450) k/uL MPV 9.1 Neutrophils % 70 % Lymphocytes % 18 % Monocytes % 7 % Eosinophils % 4 % Basophils % 1 % Neutrophils # 4.0 (1.3-7.7) k/uL Lymphocytes # 1.0 (1.0-4.8) k/uL Monocytes # 0.4 (0-1.0) k/uL Eosinophils # 0.2 (0-0.7) k/uL Basophils # 0.0 (0-0.2) k/uL Hypochromasia Slight PT 17.6 H (9.0-12.0) sec INR 1.7 H (<1.2) APTT 29.5 (22.0-30.0) sec Sodium 139 (137-145) mmol/L Potassium 4.8 (3.5-5.1) mmol/L Chloride 107 (98-107) mmol/L Carbon Dioxide 27 (22-30) mmol/L Anion Gap 5 mmol/L BUN 23 H (7-17) mg/dL Creatinine 0.70 (0.52-1.04) mg/dL Est GFR (CKD-EPI)AfAm >90 (>60 ml/min/1.73 sqM) Est GFR (CKD-EPI)NonAf 87 (>60 ml/min/1.73 sqM) Glucose 98 (74-99) mg/dL Plasma Lactic Acid Jarred (0.7-2.0) mmol/L Calcium 8.4 (8.4-10.2) mg/dL Total Bilirubin 0.5 (0.2-1.3) mg/dL AST 21 (14-36) U/L ALT 20 (4-34) U/L Alkaline Phosphatase 78 (38-126) U/L Troponin I (0.000-0.034) ng/mL NT-Pro-B Natriuret Pep pg/mL Total Protein 6.9 (6.3-8.2) g/dL Albumin 4.0 (3.5-5.0) g/dL 06/30/22 06/30/22 06/30/22 Range/Units 19:20 19:20 19:20 WBC (3.8-10.6) k/uL RBC (3.80-5.40) m/uL Hgb (11.4-16.0) gm/dL Hct (34.0-46.0) % MCV (80.0-100.0) fL MCH (25.0-35.0) pg MCHC (31.0-37.0) g/dL RDW (11.5-15.5) % Plt Count (150-450) k/uL MPV Neutrophils % % Lymphocytes % % Monocytes % % Eosinophils % % Basophils % % Neutrophils # (1.3-7.7) k/uL Lymphocytes # (1.0-4.8) k/uL Monocytes # (0-1.0) k/uL Eosinophils # (0-0.7) k/uL Basophils # (0-0.2) k/uL Hypochromasia PT (9.0-12.0) sec INR (<1.2) APTT (22.0-30.0) sec Sodium (137-145) mmol/L Potassium (3.5-5.1) mmol/L Chloride (98-107) mmol/L Carbon Dioxide (22-30) mmol/L Anion Gap mmol/L BUN (7-17) mg/dL Creatinine (0.52-1.04) mg/dL Est GFR (CKD-EPI)AfAm (>60 ml/min/1.73 sqM) Est GFR (CKD-EPI)NonAf (>60 ml/min/1.73 sqM) Glucose (74-99) mg/dL Plasma Lactic Acid Jrared 0.9 (0.7-2.0) mmol/L Calcium (8.4-10.2) mg/dL Total Bilirubin (0.2-1.3) mg/dL AST (14-36) U/L ALT (4-34) U/L Alkaline Phosphatase (38-126) U/L Troponin I <0.012 (0.000-0.034) ng/mL NT-Pro-B Natriuret Pep 2310 pg/mL Total Protein (6.3-8.2) g/dL Albumin (3.5-5.0) g/dL - Radiology Data Interpreted by me: Chest x-ray shows cardiomegaly Disposition Clinical Impression: Edema Disposition: ADMITTED IP TO THIS HOSP Is patient prescribed a controlled substance at d/c from ED?: No Referrals: Tasha Leon DO [Primary Care Provider] - 1-2 days Time of Disposition: 21:05
[2022-06-30 19:33] LABS: Basophils % (A) 1 %; Eosinophils # (A) 0.2 k/uL (0-0.7); Eosinophils % (A) 4 %; HCT 37.1 % (34.0-46.0); HGB 12.2 gm/dL (11.4-16.0); Hypochromasia Slight; Lymphocytes % (A) 18 %; MCH 31.9 pg (25.0-35.0); MCHC 32.9 g/dL (31.0-37.0); Mean Platelet Volume 9.1; Monocytes # (A) 0.4 k/uL (0-1.0); Monocytes % (A) 7 %; Neutrophils % (A) 70 %; Platelet Count 189 k/uL (150-450); RBC 3.82 m/uL (3.80-5.40); RDW 13.1 % (11.5-15.5); WBC 5.6 k/uL (3.8-10.6)
[2022-06-30 19:43] LABS: ALT 20 U/L (4-34); AST 21 U/L (14-36); African American GFR (CKD) >90 (>60 ml/min/1.73 sqM); Alkaline Phosphatase 78 U/L (38-126); Anion Gap 5 mmol/L; Blood Urea Nitrogen 23 mg/dL (7-17); Calcium 8.4 mg/dL (8.4-10.2); Carbon Dioxide 27 mmol/L (22-30); Chloride 107 mmol/L (98-107); Glucose 98 mg/dL (74-99); Non-African American GFR(CKD) 87 (>60 ml/min/1.73 sqM); Potassium 4.8 mmol/L (3.5-5.1); Sodium 139 mmol/L (137-145); Total Bilirubin 0.5 mg/dL (0.2-1.3); Total Protein 6.9 g/dL (6.3-8.2)
[2022-06-30 19:49] LABS: INR 1.7 (<1.2); Partial Thromboplastin Time 29.5 sec (22.0-30.0); Prothrombin Time 17.6 sec (9.0-12.0)
--- NOTE | 2022-06-30 20:51 | XR ---
EXAMINATION TYPE: XR chest 2V DATE OF EXAM: 06/30/2022 COMPARISON: NONE HISTORY: Difficulty breathing TECHNIQUE: 2 view FINDINGS: There is no heart failure nor confluent pneumonic infiltrate. Heart appears slightly enlarg ed. No pleural effusion. There are chest leads. Thoracic aorta is atheromatous. IMPRESSION: There is cardiomegaly. No heart failure. No significant change.
[2022-06-30] MEDS: FUROSEMIDE 10 MG/ML 4 ML VIAL IV SCH (21:13)
[2022-07-01] MEDS: lisinopriL 20 MG TAB PO SCH ×3 (00:33→20:54)
[2022-07-01] MEDS: METOPROLOL TARTRATE 25 MG TAB PO SCH ×3 (00:33→20:54)
--- NOTE | 2022-07-01 03:46 | P.HPIM ---
History of Present Illness H&P Date: 06/30/22 Chief Complaint: weight gain , edema 71 year old female with Afib on coumadin, hypertension patient comes in due to gradual increase in her weight , which she thought was d ue to fluid retention. she has gained over 20 lb over past 3 weeks. she has visited her doc few days ago, and called again today due to some increase SOB, for which she was told to go to the hospital. she claims to be complaint with her meds, denies any recent changes in her meds. patient denies any recent travel, she was hospitalized back in May for infected chronic venous ulcer of the leg. denies tobacco smoking, illicit drugs or alcohol CXR showed no pleural effusion , or pulmonary congestion blood work overall unremarkable Review of Systems Pertinent positives as noted in HPI. All other systems were reviewed and are negative Past Medical History Past Medical History: Atrial Fibrillation, Asthma, Hyperlipidemia, Hypertension, Osteoarthritis (OA), Sleep Apnea/CPAP/BIPAP, Vascular Disorder Additional Past Medical History / Comment(s): CPAP use, cardiac murmur, bilateral legs/feet edema at times, pulmonary fibrosis, aortic aneurysm. Recent hospitalization for "UTI causing A-Fib flare-up". History of Any Multi-Drug Resistant Organisms: None Reported Past Surgical History: Bladder Surgery, Hysterectomy, Tonsillectomy Additional Past Surgical History / Comment(s): BLADDER SLING, EGD, colonoscopy, R carpal tunnel release, R elbow release. Past Anesthesia/Blood Transfusion Reactions: No Reported Reaction Past Psychological History: Anxiety, Depression Smoking Status: Never smoker Past Alcohol Use History: Rare Past Drug Use History: None Reported - Past Family History Father Family Medical History: Coronary Artery Disease (CAD), Myocardial Infarction (VT) Additional Family Medical History / Comment(s): Father had heart disease and had a VT in his 50s. Mother Family Medical History: Cancer Additional Family Medical History / Comment(s): Mother had cancer but pt does not recall type. Sister(s) Family Medical History: Cancer, Deep Vein Thrombosis (DVT), Pulmonary Embolus Additional Family Medical History / Comment(s): SISTER #1 UTERINE CA. SISTER #2 UTERINE AND BREAST CA. Sister#3 2-PEs, 3- DVTs Medications and Allergies Home Medications Medication Instructions Recorded Confirmed Type Atorvastatin [Lipitor] 40 mg PO HS 08/03/19 06/30/22 History Furosemide [Lasix] 20 mg PO DAILY 08/04/19 06/30/22 History Cyanocobalamin (Vitamin B-12) 1,000 mcg PO DAILY 06/16/21 06/30/22 History [Vitamin B-12] Metoprolol Tartrate [Lopressor] 25 mg PO BID 06/16/21 06/30/22 History Potassium Chloride [Klor-Con 20] 20 meq PO DAILY 06/16/21 06/30/22 History lisinopriL [Prinivil] 20 mg PO BID 06/16/21 06/30/22 History Albuterol Sulfate [Proair Hfa] 2 puff INHALATION RT-Q6H PRN 07/22/21 06/30/22 History Aspirin EC [Ecotrin Low Dose] 81 mg PO DAILY 07/22/21 06/30/22 History Cholecalciferol [Vitamin D3 (125 125 mcg PO DAILY 07/22/21 06/30/22 History Mcg = 5000 Iu)] Propafenone HCl 150 mg PO TID 07/22/21 06/30/22 History Warfarin [Coumadin] 3 mg PO SUTUTHSA@1800 08/16/21 06/30/22 History Fluticasone Propion/Salmeterol 2 puff INHALATION RT-DAILY 05/12/22 06/30/22 History [Wixela 250-50 Inhub] Gabapentin [Neurontin] 100 mg PO TID 05/12/22 06/30/22 History Multivit-Min/Iron/Folic/Lutein 1 tab PO DAILY 05/12/22 06/30/22 History [Centrum Silver Women Tablet] Warfarin [Coumadin] 6 mg PO MOWEFR@1800 05/12/22 06/30/22 History Cephalexin [Keflex] 500 mg PO Q12HR 7 Days #14 cap 05/15/22 06/30/22 Rx Allergies Allergy/AdvReac Type Severity Reaction Status Date / Time zinc oxide Allergy Rash/Hives Verified 06/30/22 20:30 Physical Exam Vitals: Vital Signs Temp Pulse Resp BP Pulse Ox 07/01/22 03:20 65 22 166/88 95 07/01/22 02:00 75 16 172/88 98 07/01/22 01:00 67 18 183/79 98 07/01/22 00:34 78 24 183/79 98 06/30/22 21:13 74 20 166/94 99 06/30/22 20:25 24 06/30/22 20:00 100 24 148/100 96 06/30/22 19:02 66 26 H 182/113 98 06/30/22 17:35 98.3 F 72 20 170/82 97 Intake and Output 06/30/22 06/30/22 07/01/22 14:59 22:59 06:59 Other: Weight 136.985 kg Constitutional: No acute distress, conversant, pleasant Eyes: Anicteric sclerae, moist conjunctiva, Pupils equal round reactive to light ENMT: NC/AT Oropharynx clear, no erythema, or exudates Neck: Supple , no masses, or JVD No carotid bruits No thyromegaly Lungs: Clear to auscultation Clear to percussion Normal respiratory effort, no accessory muscle use Cardiovascular: Heart irregular No murmurs, gallops, or rubs + 2 bilateral peripheral edema Abdominal: Soft Nontender, no guarding, rebound or rigidity Abdomen moving with respiration Normoactive bowel sounds No hepatomegaly, No splenomegaly No palpable mass No abdominal wall hernia noted Skin: Normal temperature, tone, texture, turgor No induration No subcutaneous nodules No rash, lesions No ulcers Extremities: No digital cyanosis No clubbing Pedal pulses intact and symmetrical Radial pulses intact and symmetrical No calf tenderness Psychiatric: Alert and oriented to person, place and time Appropriate affect fair judgement Neuro Muscles Strength 5/5 in all 4 extremities Sensation to light touch grossly present throughout Cranial nerves II-XII grossly intact Lymphatics: no palpable cervical or supraclavicular , lymph nodes Results CBC & Chem 7: 06/30/22 19:20 06/30/22 19:20 Labs: Abnormal Lab Results - Last 24 Hours (Table) 06/30/22 06/30/22 Range/Units 19:20 19:20 PT 17.6 H (9.0-12.0) sec INR 1.7 H (<1.2) BUN 23 H (7-17) mg/dL Assessment and Plan Assessment: bilateral leg edema and weight gain IV lasix bid monitor daily weight check echo cardiogram color television console monitor monitor vital signs monitor electrolytes chronic afib on blood thinners resume home meds resume coumadin hypertension , resume home meds MATTEO , resume CPAP full code DVT PPX on coumadin for afib
[2022-07-01] MEDS: FUROSEMIDE 10 MG/ML 4 ML VIAL IV SCH ×3 (06:12→20:53)
[2022-07-01] MEDS: SYMBICORT 80-4.5 MCG INHALER INHALATION SCH ×2 (09:28→21:15)
[2022-07-01] MEDS: ASPIRIN 81 MG PO SCH (09:54)
[2022-07-01] MEDS: GABAPENTIN 100 MG CAP PO SCH ×3 (09:54→20:54)
[2022-07-01] MEDS: POTASSIUM CHLORIDE ER 20 MEQ TAB.ER PO SCH (09:54)
[2022-07-01 11:38] LABS: Prothrombin Time 20.2 sec (9.0-12.0)
[2022-07-01] MEDS: PROPAFENONE 150 MG TAB PO SCH ×3 (12:39→20:54)
--- NOTE | 2022-07-01 13:31 | P.PN ---
Subjective Progress Note Date: 07/01/22 Patient is a 71-year-old female with a history of atrial fibrillation on Coumadin therapy and status post cardioversion, hypertension, chronic lower extremity wound, and osteoarthritis who presented to the hospital secondary to fluid retention and weight gain. She had seen her primary care physician earlier in the week and had blood work done with the intent to increase her Lasix. Patient self increased her Lasix to 3 times a day from once daily but was not urinating. In the ER she underwent an extensive evaluation. On arrival she was slightly hypertensive with a blood pressure of 170/82. The remainder of her vitals were within normal limits. Laboratory analysis showed an INR 1.7 and a BUN of 23 and an elevated BNP of 2310 but was otherwise unremarkable. Chest x-ray demonstrated cardiomegaly without signs of heart failure. She was admitted and started on IV Lasix. Patient seen and examined at bedside. She denies a history of heart failure. She reports that she her primary was can increase her Lasix as he is weak but was waiting for blood work to come back. She denies any shortness of breath. She states she has been urinating well since admission and her edema is much improved. General: nontoxic, no distress, appears at stated age Derm: warm, dry Head: atraumatic, normocephalic, symmetric Eyes: EOMI, no lid lag, anicteric sclera Mouth: no lip lesion, mucus membranes moist Cardiovascular: S1S2 reg, no murmur, positive posterior tibial pulse bilateral, Lungs: Decreased bs bilateral, no rhonchi, no rales , no accessory muscle use Abdominal: soft, nontender to palpation, no guarding, no appreciable organomegaly Ext: no gross muscle atrophy, 3+ edema b/l LE, no contractures Neuro: CN II-XI grossly intact, no focal neuro deficits Psych: Alert, oriented, appropriate affect Assessment/plan: Fluid overload, possible congestive heart failure versus venous insufficiency -Await echocardiogram results from [facility] -Continue with Lasix -Strict I's and O's -Changed to thigh-high compression stockings Chronic venous ulcer right lower extremity -Continue outpatient wound care follow-up A. fib anticoagulated with Coumadin, currently therapeutic -Continue with Coumadin -Continue with Lopressor COPD without exacerbation -Continue with home inhaler regiment Chronic: Hypertension Dyslipidemia Obstructive sleep apnea DVT prophylaxis: Coumadin Discussed with: patient, nursing Anticipated discharge: in AM Anticipated discharge place: home A total of 25 minutes was spent on the care of this complex patient more than 50 % of the time was spent in counseling and care coordination. Active Medications Generic Name Dose Route Start Last Admin Trade Name Freq PRN Reason Stop Dose Admin Aspirin 81 mg 07/01/22 09:00 07/01/22 09:54 Aspirin 81 Mg PO 81 mg DAILY NATALYA Administration Atorvastatin Calcium 40 mg 07/01/22 21:00 Atorvastatin 40 Mg Tab PO HS [facility] Budesonide/Formoterol Fumarate 2 puff 07/01/22 08:00 07/01/22 09:28 Symbicort 80-4.5 Mcg Inhaler INHALATION 2 puff RT-BID NATALYA Administration Furosemide 40 mg 06/30/22 21:15 07/01/22 06:12 Furosemide 10 Mg/Ml 4 Ml Vial IV 40 mg Q8H NATALYA Administration Gabapentin 100 mg 07/01/22 09:00 07/01/22 09:54 Gabapentin 100 Mg Cap PO 100 mg TID NATALYA Administration Lisinopril 20 mg 07/01/22 00:30 07/01/22 09:54 Lisinopril 20 Mg Tab PO 20 mg BID NATALYA Administration Metoprolol Tartrate 25 mg 07/01/22 00:30 07/01/22 09:54 Metoprolol Tartrate 25 Mg Tab PO 25 mg BID NATALYA Administration Miscellaneous Information 1 each 07/01/22 03:28 Warfarin Per Pharmacy MISCELLANE DIRECTED PRN Per Protocol Protocol Potassium Chloride 20 meq 07/01/22 09:00 07/01/22 09:54 Potassium Chloride Er 20 Meq Tab.Er PO 20 meq DAILY NATALYA Administration Propafenone HCl 150 mg 07/01/22 09:00 07/01/22 12:39 Propafenone 150 Mg Tab PO Not Given TID [facility] Warfarin Sodium 3 mg 07/02/22 18:00 Warfarin 3 Mg Tab PO SuTuThSa@1800 [facility] Warfarin Sodium 6 mg 07/03/22 18:00 Warfarin 3 Mg Tab PO MoWeFr@1800 [facility] Warfarin Sodium 4 mg 07/01/22 18:00 Warfarin 2 Mg Tab PO 07/01/22 18:01 ONCE@1800 ONE Objective - Vital Signs Vital signs: Vital Signs Temp 97.5 F L 07/01/22 11:12 Pulse 69 07/01/22 11:12 Resp 16 07/01/22 11:12 BP 127/81 07/01/22 11:12 Pulse Ox 96 07/01/22 11:12 FiO2 Intake & Output 06/30/22 07/01/22 07/01/22 18:59 06:59 18:59 Weight 136.985 kg 136.985 kg - Labs CBC & Chem 7: 06/30/22 19:20 06/30/22 19:20 Labs: Abnormal Lab Results - Last 24 Hours (Table) 06/30/22 06/30/22 07/01/22 Range/Units 19:20 19:20 11:04 PT 17.6 H 20.2 H (9.0-12.0) sec INR 1.7 H 2.0 H (<1.2) BUN 23 H (7-17) mg/dL
[2022-07-01 17:34] VITALS: BMI 58.9
[2022-07-01] MEDS ORDERED: WARFARIN 3 MG TAB PO ONE (18:00)
[2022-07-01] MEDS ORDERED: WARFARIN 2 MG TAB PO ONE (18:00)
[2022-07-01 21:00] VITALS: RESP 18
[2022-07-01] MEDS ORDERED: ATORVASTATIN 40 MG TAB PO SCH (21:00)
[2022-07-02] MEDS: FUROSEMIDE 10 MG/ML 4 ML VIAL IV SCH (06:33)
[2022-07-02 06:50] LABS: INR 2.1 (<1.2); Prothrombin Time 21.6 sec (9.0-12.0)
[2022-07-02] MEDS: METOPROLOL TARTRATE 25 MG TAB PO SCH (08:35)
[2022-07-02] MEDS: PROPAFENONE 150 MG TAB PO SCH (08:35)
[2022-07-02] MEDS: lisinopriL 20 MG TAB PO SCH (08:35)
[2022-07-02] MEDS: GABAPENTIN 100 MG CAP PO SCH (08:35)
[2022-07-02] MEDS: POTASSIUM CHLORIDE ER 20 MEQ TAB.ER PO SCH (08:35)
[2022-07-02] MEDS: ASPIRIN 81 MG PO SCH (08:35)
[2022-07-02 08:51] LABS: African American GFR (CKD) >90 (>60 ml/min/1.73 sqM); Anion Gap 3 mmol/L; Blood Urea Nitrogen 20 mg/dL (7-17); Calcium 8.3 mg/dL (8.4-10.2); Carbon Dioxide 31 mmol/L (22-30); Chloride 104 mmol/L (98-107); Glucose 107 mg/dL (74-99); Non-African American GFR(CKD) 88 (>60 ml/min/1.73 sqM); Potassium 3.7 mmol/L (3.5-5.1); Sodium 138 mmol/L (137-145)
[2022-07-02] MEDS: SYMBICORT 80-4.5 MCG INHALER INHALATION SCH (09:01)
--- NOTE | 2022-07-02 09:32 | P.DS ---
Providers Date of admission: 06/30/22 21:05 Expected date of discharge: 07/02/22 Attending physician: Ken Vargas MD Primary care physician: Tasha Leon Hospital Course: Discharge Diagnosis: Acute fluid overload, possible congestive heart failure versus venous insufficiency Chronic venous ulcer right lower extremity AWei sorenson anticoagulated with Coumadin, currently therapeutic COPD without exacerbation Hypertension Dyslipidemia Obstructive sleep apnea Hospital Course: Patient is a 71-year-old female with a history of atrial fibrillation on Coumadin therapy and status post cardioversion, hypertension, chronic lower extremity wound, and osteoarthritis who presented to the hospital secondary to fluid retention and weight gain. She had seen her primary care physician earlier in the week and had blood work done with the intent to increase her Lasix. Patient self increased her Lasix to 3 times a day from once daily but was not urinating. In the ER she underwent an extensive evaluation. On arrival she was slightly hypertensive with a blood pressure of 170/82. The remainder of her vitals were within normal limits. Laboratory analysis showed an INR 1.7 and a BUN of 23 and an elevated BNP of 2310 but was otherwise unremarkable. Chest x-ray demonstrated cardiomegaly without signs of heart failure. She was admitted and started on IV Lasix. She diuresied well. She echocardiogram done in [facility] with [facility], unfortunately we were not able to obtain results. Her symptoms resolved and she was subsequently discharged home. She already has an appointment to follow-up with Dr. Coronado on 07/18 and she will maintain that appointment. She is aware that she may have congestive heart failure but we were unable to tell as we did not have access her echo. She does have a history of chronic venous insufficiency and has a lymphedema pump at home. She also wears compression stockings daily. Follow-up: Dr. Coronado on 07/18 to go over results of echocardiogram, increase Lasix to 40 mg twice daily for the next 3 days and then 40 mg once daily, follow up with Dr. Otto next week. Wear thigh-high compression stockings when up and ambulating. Continue to follow with wound care clinic. Patient seen and examined at bedside. Feeling much better and at 100% oxygen go home. Vital signs reviewed and stable. General: nontoxic, no distress, appears at stated age Derm: warm, dry Head: atraumatic, normocephalic, symmetric Eyes: EOMI, no lid lag, anicteric sclera Mouth: no lip lesion, mucus membranes moist Cardiovascular: S1S2 reg, no murmur, positive posterior tibial pulse bilateral, Lungs: CTA bilateral, no rhonchi, no rales , no accessory muscle use Abdominal: soft, nontender to palpation, no guarding, no appreciable organomegaly Ext: no gross muscle atrophy, no edema, no contractures Neuro: CN II-XI grossly intact, no focal neuro deficits Psych: Alert, oriented, appropriate affect A total of 35 minutes of time were spent preparing this complex discharge summary. Patient was discharged on 07/02/22. Plan - Discharge Summary Discharge Rx Participant: No New Discharge Prescriptions: New Furosemide [Lasix] 40 mg PO DAILY #30 tablet Continue Atorvastatin [Lipitor] 40 mg PO HS Metoprolol Tartrate [Lopressor] 25 mg PO BID Cyanocobalamin (Vitamin B-12) [Vitamin B-12] 1,000 mcg PO DAILY Potassium Chloride [Klor-Con 20] 20 meq PO DAILY Aspirin EC [Ecotrin Low Dose] 81 mg PO DAILY Propafenone HCl 150 mg PO TID Cholecalciferol [Vitamin D3 (125 Mcg = 5000 Iu)] 125 mcg PO DAILY Warfarin [Coumadin] 6 mg PO MOWEFR@1800 Gabapentin [Neurontin] 100 mg PO TID Fluticasone Propion/Salmeterol [Wixela 250-50 Inhub] 2 puff INHALATION RT- DAILY Multivit-Min/Iron/Folic/Lutein [Centrum Silver Women Tablet] 1 tab PO DAILY lisinopriL [Prinivil] 20 mg PO BID Albuterol Sulfate [Proair Hfa] 2 puff INHALATION RT-Q6H PRN PRN Reason: Shortness Of Breath Warfarin [Coumadin] 3 mg PO SUTUTHSA@1800 Discontinued Furosemide [Lasix] 20 mg PO DAILY Cephalexin [Keflex] 500 mg PO Q12HR 7 Days #14 cap Discharge Medication List Atorvastatin [Lipitor] 40 mg PO HS 08/03/19 [History] Cyanocobalamin (Vitamin B-12) [Vitamin B-12] 1,000 mcg PO DAILY 06/16/21 [History] Metoprolol Tartrate [Lopressor] 25 mg PO BID 06/16/21 [History] Potassium Chloride [Klor-Con 20] 20 meq PO DAILY 06/16/21 [History] lisinopriL [Prinivil] 20 mg PO BID 06/16/21 [History] Albuterol Sulfate [Proair Hfa] 2 puff INHALATION RT-Q6H PRN 07/22/21 [History] Aspirin EC [Ecotrin Low Dose] 81 mg PO DAILY 07/22/21 [History] Cholecalciferol [Vitamin D3 (125 Mcg = 5000 Iu)] 125 mcg PO DAILY 07/22/21 [History] Propafenone HCl 150 mg PO TID 07/22/21 [History] Warfarin [Coumadin] 3 mg PO SUTUTHSA@1800 08/16/21 [History] Fluticasone Propion/Salmeterol [Wixela 250-50 Inhub] 2 puff INHALATION RT-DAILY 05/12/22 [History] Gabapentin [Neurontin] 100 mg PO TID 05/12/22 [History] Multivit-Min/Iron/Folic/Lutein [Centrum Silver Women Tablet] 1 tab PO DAILY 05/12/22 [History] Warfarin [Coumadin] 6 mg PO MOWEFR@1800 05/12/22 [History] Furosemide [Lasix] 40 mg PO DAILY #30 tablet 07/02/22 [Rx] Follow up Appointment(s)/Referral(s): Brandy Coronado MD [STAFF PHYSICIAN] - 1 Week Tasha Leon DO [Primary Care Provider] - 1-2 days Activity/Diet/Wound Care/Special Instructions: Activity: as tolerated Diet: heart healthy, low sodium Special Instructions: Lasix 40 mg twice daily for the next 3 days and then 40 mg once daily there after Daily weight, call Dr. Coronado's office if gain more than 3 pounds in 24 hours or 5 pounds in 2 days. Discharge Disposition: HOME SELF-CARE
[2022-07-02 11:55] VITALS: BP 154/83; PULSE 87; TEMP 98.6
[2022-07-02] MEDS ORDERED: WARFARIN 3 MG TAB PO SCH (18:00)
[2022-07-03] MEDS ORDERED: WARFARIN 3 MG TAB PO SCH (18:00)
== END 2022-07-02 14:47 | disposition home or self-care (01) | DRG 300 ==
LOC: EC 17:00 → 5NMEDONC 21:05
PROVIDERS: ADMIT Internal Medicine; ATTEND Internal Medicine
DX: I87.2 Venous insufficiency (chronic) (peripheral) (principal); I48.20 Chronic atrial fibrillation, unspecified; L97.919 Non-pressure chronic ulcer of unspecified part of right lower leg with unspecified severity; I11.0 Hypertensive heart disease with heart failure; I50.9 Heart failure, unspecified; J84.10 Pulmonary fibrosis, unspecified; G47.33 Obstructive sleep apnea (adult) (pediatric); E78.5 Hyperlipidemia, unspecified; R01.1 Cardiac murmur, unspecified; I71.9 Aortic aneurysm of unspecified site, without rupture; F32.A Depression, unspecified; F41.9 Anxiety disorder, unspecified; M19.90 Unspecified osteoarthritis, unspecified site; J44.9 Chronic obstructive pulmonary disease, unspecified; Z79.899 Other long term (current) drug therapy; Z79.82 Long term (current) use of aspirin; Z79.51 Long term (current) use of inhaled steroids; Z79.01 Long term (current) use of anticoagulants; Z71.3 Dietary counseling and surveillance; Z88.8 Allergy status to other drugs, medicaments and biological substances; Z87.440 Personal history of urinary (tract) infections
CPT/HCPCS: 36415; 71046; 80048; 80053; 83605; 83735; 83880; 84484; 85025; 85610; 85730; 93005; 94640; 96374; 96376; 99285

== ENCOUNTER 2022-08-15 20:31 | Inpatient (IN) | payer MEDICARE ==
[2022-08-15 22:26] LABS: Basophils % (A) 0 %; Eosinophils # (A) 0.2 k/uL (0-0.7); Eosinophils % (A) 3 %; HCT 37.3 % (34.0-46.0); HGB 12.7 gm/dL (11.4-16.0); Lymphocytes # (A) 0.9 k/uL (1.0-4.8); Lymphocytes % (A) 12 %; MCH 31.9 pg (25.0-35.0); MCHC 34.1 g/dL (31.0-37.0); MCV 93.7 fL (80.0-100.0); Mean Platelet Volume 9.3; Monocytes # (A) 0.6 k/uL (0-1.0); Monocytes % (A) 8 %; Neutrophils # (A) 5.9 k/uL (1.3-7.7); Neutrophils % (A) 75 %; Platelet Count 232 k/uL (150-450); RBC 3.98 m/uL (3.80-5.40); RDW 12.7 % (11.5-15.5); WBC 7.9 k/uL (3.8-10.6)
[2022-08-15] MEDS ORDERED: MORPHINE SULFATE 2 MG/ML SYRINGE IVP STA (22:32)
--- NOTE | 2022-08-15 22:35 | ED ---
Skin/Abscess/FB HPI - General Chief complaint: Skin/Abscess/Foreign Body Stated complaint: boil on stomach Time Seen by Provider: 08/15/22 21:51 Source: patient, family Mode of arrival: ambulatory Limitations: no limitations - History of Present Illness Initial comments: Patient is a 71-year-old female presenting with chief complaint of abscess to the abdomen. Patient states that a few days ago she noticed what appeared to be a pimple on the right side of her abdomen. She states over the last 2 days it has grown increasingly painful, swollen, and red. Patient has had issues with recurrent cellulitis to the lower extremities, has completed a several week long course of Keflex. No abdominal pain, nausea, vomiting, chest pain, difficulty breathing, fever, chills, palpitations, weakness. - Related Data Home Medications Medication Instructions Recorded Confirmed Atorvastatin [Lipitor] 40 mg PO HS 08/03/19 06/30/22 Cyanocobalamin (Vitamin B-12) 1,000 mcg PO DAILY 06/16/21 06/30/22 [Vitamin B-12] Metoprolol Tartrate [Lopressor] 25 mg PO BID 06/16/21 06/30/22 Potassium Chloride [Klor-Con 20] 20 meq PO DAILY 06/16/21 06/30/22 lisinopriL [Prinivil] 20 mg PO BID 06/16/21 06/30/22 Albuterol Sulfate [Proair Hfa] 2 puff INHALATION RT-Q6H PRN 07/22/21 06/30/22 Aspirin EC [Ecotrin Low Dose] 81 mg PO DAILY 07/22/21 06/30/22 Cholecalciferol [Vitamin D3 (125 125 mcg PO DAILY 07/22/21 06/30/22 Mcg = 5000 Iu)] Propafenone HCl 150 mg PO TID 07/22/21 06/30/22 Warfarin [Coumadin] 3 mg PO SUTUTHSA@1800 08/16/21 06/30/22 Fluticasone Propion/Salmeterol 2 puff INHALATION RT-DAILY 05/12/22 06/30/22 [Wixela 250-50 Inhub] Gabapentin [Neurontin] 100 mg PO TID 05/12/22 06/30/22 Multivit-Min/Iron/Folic/Lutein 1 tab PO DAILY 05/12/22 06/30/22 [Centrum Silver Women Tablet] Warfarin [Coumadin] 6 mg PO MOWEFR@1800 05/12/22 06/30/22 Previous Rx's Medication Instructions Recorded Furosemide [Lasix] 40 mg PO DAILY #30 tablet 07/02/22 Potassium Chloride ER [K-Dur 10] 10 meq PO DAILY #30 tab 07/02/22 Allergies Allergy/AdvReac Type Severity Reaction Status Date / Time zinc oxide Allergy Rash/Hives Verified 06/30/22 20:30 Review of Systems ROS Statement: Those systems with pertinent positive or pertinent negative responses have been documented in the HPI. ROS Other: All systems not noted in ROS Statement are negative. Past Medical History Past Medical History: Atrial Fibrillation, Asthma, Hyperlipidemia, Hypertension, Osteoarthritis (OA), Sleep Apnea/CPAP/BIPAP, Vascular Disorder Additional Past Medical History / Comment(s): CPAP use, cardiac murmur, bilateral legs/feet edema at times, pulmonary fibrosis, aortic aneurysm. Recent hospitalization for "UTI causing A-Fib flare-up". History of Any Multi-Drug Resistant Organisms: None Reported Past Surgical History: Bladder Surgery, Hysterectomy, Tonsillectomy Additional Past Surgical History / Comment(s): BLADDER SLING, EGD, colonoscopy, R carpal tunnel release, R elbow release. Past Anesthesia/Blood Transfusion Reactions: No Reported Reaction Past Psychological History: Anxiety, Depression Smoking Status: Never smoker Past Alcohol Use History: Rare Past Drug Use History: None Reported - Past Family History Father Family Medical History: Coronary Artery Disease (CAD), Myocardial Infarction (IN) Additional Family Medical History / Comment(s): Father had heart disease and had a IN in his 50s. Mother Family Medical History: Cancer Additional Family Medical History / Comment(s): Mother had cancer but pt does not recall type. Sister(s) Family Medical History: Cancer, Deep Vein Thrombosis (DVT), Pulmonary Embolus Additional Family Medical History / Comment(s): SISTER #1 UTERINE CA. SISTER #2 UTERINE AND BREAST CA. Sister#3 2-PEs, 3- DVTs General Exam Limitations: no limitations General appearance: alert, in no apparent distress Head exam: Present: atraumatic, normocephalic, normal inspection Eye exam: Present: normal appearance Neck exam: Present: normal inspection Respiratory exam: Present: normal lung sounds bilaterally. Absent: respiratory distress, wheezes, rales, rhonchi, stridor Cardiovascular Exam: Present: regular rate, normal rhythm, normal heart sounds. Absent: systolic murmur, diastolic murmur, rubs, gallop, clicks GI/Abdominal exam: Present: soft. Absent: distended, tenderness, guarding, rebound, rigid Neurological exam: Present: alert, oriented X3, CN II-XII intact Psychiatric exam: Present: normal affect, normal mood Expanded Type of lesion: Present: abscess (Area of redness and induration about 10 cm x 8 cm) Course Vital Signs 08/15/22 08/16/22 08/16/22 20:35 00:04 01:45 Temperature 98 F Pulse Rate 84 77 72 Respiratory 24 16 Rate Blood Pressure 151/85 144/77 131/74 O2 Sat by Pulse 98 96 16 L Oximetry Medical Decision Making - Medical Decision Making Was pt. sent in by a medical professional or institution (, PA, EDUCATIONAL ASSISTANT TEACHER, urgent care, hospital, or long-term...) When possible be specific @ -No Did you speak to anyone other than the patient for history (EMS, parent, family, police, friend...)? What history was obtained from this source @ -Patient's son at bedside Did you review nursing and triage notes (agree or disagree)? Why? @ -I reviewed and agree with nursing and triage notes Were old charts reviewed (outside hosp., previous admission, EMS record, old EKG, old radiological studies, urgent care reports/EKG's, long-term records)? Report findings @ -Previous admission notes are reviewed Differential Diagnosis (chest pain, altered mental status, abdominal pain women, abdominal pain men, vaginal bleeding, weakness, fever, dyspnea, syncope, headache, dizziness, GI bleed, back pain, seizure, CVA, palpatations, mental health)? @ -Differential includes cellulitis, abscess, bacteremia, intra-abdominal abscess EKG interpreted by me (3pts min.). @ -As above X-rays interpreted by me (1pt min.). @ -None done CT interpreted by me (1pt min.). @ -No, radiologist report is reviewed. Subcutaneous density representing focal cellulitis is noted U/S interpreted by me (1pt. min.). @ -None done What testing was considered but not performed or refused? (CT, X-rays, U/S, labs)? Why? @ -None What meds were considered but not given or refused? Why? @ -None Did you discuss the management of the patient with other professionals (professionals i.e. , PA, EDUCATIONAL ASSISTANT TEACHER, lab, RT, psych nurse, licensed clinical social worker, dental hygiene instructor, teacher, juvenile corrections officer, counseling case manager)? Give summary @ -Case discussed with admitting physician Dr. Blum Was smoking cessation discussed for >3mins.? @ -No Was critical care preformed (if so, how long)? @ -No Were there social determinants of health that impacted care today? How? (Homele ssness, low income, unemployed, alcoholism, drug addiction, transportation, low edu. Level, literacy, decrease access to med. care, custodial, rehab)? @ -No Was there de-escalation of care discussed even if they declined (Discuss DNR or withdrawal of care, Hospice)? DNR status @ -No What co-morbidities impacted this encounter? (DM, HTN, Smoking, COPD, CAD, Cancer, CVA, ARF, Chemo, Hep., AIDS, mental health diagnosis, sleep apnea, morbid obesity)? @ -Patient has history of recurrent cellulitis, hyperlipidemia, hypertension Was patient admitted / discharged? Hospital course, mention meds given and route, prescriptions, significant lab abnormalities, going to OR and other pertinent info. @ -Patient is a 71-year-old female presenting with chief complaint of abscess on the abdomen. Symptoms started a few days ago, over the last 2 days it has been increasingly painful and swollen. On examination there is a 10 x 8 cm area of redness and induration. CBC shows no leukocytosis or anemia. CMP is unremarkable. CT of the abdomen shows focal cellulitis, no extension into the deeper structures. Patient has history of recurrent cellulitis to the lower extremities, because of her history she will be admitted for IV antibiotics. I discussed this case with Dr. blum who admitted the patient. Patient is agreeable with this plan. She started on vancomycin and Rocephin. I discussed this case with my attending Dr. Self Undiagnosed new problem with uncertain prognosis? @ -No Drug Therapy requiring intensive monitoring for toxicity (Heparin, Nitro, Insulin, Cardizem)? @ -No Were any procedures done? @ -No Diagnosis/symptom? @ -Cellulitis Acute, or Chronic, or Acute on Chronic? @ -Acute Uncomplicated (without systemic symptoms) or Complicated (systemic symptoms)? @ -Uncomplicated Side effects of treatment? @ -No Exacerbation, Progression, or Severe Exacerbation? @ -No Poses a threat to life or bodily function? How? (Chest pain, USA, IN, pneumonia, PE, COPD, DKA, ARF, appy, cholecystitis, CVA, Diverticulitis, Homicidal, Suicida l, threat to staff... and all critical care pts) @ -No - Lab Data Result diagrams: 08/15/22 22:16 08/15/22 22:16 Lab Results 08/15/22 08/15/22 Range/Units 22:16 22:16 WBC 7.9 (3.8-10.6) k/uL RBC 3.98 (3.80-5.40) m/uL Hgb 12.7 (11.4-16.0) gm/dL Hct 37.3 (34.0-46.0) % MCV 93.7 (80.0-100.0) fL MCH 31.9 (25.0-35.0) pg MCHC 34.1 (31.0-37.0) g/dL RDW 12.7 (11.5-15.5) % Plt Count 232 (150-450) k/uL MPV 9.3 Neutrophils % 75 % Lymphocytes % 12 % Monocytes % 8 % Eosinophils % 3 % Basophils % 0 % Neutrophils # 5.9 (1.3-7.7) k/uL Lymphocytes # 0.9 L (1.0-4.8) k/uL Monocytes # 0.6 (0-1.0) k/uL Eosinophils # 0.2 (0-0.7) k/uL Basophils # 0.0 (0-0.2) k/uL Sodium 137 (137-145) mmol/L Potassium 4.4 (3.5-5.1) mmol/L Chloride 104 (98-107) mmol/L Carbon Dioxide 26 (22-30) mmol/L Anion Gap 7 mmol/L BUN 14 (7-17) mg/dL Creatinine 0.62 (0.52-1.04) mg/dL Est GFR (CKD-EPI)AfAm >90 (>60 ml/min/1.73 sqM) Est GFR (CKD-EPI)NonAf >90 (>60 ml/min/1.73 sqM) Glucose 120 H (74-99) mg/dL Calcium 8.9 (8.4-10.2) mg/dL Total Bilirubin 1.0 (0.2-1.3) mg/dL AST 18 (14-36) U/L ALT 16 (4-34) U/L Alkaline Phosphatase 96 (38-126) U/L Total Protein 7.0 (6.3-8.2) g/dL Albumin 3.7 (3.5-5.0) g/dL Disposition Clinical Impression: Cellulitis Disposition: ADMITTED IP TO THIS [facility] Condition: Good Time of Disposition: 00:56 Decision to Admit Reason: Admit from EC Decision Date: 08/16/22 Decision Time: 00:56
[2022-08-15 22:43] LABS: ALT 16 U/L (4-34); AST 18 U/L (14-36); African American GFR (CKD) >90 (>60 ml/min/1.73 sqM); Albumin 3.7 g/dL (3.5-5.0); Alkaline Phosphatase 96 U/L (38-126); Anion Gap 7 mmol/L; Blood Urea Nitrogen 14 mg/dL (7-17); Calcium 8.9 mg/dL (8.4-10.2); Carbon Dioxide 26 mmol/L (22-30); Chloride 104 mmol/L (98-107); Glucose 120 mg/dL (74-99); Non-African American GFR(CKD) >90 (>60 ml/min/1.73 sqM); Potassium 4.4 mmol/L (3.5-5.1); Sodium 137 mmol/L (137-145)
--- NOTE | 2022-08-15 23:47 | CT ---
EXAMINATION TYPE: CT abdomen pelvis w con DATE OF EXAM: 08/15/2022 COMPARISON: 09/12/2021 HISTORY: Abscess RLQ CT DLP: 3062 mGycm Automated exposure control for dose reduction was used. CONTRAST: Performed with IV Contrast, patient injected with 100ml mL of Isovue 300. Images obtained from the diaphragm to the floor of the pelvis with the IV contrast. There is some mild linear density at the lung bases consistent with subsegmental atelectasis. Heart i s top normal in size. No pericardial effusion. Liver spleen pancreas and stomach appear intact. The bile ducts nondilated. There is a 2 cm calcified gallstone. There is no adrenal mass. Kidneys show satisfactory contrast opacification. Delayed images show manda l renal excretion. There is 2 cm right renal parapelvic cyst. No hydronephrosis. Ureters are not dila marc. Bladder distends smoothly. No inguinal hernia. No free fluid in the pelvis. There are numerous s igmoid diverticula. Appendix not seen. No sign of thickened appendix. There is increased subcutaneous density over the anterior right lateral abdomen that could be injection site or cellulitis. There is 4.5 cm fat-containing umbilical hernia. There is multilevel lumbar spondylotic changes. No compression fracture. The bony pelvis appears inta ct. Hip joints are intact. No mesenteric edema. No ascites or free air. No bowel obstruction. IMPRESSION: Cardiomegaly. Colonic diverticulosis without diverticulitis. Cholelithiasis. Unchanged Subcutaneous density over the right anterior abdomen could be injection site or focal cellulitis. Thi s appears new compared to old exam. There is some scarring and subsegmental atelectasis at the lung bases without change.
[2022-08-16] MEDS ORDERED: VANCOMYCIN IV PER PHARMACY 1 EACH MISC MISCELLANE PRN (00:11)
[2022-08-16] MEDS ORDERED: SODIUM CHLORIDE 0.9% 1,000 ML IV ONE (00:11)
[2022-08-16] MEDS ORDERED: VANCOMYCIN 2,000 MG in SODIUM CHLORIDE 0.9% 500 ML 500 ML IVPB STA (00:17)
[2022-08-16] MEDS ORDERED: cefTRIAXone IN SWFI 1,000 MG/10 ML SYRINGE IVP STA (00:57)
[2022-08-16] MEDS ORDERED: ONDANSETRON 4 MG/2 ML VIAL IVP STA (00:57)
[2022-08-16] MEDS ORDERED: ONDANSETRON 4 MG/2 ML VIAL IVP PRN (00:57)
[2022-08-16] MEDS ORDERED: NALOXONE 0.4 MG/ML 1 ML VIAL IV PRN (01:02)
[2022-08-16] MEDS: SODIUM CHLORIDE 0.9% 1,000 ML IV SCH ×3 (02:43→11:30)
[2022-08-16] MEDS: HYDROcodone/APAP 5-325MG 1 EACH TAB PO PRN ×4 (03:36→21:02)
[2022-08-16] MEDS ORDERED: ALBUTEROL NEBULIZED 2.5 MG/3 ML INHALATION PRN (12:01)
[2022-08-16 13:08] LABS: INR 1.5 (<1.2); Prothrombin Time 14.6 sec (9.0-12.0)
[2022-08-16] MEDS: FERROUS SULFATE 325 MG TAB PO SCH (13:50)
[2022-08-16] MEDS: FUROSEMIDE 40 MG TAB PO SCH (13:50)
[2022-08-16] MEDS: VITAMIN A 10,000 UNIT (3000 MCG) CAPSULE PO SCH ×2 (13:50→13:55)
[2022-08-16] MEDS: lisinopriL 20 MG TAB PO SCH ×2 (13:50→13:54)
[2022-08-16] MEDS: MULTIVITAMINS, THERA 1 EACH TAB PO SCH (13:50)
[2022-08-16] MEDS: CYANOCOBALAMIN 500 MCG TAB PO SCH (13:50)
[2022-08-16] MEDS: CHOLECALCIFEROL 125 MCG (5000 IU) TABLET PO SCH (13:50)
--- NOTE | 2022-08-16 14:47 | P.GSCN ---
History of Present Illness Consult date: 08/16/22 History of present illness: CHIEF COMPLAINT: Abdominal boil HISTORY OF PRESENT ILLNESS: This is a 71-year-old female who presents to the hospital with complaints of a boil on her abdomen. Patient reports that his been there since Sunday. She initially thought it was a boil and has tried to pop it. There has been no drainage. However over the last couple a days it has become more painful, swollen and red as well as hot. She denies any history of MRSA. She does have lower extremity cellulitis and is followed at the wound care service. Patient denies any fever chills or sweats. She denies any history of diabetes. She denies injecting anything into her abdomen. Computed tomography scan abdomen and pelvis showed subcutaneous density over the right anterior abdomen could be injection site or focal cellulitis. Social service consult in regards to possible abdominal abscess. Patient is on Coumadin for A. fib. PAST MEDICAL HISTORY: See below PAST SURGICAL HISTORY: See below MEDICATIONS: See below ALLERGIES: See below SOCIAL HISTORY: No illicit drug use. REVIEW OF SYSTEMS: CONSTITUTIONAL: Denies fever or chills. HEENT: Denies blurred vision, vision changes, or eye pain. Denies hemoptysis CARDIOVASCULAR: Denies chest pain or pressure. RESPIRATORY: No shortness of breath. GASTROINTESTINAL: See HPI for pertinent findings HEMATOLOGIC: Denies bleeding disorders. GENITOURINARY: Denies any blood in urine or increased urinary frequency. SKIN: Denies pruitis. Denies rash. PHYSICAL EXAM: VITAL SIGNS: Reviewed GENERAL: Well-developed in no acute distress. HEENT: No sclera icterus. Extraocular movements grossly intact. Moist buccal mucosa. Head is atraumatic, normocephalic. No nasal drainage. ABDOMEN: Soft. Obese. Nondistended. Right side of lower abdomen with area of cellulitis and induration. Tender with palpation. In the center there is a darkened area. On the bandage there is slight serosanguineous drainage noted. NEUROLOGIC: Alert and oriented. Cranial nerves II through XII grossly intact. LABORATORY DATA: WBC 7.9 Hgb is 12.7 platelets 232 INR is 1.5 Sodium is 137 potassium 4.4 creatinine 0.62 IMAGING: Computed tomography scan abdomen and pelvis cardiomegaly. Colonic diverticulosis without diverticulitis. Cholelithiasis. Unchanged. Subcutaneous density over the right anterior abdomen could be injection site or focal synovitis. This appears new compared to old exam. There is some scarring and subsegmental atelectasis at lung bases without change. ASSESSMENT: 1. Abdominal cellulitis with area of induration PLAN: -Continue antibiotics -Continue supportive care -Continue pain management -Further recommendations forthcoming per surgeon Physician Engineering Consultant note has been reviewed by physician. Signing provider agrees with the documented findings, assessment, and plan of care. Past Medical History Past Medical History: Atrial Fibrillation, Asthma, Hyperlipidemia, Hypertension, Osteoarthritis (OA), Sleep Apnea/CPAP/BIPAP, Vascular Disorder Additional Past Medical History / Comment(s): CPAP use, cardiac murmur, bila teral legs/feet edema at times, pulmonary fibrosis, aortic aneurysm. Recent hospitalization for "UTI causing A-Fib flare-up". History of Any Multi-Drug Resistant Organisms: None Reported Past Surgical History: Bladder Surgery, Hysterectomy, Tonsillectomy Additional Past Surgical History / Comment(s): BLADDER SLING, EGD, colonoscopy, R carpal tunnel release, R elbow release. Past Anesthesia/Blood Transfusion Reactions: No Reported Reaction Past Psychological History: Anxiety, Depression Smoking Status: Never smoker Past Alcohol Use History: Rare Past Drug Use History: None Reported - Past Family History Father Family Medical History: Coronary Artery Disease (CAD), Myocardial Infarction (MS) Additional Family Medical History / Comment(s): Father had heart disease and had a MS in his 50s. Mother Family Medical History: Cancer Additional Family Medical History / Comment(s): Mother had cancer but pt does not recall type. Sister(s) Family Medical History: Cancer, Deep Vein Thrombosis (DVT), Pulmonary Embolus Additional Family Medical History / Comment(s): SISTER #1 UTERINE CA. SISTER #2 UTERINE AND BREAST CA. Sister#3 2-PEs, 3- DVTs Medications and Allergies Home Medications Medication Instructions Recorded Confirmed Type Atorvastatin [Lipitor] 40 mg PO HS 08/03/19 08/16/22 History Cyanocobalamin (Vitamin B-12) 1,000 mcg PO DAILY 06/16/21 08/16/22 History [Vitamin B-12] Potassium Chloride [Klor-Con 20] 20 meq PO DAILY 06/16/21 08/16/22 History lisinopriL [Prinivil] 20 mg PO BID 06/16/21 08/16/22 History Albuterol Sulfate [Proair Hfa] 2 puff INHALATION RT-Q6H PRN 07/22/21 08/16/22 History Aspirin EC [Ecotrin Low Dose] 81 mg PO DAILY 07/22/21 08/16/22 History Cholecalciferol [Vitamin D3 (125 125 mcg PO DAILY 07/22/21 08/16/22 History Mcg = 5000 Iu)] Warfarin [Coumadin] 3 mg PO SUTUTHSA@1800 08/16/21 08/16/22 History Multivit-Min/Iron/Folic/Lutein 1 tab PO DAILY 05/12/22 08/16/22 History [Centrum Silver Women Tablet] Warfarin [Coumadin] 4.5 mg PO MOWEFR@1800 05/12/22 08/16/22 History Furosemide [Lasix] 40 mg PO DAILY #30 tablet 07/02/22 08/16/22 Rx Ferrous Sulfate [Feosol] 325 mg PO DAILY 08/16/22 08/16/22 History Metoprolol Tartrate [Lopressor] 25 mg PO BID 08/16/22 08/16/22 History Vitamin A 2,400 mcg PO DAILY 08/16/22 08/16/22 History Allergies Allergy/AdvReac Type Severity Reaction Status Date / Time zinc oxide Allergy Rash/Hives Verified 08/16/22 08:51 Surgical - Exam Vital Signs Temp Pulse Resp BP Pulse Ox 98 F 84 24 151/85 98 08/15/22 20:35 08/15/22 20:35 08/15/22 20:35 08/15/22 20:35 08/15/22 20:35 Results - Labs 08/15/22 22:16 08/15/22 22:16 Abnormal Lab Results - Last 24 Hours (Table) 08/15/22 08/15/22 08/16/22 Range/Units 22:16 22:16 12:29 Lymphocytes # 0.9 L (1.0-4.8) k/uL PT 14.6 H (9.0-12.0) sec INR 1.5 H (<1.2) Glucose 120 H (74-99) mg/dL Diabetes panel 08/15/22 Range/Units 22:16 Sodium 137 (137-145) mmol/L Potassium 4.4 (3.5-5.1) mmol/L Chloride 104 (98-107) mmol/L Carbon Dioxide 26 (22-30) mmol/L BUN 14 (7-17) mg/dL Creatinine 0.62 (0.52-1.04) mg/dL Glucose 120 H (74-99) mg/dL Calcium 8.9 (8.4-10.2) mg/dL AST 18 (14-36) U/L ALT 16 (4-34) U/L Alkaline Phosphatase 96 (38-126) U/L Total Protein 7.0 (6.3-8.2) g/dL Albumin 3.7 (3.5-5.0) g/dL Calcium panel 08/15/22 Range/Units 22:16 Calcium 8.9 (8.4-10.2) mg/dL Albumin 3.7 (3.5-5.0) g/dL Pituitary panel 08/15/22 Range/Units 22:16 Sodium 137 (137-145) mmol/L Potassium 4.4 (3.5-5.1) mmol/L Chloride 104 (98-107) mmol/L Carbon Dioxide 26 (22-30) mmol/L BUN 14 (7-17) mg/dL Creatinine 0.62 (0.52-1.04) mg/dL Glucose 120 H (74-99) mg/dL Calcium 8.9 (8.4-10.2) mg/dL Adrenal panel 08/15/22 Range/Units 22:16 Sodium 137 (137-145) mmol/L Potassium 4.4 (3.5-5.1) mmol/L Chloride 104 (98-107) mmol/L Carbon Dioxide 26 (22-30) mmol/L BUN 14 (7-17) mg/dL Creatinine 0.62 (0.52-1.04) mg/dL Glucose 120 H (74-99) mg/dL Calcium 8.9 (8.4-10.2) mg/dL Total Bilirubin 1.0 (0.2-1.3) mg/dL AST 18 (14-36) U/L ALT 16 (4-34) U/L Alkaline Phosphatase 96 (38-126) U/L Total Protein 7.0 (6.3-8.2) g/dL Albumin 3.7 (3.5-5.0) g/dL
--- NOTE | 2022-08-16 15:08 | P.HPIM ---
History of Present Illness H&P Date: 08/16/22 This is a pleasant 71-year-old female who presented to the emergency department with complaints of a infection on her abdominal wall. Patient reports over the last few days she noticed a small pimple on the right side of her abdomen and has been trying to squeeze it with no drainage noted. Patient reports it started becoming more red and painful and swollen and came here for further evaluation. Patient reports she follows with Dr. Tasha Leon in the outpatient setting with a past medical history of atrial fibrillation, asthma, hyperlipidemia, hypertension, osteoarthritis, sleep apnea and uses a CPAP, pulmonary fibrosis, anxiety/depression, bilateral leg and feet edema at times with chronic wounds to the bilateral lower extremities. Patient did not have a white count and was afebrile on admission. CT abdomen was done which showed cardiomegaly with colonic without diverticulosisany diverticulitis and also cholelithiasis unchanged from previous imaging along with some subcutaneous density over the right anterior abdomen possibly focal cellulitis which appears new to previous exams. There is some scarring and subsegmental atelectasis at the lung bases without any changes. Patient was admitted for IV antibiotics with concerns of abdominal cellulitis. Review Of Systems: Constitutional: No fever, no chills, no night sweats. No weight change. No weakness, fatigue or lethargy. No daytime sleepiness. EENT: No headache. No blurred vision or double vision, no loss of vision. No loss of Hearing, no ringing in the ears, no dizziness. No nasal drainage or congestion. No epistaxis. No sore throat. Lungs: No shortness of breath, cough, no sputum production. No wheezing. Cardiovascular: No chest pain, no lower extremity edema. No palpitations. No paroxysmal nocturnal dyspnea. No orthopnea. No lightheadedness or dizziness. No syncopal episodes. Abdominal Reports right abdominal wall pain with a skin infection No nausea, vomiting. No diarrhea. No constipation. No bloody or tarry stools.. No loss of appetite. Genitourinary: No dysuria, increased frequency, urgency. No urinary retention. Musculoskeletal: No myalgias. No muscle weakness, no gait dysfunction, no frequent falls. No back pain. No neck pain. IntegumenReports chronic wounds to the lower extremities and sees Dr. Recinos for chronic right lower extremity wounds. no lesions. No rash or pruritus. No unusual bruising. No change in hair or nails. Neurologic: No aphasia. No facial droop. No change in mentation. No head injury. No headache. No paralysis. No paresthesia. Psychiatric: No depression. No anxiety. No mood swings. Endocrine: No abnormal blood sugars. No weight change. No excessive sweating or thirst. No cold intolerance. PHYSICAL EXAMINATION: GENERAL: The patient is alert and oriented x4, Well developed, well nourished. morbidly obese HEENT: Pupils are round and equally reacting to light. EOMI. no scleral icterus. No conjunctival pallor. Normocephalic, atraumatic. No pharyngeal erythema. No thyromegaly. CARDIOVASCULAR: S1 and S2 muffled PULMONARY: diminished breath sounds bilaterally with no wheezing or rhonchi noted. ABDOMEN: soft. mildly tender on exam on the right . erythema and induration with a blackened central wound noted on the right anterior abdomen that is now marked to monitor for improvement. obese. non-distended, normoactive bowel sounds. No palpable organomegaly. MUSCULOSKELETAL: No joint swelling or deformity. EXTREMITIES: No cyanosis, clubbing, or pedal edema. NEUROLOGICAL: Gross neurological examination did not reveal any focal deficits. Diffuse weakness SKIN: No rashes. Assessment: Abdominal wound right side with cellulitis, present on admission History of atrial fibrillation History of asthma, not in exacerbation Hyperlipidemia hypertension Osteoarthritis history Sleep apnea and uses a CPAP Bilateral lower extremity edema history with chronic venous ulcer of the right lower extremity being seen by Dr. Recinos outpatient History of anxiety/depression Morbid obesity with a BMI of 54.5 GI prophylaxis DVT prophylaxis Full code Plan: Recommend to continue with current medications and management and will continue on vancomycin. Patient also received a dose of IV ceftriaxone while in the ER. Will consult infectious disease along with general surgery for possible I&D with cultures recommend monitoring and marking the site is right side abdomen wound has extensive erythema and swelling with induration noted recommend continue local wound care Patient takes Coumadin for her atrial fibrillation and awaiting PT/INR and will resume Coumadin with pharmacy to dose Home medications have been reviewed and resumed Recommend follow-up labs in a.m. and will await surgery consultation along with infectious disease input and recommendations. The impression and plan of care has been dictated by Prisca Jolly, nurse practitioner as directed. Dr. Reji MD I have performed a history and examination and MDM of this patient, discussed the same with the dictator, and agree with the dictator's assessment and plan as written ,documented as a scribe. Based on total visit time, I have performed more than 50% of the visit. Any additional findings or plans will be noted. Past Medical History Past Medical History: Atrial Fibrillation, Asthma, Hyperlipidemia, Hypertension, Osteoarthritis (OA), Sleep Apnea/CPAP/BIPAP, Vascular Disorder Additional Past Medical History / Comment(s): CPAP use, cardiac murmur, bilateral legs/feet edema at times, pulmonary fibrosis, aortic aneurysm. Recent hospitalization for "UTI causing A-Fib flare-up". History of Any Multi-Drug Resistant Organisms: None Reported Past Surgical History: Bladder Surgery, Hysterectomy, Tonsillectomy Additional Past Surgical History / Comment(s): BLADDER SLING, EGD, colonoscopy, R carpal tunnel release, R elbow release. Past Anesthesia/Blood Transfusion Reactions: No Reported Reaction Past Psychological History: Anxiety, Depression Smoking Status: Never smoker Past Alcohol Use History: Rare Past Drug Use History: None Reported - Past Family History Father Family Medical History: Coronary Artery Disease (CAD), Myocardial Infarction (MD) Additional Family Medical History / Comment(s): Father had heart disease and had a MD in his 50s. Mother Family Medical History: Cancer Additional Family Medical History / Comment(s): Mother had cancer but pt does not recall type. Sister(s) Family Medical History: Cancer, Deep Vein Thrombosis (DVT), Pulmonary Embolus Additional Family Medical History / Comment(s): SISTER #1 UTERINE CA. SISTER #2 UTERINE AND BREAST CA. Sister#3 2-PEs, 3- DVTs Medications and Allergies Home Medications Medication Instructions Recorded Confirmed Type RX: Atorvastatin [Lipitor] 40 mg PO HS 08/03/19 08/16/22 History RX: Cyanocobalamin (Vitamin B-12) 1,000 mcg PO DAILY 06/16/21 08/16/22 History [Vitamin B-12] RX: Potassium Chloride [Klor-Con 20 meq PO DAILY 06/16/21 08/16/22 History 20] RX: lisinopriL [Prinivil] 20 mg PO BID 06/16/21 08/16/22 History RX: Albuterol Sulfate [Proair Hfa] 2 puff INHALATION RT-Q6H PRN 07/22/2108/16 History RX: Aspirin EC [Ecotrin Low Dose] 81 mg PO DAILY 07/22/21 08/16/22 History RX: Cholecalciferol [Vitamin D3 125 mcg PO DAILY 07/22/21 08/16/22 History (125 Mcg = 5000 Iu)] RX: Warfarin [Coumadin] 3 mg PO SUTUTHSA@1800 08/16/21 08/16/22 History RX: Multivit-Min/Iron/Folic/Lutein 1 tab PO DAILY 05/12/22 08/16/22 History [Centrum Silver Women Tablet] RX: Warfarin [Coumadin] 4.5 mg PO MOWEFR@1800 05/12/22 08/16/22 History Furosemide [Lasix] 40 mg PO DAILY #30 tablet 07/02/22 08/16/22 Rx Ferrous Sulfate [Feosol] 325 mg PO DAILY 08/16/22 08/16/22 History Metoprolol Tartrate [Lopressor] 25 mg PO BID 08/16/22 08/16/22 History RX: Vitamin A 2,400 mcg PO DAILY 08/16/22 08/16/22 History Allergies Allergy/AdvReac Type Severity Reaction Status Date / Time zinc oxide Allergy Rash/Hives Verified 08/16/22 08:51 Physical Exam Vitals: Vital Signs Temp Pulse Pulse Resp BP BP Pulse Ox 08/16/22 07:00 98.8 F 104 H 20 108/53 90 L 08/16/22 02:27 97.5 F L 84 18 157/92 98 08/16/22 01:45 72 131/74 16 L 08/16/22 00:04 77 16 144/77 96 08/15/22 20:35 98 F 84 24 151/85 98 Intake and Output 08/15/22 08/16/22 08/16/22 22:59 06:59 14:59 Intake Total 118 Balance 118 Intake: Oral 118 Other: # Voids 1 Weight 126.552 kg 126.552 kg Results CBC & Chem 7: 08/15/22 22:16 08/15/22 22:16 Labs: Abnormal Lab Results - Last 24 Hours (Table) 08/15/22 08/15/22 Range/Units 22:16 22:16 Lymphocytes # 0.9 L (1.0-4.8) k/uL Glucose 120 H (74-99) mg/dL Thrombosis Risk Factor Assmnt - DVT/VTE Prophylaxis DVT/VTE Prophylaxis: Pharmacologic Prophylaxis ordered Assessment and Plan Time with Patient: Greater than 30
[2022-08-16] MEDS: VANCOMYCIN 2,000 MG in SODIUM CHLORIDE 0.9% 500 ML 500 ML IVPB SCH (17:31)
[2022-08-16] MEDS ORDERED: WARFARIN 5 MG TAB PO ONE (18:00)
--- NOTE | 2022-08-16 19:29 | P.CONS ---
History of Present Illness - Reason for Consult Consult date: 08/16/22 Abdominal wall cellulitis Requesting physician: Prisca Jolly - Chief Complaint Abdominal wall pain swelling or redness x few days - History of Present Illness Patient is a 71 year old female with a past medical history significant for atrial fibrillation and hypertension hyperlipidemia sleep apnea history of bilateral extremity venous stasis ulcers and cellulitis patient presenting to the hospital for evaluation of right lower abdominal wall pain swelling and redness patient mentioned her symptoms started on Sunday that is 4 days prior to presentation to the hospital which she thought was like a pimple that seems to have increase in size becoming more painful patient described the pain to be probably in this is almost 7-8 out of 10 and radiation did improve with the pain medication she has received here, with a series swelling redness but no foul-smelling drainage. She did have some chills but denies high-grade fever with the similar the patient was evaluated by the ER physician. The patient was afebrile patient did have a normal white count kidney function was normal patient did have CT of abdominal pelvis which did show some component wo und Aquacel but no diverticulitis did have right lower abdominal wall opacity concerning for focal cellulitis but no abscess patient was started on vancomycin and infectious disease was consulted for further management of antibiotic therapy Review of Systems Positive point has been mentioned in the HPI rest of the systems are negative Past Medical History Past Medical History: Atrial Fibrillation, Asthma, Hyperlipidemia, Hypertension, Osteoarthritis (OA), Sleep Apnea/CPAP/BIPAP, Vascular Disorder Additional Past Medical History / Comment(s): CPAP use, cardiac murmur, bilateral legs/feet edema at times, pulmonary fibrosis, aortic aneurysm. Recent hospitalization for "UTI causing A-Fib flare-up". History of Any Multi-Drug Resistant Organisms: None Reported Past Surgical History: Bladder Surgery, Hysterectomy, Tonsillectomy Additional Past Surgical History / Comment(s): BLADDER SLING, EGD, colonoscopy, R carpal tunnel release, R elbow release. Past Anesthesia/Blood Transfusion Reactions: No Reported Reaction Past Psychological History: Anxiety, Depression Smoking Status: Never smoker Past Alcohol Use History: Rare Past Drug Use History: None Reported - Past Family History Father Family Medical History: Coronary Artery Disease (CAD), Myocardial Infarction (RI) Additional Family Medical History / Comment(s): Father had heart disease and had a RI in his 50s. Mother Family Medical History: Cancer Additional Family Medical History / Comment(s): Mother had cancer but pt does not recall type. Sister(s) Family Medical History: Cancer, Deep Vein Thrombosis (DVT), Pulmonary Embolus Additional Family Medical History / Comment(s): SISTER #1 UTERINE CA. SISTER #2 UTERINE AND BREAST CA. Sister#3 2-PEs, 3- DVTs Medications and Allergies Home Medications Medication Instructions Recorded Confirmed Type Atorvastatin [Lipitor] 40 mg PO HS 08/03/19 08/16/22 History Cyanocobalamin (Vitamin B-12) 1,000 mcg PO DAILY 06/16/21 08/16/22 History [Vitamin B-12] Potassium Chloride [Klor-Con 20] 20 meq PO DAILY 06/16/21 08/16/22 History lisinopriL [Prinivil] 20 mg PO BID 06/16/21 08/16/22 History Albuterol Sulfate [Proair Hfa] 2 puff INHALATION RT-Q6H PRN 07/22/21 08/16/22 History Aspirin EC [Ecotrin Low Dose] 81 mg PO DAILY 07/22/21 08/16/22 History Cholecalciferol [Vitamin D3 (125 125 mcg PO DAILY 07/22/21 08/16/22 History Mcg = 5000 Iu)] Warfarin [Coumadin] 3 mg PO SUTUTHSA@1800 08/16/21 08/16/22 History Multivit-Min/Iron/Folic/Lutein 1 tab PO DAILY 05/12/22 08/16/22 History [Centrum Silver Women Tablet] Warfarin [Coumadin] 4.5 mg PO MOWEFR@1800 05/12/22 08/16/22 History Furosemide [Lasix] 40 mg PO DAILY #30 tablet 07/02/22 08/16/22 Rx Ferrous Sulfate [Iron (65 MG 325 mg PO DAILY 08/16/22 08/16/22 History Elemental)] Metoprolol Tartrate [Lopressor] 25 mg PO BID 08/16/22 08/16/22 History Vitamin A 2,400 mcg PO DAILY 08/16/22 08/16/22 History Docusate [Colace] 100 mg PO BID PRN cap 08/21/22 Rx Doxycycline Hyclate 100 mg PO BID 10 Days #20 tab 08/21/22 Rx HYDROcodone/APAP 5-325MG [[place] 1 each PO Q4HR PRN #12 tab 08/21/22 Rx 5-325] traMADol HCl [Ultram] 50 mg PO QID 3 Days #12 tab 08/21/22 Rx Allergies Allergy/AdvReac Type Severity Reaction Status Date / Time zinc oxide Allergy Rash/Hives Verified 08/16/22 08:51 Physical Exam Vitals: Vital Signs Temp Pulse Pulse Resp BP BP Pulse Ox 08/16/22 07:00 98.8 F 104 H 20 108/53 90 L 08/16/22 02:27 97.5 F L 84 18 157/92 98 08/16/22 01:45 72 131/74 16 L 08/16/22 00:04 77 16 144/77 96 08/15/22 20:35 98 F 84 24 151/85 98 Intake and Output 08/15/22 08/16/22 08/16/22 22:59 06:59 14:59 Intake Total 118 Balance 118 Intake: Oral 118 Other: # Voids 1 Weight 126.552 kg 126.552 kg GENERAL DESCRIPTION: Leena female lying in bed, no distress. No tachypnea or accessory muscle of respiration use. HEENT: Shows Pallor , no scleral icterus. Oral mucous membrane is dry. No pharyngeal erythema or thrush NECK: Trachea central, no thyromegaly. LUNGS: Unlabored breathing. Clear to auscultation anteriorly. No wheeze or crackle. HEART: S1, S2, regular rate and rhythm. No loud murmur ABDOMEN: Soft, right lower abdominal wall with an area of swelling redness induration and tenderness no drainage EXTREMITIES: No edema of feet. SKIN: No rash, no masses palpable. NEUROLOGICAL: The patient is awake, alert, oriented x3, mood and affect normal. Results CBC & Chem 7: 08/19/22 08:00 08/21/22 08:34 Labs: Abnormal Lab Results - Last 24 Hours (Table) 08/15/22 08/15/22 Range/Units 22:16 22:16 Lymphocytes # 0.9 L (1.0-4.8) k/uL Glucose 120 H (74-99) mg/dL Assessment and Plan (1) Abdominal wall cellulitis Status: Acute Code(s): L03.311 - CELLULITIS OF ABDOMINAL WALL SNOMED Code(s): 78340616 (2) Abscess Status: Acute Code(s): L02.91 - CUTANEOUS ABSCESS, UNSPECIFIED SNOMED Code(s): 847782959 Plan: 1patient with right lower abdominal wall carbuncle/ cellulitis with an area of induration and no fluctuation will need to cover for gram positives confirmed with the likely pathogen and a question of possible candidiasis with MRSA 2-marked the area of induration 3-if the area started to drain RN advised to obtain culture 4-Vancomycin pharmacy to dose target trough of 15 while watching kidney func tion and Vanco trough closely We will follow on clinical condition and cultures to further adjust medication if needed Thank you for this consultation will follow this patient with you Time with Patient: Greater than 30
[2022-08-16] MEDS: METOPROLOL TARTRATE 25 MG TAB PO SCH (21:02)
[2022-08-16] MEDS: ATORVASTATIN 40 MG TAB PO SCH (21:02)
[2022-08-17] MEDS: MORPHINE SULFATE 4 MG/ML SYRINGE IV PRN ×4 (00:13→23:05)
[2022-08-17] MEDS: SODIUM CHLORIDE 0.9% 1,000 ML IV SCH (05:53)
[2022-08-17 05:55] LABS: INR 1.6 (<1.2)
[2022-08-17 06:03] LABS: African American GFR (CKD) >90 (>60 ml/min/1.73 sqM); Anion Gap 4 mmol/L; Blood Urea Nitrogen 16 mg/dL (7-17); Calcium 8.4 mg/dL (8.4-10.2); Carbon Dioxide 29 mmol/L (22-30); Chloride 105 mmol/L (98-107); Glucose 105 mg/dL (74-99); Non-African American GFR(CKD) 80 (>60 ml/min/1.73 sqM); Sodium 138 mmol/L (137-145)
[2022-08-17] MEDS: CYANOCOBALAMIN 500 MCG TAB PO SCH (08:10)
[2022-08-17] MEDS: VANCOMYCIN 2,000 MG in SODIUM CHLORIDE 0.9% 500 ML 500 ML IVPB SCH (08:10)
[2022-08-17] MEDS: MULTIVITAMINS, THERA 1 EACH TAB PO SCH (08:10)
[2022-08-17] MEDS: lisinopriL 20 MG TAB PO SCH (08:10)
[2022-08-17] MEDS: ASPIRIN 81 MG PO SCH (08:10)
[2022-08-17] MEDS: POTASSIUM CHLORIDE ER 20 MEQ TAB.ER PO SCH (08:10)
[2022-08-17] MEDS: FUROSEMIDE 40 MG TAB PO SCH (08:10)
[2022-08-17] MEDS: CHOLECALCIFEROL 125 MCG (5000 IU) TABLET PO SCH (08:10)
[2022-08-17] MEDS: FERROUS SULFATE 325 MG TAB PO SCH (08:10)
[2022-08-17] MEDS: METOPROLOL TARTRATE 25 MG TAB PO SCH ×2 (08:10→20:18)
[2022-08-17] MEDS: HYDROcodone/APAP 5-325MG 1 EACH TAB PO PRN ×2 (08:15→15:27)
[2022-08-17] MEDS: VITAMIN A 10,000 UNIT (3000 MCG) CAPSULE PO SCH (08:33)
[2022-08-17] MEDS ORDERED: WARFARIN 5 MG TAB PO ONE ×2 (09:00→18:00)
--- NOTE | 2022-08-17 13:25 | P.PN ---
Subjective Progress Note Date: 08/17/22 CHIEF COMPLAINT: Abdominal cellulitis HISTORY OF PRESENT ILLNESS: Patient's area of cellulitis has decrease redness. Patient still has not is very tender. No drainage. Denies any nausea vomiting. Afebrile. WBC 7.9 Hg 12.7 platelets 232 INR 1.6 sodium 138 potassium is 5 creatinine 0.75 PHYSICAL EXAM: VITAL SIGNS: Reviewed. GENERAL: Well-developed in no acute distress. HEENT: No sclera icterus. Extraocular movements grossly intact. Moist buccal mucosa. Head is atraumatic, normocephalic. ABDOMEN: Soft. Nondistended. Abdominal wall cellulitis on the right side of the abdomen area is indurated. Center does have a darkened spot. No drainage. Tender with palpation. NEUROLOGIC: Alert and oriented. Cranial nerves II through XII grossly intact. ASSESSMENT: 1. Abdominal wall cellulitis with area of induration PLAN: -Possible incision and drainage tomorrow at bedside -Continue antibiotics -Hold Coumadin -Continue supportive care Physician Automatic Machines Supervisor note has been reviewed by physician. Signing provider agrees with the documented findings, assessment, and plan of care. Objective - Vital Signs Vital signs: Vital Signs Temp 98.5 F 08/17/22 08:00 Pulse 99 08/17/22 08:00 Resp 18 08/17/22 08:10 BP 131/72 08/17/22 08:00 Pulse Ox 96 08/17/22 08:00 FiO2 Intake & Output 08/16/22 08/17/22 08/17/22 18:59 06:59 18:59 Intake Total 457 Balance 457 Intake: Oral 457 Other: Voiding Method Toilet # Voids 4 2 - Labs CBC & Chem 7: 08/15/22 22:16 08/17/22 05:16 Labs: Abnormal Lab Results - Last 24 Hours (Table) 08/17/22 08/17/22 Range/Units 05:16 05:17 PT 16.0 H (9.0-12.0) sec INR 1.6 H (<1.2) Glucose 105 H (74-99) mg/dL Microbiology - Last 24 Hours (Table) 08/15/22 23:10 Blood Culture - Preliminary Blood No Growth after 24 hours 08/15/22 22:50 Blood Culture - Preliminary Blood No Growth after 24 hours
--- NOTE | 2022-08-17 15:31 | US ---
EXAMINATION TYPE: US venous doppler duplex LE DATE OF EXAM: 08/17/2022 2:49 PM COMPARISON: NONE CLINICAL HISTORY: swelling leg pain. edema SIDE PERFORMED: Bilateral TECHNIQUE: The lower extremity deep venous system is examined utilizing real time linear array sonog mike with graded compression, doppler sonography and color-flow sonography. VESSELS IMAGED: Common Femoral Vein Deep Femoral Vein Greater Saphenous Vein * Femoral Vein Popliteal Vein Small Saphenous Vein * Proximal Calf Veins (* superficial vessels) Limited due to body habitus. Right Leg: Negative for DVT Left Leg: Negative for DVT IMPRESSION: Grayscale, color doppler, spectral doppler imaging performed of the deep veins of the lo wer extremities. There is normal flow, compressibility, vascular waveforms.
--- NOTE | 2022-08-17 19:19 | P.PN ---
Subjective Progress Note Date: 08/17/22 This is a pleasant 71-year-old female who presented to the emergency department with complaints of a infection on her abdominal wall. Patient reports over the last few days she noticed a small pimple on the right side of her abdomen and has been trying to squeeze it with no drainage noted. Patient reports it started becoming more red and painful and swollen and came here for further evaluation. Patient reports she follows with Dr. Tasha Leon in the outpatient setting with a past medical history of atrial fibrillation, asthma, hyperlipidemia, hypertension, osteoarthritis, sleep apnea and uses a CPAP, pulmonary fibrosis, anxiety/depression, bilateral leg and feet edema at times with chronic wounds to the bilateral lower extremities. Patient did not have a white count and was afebrile on admission. CT abdomen was done which showed cardiomegaly with colonic without diverticulosisany diverticulitis and also cholelithiasis unchanged from previous imaging along with some subcutaneous density over the right anterior abdomen possibly focal cellulitis which appears new to previous exams. There is some scarring and subsegmental atelectasis at the lung bases without any changes. Patient was admitted for IV antibiotics with concerns of abdominal cellulitis. 08/17/2022 Patient is seen this morning currently sitting up in the chair being followed by general surgery along with infectious disease. Patient continues to have significant abdominal tenderness on the right side and not significant drainage noticed at all. Discussed again with surgery about possible I&D and discussing tentative I&D at the bedside in the a.m. Patient did have Coumadin and will hold overnight. Patient also with some lower extremity swelling will obtain Dopplers. Patient is afebrile denies chest pain or shortness of breath. Patient reports tolerating diet with no reports of nausea or vomiting noted. Recommend follow-up labs and continue to monitor kidney functions closely on vancomycin. Review of systems: Constitutional: No reports of fatigue, fever, or chills Cardiovascular: No reports of chest pain or palpitations Respiratory: No reports of shortness of breath or cough GI: No reports of nausea, vomiting, or diarrhea reports abdominal wall tenderness : No reports of dysuria or retention Neurovascular: No reports of weakness or numbness reports some mild lower extremity swelling All medications have been reviewed PHYSICAL EXAMINATION: GENERAL: The patient is alert and oriented x4, Well developed, well nourished. morbidly obese HEENT: Pupils are round and equally reacting to light. EOMI. no scleral icterus. No conjunctival pallor. Normocephalic, atraumatic. No pharyngeal erythema. No thyromegaly. CARDIOVASCULAR: S1 and S2 muffled PULMONARY: diminished breath sounds bilaterally with no wheezing or rhonchi noted. ABDOMEN: soft. mildly tender on exam on the right . erythema and induration with a blackened central wound noted on the right anterior abdomen that is now marked to monitor for improvement. Erythema minimally improved although continues with no drainage and indurated with significant tenderness on palpation. obese. non-distended, normoactive bowel sounds. No palpable organomegaly. MUSCULOSKELETAL: No joint swelling or deformity. EXTREMITIES: No cyanosis, clubbing, or pedal edema. NEUROLOGICAL: Gross neurological examination did not reveal any focal deficits. Diffuse weakness SKIN: No rashes. Assessment: Abdominal wound right side with cellulitis, present on admission History of atrial fibrillation History of asthma, not in exacerbation Hyperlipidemia hypertension Osteoarthritis history Sleep apnea and uses a CPAP Bilateral lower extremity edema history with chronic venous ulcer of the right lower extremity being seen by Dr. Recinos outpatient History of anxiety/depression Morbid obesity with a BMI of 54.5 GI prophylaxis DVT prophylaxis Full code Plan: Recommend to continue with current medications and management and will continue on vancomycin. I&D following an need cultures of the wound. General surgery consulted and discussed again about possible I&D and tentatively scheduled for I&D at the bedside in the a.m. as patient is on Coumadin and will hold tonight. recommend monitoring marked site right side abdomen wound, induration persists with very minimal improvement in erythema noted recommend continue local wound care Will resume Coumadin with pharmacy to dose and close monitoring of INR once I&D is performed Home medications have been reviewed and resumed Prognosis is guarded The impression and plan of care has been dictated by Prisca Jolly nurse practitioner as directed. Dr. Reji MD I have performed a history and examination and MDM of this patient, discussed the same with the dictator, and agree with the dictator's assessment and plan as written ,documented as a scribe. Based on total visit time, I have performed more than 50% of the visit. Any additional findings or plans will be noted. Objective - Vital Signs Vital signs: Vital Signs Temp 98.5 F 08/17/22 08:00 Pulse 99 08/17/22 08:00 Resp 18 01/12/23 08:10 BP 131/72 08/17/22 08:00 Pulse Ox 96 08/17/22 08:00 FiO2 Intake & Output 08/16/22 08/17/22 08/17/22 18:59 06:59 18:59 Intake Total 457 Balance 457 Intake: Oral 457 Other: Voiding Method Toilet # Voids 4 2 - Labs CBC & Chem 7: 08/15/22 22:16 08/17/22 05:16 Labs: Abnormal Lab Results - Last 24 Hours (Table) 08/17/22 08/17/22 Range/Units 05:16 05:17 PT 16.0 H (9.0-12.0) sec INR 1.6 H (<1.2) Glucose 105 H (74-99) mg/dL Microbiology - Last 24 Hours (Table) 08/15/22 23:10 Blood Culture - Preliminary Blood No Growth after 24 hours 08/15/22 22:50 Blood Culture - Preliminary Blood No Growth after 24 hours
[2022-08-17] MEDS: ATORVASTATIN 40 MG TAB PO SCH (20:18)
--- NOTE | 2022-08-17 21:14 | P.PN ---
Subjective Progress Note Date: 08/17/22 Principal diagnosis: Abdominal wall cellulitis Patient is a 71 year old female with a past medical history significant for atrial fibrillation and hypertension hyperlipidemia sleep apnea history of bilateral extremity venous stasis ulcers and cellulitis patient presenting to the hospital for evaluation of right lower abdominal wall pain swelling and redness patient symptoms started 4 days prior to presentation to the hospital. CT abdomen and pelvis did not show any drainable abscess On today's evaluation that is 08/17/2022, the patient denies having any fever or chills, patient abdominal wall pain has slightly decreased in intensity, patient denies having any chest pain shortness of breath or cough. no nausea no vomiting and no diarrhea Objective - Vital Signs Vital signs: Vital Signs Temp 98.5 F 08/17/22 08:00 Pulse 99 08/17/22 08:00 Resp 18 08/17/22 08:00 BP 131/72 08/17/22 08:00 Pulse Ox 96 08/17/22 08:00 FiO2 Intake & Output 08/16/22 08/17/22 08/17/22 18:59 06:59 18:59 Intake Total 457 Balance 457 Intake: Oral 457 Other: # Voids 4 2 - Exam GENERAL DESCRIPTION: An elderly female lying in bed in no distress RESPIRATORY SYSTEM: Unlabored breathing , decreased breath sounds at bases HEART: S1 S2 regular rate and rhythm , ABDOMEN: Soft , abdominal wall redness induration slightly decreased no drainage EXTREMITIES: No edema feet - Labs CBC & Chem 7: 08/15/22 22:16 08/17/22 05:16 Labs: Abnormal Lab Results - Last 24 Hours (Table) 08/16/22 08/17/22 08/17/22 Range/Units 12:29 05:16 05:17 PT 14.6 H 16.0 H (9.0-12.0) sec INR 1.5 H 1.6 H (<1.2) Glucose 105 H (74-99) mg/dL Microbiology - Last 24 Hours (Table) 08/15/22 23:10 Blood Culture - Preliminary Blood No Growth after 24 hours 08/15/22 22:50 Blood Culture - Preliminary Blood No Growth after 24 hours Assessment and Plan (1) Abdominal wall cellulitis Current Visit: Yes Status: Acute Code(s): L03.311 - CELLULITIS OF ABDOMINAL WALL SNOMED Code(s): 27152077 Plan: 1patient with right lower abdominal wall carbuncle/ cellulitis with an area of induration and no fluctuation will need to cover for gram positives confirmed with the likely pathogen and a question of possible candidiasis with MRSA 2-if the area started to drain RN advised to obtain culture 3patient did have minimal clinical improvement as for his redness is concerned and would continue with vancomycin on watching her kidney function closely Time with Patient: Less than 30
[2022-08-18] MEDS: VANCOMYCIN 2,000 MG in SODIUM CHLORIDE 0.9% 500 ML 500 ML IVPB SCH ×2 (00:42→17:06)
[2022-08-18] MEDS: MORPHINE SULFATE 4 MG/ML SYRINGE IV PRN ×2 (03:46→08:10)
[2022-08-18] MEDS: SODIUM CHLORIDE 0.9% 1,000 ML IV SCH (03:50)
[2022-08-18 05:37] LABS: Basophils % (A) 0 %; Eosinophils # (A) 0.3 k/uL (0-0.7); Eosinophils % (A) 4 %; HCT 35.6 % (34.0-46.0); HGB 11.4 gm/dL (11.4-16.0); Lymphocytes # (A) 0.6 k/uL (1.0-4.8); Lymphocytes % (A) 10 %; MCH 30.7 pg (25.0-35.0); MCHC 32.1 g/dL (31.0-37.0); MCV 95.6 fL (80.0-100.0); Mean Platelet Volume 8.8; Monocytes # (A) 0.5 k/uL (0-1.0); Monocytes % (A) 9 %; Neutrophils # (A) 4.5 k/uL (1.3-7.7); Neutrophils % (A) 75 %; Platelet Count 185 k/uL (150-450); RBC 3.72 m/uL (3.80-5.40); RDW 12.7 % (11.5-15.5)
[2022-08-18 05:45] LABS: African American GFR (CKD) >90 (>60 ml/min/1.73 sqM); Anion Gap 4 mmol/L; Blood Urea Nitrogen 15 mg/dL (7-17); Calcium 8.3 mg/dL (8.4-10.2); Carbon Dioxide 27 mmol/L (22-30); Chloride 105 mmol/L (98-107); Glucose 99 mg/dL (74-99); Non-African American GFR(CKD) 82 (>60 ml/min/1.73 sqM); Potassium 4.7 mmol/L (3.5-5.1); Sodium 136 mmol/L (137-145)
[2022-08-18 05:46] LABS: INR 1.7 (<1.2); Prothrombin Time 16.8 sec (9.0-12.0)
[2022-08-18] MEDS: FERROUS SULFATE 325 MG TAB PO SCH (08:09)
[2022-08-18] MEDS: CYANOCOBALAMIN 500 MCG TAB PO SCH (08:09)
[2022-08-18] MEDS: METOPROLOL TARTRATE 25 MG TAB PO SCH ×2 (08:09→20:24)
[2022-08-18] MEDS: VITAMIN A 10,000 UNIT (3000 MCG) CAPSULE PO SCH (08:10)
[2022-08-18] MEDS: MULTIVITAMINS, THERA 1 EACH TAB PO SCH (08:10)
[2022-08-18] MEDS: POTASSIUM CHLORIDE ER 20 MEQ TAB.ER PO SCH (08:10)
[2022-08-18] MEDS: FUROSEMIDE 40 MG TAB PO SCH (08:10)
[2022-08-18] MEDS: CHOLECALCIFEROL 125 MCG (5000 IU) TABLET PO SCH (08:10)
[2022-08-18] MEDS: lisinopriL 20 MG TAB PO SCH (08:10)
[2022-08-18] MEDS: ASPIRIN 81 MG PO SCH (08:10)
[2022-08-18] MEDS ORDERED: KETOROLAC 15 MG/ML 1 ML VIAL IVP PRN (09:46)
[2022-08-18] MEDS ORDERED: MORPHINE SULFATE 2 MG/ML SYRINGE IV PRN (09:46)
--- NOTE | 2022-08-18 13:12 | P.PN ---
Subjective Progress Note Date: 08/18/22 CHIEF COMPLAINT: Abdominal cellulitis HISTORY OF PRESENT ILLNESS: Patient is status post bedside debridement with incision and drainage of abdominal wall cellulitis and area of induration by Dr. Flores. A small amount of pus and serosanguineous drainage expelled. Cultures were obtained. Patient given IV morphine prior to procedure. Afebrile. WBC is 6H she be 11.4 platelets 185 INR 1.7 sodium is 136 potassium 4.7 creatinine 0.74 PHYSICAL EXAM: VITAL SIGNS: Reviewed. GENERAL: Well-developed in no acute distress. HEENT: No sclera icterus. Extraocular movements grossly intact. Moist buccal mucosa. Head is atraumatic, normocephalic. ABDOMEN: Soft. Nondistended. Abdominal wall cellulitis on the right side of the abdomen area is indurated. Center does have a darkened spot. No drainage. Tender with palpation. NEUROLOGIC: Alert and oriented. Cranial nerves II through XII grossly intact. ASSESSMENT: 1. Abdominal wall cellulitis with area of induration status post debridement and incision and drainage PLAN: -Continue local wound care with Aquacel silver rope -Continue antibiotics -Await cultures -Continue supportive care Physician Dumping Machine Operator note has been reviewed by physician. Signing provider agrees with the documented findings, assessment, and plan of care. Objective - Vital Signs Vital signs: Vital Signs Temp 98.5 F 08/18/22 08:10 Pulse 87 08/18/22 08:10 Resp 16 08/18/22 08:10 BP 110/60 08/18/22 08:10 Pulse Ox 94 L 08/18/22 08:10 FiO2 Intake & Output 08/17/22 08/18/22 08/18/22 18:59 06:59 18:59 Intake Total 118 Output Total 400 500 Balance -282 -500 Intake: Oral 118 Output: Urine 400 500 Other: Voiding Method Toilet Toilet Toilet # Voids 1 - Labs CBC & Chem 7: 08/18/22 05:10 08/18/22 05:10 Labs: Abnormal Lab Results - Last 24 Hours (Table) 08/18/22 08/18/22 08/18/22 Range/Units 05:10 05:10 05:10 RBC 3.72 L (3.80-5.40) m/uL Lymphocytes # 0.6 L (1.0-4.8) k/uL PT 16.8 H (9.0-12.0) sec INR 1.7 H (<1.2) Sodium 136 L (137-145) mmol/L Calcium 8.3 L (8.4-10.2) mg/dL Microbiology - Last 24 Hours (Table) 08/15/22 23:10 Blood Culture - Preliminary Blood No Growth after 48 hours 08/15/22 22:50 Blood Culture - Preliminary Blood No Growth after 48 hours
[2022-08-18] MEDS ORDERED: MORPHINE SULFATE 4 MG/ML SYRINGE IV PRN (14:08)
--- NOTE | 2022-08-18 14:32 | P.OP ---
Date of Procedure: 08/18/22 Preoperative Diagnosis: abdominal wall abscess Postoperative Diagnosis: abdominal wall abscess Procedure(s) Performed: incision and drainage abdominal wall abscess, debridement abdominal wall Anesthesia: local Surgeon: José Antonio Flores Estimated Blood Loss (ml): 5 Pathology: other (wound culture) Condition: stable Disposition: floor Description of Procedure: the patient was placed on her bed in the supine position. She received local anesthetic. Once the area was anesthetized. Using an 11 blade a skin incision was made around the necrotic tissue. This measured 2 x 1 cm. It was approximately 1 cm deep. A small abscess W Cavity was entered. A wound culture was performed.The wound was packed with gauze. P sterile dressings applied. Patient taught procedure well.
[2022-08-18] MEDS ORDERED: WARFARIN 5 MG TAB PO ONE (18:42)
--- NOTE | 2022-08-18 18:48 | P.PN ---
Subjective Progress Note Date: 08/18/22 This is a pleasant 71-year-old female who presented to the emergency department with complaints of a infection on her abdominal wall. Patient reports over the last few days she noticed a small pimple on the right side of her abdomen and has been trying to squeeze it with no drainage noted. Patient reports it started becoming more red and painful and swollen and came here for further evaluation. Patient reports she follows with Dr. Tasha Leon in the outpatient setting with a past medical history of atrial fibrillation, asthma, hyperlipidemia, hypertension, osteoarthritis, sleep apnea and uses a CPAP, pulmonary fibrosis, anxiety/depression, bilateral leg and feet edema at times with chronic wounds to the bilateral lower extremities. Patient did not have a white count and was afebrile on admission. CT abdomen was done which showed cardiomegaly with colonic without diverticulosisany diverticulitis and also cholelithiasis unchanged from previous imaging along with some subcutaneous density over the right anterior abdomen possibly focal cellulitis which appears new to previous exams. There is some scarring and subsegmental atelectasis at the lung bases without any changes. Patient was admitted for IV antibiotics with concerns of abdominal cellulitis. 08/17/2022 Patient is seen this morning currently sitting up in the chair being followed by general surgery along with infectious disease. Patient continues to have significant abdominal tenderness on the right side and not significant drainage noticed at all. Discussed again with surgery about possible I&D and discussing tentative I&D at the bedside in the a.m. Patient did have Coumadin and will hold overnight. Patient also with some lower extremity swelling will obtain Dopplers. Patient is afebrile denies chest pain or shortness of breath. Patient reports tolerating diet with no reports of nausea or vomiting noted. Recommend follow-up labs and continue to monitor kidney functions closely on vancomycin. 08/18/2022 Patient is seen and evaluated in follow-up today currently maintained on vancomycin. Plan is for bedside I&D with general surgery and awaiting report. Patient is afebrile WBC remains normal. Patient continues to have severe pain radiating 9/10 with continued burning sensation at the wound site. Erythema persists with no significant improvement and there is no drainage. Strongly rec ommend incision and drainage with wound culture to obtain proper antibiotics. Infectious disease is following. Patient is in agreement with this. Coumadin being held and will resume post I&D. Review of systems: Constitutional: No reports of fatigue, fever, or chills Cardiovascular: No reports of chest pain or palpitations Respiratory: No reports of shortness of breath or cough GI: No reports of nausea, vomiting, or diarrhea reports abdominal wall tenderness : No reports of dysuria or retention Neurovascular: No reports of weakness or numbness reports some mild lower extremity swelling All medications have been reviewed PHYSICAL EXAMINATION: GENERAL: The patient is alert and oriented x4, Well developed, well nourished. morbidly obese HEENT: Pupils are round and equally reacting to light. EOMI. no scleral icterus. No conjunctival pallor. Normocephalic, atraumatic. No pharyngeal erythema. No thyromegaly. CARDIOVASCULAR: S1 and S2 muffled PULMONARY: diminished breath sounds bilaterally with no wheezing or rhonchi noted. ABDOMEN: soft. mildly tender on exam on the right . erythema and induration with a blackened central wound noted (eschar) on the right anterior abdomen that is now marked to monitor for improvement. Erythema has not really improved although continues with no drainage and indurated with significant tenderness on palpation. obese. non-distended, normoactive bowel sounds. No palpable organomegaly. MUSCULOSKELETAL: No joint swelling or deformity. EXTREMITIES: No cyanosis, clubbing, or pedal edema. NEUROLOGICAL: Gross neurological examination did not reveal any focal deficits. Diffuse weakness SKIN: No rashes. Assessment: Abdominal wound right side with cellulitis, present on admission History of atrial fibrillation History of asthma, not in exacerbation Hyperlipidemia hypertension Osteoarthritis history Sleep apnea and uses a CPAP Bilateral lower extremity edema history with chronic venous ulcer of the right lower extremity being seen by Dr. Recinos outpatient History of anxiety/depression Morbid obesity with a BMI of 54.5 GI prophylaxis DVT prophylaxis Full code Plan: Recommend to continue with current medications and management and will continue on vancomycin. Infectious disease following an need cultures of the wound. General surgery following an performed bedside incision and drainage with central eschar removed some purulent drainage along with serosanguineous noted and deep culture was obtained. Recommend packing with silver and continue local wound care. Will await finalized cultures. Patient takes Coumadin for atrial fibrillation and will resume post I&D with pharmacy to dose recommend monitoring marked site right side abdomen wound, there is no significant clinical improvement and erythema along with induration and extreme sensitivity persists recommend continue local wound care. Surgery recommends utilizing silver rope Will resume Coumadin with pharmacy to dose and close monitoring of INR Home medications have been reviewed and resumed Prognosis is guarded The impression and plan of care has been dictated by Prisca Jolly, nurse practitioner as directed. Dr. Reji MD I have performed a history and examination and MDM of this patient, discussed the same with the dictator, and agree with the dictator's assessment and plan as written ,documented as a scribe. Based on total visit time, I have performed more than 50% of the visit. Any additional findings or plans will be noted. Objective - Vital Signs Vital signs: Vital Signs Temp 98.5 F 08/18/22 08:10 Pulse 87 08/18/22 08:10 Resp 16 08/18/22 08:10 BP 110/60 08/18/22 08:10 Pulse Ox 94 L 08/18/22 08:10 FiO2 Intake & Output 08/17/22 08/18/22 08/18/22 18:59 06:59 18:59 Intake Total 118 Output Total 400 500 Balance -282 -500 Intake: Oral 118 Output: Urine 400 500 Other: Voiding Method Toilet Toilet Toilet # Voids 1 - Labs CBC & Chem 7: 08/18/22 05:10 08/18/22 05:10 Labs: Abnormal Lab Results - Last 24 Hours (Table) 08/18/22 08/18/22 08/18/22 Range/Units 05:10 05:10 05:10 RBC 3.72 L (3.80-5.40) m/uL Lymphocytes # 0.6 L (1.0-4.8) k/uL PT 16.8 H (9.0-12.0) sec INR 1.7 H (<1.2) Sodium 136 L (137-145) mmol/L Calcium 8.3 L (8.4-10.2) mg/dL Microbiology - Last 24 Hours (Table) 08/15/22 23:10 Blood Culture - Preliminary Blood No Growth after 48 hours 08/15/22 22:50 Blood Culture - Preliminary Blood No Growth after 48 hours
--- NOTE | 2022-08-18 19:44 | P.PN ---
Subjective Progress Note Date: 08/18/22 Principal diagnosis: Abdominal wall cellulitis Patient is a 71 year old female with a past medical history significant for atrial fibrillation and hypertension hyperlipidemia sleep apnea history of bilateral extremity venous stasis ulcers and cellulitis patient presenting to the hospital for evaluation of right lower abdominal wall pain swelling and redness patient symptoms started 4 days prior to presentation to the hospital. CT abdomen and pelvis did not show any drainable abscess On today's evaluation that is 08/18/2022, the patient remains to be afebrile, patient abdominal wall pain has minimally decreased in intensity, patient denies having any chest pain shortness of breath or cough. no nausea no vomiting and no diarrhea, possible scheduled for drainage of the abscess this afternoon Objective - Vital Signs Vital signs: Vital Signs Temp 98.5 F 08/18/22 08:10 Pulse 87 08/18/22 08:10 Resp 16 08/18/22 08:10 BP 110/60 08/18/22 08:10 Pulse Ox 94 L 08/18/22 08:10 FiO2 Intake & Output 08/17/22 08/18/22 08/18/22 18:59 06:59 18:59 Intake Total 118 Output Total 400 500 Balance -282 -500 Intake: Oral 118 Output: Urine 400 500 Other: Voiding Method Toilet Toilet Toilet # Voids 1 - Exam GENERAL DESCRIPTION: An elderly female lying in bed in no distress RESPIRATORY SYSTEM: Unlabored breathing , decreased breath sounds at bases HEART: S1 S2 regular rate and rhythm , ABDOMEN: Soft , abdominal wall redness induration slightly decreased no drainage EXTREMITIES: No edema feet - Labs CBC & Chem 7: 08/18/22 05:10 08/18/22 05:10 Labs: Abnormal Lab Results - Last 24 Hours (Table) 08/18/22 08/18/22 08/18/22 Range/Units 05:10 05:10 05:10 RBC 3.72 L (3.80-5.40) m/uL Lymphocytes # 0.6 L (1.0-4.8) k/uL PT 16.8 H (9.0-12.0) sec INR 1.7 H (<1.2) Sodium 136 L (137-145) mmol/L Calcium 8.3 L (8.4-10.2) mg/dL Microbiology - Last 24 Hours (Table) 08/15/22 23:10 Blood Culture - Preliminary Blood No Growth after 48 hours 08/15/22 22:50 Blood Culture - Preliminary Blood No Growth after 48 hours Assessment and Plan (1) Abdominal wall cellulitis Current Visit: Yes Status: Acute Code(s): L03.311 - CELLULITIS OF ABDOMINAL WALL SNOMED Code(s): 00700746 Plan: 1patient with right lower abdominal wall carbuncle/ cellulitis with an area of induration and no fluctuation will need to cover for gram positives confirmed with the likely pathogen and a question of possible candidiasis with MRSA 2-if the area started to drain RN advised to obtain culture 3patient still have significant area of induration and will benefit from drainage and deep culture possible scheduled for this afternoon continue with vancomycin add Unasyn while waiting for the culture finalized Time with Patient: Less than 30
[2022-08-18] MEDS: ATORVASTATIN 40 MG TAB PO SCH (20:24)
[2022-08-18] MEDS: HYDROcodone/APAP 5-325MG 1 EACH TAB PO PRN (22:35)
[2022-08-19] MEDS: AMPICILLIN-SULBACTAM 3 GM in SODIUM CHLORIDE 0.9% 100 ML IVPB SCH ×5 (00:04→23:30)
[2022-08-19] MEDS: SODIUM CHLORIDE 0.9% 1,000 ML IV SCH ×2 (00:05→20:50)
[2022-08-19] MEDS: HYDROcodone/APAP 5-325MG 1 EACH TAB PO PRN ×2 (07:42→16:15)
[2022-08-19] MEDS ORDERED: VANCOMYCIN TROUGH DUE 1 EACH MISC MISCELLANE ONE (08:00)
[2022-08-19 08:17] LABS: INR 1.4 (<1.2); Prothrombin Time 14.2 sec (9.0-12.0)
[2022-08-19] MEDS: lisinopriL 20 MG TAB PO SCH (08:24)
[2022-08-19] MEDS: CHOLECALCIFEROL 125 MCG (5000 IU) TABLET PO SCH (08:24)
[2022-08-19] MEDS: POTASSIUM CHLORIDE ER 20 MEQ TAB.ER PO SCH (08:24)
[2022-08-19] MEDS: MULTIVITAMINS, THERA 1 EACH TAB PO SCH (08:24)
[2022-08-19] MEDS: VITAMIN A 10,000 UNIT (3000 MCG) CAPSULE PO SCH (08:24)
[2022-08-19] MEDS: CYANOCOBALAMIN 500 MCG TAB PO SCH (08:24)
[2022-08-19] MEDS: METOPROLOL TARTRATE 25 MG TAB PO SCH ×2 (08:24→20:50)
[2022-08-19] MEDS: FUROSEMIDE 40 MG TAB PO SCH (08:24)
[2022-08-19] MEDS: ASPIRIN 81 MG PO SCH (08:24)
[2022-08-19] MEDS: FERROUS SULFATE 325 MG TAB PO SCH (08:24)
[2022-08-19] MEDS: VANCOMYCIN 2,000 MG in SODIUM CHLORIDE 0.9% 500 ML 500 ML IVPB SCH (09:49)
--- NOTE | 2022-08-19 11:17 | P.PN ---
Progress Note - Text Progress Note Date: 08/19/22 Patient feels well overall. Her right abdominal wall infection appears to have improved. Patient continue receive local wound care. She'll continue receive IV antibiotics.
[2022-08-19 11:22] LABS: Basophils # (A) 0.02 X 10*3/uL (0.00-0.10); Basophils % (A) 0.3 %; Eosinophils # (A) 0.17 X 10*3/uL (0.04-0.35); Eosinophils % (A) 2.3 %; HCT 39.9 % (37.2-46.3); HGB 12.4 g/dL (12.0-15.0); Immature Grans, Automated 0.4 %; Lymphocytes % (A) 10.9 %; MCH 30.3 pg (27.0-32.0); MCHC 31.1 g/dL (32.0-37.0); MCV 97.6 fL (80.0-97.0); Mean Platelet Volume 11.5 fL (9.5-12.2); Monocytes # (A) 0.77 X 10*3/uL (0.20-1.00); Monocytes % (A) 10.5 %; NRBC Per 100 WBC 0 /100 WBCS (0.0-0.0); Neutrophils # (A) 5.57 X 10*3/uL (1.80-7.70); Neutrophils % (A) 75.6 %; Platelet Count 242 X 10*3/uL (140-440); RBC 4.09 X 10*6/uL (4.10-5.20); RDW 12.6 % (11.5-14.5); WBC 7.36 X 10*3/uL (4.50-10.00)
[2022-08-19 11:42] LABS: African American GFR (CKD) 85.4 (60.0-200.0); Anion Gap 10.1 mmol/L (10.00-18.00); BUN/Creat Ratio 19.25 Ratio (12.00-20.00); Blood Urea Nitrogen 15.4 mg/dL (9.0-27.0); Calcium 9.2 mg/dL (8.7-10.3); Carbon Dioxide 25.9 mmol/L (20.0-27.5); Non-African American GFR(CKD) 73.7 (60.0-200.0); Potassium 4.5 mmol/L (3.5-5.5)
--- NOTE | 2022-08-19 13:39 | P.PN ---
Subjective Progress Note Date: 08/19/22 Principal diagnosis: Abdominal wall cellulitis Patient is a 71 year old female with a past medical history significant for atrial fibrillation and hypertension hyperlipidemia sleep apnea history of bilateral extremity venous stasis ulcers and cellulitis patient presenting to the hospital for evaluation of right lower abdominal wall pain swelling and redness patient symptoms started 4 days prior to presentation to the hospital. CT abdomen and pelvis did not show any drainable abscess, the patient did have a drainage of the abdominal wall abscess completed on 08/18 On today's evaluation that is 08/19/2022, the patient continues to be afebrile, patient abdominal wall pain has decreased in intensity, the patient denies having any chest pain shortness of breath or cough no vomiting or diarrhea Objective - Vital Signs Vital signs: Vital Signs Temp 98.5 F 08/19/22 08:00 Pulse 83 08/19/22 08:00 Resp 18 08/19/22 08:00 BP 163/86 08/19/22 08:00 Pulse Ox 97 08/19/22 02:46 FiO2 Intake & Output 08/18/22 08/19/22 08/19/22 18:59 06:59 18:59 Intake Total 118 Balance 118 Intake: Oral 118 Other: Voiding Method Toilet Toilet Toilet # Voids 1 1 - Exam GENERAL DESCRIPTION: An elderly female lying in bed in no distress RESPIRATORY SYSTEM: Unlabored breathing , decreased breath sounds at bases HEART: S1 S2 regular rate and rhythm , ABDOMEN: Soft , abdominal wall wound post drainage of the abscess is dressed EXTREMITIES: No edema feet - Labs CBC & Chem 7: 08/19/22 08:00 08/19/22 08:00 Labs: Abnormal Lab Results - Last 24 Hours (Table) 08/19/22 08/19/22 Range/Units 07:29 08:00 RBC 4.09 L (4.10-5.20) X 10*6/uL MCV 97.6 H (80.0-97.0) fL MCHC 31.1 L (32.0-37.0) g/dL Lymphocytes # 0.80 L (0.90-5.00) X 10*3/uL PT 14.2 H (9.0-12.0) sec INR 1.4 H (<1.2) Microbiology - Last 24 Hours (Table) 08/18/22 12:15 Gram Stain - Preliminary Abdomen Wound Culture - Preliminary 08/15/22 23:10 Blood Culture - Preliminary Blood No Growth after 72 hours 08/15/22 22:50 Blood Culture - Preliminary Blood No Growth after 72 hours 08/18/22 12:15 Anaerobic Culture - Preliminary Abdomen Assessment and Plan (1) Abdominal wall cellulitis Current Visit: Yes Status: Acute Code(s): L03.311 - CELLULITIS OF ABDOMINAL WALL SNOMED Code(s): 25434384 Plan: 1patient with right lower abdominal wall carbuncle/ cellulitis with an area of induration and no fluctuation will need to cover for gram positives to be likely pathogen such as MRSA 2-patient is status post surgical drainage cultures are currently pending 3patient to continue the vancomycin and Unasyn while waiting for the culture to finalize Time with Patient: Less than 30
[2022-08-19] MEDS ORDERED: WARFARIN 5 MG TAB PO ONE (18:00)
--- NOTE | 2022-08-19 20:07 | P.PN ---
Subjective Progress Note Date: 08/19/22 This is a pleasant 71-year-old female who presented to the emergency department with complaints of a infection on her abdominal wall. Patient reports over the last few days she noticed a small pimple on the right side of her abdomen and has been trying to squeeze it with no drainage noted. Patient reports it started becoming more red and painful and swollen and came here for further evaluation. Patient reports she follows with Dr. Tasha Leon in the outpatient setting with a past medical history of atrial fibrillation, asthma, hyperlipidemia, hypertension, osteoarthritis, sleep apnea and uses a CPAP, pulmonary fibrosis, anxiety/depression, bilateral leg and feet edema at times with chronic wounds to the bilateral lower extremities. Patient did not have a white count and was afebrile on admission. CT abdomen was done which showed cardiomegaly with colonic without diverticulosisany diverticulitis and also cholelithiasis unchanged from previous imaging along with some subcutaneous de nsity over the right anterior abdomen possibly focal cellulitis which appears new to previous exams. There is some scarring and subsegmental atelectasis at the lung bases without any changes. Patient was admitted for IV antibiotics with concerns of abdominal cellulitis. 08/17/2022 Patient is seen this morning currently sitting up in the chair being followed by general surgery along with infectious disease. Patient continues to have significant abdominal tenderness on the right side and not significant drainage noticed at all. Discussed again with surgery about possible I&D and discussing tentative I&D at the bedside in the a.m. Patient did have Coumadin and will hold overnight. Patient also with some lower extremity swelling will obtain Dopplers. Patient is afebrile denies chest pain or shortness of breath. Patient reports tolerating diet with no reports of nausea or vomiting noted. Recommend follow-up labs and continue to monitor kidney functions closely on vancomycin. 08/18/2022 Patient is seen and evaluated in follow-up today currently maintained on vancomycin. Plan is for bedside I&D with general surgery and awaiting report. Patient is afebrile WBC remains normal. Patient continues to have severe pain radiating 9/10 with continued burning sensation at the wound site. Erythema persists with no significant improvement and there is no drainage. Strongly recommend incision and drainage with wound culture to obtain proper antibiotics. Infectious disease is following. Patient is in agreement with this. Coumadin being held and will resume post I&D. 08/19/2022 Patient is postoperative day #1 I&D incisional wall abscess and debridement of abdominal wall with Dr. Flores. Local wound care instructions to pack abdominal wound with aquacel silver rope daily. Continues on IV ampicillin IV vancomycin pending finalized cultures for final anitbiotic coverage on DC. Infectious disease following cultures. INR of 1.4 today and patient has been resumed on warfarin. Remains afebrile and on room air. Review of systems: Constitutional: No reports of fatigue, fever, or chills Cardiovascular: No reports of chest pain or palpitations Respiratory: No reports of shortness of breath or cough GI: No reports of nausea, vomiting, or diarrhea reports abdominal wall tenderness : No reports of dysuria or retention Neurovascular: No reports of weakness or numbness reports some mild lower extremity swelling All medications have been reviewed PHYSICAL EXAMINATION: GENERAL: The patient is alert and oriented x4, Well developed, well nourished. morbidly obese HEENT: Pupils are round and equally reacting to light. EOMI. no scleral icterus. No conjunctival pallor. Normocephalic, atraumatic. No pharyngeal erythema. No thyromegaly. CARDIOVASCULAR: S1 and S2 muffled PULMONARY: diminished breath sounds bilaterally with no wheezing or rhonchi noted. ABDOMEN: soft. mildly tender on exam on the right . erythema and induration with a blackened central wound noted (eschar) on the right anterior abdomen that is now marked to monitor for improvement. Erythema has not really improved although continues with no drainage and indurated with significant tenderness on palpation. -Post I and D and is covered with abd pad. dressing intact. obese. non-distended, normoactive bowel sounds. No palpable organomegaly. MUSCULOSKELETAL: No joint swelling or deformity. EXTREMITIES: No cyanosis, clubbing, or pedal edema. NEUROLOGICAL: Gross neurological examination did not reveal any focal deficits. Diffuse weakness SKIN: No rashes. Assessment: Abdominal wound right side with cellulitis, present on admission pod 1 I&D with cultures and surgical debridement. History of atrial fibrillation History of asthma, not in exacerbation Hyperlipidemia Hypertension Osteoarthritis history Sleep apnea and uses a CPAP Bilateral lower extremity edema history with chronic venous ulcer of the right lower extremity being seen by Dr. Recinos outpatient History of anxiety/depression Morbid obesity with a BMI of 54.5 GI prophylaxis DVT prophylaxis Full code Plan: Recommend to continue with current medications and patient will continue on IV vancomycin and IV Unasyn pending finalized cultures. Infectious disease following. Status post I and D and removal of purulent drainage and recommend packing with silver and continue local wound care. Will await finalized cultures. recommend monitoring marked site right side abdomen wound, there is no significant clinical improvement and erythema along with induration and extreme sensitivity persists Will resume Coumadin with pharmacy to dose and close monitoring of INR The impression and plan of care has been dictated by Cecilia Olivera, Nurse Practitioner as directed. Dr. Reji MD I have performed a history and physical examination and medical decision making of this patient, discussed the same with the dictator, and agree with the dictators assessment and plan as written, documented as a scribe. Based on total visit time, I have performed more than 50% of this visit. Objective - Vital Signs Vital signs: Vital Signs Temp 97.8 F 08/19/22 02:46 Pulse 84 08/19/22 02:46 Resp 19 08/19/22 02:46 BP 147/57 08/19/22 02:46 Pulse Ox 97 08/19/22 02:46 FiO2 Intake & Output 08/18/22 08/19/22 08/19/22 18:59 06:59 18:59 Intake Total 118 Balance 118 Intake: Oral 118 Other: Voiding Method Toilet Toilet # Voids 1 1 - Labs CBC & Chem 7: 08/19/22 08:00 08/19/22 08:00 Labs: Abnormal Lab Results - Last 24 Hours (Table) 08/19/22 Range/Units 07:29 PT 14.2 H (9.0-12.0) sec INR 1.4 H (<1.2) Microbiology - Last 24 Hours (Table) 08/18/22 12:15 Gram Stain - Preliminary Abdomen Wound Culture - Preliminary 08/15/22 23:10 Blood Culture - Preliminary Blood No Growth after 72 hours 08/15/22 22:50 Blood Culture - Preliminary Blood No Growth after 72 hours 08/18/22 12:15 Anaerobic Culture - Preliminary Abdomen Assessment and Plan Time with Patient: Less than 30
[2022-08-19] MEDS: ATORVASTATIN 40 MG TAB PO SCH (20:50)
[2022-08-19] MEDS ORDERED: DOCUSATE 100 MG CAP PO PRN (20:56)
[2022-08-20] MEDS: AMPICILLIN-SULBACTAM 3 GM in SODIUM CHLORIDE 0.9% 100 ML IVPB SCH ×2 (06:00→14:25)
[2022-08-20 06:54] LABS: INR 1.4 (<1.2); Prothrombin Time 14.4 sec (9.0-12.0)
[2022-08-20] MEDS: HYDROcodone/APAP 5-325MG 1 EACH TAB PO PRN (08:47)
[2022-08-20] MEDS: ASPIRIN 81 MG PO SCH (08:48)
[2022-08-20] MEDS: FUROSEMIDE 40 MG TAB PO SCH (08:48)
[2022-08-20] MEDS: CHOLECALCIFEROL 125 MCG (5000 IU) TABLET PO SCH (08:48)
[2022-08-20] MEDS: POTASSIUM CHLORIDE ER 20 MEQ TAB.ER PO SCH (08:48)
[2022-08-20] MEDS: MULTIVITAMINS, THERA 1 EACH TAB PO SCH (08:48)
[2022-08-20] MEDS: FERROUS SULFATE 325 MG TAB PO SCH (08:48)
[2022-08-20] MEDS: lisinopriL 20 MG TAB PO SCH (08:48)
[2022-08-20] MEDS: VITAMIN A 10,000 UNIT (3000 MCG) CAPSULE PO SCH (08:48)
[2022-08-20] MEDS: METOPROLOL TARTRATE 25 MG TAB PO SCH ×2 (08:49→20:17)
[2022-08-20] MEDS: CYANOCOBALAMIN 500 MCG TAB PO SCH (08:49)
[2022-08-20] MEDS: VANCOMYCIN 2,000 MG in SODIUM CHLORIDE 0.9% 500 ML 500 ML IVPB SCH (09:13)
[2022-08-20 09:14] LABS: Non-African American GFR(CKD) 81.1 (60.0-200.0)
--- NOTE | 2022-08-20 11:59 | P.PN ---
Progress Note - Text Progress Note Date: 08/20/22 Patient is doing well. Her abdominal wound is stable. There is less inflammatory change. On exam there is healthy granulation tissue within the wound. Patient will continue receive supportive care.
--- NOTE | 2022-08-20 16:37 | P.PN ---
Subjective Progress Note Date: 08/20/22 This is a pleasant 71-year-old female who presented to the emergency department with complaints of a infection on her abdominal wall. Patient reports over the last few days she noticed a small pimple on the right side of her abdomen and has been trying to squeeze it with no drainage noted. Patient reports it started becoming more red and painful and swollen and came here for further evaluation. Patient reports she follows with Dr. Tasha Leon in the outpatient setting with a past medical history of atrial fibrillation, asthma, hyperlipidemia, hypertension, osteoarthritis, sleep apnea and uses a CPAP, pulmonary fibrosis, anxiety/depression, bilateral leg and feet edema at times with chronic wounds to the bilateral lower extremities. Patient did not have a white count and was afebrile on admission. CT abdomen was done which showed cardiomegaly with colonic without diverticulosisany diverticulitis and also cholelithiasis unchanged from previous imaging along with some subcutaneous de nsity over the right anterior abdomen possibly focal cellulitis which appears new to previous exams. There is some scarring and subsegmental atelectasis at the lung bases without any changes. Patient was admitted for IV antibiotics with concerns of abdominal cellulitis. 08/17/2022 Patient is seen this morning currently sitting up in the chair being followed by general surgery along with infectious disease. Patient continues to have significant abdominal tenderness on the right side and not significant drainage noticed at all. Discussed again with surgery about possible I&D and discussing tentative I&D at the bedside in the a.m. Patient did have Coumadin and will hold overnight. Patient also with some lower extremity swelling will obtain Dopplers. Patient is afebrile denies chest pain or shortness of breath. Patient reports tolerating diet with no reports of nausea or vomiting noted. Recommend follow-up labs and continue to monitor kidney functions closely on vancomycin. 08/18/2022 Patient is seen and evaluated in follow-up today currently maintained on vancomycin. Plan is for bedside I&D with general surgery and awaiting report. Patient is afebrile WBC remains normal. Patient continues to have severe pain radiating 9/10 with continued burning sensation at the wound site. Erythema persists with no significant improvement and there is no drainage. Strongly recommend incision and drainage with wound culture to obtain proper antibiotics. Infectious disease is following. Patient is in agreement with this. Coumadin being held and will resume post I&D. 08/19/2022 Patient is postoperative day #1 I&D incisional wall abscess and debridement of abdominal wall with Dr. Flores. Local wound care instructions to pack abdominal wound with aquacel silver rope daily. Continues on IV ampicillin IV vancomycin pending finalized cultures for final anitbiotic coverage on DC. Infectious disease following cultures. INR of 1.4 today and patient has been resumed on warfarin. Remains afebrile and on room air. 08/20/2022 Patient is postoperative day #2 I&D and debridement of abdominal wall abscess which cultures are showing presumptive MRSA pending finalized cultures for discharge antibiotic recommendations. Continue with local wound care. INR today 1.4 she continues on warfarin. Hemodynamically stable. Review of systems: Constitutional: No reports of fatigue, fever, or chills Cardiovascular: No reports of chest pain or palpitations Respiratory: No reports of shortness of breath or cough GI: No reports of nausea, vomiting, or diarrhea reports abdominal wall tenderness : No reports of dysuria or retention Neurovascular: No reports of weakness or numbness reports some mild lower extremity swelling All medications have been reviewed PHYSICAL EXAMINATION: GENERAL: The patient is alert and oriented x4, Well developed, well nourished. morbidly obese HEENT: Pupils are round and equally reacting to light. EOMI. no scleral icterus. No conjunctival pallor. Normocephalic, atraumatic. No pharyngeal erythema. No thyromegaly. CARDIOVASCULAR: S1 and S2 muffled PULMONARY: diminished breath sounds bilaterally with no wheezing or rhonchi noted. ABDOMEN: soft. mildly tender on exam on the right . erythema and induration with a blackened central wound noted (eschar) on the right anterior abdomen that is now marked to monitor for improvement. Erythema has not really improved although continues with no drainage and indurated with significant tenderness on palpation. -Post I and D and is covered with abd pad. dressing intact. obese. non-distended, normoactive bowel sounds. No palpable organomegaly. MUSCULOSKELETAL: No joint swelling or deformity. EXTREMITIES: No cyanosis, clubbing, or pedal edema. NEUROLOGICAL: Gross neurological examination did not reveal any focal deficits. Diffuse weakness SKIN: No rashes. Assessment: Abdominal wound right side with cellulitis, present on admission pod 2 I&D with cultures and surgical debridement. Cultures showing presumptive MRSA. History of atrial fibrillation History of asthma, not in exacerbation Hyperlipidemia Hypertension Osteoarthritis history Sleep apnea and uses a CPAP Bilateral lower extremity edema history with chronic venous ulcer of the right lower extremity being seen by Dr. Recinos outpatient History of anxiety/depression Morbid obesity with a BMI of 54.5 GI prophylaxis DVT prophylaxis Full code Plan: Recommend to continue with current medications and patient will continue on IV vancomycin and IV Unasyn pending finalized cultures. Infectious disease following. Status post I and D and removal of purulent drainage and recommend packing with silver and continue local wound care. Will await finalized cultures. recommend monitoring marked site right side abdomen wound. Will resume Coumadin with pharmacy to dose and close monitoring of INR Patient will be evaluated by PT and OT supervisor case loading following for possible IV antibiotics on discharge. Patient will need PICC or midline placed pending final recommendations from ID The impression and plan of care has been dictated by Cecilia Olivera, Nurse Practitioner as directed. Dr. Reji MD I have performed a history and physical examination and medical decision making of this patient, discussed the same with the dictator, and agree with the dictators assessment and plan as written, documented as a scribe. Based on total visit time, I have performed more than 50% of this visit. Objective - Vital Signs Vital signs: Vital Signs Temp 98.1 F 08/20/22 07:50 Pulse 92 08/20/22 07:50 Resp 16 08/20/22 07:50 BP 163/85 08/20/22 07:50 Pulse Ox 97 08/20/22 07:50 FiO2 Intake & Output 08/19/22 08/20/22 08/20/22 18:59 06:59 18:59 Intake Total 480 100 Balance 480 100 Intake: Intake, IV Titration 100 Amount Ampicillin-Sulbactam 3 gm 100 In Sodium Chloride 0.9% 100 ml @ 200 mls/hr IVPB Q6HR [facility] Rx#:[id number] Oral 480 Other: Voiding Method Toilet Toilet # Voids 2 - Labs CBC & Chem 7: 08/19/22 08:00 08/20/22 06:19 Labs: Abnormal Lab Results - Last 24 Hours (Table) 08/19/22 08/20/22 Range/Units 08:00 06:19 RBC 4.09 L (4.10-5.20) X 10*6/uL MCV 97.6 H (80.0-97.0) fL MCHC 31.1 L (32.0-37.0) g/dL Lymphocytes # 0.80 L (0.90-5.00) X 10*3/uL PT 14.4 H (9.0-12.0) sec INR 1.4 H (<1.2) Microbiology - Last 24 Hours (Table) 08/15/22 23:10 Blood Culture - Preliminary Blood No Growth after 96 hours 08/15/22 22:50 Blood Culture - Preliminary Blood No Growth after 96 hours 08/18/22 12:15 Gram Stain - Preliminary Abdomen Wound Culture - Preliminary Presumptive MRSA Assessment and Plan Time with Patient: Less than 30
[2022-08-20] MEDS: SODIUM CHLORIDE 0.9% 1,000 ML IV SCH (17:57)
[2022-08-20] MEDS ORDERED: WARFARIN 7.5 MG TAB PO ONE (18:00)
[2022-08-20] MEDS: ATORVASTATIN 40 MG TAB PO SCH (20:17)
--- NOTE | 2022-08-20 22:41 | P.PN ---
Subjective Progress Note Date: 08/20/22 Principal diagnosis: Abdominal wall cellulitis Patient is a 71 year old female with a past medical history significant for atrial fibrillation and hypertension hyperlipidemia sleep apnea history of bilateral extremity venous stasis ulcers and cellulitis patient presenting to the hospital for evaluation of right lower abdominal wall pain swelling and redness patient symptoms started 4 days prior to presentation to the hospital. CT abdomen and pelvis did not show any drainable abscess, the patient did have a drainage of the abdominal wall abscess completed on 08/18 On today's evaluation that is 08/20/2022, the patient remains to be afebrile, patient abdominal wall pain has decreased in intensity, the patient denies having any chest pain shortness of breath or cough , the patient denies vomiting or diarrhea, overall feeling better Objective - Vital Signs Vital signs: Vital Signs Temp 98.1 F 08/20/22 07:50 Pulse 92 08/20/22 07:50 Resp 16 08/20/22 07:50 BP 163/85 08/20/22 07:50 Pulse Ox 97 08/20/22 07:50 FiO2 Intake & Output 08/19/22 08/20/22 08/20/22 18:59 06:59 18:59 Intake Total 480 100 Balance 480 100 Intake: Intake, IV Titration 100 Amount Ampicillin-Sulbactam 3 gm 100 In Sodium Chloride 0.9% 100 ml @ 200 mls/hr IVPB Q6HR REPLACED BY [facility] Rx#:[id number] Oral 480 Other: Voiding Method Toilet Toilet # Voids 2 - Exam GENERAL DESCRIPTION: An elderly female lying in bed in no distress RESPIRATORY SYSTEM: Unlabored breathing , decreased breath sounds at bases HEART: S1 S2 regular rate and rhythm , ABDOMEN: Soft , abdominal wall wound with less purulence and redness per the nursing staff will change the dressing EXTREMITIES: No edema feet - Labs CBC & Chem 7: 08/19/22 08:00 08/20/22 06:19 Labs: Abnormal Lab Results - Last 24 Hours (Table) 08/20/22 Range/Units 06:19 PT 14.4 H (9.0-12.0) sec INR 1.4 H (<1.2) Microbiology - Last 24 Hours (Table) 08/15/22 23:10 Blood Culture - Preliminary Blood No Growth after 96 hours 08/15/22 22:50 Blood Culture - Preliminary Blood No Growth after 96 hours 08/18/22 12:15 Gram Stain - Preliminary Abdomen Wound Culture - Preliminary Presumptive MRSA Assessment and Plan (1) Abdominal wall cellulitis Current Visit: Yes Status: Acute Code(s): L03.311 - CELLULITIS OF ABDOMINAL WALL SNOMED Code(s): 09047598 Plan: 1patient with right lower abdominal wall carbuncle/ cellulitis with an area of induration and no fluctuation will need to cover for gram positives to be likely pathogen such as MRSA 2-patient is status post surgical drainage cultures are currently growing presumptive MRSA 3patient seemed to have shown clinical improvement and will continue the vancomycin while waiting for the culture to finalize Time with Patient: Less than 30
[2022-08-21] MEDS ORDERED: VANCOMYCIN TROUGH DUE 1 EACH MISC MISCELLANE ONE (08:00)
[2022-08-21] MEDS: VANCOMYCIN 2,000 MG in SODIUM CHLORIDE 0.9% 500 ML 500 ML IVPB SCH (08:02)
[2022-08-21] MEDS: POTASSIUM CHLORIDE ER 20 MEQ TAB.ER PO SCH (08:03)
[2022-08-21] MEDS: VITAMIN A 10,000 UNIT (3000 MCG) CAPSULE PO SCH (08:03)
[2022-08-21] MEDS: MULTIVITAMINS, THERA 1 EACH TAB PO SCH (08:03)
[2022-08-21] MEDS: FUROSEMIDE 40 MG TAB PO SCH (08:03)
[2022-08-21] MEDS: lisinopriL 20 MG TAB PO SCH (08:03)
[2022-08-21] MEDS: CYANOCOBALAMIN 500 MCG TAB PO SCH (08:03)
[2022-08-21] MEDS: ASPIRIN 81 MG PO SCH (08:03)
[2022-08-21] MEDS: FERROUS SULFATE 325 MG TAB PO SCH (08:03)
[2022-08-21] MEDS: METOPROLOL TARTRATE 25 MG TAB PO SCH (08:04)
[2022-08-21] MEDS: CHOLECALCIFEROL 125 MCG (5000 IU) TABLET PO SCH (08:04)
[2022-08-21 08:30] VITALS: BP 174/91; PULSE 94; RESP 17; TEMP 98.1
[2022-08-21 09:19] LABS: INR 1.5 (<1.2); Prothrombin Time 15.5 sec (9.0-12.0)
[2022-08-21 09:23] LABS: African American GFR (CKD) >90 (>60 ml/min/1.73 sqM); Non-African American GFR(CKD) 87 (>60 ml/min/1.73 sqM)
[2022-08-21] MEDS: HYDROcodone/APAP 5-325MG 1 EACH TAB PO PRN (12:31)
[2022-08-21] MEDS ORDERED: WARFARIN 7.5 MG TAB PO ONE (18:00)
--- NOTE | 2022-08-21 19:43 | P.PN ---
Subjective Progress Note Date: 08/21/22 Principal diagnosis: Abdominal wall cellulitis Patient is a 71 year old female with a past medical history significant for atrial fibrillation and hypertension hyperlipidemia sleep apnea history of bilateral extremity venous stasis ulcers and cellulitis patient presenting to the hospital for evaluation of right lower abdominal wall pain swelling and redness patient symptoms started 4 days prior to presentation to the hospital. CT abdomen and pelvis did not show any drainable abscess, the patient did have a drainage of the abdominal wall abscess completed on 08/18 On today's evaluation that is 08/21/2022, the patient denies any fever or chills, patient abdominal wall pain has decreased in intensity, the patient denies chest pain shortness of breath or cough , the patient denies vomiting or diarrhea, no new symptoms Objective - Vital Signs Vital signs: Vital Signs Temp 98.1 F 08/21/22 08:00 Pulse 94 08/21/22 08:00 Resp 17 08/21/22 08:00 BP 174/91 08/21/22 08:00 Pulse Ox 98 08/21/22 08:00 FiO2 Intake & Output 08/20/22 08/21/22 08/21/22 18:59 06:59 18:59 Intake Total 240 540 222 Balance 240 540 222 Intake: Oral 240 540 222 Other: Voiding Method Toilet Toilet # Voids 2 - Exam GENERAL DESCRIPTION: An elderly female lying in bed in no distress RESPIRATORY SYSTEM: Unlabored breathing , decreased breath sounds at bases HEART: S1 S2 regular rate and rhythm , ABDOMEN: Soft , abdominal wall wound with less purulence and redness EXTREMITIES: No edema feet - Labs CBC & Chem 7: 08/19/22 08:00 08/21/22 08:34 Labs: Abnormal Lab Results - Last 24 Hours (Table) 08/21/22 Range/Units 08:34 PT 15.5 H (9.0-12.0) sec INR 1.5 H (<1.2) Microbiology - Last 24 Hours (Table) 08/15/22 23:10 Blood Culture - Preliminary Blood No Growth after 120 hours 08/15/22 22:50 Blood Culture - Preliminary Blood No Growth after 120 hours 08/18/22 12:15 Anaerobic Culture - Preliminary Abdomen 08/18/22 12:15 Gram Stain - Final Abdomen Wound Culture - Final Methicillin resist S. aureus Assessment and Plan (1) Abdominal wall cellulitis Status: Acute Code(s): L03.311 - CELLULITIS OF ABDOMINAL WALL SNOMED Code(s): 64942507 Plan: 1patient with right lower abdominal wall carbuncle/ cellulitis with an area of induration and no fluctuation will need to cover for gram positives to be likely pathogen such as MRSA 2-patient is status post surgical drainage cultures grew presumptive MRSA 3patient seemed to have shown clinical improvement and will finish therapy with oral doxycycline 100 mg twice a day for 10 days prescription sent to the pharmacy local wound care with Aquacel silver packing and follow-up in the office in 1 week Time with Patient: Less than 30
--- NOTE | 2022-08-23 14:52 | CDI ---
Documentation Clarification Form Date: 08/23/2022 2:51:02 PM From: LOAN Aj Admit Date: 08/16/2022 12:01:00 PM Patient Name: Mimi Butcher Visit Number: [id number] Discharge Date: 08/21/2022 2:36:00 PM ATTENTION: The Clinical Documentation Specialists (CDI) and [facility] Coding Staff appreciate your assistance in clarifying documentation. Please respond to the clarification below the line at the bottom and electronically sign. The CDI & [facility] Coding staff will review the response and follow-up if needed. Please note: Queries are made part of the Legal Health Record. If you have any questions, please contact the author of this message via ITS. Dr. José Antonio Flores A debridement of the abdominal wall is documented on the 08/18 Operative Report. Additional clarification regarding the procedure is requested. History/Risk Factors: The patient was admitted via the ED with complaints of an infection on her abdominal wall. She was admitted for IV antibiotics with concerns of abdominal cellulitis. She was taken to the operating room on 08/18. Treatment: Incision and drainage abdominal wall abscess, debridement abdominal wall Per the Operative Report: Using an 11 blade a skin incision was made around the necrotic tissue. This measured 2x1 cm. It was approximately 1cm deep. A small abscess cavity was entered. Please clarify the type of procedure performed: [xxx ] Excisional debridement (the removal of necrotic, devitalized tissue or slough by means of cutting away of tissue) [ ] Non-excisional debridement (the removal of necrotic, devitalized tissue or slough by means of flushing, brushing, or washing. (Irrigation) [ ] Other; please specify [ ] Unable to determine Five elements required for accurate and compliant documentation of a debridement: Technique used (e.g., excisional, excised, cutting, brushing, jet lavage etc.) Instrument(s) used (e.g., scalpel, curette, etc.) Nature of the tissue removed (e.g., necrotic, devitalized tissues, non-viable tissue, etc.) Appearance and size of the wound (e.g., down to fresh bleeding tissue, 7cm x 10cm, etc.) Depth of the debridement* (e.g., skin, subcutaneous tissue, fascia, muscle, bone, etc.) MTDD
--- NOTE | 2022-08-23 15:45 | P.DS ---
Providers Date of admission: 08/16/22 12:01 Expected date of discharge: 08/21/22 Attending physician: Ken Blum MD Consults: 08/16/22 11:06 Consult Physician Urgent Consulting Provider: Ca Wolff Consult Reason/Comments: abdominal wall cellulitis, chronic right lower extremity wounds Do you want consulting provider notified?: Yes 08/16/22 11:07 Consult Physician Urgent Consulting Provider: José Antonio Flores Consult Reason/Comments: right lower abdominal wall abscess/ poss I & D Do you want consulting provider notified?: Yes Primary care physician: Tasha Leon Hospital Course: Final diagnosis Abdominal wound right side with cellulitis, present on admission with cultures positive for MRSA History of atrial fibrillation History of asthma, not in exacerbation Hyperlipidemia hypertension Osteoarthritis history Sleep apnea and uses a CPAP Bilateral lower extremity edema history with chronic venous ulcer of the right lower extremity being seen by Dr. Recinos outpatient History of anxiety/depression Morbid obesity with a BMI of 54.5 GI prophylaxis DVT prophylaxis Full code Discharge disposition Patient is being discharged in a stable condition with guarded prognosis to home with home care. Patient will follow-up with Dr. Vitor Leon in the outpatient setting upon discharge. Patient is to follow-up with infectious disease along with the wound care center as she normally does as scheduled. Patient will continue on oral doxycycline 100 mg twice daily for the next 10 days and continuing local wound care. Total time taken is greater than 35 minutes. Hospital course This is a 71-year-old female who was recently admitted with abdominal wall infection with cellulitis on the right and was being closely monitored. Patient was seen and evaluated by infectious disease along with general surgery and underwent incision and drainage with deep tissue collection and culture showing MRSA. Patient was maintained on vancomycin and will continue oral doxycycline with continued wound care and closely follow up with infectious disease outpatient. Patient has chronic lower extremity ulcers and follows with the wound care center and has an appointment this week encourage the patient to keep this appointment. Continue with elevating lower extremities while at rest and patient verbalized understanding to follow-up at her scheduled appointment. Patient has been cleared by infectious disease along with general surgery for discharge today. Currently no reports of chest pain, shortness of breath, or palpitations. Patient is afebrile. No reports of nausea or vomiting and patient is tolerating diet. Patient will be discharged home today. Physical exam: Gen: This is a pleasant 71-year-old female who is awake, alert and oriented 3, well-developed, well-nourished, morbidly obese HEENT: Head is atraumatic, normocephalic. Pupils equal, round. Sclerae is anicteric. NECK: Supple. No JVD. No lymphadenopathy. No thyromegaly. LUNGS: Clear to auscultation. No wheezes or rhonchi. No intercostal retractions. HEART: Regular rate and rhythm. No murmur. ABDOMEN: Soft. Bowel sounds are present. No masses. No tenderness. Right abdominal wall tenderness with erythema and swelling, status post I&D with dressing that is currently dry and intact EXTREMITIES: No pedal edema. No calf tenderness. NEUROLOGICAL: Patient is awake, alert and oriented x3. Cranial nerves 2 through 12 are grossly intact. Please refer to medication reconciliation sheet for a list of medications. The impression and plan of care has been dictated by Prisca Jolly, Nurse Practitioner as directed. Dr. Reji MD I have performed a history and examination and MDM of this patient, discussed the same with the dictator, and agree with the dictator's assessment and plan as written ,documented as a scribe. Based on total visit time, I have performed more than 50% of the visit. Patient Condition at Discharge: Good Plan - Discharge Summary New Discharge Prescriptions: New Doxycycline Hyclate 100 mg PO BID 10 Days #20 tab traMADol HCl [Ultram] 50 mg PO QID 3 Days #12 tab Docusate [Colace] 100 mg PO BID PRN cap PRN Reason: Constipation HYDROcodone/APAP 5-325MG [[place] 5-325] 1 each PO Q4HR PRN #12 tab PRN Reason: Moderate Pain (Scale 4 To 6) Continue Atorvastatin [Lipitor] 40 mg PO HS Cyanocobalamin (Vitamin B-12) [Vitamin B-12] 1,000 mcg PO DAILY Potassium Chloride [Klor-Con 20] 20 meq PO DAILY Aspirin EC [Ecotrin Low Dose] 81 mg PO DAILY Cholecalciferol [Vitamin D3 (125 Mcg = 5000 Iu)] 125 mcg PO DAILY Warfarin [Coumadin] 4.5 mg PO MOWEFR@1800 Multivit-Min/Iron/Folic/Lutein [Centrum Silver Women Tablet] 1 tab PO DAILY Furosemide [Lasix] 40 mg PO DAILY #30 tablet Ferrous Sulfate [Iron (65 MG Elemental)] 325 mg PO DAILY lisinopriL [Prinivil] 20 mg PO BID Albuterol Sulfate [Proair Hfa] 2 puff INHALATION RT-Q6H PRN PRN Reason: Shortness Of Breath Warfarin [Coumadin] 3 mg PO SUTUTHSA@1800 Metoprolol Tartrate [Lopressor] 25 mg PO BID Vitamin A 2,400 mcg PO DAILY Discharge Medication List Atorvastatin [Lipitor] 40 mg PO HS 08/03/19 [History] Cyanocobalamin (Vitamin B-12) [Vitamin B-12] 1,000 mcg PO DAILY 06/16/21 [History] Potassium Chloride [Klor-Con 20] 20 meq PO DAILY 06/16/21 [History] lisinopriL [Prinivil] 20 mg PO BID 06/16/21 [History] Albuterol Sulfate [Proair Hfa] 2 puff INHALATION RT-Q6H PRN 07/22/21 [History] Aspirin EC [Ecotrin Low Dose] 81 mg PO DAILY 07/22/21 [History] Cholecalciferol [Vitamin D3 (125 Mcg = 5000 Iu)] 125 mcg PO DAILY 07/22/21 [History] Warfarin [Coumadin] 3 mg PO SUTUTHSA@1800 08/16/21 [History] Multivit-Min/Iron/Folic/Lutein [Centrum Silver Women Tablet] 1 tab PO DAILY 05/12/22 [History] Warfarin [Coumadin] 4.5 mg PO MOWEFR@1800 05/12/22 [History] Furosemide [Lasix] 40 mg PO DAILY #30 tablet 07/02/22 [Rx] Ferrous Sulfate [Iron (65 MG Elemental)] 325 mg PO DAILY 08/16/22 [History] Metoprolol Tartrate [Lopressor] 25 mg PO BID 08/16/22 [History] Vitamin A 2,400 mcg PO DAILY 08/16/22 [History] Docusate [Colace] 100 mg PO BID PRN cap 08/21/22 [Rx] Doxycycline Hyclate 100 mg PO BID 10 Days #20 tab 08/21/22 [Rx] HYDROcodone/APAP 5-325MG [[place] 5-325] 1 each PO Q4HR PRN #12 tab 08/21/22 [Rx] traMADol HCl [Ultram] 50 mg PO QID 3 Days #12 tab 08/21/22 [Rx] Follow up Appointment(s)/Referral(s): Tasha Leon DO [Primary Care Provider] - 1-2 days (please call for an appointment thank you ) [facility], [NON-STAFF] - 1 Week Ca Wolff MD [STAFF PHYSICIAN] - 08/28/22 2:30 pm Patient Instructions/Handouts: Cellulitis (GEN), Abscess (GEN) Activity/Diet/Wound Care/Special Instructions: Activity Limited until follow-up Follow-up primary care provider on discharge Continue taking medications as prescribed Follow-up with infectious disease Dr. Wolff in the clinic and call [phone] to make an appointment at his [facility] wound care center Continue local wound care center for your lower extremities and keep your scheduled appointment Elevate lower extremities while at rest Continue local wound care Discharge Disposition: HOME SELF-CARE
== END 2022-08-21 14:36 | disposition home or self-care (01) | DRG 580 ==
LOC: EC 20:31 → 6NMEDSUR 08-16 01:03 → OBSVTOIN 08-16 12:01
PROVIDERS: ADMIT Internal Medicine; ATTEND Internal Medicine
PROC: 0JB83ZZ Excision of Abdomen Subcutaneous Tissue and Fascia, Percutaneous Approach (ICD-10-PCS; principal; 2022-08-18)
DX: L02.211 Cutaneous abscess of abdominal wall (principal); I96 Gangrene, not elsewhere classified; Z68.43 Body mass index [BMI] 50.0-59.9, adult; L03.119 Cellulitis of unspecified part of limb; L03.116 Cellulitis of left lower limb; L03.115 Cellulitis of right lower limb; M19.90 Unspecified osteoarthritis, unspecified site; I11.9 Hypertensive heart disease without heart failure; I87.8 Other specified disorders of veins; E66.01 Morbid (severe) obesity due to excess calories; L03.311 Cellulitis of abdominal wall; J84.10 Pulmonary fibrosis, unspecified; G47.30 Sleep apnea, unspecified; F32.A Depression, unspecified; F41.9 Anxiety disorder, unspecified; I48.91 Unspecified atrial fibrillation; E78.5 Hyperlipidemia, unspecified; Z79.899 Other long term (current) drug therapy; Z79.82 Long term (current) use of aspirin; Z79.01 Long term (current) use of anticoagulants
CPT/HCPCS: 36415; 74177; 80048; 80053; 80202; 82565; 85025; 85610; 87040; 87070; 87075; 87077; 87186; 87205; 93970; 96365; 96375; 99284

== ENCOUNTER 2023-11-09 23:28 | Emergency (ER) | payer MEDICARE ==
[2023-11-10] MEDS: IBUPROFEN 600 MG TAB PO STA (00:16)
[2023-11-10] MEDS: SODIUM CHLORIDE 0.9% 500 ML 500 ML IV STA (00:16)
--- NOTE | 2023-11-10 00:43 | XR ---
EXAMINATION TYPE: XR chest 2V DATE OF EXAM: 11/10/2023 COMPARISON: Chest x-ray June 30, 2022 HISTORY: Fever. TECHNIQUE: Frontal and lateral views of the chest are obtained. FINDINGS: There is no suspicious new focal air space opacity, pleural effusion, or pneumothorax seen . Cardiomegaly redemonstrated. The osseous structures are intact. IMPRESSION: Cardiomegaly without acute pulmonary infiltrate.
[2023-11-10 00:54] LABS: Basophils % (A) 0 %; Eosinophils # (A) 0.2 k/uL (0-0.7); Eosinophils % (A) 2 %; HCT 41.1 % (34.0-46.0); HGB 13.2 gm/dL (11.4-16.0); Lymphocytes # (A) 0.4 k/uL (1.0-4.8); Lymphocytes % (A) 4 %; MCH 31.3 pg (25.0-35.0); MCHC 32.1 g/dL (31.0-37.0); MCV 97.5 fL (80.0-100.0); Mean Platelet Volume 10.3; Monocytes # (A) 0.5 k/uL (0-1.0); Monocytes % (A) 6 %; Neutrophils # (A) 7.9 k/uL (1.3-7.7); Neutrophils % (A) 87 %; Platelet Count 193 k/uL (150-450); RBC 4.22 m/uL (3.80-5.40); WBC 9.1 k/uL (3.8-10.6)
[2023-11-10 01:13] LABS: ALT 20 U/L (4-34); AST 26 U/L (14-36); African American GFR (CKD) >90 (>60 ml/min/1.73 sqM); Albumin 3.9 g/dL (3.5-5.0); Alkaline Phosphatase 84 U/L (38-126); Anion Gap 4 mmol/L; Blood Urea Nitrogen 17 mg/dL (7-17); Carbon Dioxide 28 mmol/L (22-30); Chloride 108 mmol/L (98-107); Glucose 123 mg/dL (74-99); Non-African American GFR(CKD) 85 (>60 ml/min/1.73 sqM); Potassium 4.8 mmol/L (3.5-5.1); Sodium 140 mmol/L (137-145); Total Bilirubin 0.8 mg/dL (0.2-1.3); Total Protein 6.9 g/dL (6.3-8.2)
--- NOTE | 2023-11-10 03:20 | ED ---
Female Urogenital HPI - General Chief complaint: Urogenital Stated complaint: Difficulty Breathing, Extremity Pain and weakness Time Seen by Provider: 11/09/23 23:47 Source: patient, family Mode of arrival: wheelchair Limitations: no limitations - History of Present Illness Initial comments: 72-year-old female presenting with chief complaint of fever and "pain all over". Patient reports this afternoon she was experiencing aching pain in her arms legs and back. She also admits to some shortness of breath. She was concerned as she has had recurrent UTIs in the past and was worried that this was another UTI. She took Tylenol and Benadryl prior to arrival. No chest pain, abdominal pain, cough, congestion, sore throat, headache, neck pain. Patient is currently on antibiotics for her chronic cellulitis which her and her family member state does not look different than its usual baseline - Related Data Home Medications Medication Instructions Recorded Confirmed Atorvastatin [Lipitor] 40 mg PO HS 08/03/19 08/16/22 Cyanocobalamin (Vitamin B-12) 1,000 mcg PO DAILY 06/16/21 08/16/22 [Vitamin B-12] Potassium Chloride [Klor-Con 20] 20 meq PO DAILY 06/16/21 08/16/22 lisinopriL [Prinivil] 20 mg PO BID 06/16/21 08/16/22 Albuterol Sulfate [Proair Hfa] 2 puff INHALATION RT-Q6H PRN 07/22/21 08/16/22 Aspirin EC [Ecotrin Low Dose] 81 mg PO DAILY 07/22/21 08/16/22 Cholecalciferol [Vitamin D3 (125 125 mcg PO DAILY 07/22/21 08/16/22 Mcg = 5000 Iu)] Warfarin [Coumadin] 3 mg PO SUTUTHSA@1800 08/16/21 08/16/22 Multivit-Min/Iron/Folic/Lutein 1 tab PO DAILY 05/12/22 08/16/22 [Centrum Silver Women Tablet] Warfarin [Coumadin] 4.5 mg PO MOWEFR@1800 05/12/22 08/16/22 Ferrous Sulfate [Iron (65 MG 325 mg PO DAILY 08/16/22 08/16/22 Elemental)] Metoprolol Tartrate [Lopressor] 25 mg PO BID 01/11/23 01/11/23 Vitamin A 2,400 mcg PO DAILY 08/16/22 08/16/22 Previous Rx's Medication Instructions Recorded Furosemide [Lasix] 40 mg PO DAILY #30 tablet 07/02/22 Docusate [Colace] 100 mg PO BID PRN cap 08/21/22 Doxycycline Hyclate 100 mg PO BID 10 Days #20 tab 08/21/22 HYDROcodone/APAP 5-325MG [[place] 1 each PO Q4HR PRN #12 tab 08/21/22 5-325] traMADol HCl [Ultram] 50 mg PO QID 3 Days #12 tab 08/21/22 Allergies Allergy/AdvReac Type Severity Reaction Status Date / Time zinc oxide Allergy Rash/Hives Verified 11/09/23 23:36 Review of Systems ROS Statement: Those systems with pertinent positive or pertinent negative responses have been documented in the HPI. ROS Other: All systems not noted in ROS Statement are negative. Past Medical History Past Medical History: Atrial Fibrillation, Asthma, Hyperlipidemia, Hypertension, Osteoarthritis (OA), Sleep Apnea/CPAP/BIPAP, Vascular Disorder Additional Past Medical History / Comment(s): CPAP use, cardiac murmur, bilateral legs/feet edema at times, pulmonary fibrosis, aortic aneurysm. Recent hospitalization for "UTI causing A-Fib flare-up". History of Any Multi-Drug Resistant Organisms: MRSA Date of last positivie culture/infection: 08/18/21 MDRO Source:: Abdomen Past Surgical History: Bladder Surgery, Hysterectomy, Tonsillectomy Additional Past Surgical History / Comment(s): BLADDER SLING, EGD, colonoscopy, R carpal tunnel release, R elbow release. Past Anesthesia/Blood Transfusion Reactions: No Reported Reaction Past Psychological History: Anxiety, Depression Smoking Status: Never smoker Past Alcohol Use History: Rare Past Drug Use History: None Reported - Past Family History Father Family Medical History: Coronary Artery Disease (CAD), Myocardial Infarction (TN) Additional Family Medical History / Comment(s): Father had heart disease and had a TN in his 50s. Mother Family Medical History: Cancer Additional Family Medical History / Comment(s): Mother had cancer but pt does not recall type. Sister(s) Family Medical History: Cancer, Deep Vein Thrombosis (DVT), Pulmonary Embolus Additional Family Medical History / Comment(s): SISTER #1 UTERINE CA. SISTER #2 UTERINE AND BREAST CA. Sister#3 2-PEs, 3- DVTs General Exam Limitations: no limitations General appearance: alert, in no apparent distress Head exam: Present: atraumatic, normocephalic Eye exam: Present: normal appearance, EOMI Neck exam: Present: normal inspection. Absent: meningismus Respiratory exam: Present: normal lung sounds bilaterally. Absent: respiratory distress, wheezes, rales, rhonchi, stridor Cardiovascular Exam: Present: regular rate, normal rhythm, normal heart sounds. Absent: systolic murmur, diastolic murmur, rubs, gallop, clicks Neurological exam: Present: alert, oriented X3 Psychiatric exam: Present: normal affect, normal mood Skin exam: Present: warm, dry, erythema (Chronic erythema of the bilateral lower extremities) Course Vital Signs 11/09/23 11/10/23 11/10/23 23:32 00:36 03:40 Temperature 100.5 F H 98.3 F 98.7 F Pulse Rate 102 H 98 88 Respiratory 20 18 16 Rate Blood Pressure 143/75 138/78 O2 Sat by Pulse 96 97 96 Oximetry Medical Decision Making - Medical Decision Making Was pt. sent in by a medical professional or institution (, PA, CUSTOMER SERVICE VOICE, urgent care, hospital, or snf...) When possible be specific @ -No Did you speak to anyone other than the patient for history (EMS, parent, family, police, friend...)? What history was obtained from this source @ -Patient's son-in-law Did you review nursing and triage notes (agree or disagree)? Why? @ -I reviewed and agree with nursing and triage notes Were old charts reviewed (outside hosp., previous admission, EMS record, old EKG, old radiological studies, urgent care reports/EKG's, snf records)? Report findings @ -No old charts were reviewed Differential Diagnosis (chest pain, altered mental status, abdominal pain women, abdominal pain men, vaginal bleeding, weakness, fever, dyspnea, syncope, headache, dizziness, GI bleed, back pain, seizure, CVA, palpatations, mental hea lth, musculoskeletal)? @ - MDM Differential Fever: Pneumonia, viral URI, endocarditis, myocarditis, pericarditis, otitis, sinusitis, peritonsillar Abscess, retropharyngeal Abscess, epiglottitis, per itonitis, appendicitis, Nichole cystitis, diverticulitis, hepatitis, colitis, UTI, PID, TOA, pyelonephritis, prostatitis, epididymitis, meningitis, encephalitis, pulmonary embolism, CVA, thyroid storm, pancreatitis, adrenal crisis, cavernous sinus thrombosis this is not meant to be an all-inclusive list. EKG interpreted by me (3pts min.). @ -As above X-rays interpreted by me (1pt min.). @ -Chest x-ray shows cardiomegaly without acute pulmonary infiltrate CT interpreted by me (1pt min.). @ -None done U/S interpreted by me (1pt. min.). @ -None done What testing was considered but not performed or refused? (CT, X-rays, U/S, labs)? Why? @ -None What meds were considered but not given or refused? Why? @ -None Did you discuss the management of the patient with other professionals (milton godwin i.e. , PA, CUSTOMER SERVICE [employer], lab, RT, psych nurse, certified social workers in health care, reptile farmer, teacher, geospatial program management officer, family caseworker)? Give summary @ -No Was smoking cessation discussed for >3mins.? @ -No Was critical care preformed (if so, how long)? @ -No Were there social determinants of health that impacted care today? How? (Homelessness, low income, unemployed, alcoholism, drug addiction, transportation, low edu. Level, literacy, decrease access to med. care, fdc, rehab)? @ -No Was there de-escalation of care discussed even if they declined (Discuss DNR or withdrawal of care, Hospice)? DNR status @ -No What co-morbidities impacted this encounter? (DM, HTN, Smoking, COPD, CAD, Cancer, CVA, ARF, Chemo, Hep., AIDS, mental health diagnosis, sleep apnea, morbid obesity)? @ -None Was patient admitted / discharged? Hospital course, mention meds given and route, prescriptions, significant lab abnormalities, going to OR and other pertinent info. @ -72-year-old female present with chief complaint of fever and "pain all over". History and physical exam are conducted. Heart and lungs are clear to auscultation. Lab work shows no leukocytosis or anemia. Urine shows no infectious process. She is negative for influenza, RSV, and COVID. Chest x-ray shows cardiomegaly with no acute pulmonary infiltrate. On reassessment the patient reports feeling a bit better. Urine is sent for culture. Patient is discharged home. Follow-up with PCP. Report back to ER with any new or worsening symptoms. Discussed return parameters and answered all questions. Patient conveyed verbal understanding and agreed to the plan. I discussed this case in detail with my attending Dr. Alaniz Undiagnosed new problem with uncertain prognosis? @ -No Drug Therapy requiring intensive monitoring for toxicity (Heparin, Nitro, Insulin, Cardizem)? @ -No Were any procedures done? @ -No Diagnosis/symptom? @ -Fever, myalgias Acute, or Chronic, or Acute on Chronic? @ -Acute Uncomplicated (without systemic symptoms) or Complicated (systemic symptoms)? @ -Uncomplicated Side effects of treatment? @ -No Exacerbation, Progression, or Severe Exacerbation? @ -No Poses a threat to life or bodily function? How? (Chest pain, [place], [place], pneumonia, PE, COPD, DKA, ARF, appy, cholecystitis, CVA, Diverticulitis, Homicidal, S uicidal, threat to staff... and all critical care pts) @ -Low likelihood - Lab Data Result diagrams: 11/10/23 00:12 11/10/23 00:12 Lab Results 11/10/23 11/10/23 11/10/23 Range/Units 00:12 00:12 00:12 WBC 9.1 (3.8-10.6) k/uL RBC 4.22 (3.80-5.40) m/uL Hgb 13.2 (11.4-16.0) gm/dL Hct 41.1 (34.0-46.0) % MCV 97.5 (80.0-100.0) fL MCH 31.3 (25.0-35.0) pg MCHC 32.1 (31.0-37.0) g/dL RDW 13.0 (11.5-15.5) % Plt Count 193 (150-450) k/uL MPV 10.3 Neutrophils % 87 % Lymphocytes % 4 % Monocytes % 6 % Eosinophils % 2 % Basophils % 0 % Neutrophils # 7.9 H (1.3-7.7) k/uL Lymphocytes # 0.4 L (1.0-4.8) k/uL Monocytes # 0.5 (0-1.0) k/uL Eosinophils # 0.2 (0-0.7) k/uL Basophils # 0.0 (0-0.2) k/uL Sodium 140 (137-145) mmol/L Potassium 4.8 (3.5-5.1) mmol/L Chloride 108 H (98-107) mmol/L Carbon Dioxide 28 (22-30) mmol/L Anion Gap 4 mmol/L BUN 17 (7-17) mg/dL Creatinine 0.71 (0.52-1.04) mg/dL Est GFR (CKD-EPI)AfAm >90 (>60 ml/min/1.73 sqM) Est GFR (CKD-EPI)NonAf 85 (>60 ml/min/1.73 sqM) Glucose 123 H (74-99) mg/dL Plasma Lactic Acid Jarred 1.4 (0.7-2.0) mmol/L Calcium 9.0 (8.4-10.2) mg/dL Total Bilirubin 0.8 (0.2-1.3) mg/dL AST 26 (14-36) U/L ALT 20 (4-34) U/L Alkaline Phosphatase 84 (38-126) U/L Total Protein 6.9 (6.3-8.2) g/dL Albumin 3.9 (3.5-5.0) g/dL Urine Color Urine Appearance (Clear) Urine pH (5.0-8.0) Ur Specific [place] (1.001-1.035) Urine Protein (Negative) Urine Glucose (UA) (Negative) Urine Ketones (Negative) Urine Blood (Negative) Urine Nitrite (Negative) Urine Bilirubin (Negative) Urine Urobilinogen (<2.0) mg/dL Ur Leukocyte Esterase (Negative) Urine RBC (0-5) /hpf Urine WBC (0-5) /hpf Ur Squamous Epith Cells (0-4) /hpf Amorphous Sediment (None) /hpf Urine Bacteria (None) /hpf Urine Mucus (None) /hpf Influenza Type A (PCR) (Not Detectd) Influenza Type B (PCR) (Not Detectd) RSV (PCR) (Not Detectd) SARS-CoV-2 (PCR) (Not Detectd) 11/10/23 11/10/23 Range/Units 00:12 03:04 WBC (3.8-10.6) k/uL RBC (3.80-5.40) m/uL Hgb (11.4-16.0) gm/dL Hct (34.0-46.0) % MCV (80.0-100.0) fL MCH (25.0-35.0) pg MCHC (31.0-37.0) g/dL RDW (11.5-15.5) % Plt Count (150-450) k/uL MPV Neutrophils % % Lymphocytes % % Monocytes % % Eosinophils % % Basophils % % Neutrophils # (1.3-7.7) k/uL Lymphocytes # (1.0-4.8) k/uL Monocytes # (0-1.0) k/uL Eosinophils # (0-0.7) k/uL Basophils # (0-0.2) k/uL Sodium (137-145) mmol/L Potassium (3.5-5.1) mmol/L Chloride (98-107) mmol/L Carbon Dioxide (22-30) mmol/L Anion Gap mmol/L BUN (7-17) mg/dL Creatinine (0.52-1.04) mg/dL Est GFR (CKD-EPI)AfAm (>60 ml/min/1.73 sqM) Est GFR (CKD-EPI)NonAf (>60 ml/min/1.73 sqM) Glucose (74-99) mg/dL Plasma Lactic Acid Jarred (0.7-2.0) mmol/L Calcium (8.4-10.2) mg/dL Total Bilirubin (0.2-1.3) mg/dL AST (14-36) U/L ALT (4-34) U/L Alkaline Phosphatase (38-126) U/L Total Protein (6.3-8.2) g/dL Albumin (3.5-5.0) g/dL Urine Color Yellow Urine Appearance Cloudy H (Clear) Urine pH 5.5 (5.0-8.0) Ur Specific [place] 1.022 (1.001-1.035) Urine Protein Negative (Negative) Urine Glucose (UA) Negative (Negative) Urine Ketones Negative (Negative) Urine Blood Negative (Negative) Urine Nitrite Negative (Negative) Urine Bilirubin Negative (Negative) Urine Urobilinogen <2.0 (<2.0) mg/dL Ur Leukocyte Esterase Negative (Negative) Urine RBC 1 (0-5) /hpf Urine WBC 2 (0-5) /hpf Ur Squamous Epith Cells 2 (0-4) /hpf Amorphous Sediment Rare H (None) /hpf Urine Bacteria Rare H (None) /hpf Urine Mucus Occasional H (None) /hpf Influenza Type A (PCR) Not Detected (Not Detectd) Influenza Type B (PCR) Not Detected (Not Detectd) RSV (PCR) Not Detected (Not Detectd) SARS-CoV-2 (PCR) Not Detected (Not Detectd) Disposition Clinical Impression: Fever, Myalgia Disposition: HOME SELF-CARE Condition: Good Instructions (If sedation given, give patient instructions): Fever in Adults (ED) Additional Instructions: Follow-up with PCP. Report back to ER with any new or worsening symptoms. Is patient prescribed a controlled substance at d/c from ED?: No Referrals: Tasha Leon DO [Primary Care Provider] - 1-2 days Time of Disposition: 03:46
[2023-11-10 03:29] LABS: Amorphous Sediment,Urine Rare /hpf; Appearance,Urine Cloudy (Clear); Bacteria,Urine Rare /hpf; Bilirubin,Urine Negative (Negative); Blood,Urine Negative (Negative); Color,Urine Yellow; Glucose,Urine (UA) Negative (Negative); Ketones,Urine Negative (Negative); Leukocyte Esterase,Urine Negative (Negative); Mucus,Urine Occasional /hpf; Nitrite,Urine Negative (Negative); PH, Urine 5.5 (5.0-8.0); Protein,Urine Negative (Negative); RBC,Urine 1 /hpf (0-5); Specific Gravity,Urine 1.022 (1.001-1.035); Squamous Epithelial Cell,Urine 2 /hpf (0-4); Urobilinogen,Urine <2.0 mg/dL (<2.0); WBC,Urine 2 /hpf (0-5)
[2023-11-10 04:01] VITALS: BP 138/78; PULSE 88; RESP 16; TEMP 98.7
== END 2023-11-10 03:58 | disposition home or self-care (01) ==
LOC: EC 23:28
DX: M79.10 Myalgia, unspecified site (principal); R50.9 Fever, unspecified; Z91.048 Other nonmedicinal substance allergy status
CPT/HCPCS: 36415; 71046; 80053; 81001; 83605; 85025; 87086; 87636; 96360; 96361; 99285